=== PATIENT | female | born 1955 | race Caucasian/White ===

== ENCOUNTER 2023-04-20 08:30 | Outpatient (OUT) | payer MEDICARE, OTHER, SELFPAY ==
--- NOTE | 2023-04-20 08:35 | CT_ITS ---
The [address] [address] Patient Name: DHEERAJ VAUGHN MRN: [id number] date: 1955 Sex: F Assigned Patient Location: CT Current Patient Location: CT Accession/Order Number: [id number] Exam Date: 04/20/2023 08:38 Report Date: 04/20/2023 09:04 At the request of: JUAN HAMILTON Procedure: CT chest wo con EXAM: CT chest wo con HISTORY: Abnormal CT Chest R93.89 TECHNIQUE: No IV contrast Dose reduction techniques were achieved by using automated exposure control and/or adjustment of mA and/or kV according to patient size and/or use of iterative reconstruction technique. COMPARISON:CT chest 11/10/2022 FINDINGS: THORACIC INLET: Unremarkable CHEST WALL/AXILLA: No axillary lymphadenopathy HEART: Heart size is normal. Mild calcification of the thoracic aorta. No aneurysm. No pericardial effusion MEDIASTINUM: No significant hilar or mediastinal lymphadenopathy. Incidental calcified mediastinal lymph nodes PLEURAL CAVITY: No pleural effusion or thickening is noted. LUNGS: No lobar consolidation. Mild emphysematous changes noted about the upper lobes. Mild to moderate bronchiolitis involving the right upper lobe, left upper lobe, lingula, right middle lobe and right lower lobe present previously with centrilobular nodular opacities. The findings may be inflammatory, infectious or may relate to hypersensitivity pneumonitis. No significant pulmonary parenchymal nodules noted. VISUALIZED UPPER ABDOMEN: Limited due to lack of intravenous contrast BONES: Degenerative change thoracic spine. CT/CT chest wo con IMPRESSION:No significant change in diffuse bronchiolitis. Mild emphysema. Electronically authenticated by: RADHA KLINE Date: 04/20/2023 09:04
== END 2023-04-20 08:31 | disposition home or self-care (01) ==
LOC: CT 08:30
PROVIDERS: PCP Internal Medicine; Visit Provider Internal Medicine
DX: R93.89 Abnormal findings on diagnostic imaging of other specified body structures (principal); J43.9 Emphysema, unspecified
CPT/HCPCS: 71250

== ENCOUNTER 2023-07-01 08:58 | Outpatient (OUT) | payer MEDICARE, OTHER, SELFPAY ==
--- NOTE | 2023-07-01 09:06 | XR_ITS ---
[address] [address] Patient Name: DHEERAJ VAUGHN MRN: [id number] date: 1955 Sex: F Assigned Patient Location: [facility] Current Patient Location: [facility] Accession/Order Number: [id number] Exam Date: 07/01/2023 09:10 Report Date: 07/01/2023 10:31 At the request of: JUAN HAMILTON Procedure: XR DEXA axial skeleton EXAMINATION: XR DEXA axial skeleton, 07/01/2023 9:10 AM EDT HISTORY: Estrogen Deficiency E28.39 COMPARISON: 2012, 2010. TECHNIQUE: Dual-energy X-ray absorptiometry (DEXA) bone density study performed for the axial skeleton. 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 Endotracheal T score -1.8. WHO classification: Osteopenia Lowest bone mineral density is in the left forearm radius measuring 0.509 g/sq cm. T score -2.9. WHO classification: Osteoporosis XR/XR DEXA axial skeleton IMPRESSION: Osteoporosis. High fracture risk Electronically authenticated by: CHRISTINE HU Date: 07/01/2023 10:31
== END 2023-07-01 08:59 | disposition home or self-care (01) ==
LOC: RAD 08:58
PROVIDERS: PCP Internal Medicine; Visit Provider Internal Medicine
DX: E28.39 Other primary ovarian failure (principal); M81.0 Age-related osteoporosis without current pathological fracture
CPT/HCPCS: 77080

== ENCOUNTER 2024-01-11 07:20 | Outpatient (OUT) | payer MEDICARE, OTHER, SELFPAY ==
--- OUTSIDE RECORDS SUMMARY | 2024-01-11 07:23 | XMS_ITS | CCD ---
Author Organization [facility] Care Team Providers Care Watermelon Inspector Name Role Phone Luis Garcia MD Primary Care Provider [phone] Unavailable Primary Care Provider UnavailLuis Mays II Primary Care Provider [phone] Luis Gacria MD Primary Care Provider [phone] Luis Garcia MD Primary Care Provider Luis Garcia II Primary Care Provider [phone] Luis Garcia II Primary Care Provider [phone] JOSE, DR MARTINEZ Consulting Unavailable JOSE, DR MARTINEZ Primary Care Unavailable JOSE, DR MARTINEZ Admitting Unavailable JOSE, DR MARTINEZ Attending Unavailable HUBERT, DR GIOVANA Mead Consulting Unavailable GARCIA, DR MARTINEZ Consulting Unavailable JOSE, DR MARTINEZ Primary Care Unavailable JOSE, DR MARTINEZ Admitting Unavailable JOSE, DR MARTINEZ Attending Unavailable GARCIA, DR MARTINEZ Consulting Unavailable GARCIA, DR MARTINEZ Primary Care Unavailable GARCIA, DR MARTINEZ Admitting Unavailable JOSE, DR MARTINEZ Attending Unavailable ZIDONALDO, DR GIOVANA Mead Consulting Unavailable SHANT MÉNDEZ Admitting Unavailable SHANT MÉNDEZ Attending Unavailable LUIS GARCIA II Primary Care Unavailable Luis Garcia II Primary Care Provider [phone] Luis Garcia MD Primary Care Provider [phone] LUIS GARCIA Primary Care Unavailable LUIS GARCIA Referring Unavailable LUIS GARCIA Referring Unavailable LUIS GARCIA Primary Care Unavailable Jose MCDANIEL MD, Daniel B Primary Care Provider [phone] SHANT MÉNDEZ Referring Unavailable LUIS GARCIA II Primary Care Unavailable SHANT MÉNDEZ Referring Unavailable LUIS GARCIA II Primary Care Unavailable VEL GALEANA Attending Unavailable LUIS GARCIA II Primary Care Unavailable KOLCZUN, SHANT C Referring Unavailable GARCIA II, LUIS B Primary Care Unavailable SHANT MÉNDEZ Attending Unavailable GARCIA II, LUIS B Primary Care Unavailable SHANT MÉNDEZ Attending Unavailable SELF Referring Unavailable GARCIA II, LUIS B Primary Care Unavailable HONEY, SHANT Torres Referring Unavailable GARCIA II, LUIS B Primary Care Unavailable SCOTCH, VEL Referring Unavailable GARCIA II, LUIS B Primary Care Unavailable SHANT MÉNDEZ Referring Unavailable GARCIA II, LUIS B Primary Care Unavailable SHANT MÉNDEZ Attending Unavailable SHANT MÉNDEZ Referring Unavailable GARCIA II, LUIS B Primary Care Unavailable SCOTCH, VEL Attending Unavailable GARCIA II, LUIS B Primary Care Unavailable SCOTCH, VEL Attending Unavailable GARCIA II, LUIS B Primary Care Unavailable HONEY, SHANT Torres Referring Unavailable GARCIA II, LUIS B Primary Care Unavailable SCOTCH, VEL Referring Unavailable GARCIA II, LUIS B Primary Care Unavailable SHANT MÉNDEZ Attending Unavailable GARCIA II, ULIS B Primary Care Unavailable SHANT MÉNDEZ Referring Unavailable GARCIA II, LUIS B Primary Care Unavailable MARGIE LAL Attending Unavailable MARGIE LAL Referring Unavailable LUIS GARCIA Attending Unavailable MARGIE LAL Attending Unavailable LUIS GARCIA Attending Unavailable LORENA PUENTES Attending Unavailable GARCIA, LUIS B Attending Unavailable Allergies Allergy Classification Reported Allergen(s) Allergy Type Date of Onset Reaction(s) Facility (10 sources) Chlorhexidine; Translations: [CHLORHEXIDINE] Drug Allergy 3 Rash [facility] Work Phone: (10 sources) oxyCODONE; Translations: [OXYCODONE] Drug Allergy 3 GI Upset [facility] Work Phone: (10 sources) Adhesive Tape-Silicones; Translations: [ADHESIVE TAPE-SILICONES] Drug Intolerance 3 Other: See Comments [facility] Work Phone: Medications Current Medications Medication Drug Class(es) Dates Sig (Normalized) Sig (Original) Aspirin-Acetaminophen -Caffeine (EXCEDRIN PO) (6 sources) take 2 tablets by mouth once daily Aspirin-Acetaminoph en-Caffeine (EXCEDRIN PO) Take 2 tablets by mouth daily 0 Active azithromycin 250 mg oral tablet (6 sources) Macrolide Antimicrobial Start: 05-08-2020 azithromycin (ZITHROMAX) 250 MG tablet Indications: Acute maxillary sinusitis, recurrence not specified Take 2 tabs (500 mg) on Day 1, and take 1 tab (250 mg) on days 2 through 5. 1 packet 0 05/08/2020 Active Chondroitin Sulfates / Glucosamine (6 sources) Glucosamine-Alexis yordan itin (GLUCOSAMINE CHONDR COMPLEX PO) Take by mouth 2 times daily 0 Active docosahexaenoic acid 120 mg / eicosapentaenoic acid 180 mg oral capsule (6 sources) take 1 capsule by mouth once daily [place]-3 Fatty Acids (FISH OIL) 1000 MG CAPS Take 1,000 mg by mouth daily 0 Active Multiple Vitamin (MULTI-VITAMIN DAILY PO) (6 sources) Multiple Vitamin (MULTI-VITAMIN DAILY PO) Take by mouth daily 0 Active nitrofurantoin, macrocrystals 25 mg / nitrofurantoin, monohydrate 75 mg oral capsule (1 source) Nitrofuran Antibacterial Start: 11-26-2022 End: 12-01-2022 take 1 capsule by mouth twice daily nitrofurantoin monohydrate and macrocrystal (MACROBID) 100 mg capsule Take 1 capsule by mouth twice daily for 5 days. 10 capsule 0 11/26/2022 12/01/2022 Active Comment on above: Take 1 capsule by [facility] for 5 days. risedronate sodium 35 mg oral tablet (2 sources) Start: 05-08-2020 End: 05-08-2021 risedronate (ACTONEL) 35 MG tablet Indications: Encounter for gynecological examination without abnormal finding , Encounter for preventive health examination , Osteopenia, unspecified location Take 1 tablet by mouth every 7 days 12 tablet 4 05/08/2020 05/08/2021 Active Completed/Discontinued Medications Medication Drug Class(es) Dates Sig (Normalized) Sig (Original) acetaminophen 500 mg oral tablet (19 sources) Start: 11-30-2022 take 2 tablets by mouth every eight hours as needed acetaminophen (TYLENOL EXTRA STRENGTH) 500 mg tablet Take 2 tablets by mouth every 8 hours as needed for pain. 0 11/30/2022 Active Start: 09-25-2021 End: 11-24-2022 take 2 tablets by mouth every eight hours as needed acetaminophen (TYLENOL EXTRA STRENGTH) 500 mg tablet Take 2 tablets by mouth every 8 hours as needed for pain. 0 09/29/2021 11/24/2022 Discontinued (Course of therapy completed) Comment on above: Take 2 tablets by [facility] every 8 hours as needed for pain. alendronic acid 70 mg oral tablet (1 source) Bisphosphonate Start: 0 End: 1 alendronate (FOSAMAX) 70 MG tablet Indications: Osteopenia, unspecified location Take 1 tablet by mouth every 7 days 12 tablet 1 07/30/2020 02/26/2021 Discontinued amoxicillin 500 mg oral tablet (15 sources) Penicillin-class Antibacterial Start: 2 End: 2 Amoxicillin 500 mg tablet Indications: Status post left hip replacement four tabs one hour prior to dental procedure and two tabs six hours after the dental procedure 12 tablet 1 05/27/2022 Active Comment on above: four tabs one hour p rior to dental procedure and two tabs six hours after the dental procedure Ascorbic Acid (20 sources) Vitamin C take 100 mg by mouth once daily Ascorbic Acid (VITAMIN C) 100 MG CHEW Take by mouth daily 0 Active ascorbic acid (V ITAMIN C ORAL) Take by mouth once daily. 0 Active Comment on above: Take by mouth once d aily. aspirin 81 mg delayed release oral tablet (10 sources) Platelet Aggregation Inhibitor, Nonsteroidal Anti-inflammatory Drug Start: 11-30-2022 End: 12-28-2022 take 1 tablet by mouth twice daily aspirin, enteric coated (ECOTRIN LOW STRENGTH) 81 mg EC tablet Indications: blood clot prevention Take 1 tablet by mouth twice daily for 28 days. 56 tablet 0 11/30/2022 Active Start: 09-29-2021 End: 11-24-2022 take 1 tablet by mouth twice daily aspirin, enteric coated (ECOTRIN LOW STRENGTH) 81 mg EC tablet Indications: blood clot prevention Take 1 tablet by mouth twice daily for 28 days. 56 tablet 0 09/29/2021 11/24/2022 Discontinued (Course of therapy completed) Comment on above: Take 1 tablet by [facility] twice daily for 28 days. cetirizine hydrochloride 10 mg oral tablet (20 sources) Histamine-1 Receptor Antagonist take 1 tablet by mouth once daily cetirizine (ZYRTEC) 10 mg tablet Take 10 mg by mouth once daily. 0 Active Comment on above: Take 10 mg by mouth once daily. docusate sodium 100 mg oral capsule (12 sources) Start: 12-01-19 take 1 capsule by mouth twice daily as needed for constipation docusate sodium (COLACE) 100 mg capsule Indications: constipation Take 1 capsule by mouth twice daily as needed for constipation. 60 capsule 0 11/30/2022 Active Start: 09-29-2021 End: 11-24-2022 take 1 capsule by mouth twice daily as needed for constipation docusate sodium (COLACE) 100 mg capsule Indications: constipation Take 1 capsule by mouth twice daily as needed for constipation. 60 capsule 0 09/29/2021 11/24/2022 Discontinued (Course of therapy completed) Comment on above: Take 1 capsule by [facility] twice daily as needed for constipation. Garlic preparation (20 sources) Non-Standardized Food Allergenic Extract garlic (GARLIQUE ORA L) Take by mouth once daily. 0 Active Garlic 10 MG CAP S Take by mouth daily 0 Active Comment on above: Take by mouth once d aily. glucosamine/msm/chondr oitin A (AEQDYLNACKX-RIITIX-FT M ORAL) (7 sources) End: 11-24-2022 glucosamine/msm/chondroiti n A ([id number]-[id number]-UGQ ORAL) Take by mouth once daily. 0 11/24/2022 Discontinued (Course of therapy completed) glucosamine/msm/ chondroitin A (VKSVIGYAVFF-FYAZJT-KHS ORAL) Take by mouth once daily. 0 Active Comment on above: Take by mouth once d aily. 10 ml lidocaine hydrochloride 10 mg/ml injection (1 source) Antiarrhythmic, Amide Local Anesthetic Start: 02-25-2023 End: 02-25-2023 lidocaine (PF) 10 mg/mL (1 %) 8 mL injection (XYLOCAINE) Start: 02-25-2023 End: 02-25-2023 lidocaine (PF) 10 mg/mL (1 % ) 8 mL injection (XYLOCAINE) multivit with calcium,iron,min (WOMEN'S MULTIPLE VITAMINS ORAL) (14 sources) multivit with calcium,iron,min (WOMEN'S MULTIPLE VITAMINS ORAL) Take by mouth once daily. 0 Active Comment on above: Take by mouth once d aily. AEYKM-0-QBB-EPA-DPA-FIS H OIL ORAL (14 sources) GCCRL-7-YMF-EPA- DPA-FI SH OIL ORAL Take by mouth once daily. 0 Active Comment on above: Take by mouth once d aily. oxyCODONE hydrochloride 5 mg oral tablet (7 sources) Opioid Agonist Start: End: take 1 tablet by mouth every four to six hours as needed oxyCODONE IR (ROXICODONE) 5 mg immediate release tablet Indications: S/P hip replacement, left Take 1-2 tablets by mouth every 4-6 hours as needed for pain 50 tablet 0 09/29/2021 11/24/2022 Discontinued (Side Effects) Comment on above: Take 1-2 tablets by mouth every 4-6 hours as needed for pain propranolol hydrochloride 20 mg oral tablet (20 sources) beta-Adrenergic Danielle Start: take 1 tablet by mouth twice daily propranolol (INDERAL) 20 mg tablet Take 20 mg by mouth twice daily. 0 09/04/2021 Active Comment on above: Take 20 mg by mouth twice daily. traMADol hydrochloride 50 mg oral tablet (5 sources) Opioid Agonist Start: take 1 tablet by mouth every four to six hours as needed for pain traMADol (ULTRAM) 50 mg tablet Indications: pain Take 1 tablet by mouth every 4-6 hours as needed for pain 50 tablet 0 11/30/2022 Active Comment on above: Take 1 tablet by [facility] every 4-6 hours as needed for pain 1 ml triamcinolone acetonide 40 mg/ml injection (1 source) Corticosteroid Start: End: triamcinolone acetonide 80 mg injection (KeNALog 40) Start: 02-25-2023 End: 02-25-2023 triamcinolone acetonide 80 m g injection (KeNALog 40) Problems Active Problems Problem Classification Problem Date Documented Date Episodic/Chronic Bacterial infection; unspecified site (1 source) Methicillin resistant Staphylococcus aureus infection; Translations: [Methicillin resistant Staphylococcus aureus infection, unspecified site] Episodic Cardiac dysrhythmias (17 sources) Supraventricular tachycardia; Translations: [Supraventricular tachycardia] Onset: 09-21-2021 09-21-2021 Chronic Chronic obstructive pulmonary disease and bronchiectasis (15 sources) Chronic obstructive lung disease; Translations: [Chronic obstructive pulmonary disease, unspecified] Onset: 09-21-2021 09-21-2021 Chronic Conduction disorders (14 sources) Incomplete right bundle branch block; Translations: [Unspecified right bundle-branch block] Onset: 09-21-2021 09-21-2021 Chronic Diabetes mellitus with complications (5 sources) Type 2 diabetes mellitus with hyperglycemia; Translations: [TYPE 2 DM W/HYPERGLYCEMIA] Onset: 04-28-2022 Chronic Disorders of lipid metabolism (1 source) Hyperchylomicronemia; 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] Onset: 04-29-2022 Chronic Osteoarthritis (20 sources) Osteoarthritis of left hip joint; Translations: [Unilateral primary osteoarthritis, left hip] Onset: 09-21-2021 09-29-2021 Chronic Other aftercare (15 sources) Patient encounter status; Translations: [Aftercare following joint replacement surgery] Onset: 10-23-2021 10-23-2021 Chronic Other aftercare (1 source) Aftercare following joint replacement surgery; Translations: [Aftercare following left hip joint replacement surgery] Onset: 10-23-2021 Chronic Other bone disease and musculoskeletal deformities (1 source) Osteopenia; Translations: [Other specified disorders of bone density and structure, unspecified site] Episodic Other connective tissue disease (20 sources) History of repair of hip joint; Translations: [Presence of left artificial hip joint] Onset: 10-23-2021 Chronic Other connective tissue disease (2 sources) Presence of right artificial hip joint; Translations: [S/P hip replacement, right] Onset: 11-30-2022 Chronic Other connective tissue disease (2 sources) Presence of left artificial hip joint; Translations: [Status post left hip replacement] Onset: 10-23-2021 Chronic Other endocrine disorders (4 sources) Hypoglycemia, unspecified; Translations: [HYPOGLYCEMIA UNSPECIFIED] Onset: 11-10-2022 Chronic Other nervous system disorders (1 source) Other acute postprocedural pain; Translations: [Postoperative pain] Onset: 11-30-2022 Episodic Other screening for suspected conditions (not mental disorders or infectious disease) (1 source) Abnormal findings on diagnostic imaging of other specified body structures; Translations: [ABNORML FIND DX IMG OTH BODY STRUC] Onset: 11-18-2022 Chronic Past or Other Problems Problem Classification Problem Date Documented Date Episodic/Chronic Diabetes mellitus without complication (1 source) Impaired glucose tolerance (oral); Translations: [IMPAIRED GLUCOSE TOLERANCE ORAL] Onset: 04-29-2022 Episodic Genitourinary symptoms and ill-defined conditions (2 sources) Increased frequency of urination; Translations: [Frequency of micturition] Onset: 11-24-2022 Episodic Other screening for suspected conditions (not mental disorders or infectious disease) (9 sources) Radiology result abnormal; Translations: [Abnormal findings on diagnostic imaging of other parts of musculoskeletal system] Onset: 11-24-2022 Episodic Residual codes; unclassified (1 source) Other specified health status; Translations: [OTHER SPECIFIED HEALTH STATUS] Onset: 04-29-2022 Episodic Screening and history of mental health and substance abuse codes (19 sources) Ex-smoker; Translations: [Personal history of nicotine dependence] Onset: 09-21-2021 09-21-2021 Episodic Results Test Name Value Interpretation Reference Range Facility [facility] 10-04-2023 CNOV Office Visit (LOORRM ) MARY VAUGHN ([id number]) 1955 F DEF Date Time Provider Department 10/04/23 10:30 AM VEL GALEANA During your visit today, we recorded the following information about you: Vel Galeana PA-C 10/04/2023 12:45 PM Signed This document has been created with the use of voice recognition technology. It may contain inaccuracies: misspellings, inaccurate syntax or word sense that escaped review. Chief complaint: Recheck of right and left hips Right THR 09/01/2022 (1 year) Left THR 09/17/2020 (3 years) HISTORY: Mary is a 68 year old female. Patient comes in today for follow up of her right and left hips thank you. Patient has a past medical history, medications and allergies were reviewed. She reports that she is doing great.. She states she is back to walking in the [place] with her dog and does not have to worry about whether she can pick her feet up enough to not trip. She is back to doing everything that she wants to and very excited about this. Her knee pain has not recurred since the injection in January. Pain level in all joints is 0. No other musculoskeletal complaints ROS : REVIEW OF SYMPTOMS: Constitutional: patient denies any recent fever or significant change in weight Gastrointestinal: patient denies any current abdominal discomfort Musculoskeletal: as noted in the HPI Neurologic: as noted in the HPI SOCIAL HISTORY: Tobacco Use: 1 packs/day, for 30 years. Quit 08/29/2010. Types: Cigarettes PAST MEDICAL HISTORY Diagnosis Date Deaf Osteoporosis Paroxysmal supraventricular tachycardia (HCC) PAST SURGICAL HISTORY Procedure Laterality Date COLONOSCOPY SCREENING PAST SURGICAL HISTORY OF Trigger finger TONSILLECTOMY HX TOOTH EXTRACTION wisdom teeth TOTAL HIP REPLACEMENT Left 2021 Medications reviewed. ALLERGIES Allergen Reactions Adhesive Tape-Silic* Other: See Comments blisters from Silverlon dressing Chlorhexidine Rash rash and itching from preop wipes Oxycodone GI Upset Social History Tobacco Use Smoking status: Former Packs/day: 1.00 Years: 30.00 Additional pack years: 0.00 Total pack years: 30.00 Types: Cigarettes Quit date: 2010 Years since quittin.1 Smokeless tobacco: Never Substance Use Topics Alcohol use: Not Currently Comment: denies tx for drug/alcohol abuse in the past. Drug use: Never EXAMINATION: GENERAL: Appears healthy, well-nourished, no deformities. ORIENTATION: Alert and oriented to person place and time HABITUS: Normal GAIT: Ambulating with normal gait On physical exam of the hips today, she has excellent hip range of motion bilaterally without irritability. No instability. Negative SLR for radicular symptoms. No significant tenderness. Neurovascular is intact. Rises from chair without difficulty. X-rays of the hips RADIOGRAPHS: Personally reviewed by myself demonstrating right and left THR components in satisfactory position with good interfaces noted. No evidence of wear or loosening. Leg lengths are essentially equal. IMPRESSION: Encounter Diagnosis ICD-10-CM 1. Status post right hip replacement Z96.641 XR PELVIS 1V AP Plan: She is doing great and is very pleased with her progress. Back to doing everything that she wants to. We discussed limitations such as no running or jumping as well as antibiotic prophylaxis. Follow-up in 1 year for annual recheck or sooner for the pain recurs. Vel Galeana PA-C October 04, 2023 10:48 AM Allergies As of Date: 10/04/2023 Noted Allergy Reaction ADHESIVE TAPE-SILICONES 11/24/2022 14 - Other: See Comments Comments: blisters from Silverlon dressing CHLORHEXIDINE 11/24/2022 2 - Rash Comments: rash and itching from preop wipes OXYCODONE 11/24/2022 8 - GI Upset Date Reviewed: 10/04/2023 Reviewed by: Mary Quigley MA - Fully Assessed Reason for Visit: Established Patient [175] Follow Up [171] Hip Replacement [324] Established Patient [175] Follow Up [171] Hip Replacement [324] Primary Visit Diagnosis:Status post right hip replacement [Z96.641] Other Visit Diagnosis:Status post left hip replacement [Z96.642] Order(s):XR PELVIS 1V AP [[id number]] Order #: [id number] FUTURE Prescriptions as of 10/04/2023 - docusate sodium (COLACE) 100 mg capsule Take 1 capsule by mouth twice daily as needed for constipation. - acetaminophen (TYLENOL EXTRA STRENGTH) 500 mg tablet Take 2 tablets by mouth every 8 hours as needed for pain. - traMADol (ULTRAM) 50 mg tablet Take 1 tablet by mouth every 4-6 hours as needed for pain - aspirin, enteric coated (ECOTRIN LOW STRENGTH) 81 mg EC tablet Take 1 tablet by mouth twice daily for 28 days. - Amoxicillin 500 mg tablet four tabs one hour prior to dental procedure and two tabs six hours after the dental procedure - [id number] ANTONIO OIL ORAL Take by mouth once daily. - multivit (more content not included)... [facility] XR PELVIS 1V APon 10-04-2023 XR PELVIS 1V AP * * *Final Report* * * DATE OF EXAM: Oct 04 2023 11:04AM LZX [id number] - XR PELVIS 1V AP / PROCEDURE REASON: Status post right hip replacement * * * * Physician Interpretation * * * * EXAM: XR PELVIS 1V AP HISTORY: Status post right hip replacement . status post bilateral hip replacement TECHNIQUE: XR PELVIS 1V AP Laterality: NOT APPLICABLE Number of different views (projections): 1 COMPARISON: 02/07/2023 RESULT: BONES: Stable bilateral total hip arthroplasties. No perihardware lucency or fracture. No subsidence of the femoral components. JOINT SPACES: Joint spaces are maintained. No dislocation or erosion. SOFT TISSUES: Scattered foci of heterotopic ossification about the right hip. IMPRESSION: Stable bilateral hip arthroplasties. Extension Work Director: EFRAIN Transcribe Date/Time: Oct 04 2023 3:37P Dictated by : JAYE PAYTON MD This examination was interpreted and the report reviewed and electronically signed by: JAYE PAYTON MD on Oct 04 2023 3:39PM EST [id number] Normal [facility] EDITH HERMINIA DIGITAL SCREEN BILA LASHANDAALon 04-18-2023 EDITH HERMINIA DIGITAL SCREEN BILATERAL EXAMINATION: SCREENING DIGITAL BILATERAL MAMMOGRAM WITH TOMOSYNTHESIS, 04/18/2023 TECHNIQUE: Screening mammography was performed with tomosynthesis including MLO and CC views of the bilateral breasts. Computer aided detection was used for the interpretation of this exam. COMPARISON: 2022 and February 26, 2021 HISTORY: Screening. FINDINGS: The breasts are heterogeneously dense which can obscure small masses. There is no dominant mass architectural distortion or concerning grouping of microcalcification in either breast. IMPRESSION: No mammographic evidence of malignancy BIRADS: BIRADS - CATEGORY 1 Negative. Normal interval follow-up is recommended in 12 months. OVERALL ASSESSMENT - NEGATIVE A letter of notification will be sent to the patient regarding the results. [employer] recommends annual mammograms for women 40 years and older. Interpreted by: Timothy Rodriguez DO Signed by: Timothy Rodriguez DO 04/18/23 Final result Normal [facility] No mammographic evidence of malignancy BIRADS: BIRADS - CATEGORY 1 Negative. Normal interval follow-up is recommended in 12 months. OVERALL ASSESSMENT - NEGATIVE A letter of notification will be sent to the patient regarding the results. [employer] recommends annual mammograms for women 40 years and older. [facility] RIS CONSOLIDATED EXAMINATION: SCREENING DIGITAL BILATERAL MAMMOGRAM WITH TOMOSYNTHESIS, 04/18/2023 TECHNIQUE: Screening mammography was performed with tomosynthesis including MLO and CC views of the bilateral breasts. Computer aided detection was used for the interpretation of this exam. COMPARISON: 2022 and February 26, 2021 HISTORY: Screening. FINDINGS: The breasts are heterogeneously dense which can obscure small masses. There is no dominant mass architectural distortion or concerning grouping of microcalcification in either breast. PN RIS CONSOLIDATED Radiology Study observation (narrative) [employer] EDITH HERMINIA DIGITAL SCREEN BILA TERALOrdered By: Timothy Rodriguez on 04-18-2023 [employer] Work Phone: [facility]on 02-25-2023 CNOV Office Visit (LOORRM ) MARY VAUGHN ([id number]) 1955 F DEF Date Time Provider Department 02/25/23 12:00 PM SHANT MÉNDEZ During your visit today, we recorded the following information about you: Shant Méndez II, MD 02/25/2023 3:42 PM Signed Large Joint Arthro/Inj: R knee joint Informed Consent Consent Obtained: Verbal [place] Protocol A moment to CARE was completed. SIGN IN Personnel directly involved with the procedure wore the appropriate PPE. Special Equipment: N/A Patient/Surrogate Stated/Verified: Patient name, Date of , Relevant allergies and Intended procedure TIME OUT Intended patient and procedure match the source document(s). Consent documented and matches the intended procedure. Relevant labs, photos, and/or imaging studies have been reviewed. Correct side/site marked and visible. Medications required for procedure verified. 02/25/2023 3:41 PM The procedure site was prepped in the usual sterile fashion. Site: R knee joint Medications: 80 mg triamcinolone acetonide 40 mg/mL Anesthetics: 8 mL lidocaine (PF) 10 mg/mL (1 %) Outcome: Tolerated well, no immediate complications Post-injection instructions were reviewed with the patient and the patient voiced understanding of these instructions. Third alliance party verified by Mary Quigley MA. Referring Provider: SELF [[id number]] Allergies As of Date: 02/25/2023 Noted Allergy Reaction ADHESIVE TAPE-SILICONES 11/24/2022 14 - Other: See Comments Comments: blisters from Silverlon dressing CHLORHEXIDINE 11/24/2022 2 - Rash Comments: rash and itching from preop wipes OXYCODONE 11/24/2022 8 - GI Upset Date Reviewed: 02/07/2023 Reviewed by: Shant Méndez MD - Fully Assessed Primary Visit Diagnosis:Primary osteoarthritis of right knee [M17.11] Order(s):XR KNEE GENERAL 4V AP BOTH/PA BOTH/LAT/MERC RIGHT [[id number]] Order #: [id number] FUTURE Large Joint Arthro/Inj: R knee joint [YKV558] Order #: [id number] [] lidocaine (PF) 10 mg/mL (1 %) 8 mL injection (XYLOCAINE)Disp: Rfl: [] triamcinolone acetonide 80 mg injection (KeNALog 40)Disp: Rfl: Prescriptions as of 02/25/2023 - docusate sodium (COLACE) 100 mg capsule Take 1 capsule by mouth twice daily as needed for constipation. - acetaminophen (TYLENOL EXTRA STRENGTH) 500 mg tablet Take 2 tablets by mouth every 8 hours as needed for pain. - traMADol (ULTRAM) 50 mg tablet Take 1 tablet by mouth every 4-6 hours as needed for pain - aspirin, enteric coated (ECOTRIN LOW STRENGTH) 81 mg EC tablet Take 1 tablet by mouth twice daily for 28 days. - Amoxicillin 500 mg tablet four tabs one hour prior to dental procedure and two tabs six hours after the dental procedure - MJEGA-4-WSD-EPA-DPA-F ANTONIO OIL ORAL Take by mouth once daily. - multivit with calcium,iron,min (WOMEN'S MULTIPLE VITAMINS ORAL) Take by mouth once daily. - ascorbic acid (VITAMIN C ORAL) Take by mouth once daily. - propranolol (INDERAL) 20 mg tablet Take 20 mg by mouth twice daily. - garlic (GARLIQUE ORAL) Take by mouth once daily. - cetirizine (ZYRTEC) 10 mg tablet Take 10 mg by mouth once daily. Problem List As Of Date 02/25/2023 Noted Resolved Primary osteoarthritis of left hip [M16.12] 09/21/2021 Emphysema of lung (HCC) [J43.9] 09/21/2021 Former smoker [Z87.891] 09/21/2021 SVT (supraventricular tachycardia) ([facility]) [I47.1]09/21/2021 Incomplete RBBB [I45.10] 09/21/2021 Aftercare following left hip joint replacement *10/23/2021 Status post left hip replacement [Z96.642] 10/23/2021 Primary osteoarthritis of right hip [M16.11] 10/23/2021 Status post right hip replacement [Z96.641] 12/22/2022 Prescriptions ordered this encounter Disp Refills Start End LIDOCAINE (PF) 10 MG/ML (1 %) INJECT* 02/25/2023 02/25/2023 Route: Inj-ORTHO TRIAMCINOLONE ACETONIDE 40 MG/ML SUSAN* 02/25/2023 02/25/2023 Route: Inj-ORTHO Encounter Status:Closed by SHANT MÉNDEZ II on 02/25/23 [facility] XR KNEE 4V AP/PA BOTH+LAT/ME R RTon 02-25-2023 XR KNEE 4V AP/PA BOTH+LAT/ARNOLD RT * * *Final Report* * * DATE OF EXAM: Feb 25 2023 1:56PM LZX 5203 - XR KNEE 4V AP/PA BOTH+LAT/ARNOLD RT / PROCEDURE REASON: Primary osteoarthritis of right knee * * * * Physician Interpretation * * * * EXAMINATION: XR KNEE 4V AP/PA BOTH+LAT/ARNOLD RT PATIENT/TECHNOLOGIST PROVIDED HISTORY: pain rt knee CLINICAL INFORMATION ( PROVIDED BY ORDERING CLINICIAN) : Primary osteoarthritis of right knee TECHNIQUE: XR KNEE 4V AP/PA BOTH+LAT/ARNOLD RT Laterality: RIGHT Number of different views (projections): 4 M: XB_1 COMPARISON: 02/07/2023 RESULT: No acute fracture or dislocation. Mild tricompartment joint space narrowing similar to the prior exam. Chondrocalcinosis is again seen. No joint effusion. IMPRESSION: Mild osteoarthritis and chondrocalcinosis of the right knee without interval change. Extension Work Director: PSCB Transcribe Date/Time: Feb 25 2023 2:28P Dictated by : BROOKS SOLO MD This examination was interpreted and the report reviewed and electronically signed by: BROOKS SOLO MD on Feb 25 2023 2:29PM EST [id number] N [facility] XR KNEE GENERAL 4V AP BOTH/P A BOTH/LAT/MERC RIGHTon 02-25-[address] [facility] ic CNOVon 02-07-2023 CNOV Office Visit (LOORRM ) MARY VAUGHN ([id number]) 1955 F DEF Date Time Provider Department 02/07/23 2:00 PM SHANT MÉNDEZ During your visit today, we recorded the following information about you: Shant Méndez II, MD 02/10/2023 2:28 PM Signed [facility] [address] [place] [address] CLINIC NOTE Department of Orthopaedics - Jose Eduardo Méndez II, M.D. NAME: GENE VAUGHNA CLINIC NO.: [id number] DATE OF SERVICE: 02/07/2023 CHIEF COMPLAINT: Recheck of right knee and both hips. Right THR, 11/30/2022 - 2 months. Left THR to 09/17/2021 - 1 year plus new. The patient is having pain in her right knee for the last 2 months. She fell in the grass on 01/12/2023, at home, catching her foot on the sidewalk. She has now been walking on the backyard [place], taking her new [place] the [place]. Has a 1 plus effusion of the right knee. No gross ligamentous instability. Neurovascularly intact. Recommend walk on the driveway and no walking on even ground. No significant problems with her right hip. X-rays shows total hip replacements, bilateral in excellent position. See back in 1 month. Dictated By: Shant Méndez II, M.D. Date Dictated: 02/07/2023 Date Typed: kenneth 02/08/2023 JOB# [id number] Shant Méndez II, MD 02/22/2023 1:48 PM Signed see dictated note Shant Méndez II, MD Spouting Installer: Transcribed Clinic Note (gilberto) ID: [id number] Author: SHANT MÉNDEZ Signed by SHANT MÉNDEZ MD on 02/10/2023 at 2:28 PM Document text: [facility] [address] [place], [place] [address] CLINIC NOTE Department of Orthopaedics - Jose Eduardo Méndez II, M.D. NAME: MARY VAUGHN [facility] NO.: [id number] DATE OF SERVICE: 02/07/2023 CHIEF COMPLAINT: Recheck of right knee and both hips. Right THR, 11/30/2022 - 2 months. Left THR to 09/17/2021 - 1 year plus new. The patient is having pain in her right knee for the last 2 months. She fell in the grass on 01/12/2023, at home, catching her foot on the sidewalk. She has now been walking on the [place], [place]. Has a 1 plus effusion of the right knee. No gross ligamentous instability. Neurovascularly intact. Recommend walk on the driveway and no walking on even ground. No significant problems with her right hip. X-rays shows total hip replacements, bilateral in excellent position. See back in 1 month. Dictated By: Shant Méndez II, M.D. Date Dictated: 02/07/2023 Date Typed: kenneth 02/08/2023 JOB# [id number] ----- Referring Provider: SELF [200] Allergies As of Date: 02/07/2023 Noted Allergy Reaction ADHESIVE TAPE-SILICONES 11/24/2022 14 - Other: See Comments Comments: blisters from Silverlon dressing CHLORHEXIDINE 11/24/2022 2 - Rash Comments: rash and itching from preop wipes OXYCODONE 11/24/2022 8 - GI Upset Date Reviewed: 02/07/2023 Reviewed by: Shant Méndez MD - Fully Assessed Primary Visit Diagnosis:Status post right hip replacement [Z96.641] Other Visit Diagnoses:Status post left hip replacement [Z96.642] Primary osteoarthritis of right knee [M17.11] Order(s):XR KNEE GENERAL 4V AP BOTH/PA BOTH/LAT/MERC RIGHT [[id number]] Order #: [id number] FUTURE XR PELVIS 1V AP [[id number]] Order #: [id number] FUTURE Prescriptions as of 02/22/2023 - docusate sodium (COLACE) 100 mg capsule Take 1 capsule by mouth twice daily as needed for constipation. - acetaminophen (TYLENOL EXTRA STRENGTH) 500 mg tablet Take 2 tablets by mouth every 8 hours as needed for pain. - traMADol (ULTRAM) 50 mg tablet Take 1 tablet by mouth every 4-6 hours as needed for pain - aspirin, enteric coated (ECOTRIN LOW STRENGTH) 81 mg EC tablet Take 1 tablet by mouth twice daily for 28 days. - Amoxicillin 500 mg tablet four tabs one hour prior to dental procedure and two tabs six hours after the dental procedure - YOPHV-6-SWX-EPA-DPA-F ANTONIO OIL ORAL Take by mouth once daily. - multivit with calcium,iron,min (WOMEN'S MULTIPLE VITAMINS ORAL) Take by mouth once daily. - ascorbic acid (VITAMIN C ORAL) Take by mouth once daily. - propranolol (INDERAL) 20 mg tablet Take 20 mg by mouth twice daily. - garlic (GARLIQUE ORAL) Take by mouth once daily. - cetirizine (ZYRTEC) 10 mg tablet Take 10 mg by mouth once daily. Problem List As Of Date 02/07/2023 Noted Resolved Primary osteoarthritis of left hip [M16.12] 09/21/2021 Emphysema of lung (HCC) [J43.9] 09/21/2021 Former smoker [Z87.891] 09/21/2021 SVT (supraventricular tachycardia) ([facility]) [I47.1]09/21/2021 Incomplete RBBB [I45.10] 09/21/2021 Aftercare following left hip joint replacement *10/23/2021 Status post left hip replacement [Z96.642] 10/23/2021 Primary osteoarthritis of ri (more content not included)... [facility] No Panel Informationon 02-07 [facility] XR KNEE 4V AP/PA BOTH+LAT/ME R RTon 02-07-2023 XR KNEE 4V AP/PA BOTH+LAT/ARNOLD RT * * *Final Report* * * DATE OF EXAM: Feb 07 2023 2:15PM LZX 5203 - XR KNEE 4V AP/PA BOTH+LAT/ARNOLD RT / PROCEDURE REASON: Primary osteoarthritis of right knee * * * * Physician Interpretation * * * * HISTORY: Primary osteoarthritis of right knee . Post op hips, pain in right knee TECHNIQUE: XR KNEE 4V AP/PA BOTH+LAT/ARNOLD RT COMPARISON: None RESULT: Mild medial and mild to moderate patellofemoral compartment narrowing bilaterally. Chondrocalcinosis bilaterally. No fractures. No joint effusion. Normal soft tissues. No other significant abnormality. --- IMPRESSION: MILD DEGENERATIVE CHANGES Extension Work Director: EFRAIN Transcribe Date/Time: Feb 07 2023 2:56P Dictated by : LANA CONNOLLY MD This examination was interpreted and the report reviewed and electronically signed by: LANA CONNOLLY MD on Feb 07 2023 2:58PM EST [id number] N [facility] XR PELVIS 1V APon 02-07-2023 XR PELVIS 1V AP * * *Final Report* * * DATE OF EXAM: Feb 07 2023 2:15PM LZX 5239 - XR PELVIS 1V AP / PROCEDURE REASON: multiple diagnoses * * * * Physician Interpretation * * * * HISTORY: Status post right hip replacement Status post left hip replacement . Post op hips, pain in right knee TECHNIQUE: XR PELVIS 1V AP COMPARISON: 12/22/2022 RESULT: No significant interval change. Status post bilateral total hip arthroplasties. Hardware in normal position without evidence of failure or loosening. No evidence of a fracture. The superior pelvis is not visualized. No other significant abnormality. --- IMPRESSION: NORMAL POSTOPERATIVE FINDINGS Extension Work Director: EFRAIN Transcribe Date/Time: Feb 07 2023 2:58P Dictated by : LANA CONNOLLY MD This examination was interpreted and the report reviewed and electronically signed by: LANA CONNOLLY MD on Feb 07 2023 2:59PM EST [id number] N [facility] CNOVon 01-14-2023 CNOV Office Visit (LOORRM ) MARY VAUGHN ([id number]) 1955 F DEF Date Time Provider Department 01/14/23 12:00 PM SHANT MÉNDEZ During your visit today, we recorded the following information about you: Shant Méndez II, MD 01/14/2023 4:03 PM Signed see dictated note Shant Méndez II, MD Referring Provider: SELF [200] Allergies As of Date: 01/14/2023 Noted Allergy Reaction ADHESIVE TAPE-SILICONES 11/24/2022 14 - Other: See Comments Comments: blisters from Silverlon dressing CHLORHEXIDINE 11/24/2022 2 - Rash Comments: rash and itching from preop wipes OXYCODONE 11/24/2022 8 - GI Upset Date Reviewed: 01/14/2023 Reviewed by: Mary Quigley MA - Fully Assessed Reason for Visit: Established Patient [175] Hip Replacement [324] Post Op [174] Primary Visit Diagnosis:Status post right hip replacement [Z96.641] Other Visit Diagnosis:Status post left hip replacement [Z96.642] Prescriptions as of 01/14/2023 - docusate sodium (COLACE) 100 mg capsule Take 1 capsule by mouth twice daily as needed for constipation. - acetaminophen (TYLENOL EXTRA STRENGTH) 500 mg tablet Take 2 tablets by mouth every 8 hours as needed for pain. - traMADol (ULTRAM) 50 mg tablet Take 1 tablet by mouth every 4-6 hours as needed for pain - aspirin, enteric coated (ECOTRIN LOW STRENGTH) 81 mg EC tablet Take 1 tablet by mouth twice daily for 28 days. - Amoxicillin 500 mg tablet four tabs one hour prior to dental procedure and two tabs six hours after the dental procedure - STEPY-4-EIB-EPA-DPA-F ANTONIO OIL ORAL Take by mouth once daily. - multivit with calcium,iron,min (WOMEN'S MULTIPLE VITAMINS ORAL) Take by mouth once daily. - ascorbic acid (VITAMIN C ORAL) Take by mouth once daily. - propranolol (INDERAL) 20 mg tablet Take 20 mg by mouth twice daily. - garlic (GARLIQUE ORAL) Take by mouth once daily. - cetirizine (ZYRTEC) 10 mg tablet Take 10 mg by mouth once daily. Problem List As Of Date 01/14/2023 Noted Resolved Primary osteoarthritis of left hip [M16.12] 09/21/2021 Emphysema of lung (HCC) [J43.9] 09/21/2021 Former smoker [Z87.891] 09/21/2021 SVT (supraventricular tachycardia) ([facility]) [I47.1]09/21/2021 Incomplete RBBB [I45.10] 09/21/2021 Aftercare following left hip joint replacement *10/23/2021 Status post left hip replacement [Z96.642] 10/23/2021 Primary osteoarthritis of right hip [M16.11] 10/23/2021 Status post right hip replacement [Z96.641] 12/22/2022 Encounter Status:Closed by SHANT MÉNDEZ II on 01/14/23 [facility] 12-22-2022 [facility] Office Visit (LOORRM ) MARY VAUGHN ([id number]) 1955 F DEF Date Time Provider Department 12/22/22 10:30 AM VEL GALEANA During your visit today, we recorded the following information about you: Vel Galeana PA-C 12/22/2022 11:35 AM Signed This document has been created with the use of voice recognition technology. It may contain inaccuracies such as misspellings, inaccurate syntax or word sense that escaped review. Chief complaint: Recheck of right hip Right THR 11/30/2022 (3 weeks) Left THR 09/29/2021 (1 year) HISTORY: Mary is a 67 year old female. Patient comes in today for follow up of her right hip postoperatively. She reports that she is doing quite well. She states pain is well controlled with no medication. Did have some GI upset for the first couple of weeks. Making good progress with physical therapy. Pain level 0/10. No other musculoskeletal complaints PAST MEDICAL HISTORY Diagnosis Date Deaf Osteoporosis Paroxysmal supraventricular tachycardia (HCC) PAST SURGICAL HISTORY Procedure Laterality Date COLONOSCOPY SCREENING PAST SURGICAL HISTORY OF Trigger finger TONSILLECTOMY HX TOOTH EXTRACTION wisdom teeth TOTAL HIP REPLACEMENT Left 2021 Medications reviewed. ALLERGIES Allergen Reactions Adhesive Tape-Silic* Other: See Comments blisters from Silverlon dressing Chlorhexidine Rash rash and itching from preop wipes Oxycodone GI Upset Social History Tobacco Use Smoking status: Former Packs/day: 1.00 Years: 30.00 Pack years: 30.00 Types: Cigarettes Quit date: 2010 Years since quittin.3 Smokeless tobacco: Never Substance Use Topics Alcohol use: Not Currently Comment: denies tx for drug/alcohol abuse in the past. Drug use: Never EXAMINATION: GENERAL: Appears healthy, well-nourished, no deformities. ORIENTATION: Alert and oriented to person place and time HABITUS: Normal GAIT: Ambulates with a slight flat-footed short stance gait with her cane but can correct this when she concentrates and ambulates with a perfectly normal gait with and without her cane. On physical exam of the right hip today, Appearance: No warmth or redness, wound is healing satisfactorily with no sign of infection. Calf is soft and nontender. Negative Homans. Tenderness: Moderate tightness and tenderness of the soft tissues of the lateral hip Swelling: Minimal swelling of the lateral hip itself, no swelling distally Range of motion: Tolerates gentle hip motion easily, with just tightness at extremes RADIOGRAPHS: Personally reviewed by myself and with the patient today demonstrating left THR components in satisfactory position with good interfaces noted. No evidence of wear or loosening. Leg lengths are essentially equal. No other osseous abnormalities. IMPRESSION: Encounter Diagnosis ICD-10-CM 1. Aftercare following left hip joint replacement surgery Z47.1 XR PELVIS 1V AP Z96.642 2. Status post right hip replacement Z96.641 She is doing quite well and is pleased with her progress. She may advance her weightbearing as tolerated. We discussed walking for exercise to build her stamina and paying attention to her gait. Discussed tissue massage. Follow-up in 3 weeks for 6-week recheck. Vel Galeana PA-C December 22, 2022 11:02 AM Vel Galeana PA-C 12/22/2022 11:04 AM Signed Continue Physical Therapy Walk twice a day for exercise paying attention to your gait. Heel to toe and longer strides. You may wash the incision and treat like normal skin. Tissue massage to the skin around the incision to loosen it up, 2 minutes multiple times a day. You may use lotion on the incision/glue several times a day to soften the glue. Do not pick at the scabs. Let them fall off on their own. You may use heat on a low setting to relax tissues. Use Ice after activity/exercise. Heat loosen things up, Ice quiets things down. Referring Provider: SELF [200] Allergies As of Date: 12/22/2022 Noted Allergy Reaction ADHESIVE TAPE-SILICONES 11/24/2022 14 - Other: See Comments Comments: blisters from Silverlon dressing CHLORHEXIDINE 11/24/2022 2 - Rash Comments: rash and itching from preop wipes OXYCODONE 11/24/2022 8 - GI Upset Date Reviewed: 12/22/2022 Reviewed by: Vel Galeana PA-C - Fully Assessed Reason for Visit: Established Patient [175] Post Op [174] Primary Visit Diagnosis:Aftercare following left hip joint replacement surgery [Z47.1, Z96.642] Other Visit Diagnosis:Status post right hip replacement [Z96.641] Order(s):XR PELVIS 1V AP [[id number]] Order #: [id number] FUTURE Prescriptions as of 12/22/2022 - docusate sodium (COLACE) 100 mg capsule Take 1 capsule by mouth twice daily as needed for constipation. - acetaminophen (TYLENOL EXTRA STRENGTH) 500 mg tablet Take 2 tablets by mouth every 8 hours as needed for pain. - traMADol (ULT (more content not included)... [facility] XR PELVIS 1V APon 12-22-2022 XR PELVIS 1V AP * * *Final Report* * * DATE OF EXAM: Dec 22 2022 10:39AM LZX 5239 - XR PELVIS 1V AP / PROCEDURE REASON: multiple diagnoses * * * * Physician Interpretation * * * * HISTORY: Aftercare following left hip joint replacement surgery Aftercare following left hip joint replacement surgery . f/u rt hip replacement TECHNIQUE: XR PELVIS 1V AP COMPARISON: 11/30/2022 RESULT: Bilateral total hip arthroplasties, normal in appearance and unchanged. Interval resolution of soft tissue gas around the right hip. Degenerative changes of the pubic symphysis and left sacroiliac joint. No fractures. Superior portion of the pelvis is not visualized on this examination. No other significant abnormality. --- IMPRESSION: NORMAL POSTOPERATIVE FINDINGS Extension Work Director: PSCB Transcribe Date/Time: Dec 22 2022 12:22P Dictated by : LANA CONNOLLY MD This examination was interpreted and the report reviewed and electronically signed by: LANA CONNOLLY MD on Dec 22 2022 12:23PM EST [id number] N [facility] ic ANES POSTPROC EVALon 023 ANES POSTPROC EVAL HNO ID: [id number] Author: Alejandro Sauceda MD Service: Anesthesiology Author Type: Anesthesiologist Type: Anesthesia Postprocedure Evaluation Filed: 11/30/2022 3:48 PM Note Text: POST ANESTHESIA EVALUATION NOTE : 1955 Procedure Summary Date: 11/30/22 Room / Location: AV OR04 / AV OR Anesthesia Start: 1120 Anesthesia Stop: 1410 Procedure: ARTHROPLASTY REPLACE JOINT TOTAL HIP ABA HSD (Right: Hip) Diagnosis: Primary osteoarthritis of right hip (Primary osteoarthritis of right hip [M16.11]) Surgeons: Shant Méndez MD Responsible Provider: Alejandro Sauceda MD Anesthesia Type: MAC ASA Status: 3 Anesthesia Type: MAC Last Vitals Vitals Value Taken Time BP 113/68 11/30/22 1530 Temp 36.3 ?C (97.4 ?F) 11/30/22 1407 Pulse 66 11/30/22 1547 Resp 14 11/30/22 1547 SpO2 95 % 11/30/22 1547 Vitals shown include unvalidated device data. Post Anesthesia Patient Status Patient Evaluation: bedside. Anticipated Disposition: inpatient floor planned admission. Neurological Status: aware and responsive. Pulmonary Status: breathing comfortably on supplemental oxygen Airway Control: returned to baseline unsupported. Cardiovascular Status: stable. Pain Management: clinically adequate Postoperative Hydration: acceptable. Intraoperative Events: no significant anesthesia events Post Operative Nausea/Vomiting Status: no significant post operative nausea or vomiting Recommendation: continue current plan of care. Anesthesia Observations No Documentation SIGNATURE: Alejandro Sauceda MD PATIENT NAME: Mary Vaughn DATE: November 30, 2022 TIME: 3:48 PM CSN: [id number] [facility] ANES PRE-OPon 11-30-2022 ANES PRE-OP HNO ID: [id number] Author: Alejandro Sauceda MD Service: Anesthesiology Author Type: Anesthesiologist Type: Anesthesia Preprocedure Evaluation Filed: 11/30/2022 10:28 AM Note Text: ANESTHESIOLOGY DAY OF SURGERY NOTE : 1955 Procedure Information Date/Time: 11/30/22 1100 Procedure: ARTHROPLASTY REPLACE JOINT TOTAL HIP ABA HSD (Right: Hip) Location: OR04 / OR Surgeons: Shant Méndez MD Estimated body mass index is 25.82 kg/m? as calculated from the following: Height as of 11/24/22: 167.6 cm (5' 6 ). Weight as of 11/24/22: 72.6 kg (160 lb). Most recent hematocrit and potassium results: Hematocrit 46.8 11/24/2022 Potassium 4.8 11/24/2022 Relevant Problems CARDIO (+) Incomplete RBBB (+) SVT (supraventricular tachycardia) (HCC) PULMONARY (+) Emphysema of lung (HCC) I - PHYSICAL EVALUATION AIRWAY Patient intubated: No. Tracheostomy tube not present Mallampati: II. TM distance: >3 FB. Neck ROM: full ROM without neurological symptoms. Mouth opening: adequate. Short neck: no. Thick neck: no DENTAL Dental findings: teeth intact. Additional exam findings: no II - ANESTHESIA PLAN ASA Score: 3 Anesthetic Plan: MAC The patient is not a current smoker. NPO Status: adequate Beta Danielle Monitoring Plan Monitoring plan: standard ASA. Post Procedure Analgesic Plan Postoperative analgesic plan: multimodal analgesia. Patient / Surrogate agrees to blood products: blood products not planned DNR status not reviewed with patient and/or family prior to surgery. Significant changes in the patient condition since the History and Physical, not otherwise documented in primary service progress note: no. Potential Anesthesia issues that may suggest increased risk of complications or contraindication to planned procedure: none. Vitals Value Taken Time BP 119/66 11/30/22927 Pulse Resp 18 11/30/22927 Temp 36.6 ?C (97.8 ?F) 11/30/22927 SpO2 98 % 11/30/22927 Facility-Administered Medications as of 11/30/2022 Medication Dose Route Frequency - [COMPLETED] acetaminophen 1,000 mg tab(s) (TYLENOL) 1,000 mg ORAL Pre-Op Once - [COMPLETED] meloxicam 7.5 mg tab(s) (MOBIC) 7.5 mg ORAL Pre-Op Once - lidocaine (PF) 10 mg/mL (1 %) 1-2 mg injection (XYLOCAINE) 0.1-0.2 mL INTRADERMAL PRN - lactated ringers iv infusion 5-30 mL/hr INTRAVENOUS CONTINUOUS - NaCl 0.9% iv flush bag 20 mL INTRAVENOUS PRN - ceFAZolin iv piggyback 2 g in D5W (iso-osmotic) 100 mL (ANCEF) 2 g INTRAVENOUS Pre-Op Once - tranexamic acid (CYKLOKAPRON) in NaCl 0.7% 1,000 mg 100 mL 1,000 mg INTRAVENOUS Pre-Op Once - tranexamic acid (CYKLOKAPRON) in NaCl 0.7% 1,000 mg 100 mL 1,000 mg INTRAVENOUS ONCE - [COMPLETED] dexAMETHasone sodium phosphate (PF) 8 mg injection (DECADRON) 8 mg INTRAVENOUS Pre-Op Once - [COMPLETED] promethazine 12.5 mg tab(s) (PHENERGAN) 12.5 mg ORAL Pre-Op Once Outpatient Medications as of 11/30/2022 Medication Sig - propranolol (INDERAL) 20 mg tablet Take 20 mg by mouth twice daily. - cetirizine (ZYRTEC) 10 mg tablet Take 10 mg by mouth once daily. - Amoxicillin 500 mg tablet four tabs one hour prior to dental procedure and two tabs six hours after the dental procedure - [id number]-7-TDK-EPA-DPA-F ANTONIO OIL ORAL Take by mouth once daily. - multivit with calcium,iron,min (WOMEN'S MULTIPLE VITAMINS ORAL) Take by mouth once daily. - ascorbic acid (VITAMIN C ORAL) Take by mouth once daily. - garlic (GARLIQUE ORAL) Take by mouth once daily. I have interviewed and examined the patient. I have reviewed the medical record and/or the pre-anesthesia evaluation, pertinent labs, and test results. This contains updated information obtained within 48 hours of Surgery/Procedure. SIGNATURE: Alejandro Sauceda MD PATIENT NAME: Mary Vaughn DATE: November 30, 2022 TIME: 10:27 AM CSN: [id number] [facility] OPERATIVE NOon 11-30-2022 OPERATIVE NO HNO ID: [id number] Author: Shant Méndez MD Service: Orthopaedic Surgery Author Type: Physician Type: Operative Report Filed: 11/30/2022 1:35 PM Note Text: [facility] OPERATIVE REPORT PATIENT NAME: Mary Vaughn AGE: [age] year old LOG ID: [id number] Surgery Date: 11/30/2022 SURGEON: Shant Méndez MD INSTRUMENT MAKER AND REPAIRER: Vel Galeana PA-C, SA, her assistance consisted of assistance with retraction, positioning and closing of the wound No qualified resident physicians were available to participate in the case. PROCEDURE: RIGHT TOTAL HIP REPLACEMENT Procedure(s) (LRB): ARTHROPLASTY REPLACE JOINT TOTAL HIP ABA HSD (Right) Anesthesia: Spinal Preop Diagnosis: Pre-Op Diagnosis Codes: * Primary osteoarthritis of right hip [M16.11] Postop Diagnosis: Same as Pre-Op Diagnosis Codes: * Primary osteoarthritis of right hip [M16.11] BMI: Estimated body mass index is 25.82 kg/m? as calculated from the following: Height as of 11/24/22: 167.6 cm (5' 6 ). Weight as of 11/24/22: 72.6 kg (160 lb). OPERATIVE INDICATIONS: This is a 67 year old year old female with osteoarthritis of the right hip. She was having severe pain in the groin/thigh. Nonoperative management has been exhausted. The decision was made to proceed with a right total hip arthroplasty. Risks, benefits, and alternatives were discussed. She expressed understanding and consented to the procedure as outlined above. The patient was seen by [facility] Medicine for pre-operative optimization. Tawana-operative blood management and the potential for blood transfusion were discussed with risks and options clearly outlined. The patient has consented to the use of banked allogenic blood if medically necessary. IMPLANTS: [employer] Total Hip System SIZE TYPE Acetabulum 54mm Trident 2 Screws 0 Polyethylene 42 mm Dual mobility Femur 7 standard Accolade 2 Femoral Head 28 Metal OPERATIVE FINDINGS: There was complete loss of cartilaginous surface from the femoral head and acetabular surface with lipping osteophytes. OPERATIVE PROCEDURE: The patient was identified and brought into the Operating Room by the anesthesia and nursing team. Anesthesia was successfully performed. The patient was then positioned supine on the operating room table with a bump under the right hip. Intravenous antibiotic prophylaxis dosing was confirmed. The right lower extremity was then prepped and draped in the usual sterile fashion with Chloraprep scrub. Tranexamic acid was given for blood conservation. A surgical time-out was performed immediately preceding the incision with all personnel in the operating room; the patient identity was again confirmed, the surgical site and extremity were identified and confirmed, X-rays were reviewed, and availability of the appropriate surgical equipment was established. The hip was approached through a modified Gillis-Lang approach. Dissection was carried down onto the anterior hip capsule, which was opened in an H fashion and excised. The neck of the femur was identified. Large osteophytes were osteotomized and removed from the anterior portion of the acetabulum. We then osteotomized the neck of the femur at a 45- degree angle of the AP plane approximately half a fingerbreadth above the lesser trochanter. The head was then brought out in pieces. We then did a total capsulectomy along with a release of the short external rotators allowing us to expose the acetabulum in our standard 4 quadrant retraction method. We reamed the acetabulum to a 54 mm size. We got into good cancellous bone with good circumferential cortical bone. We removed osteophytes from the rim of the acetabulum. A 54 mm shell Trident 2 cup was then put into the acetabulum at a 60-degree angle to the AP plane with 15 degrees of anteversion. The hip was then adducted and externally rotated and the proximal femur was brought into the wound and we rasped the stem of the femur to size 7. A 7 Accolade 2 stem was tapped into place with excellent fit. We chose a -4 neck and a 28 mm inner diameter, and a 42 mm outer diameter poly ball. The hip was reduced, we had excellent abductor and iliopsoas tone. Wound was then copiously irrigated. We injected circumferentially about the incisional area with our Exparel pericapsular block. Instrument and sponge count was completed and confirmed correct. The would was then closed in layers and a sterile dressing was applied. The patient was stable to PACU. POSTOPERATIVE MANAGEMENT: Patient is weightbearing as tolerated. They will receive appropriate DVT prophylaxis, appropriate pain medications and 24 hours of appropriate antibiotic for infection prophylaxis. SPECIMENS: The femoral head, neck and synovium. EBL: 50 cc DRAINS: None. COUNTS: Correct. COMPLICATIONS: None. Operative Time: * Missing case tracking time(s) * Incision Start (more content not included)... [facility] THERAPY [facility] 11-30-2022 THERAPY NT HNO ID: [id number] Author: Cami Cook OT/Sammy Service: Occupational Therapy Author Type: Occupational Therapist Type: Therapy (PT/OT/Speech/Resp) Filed: 11/30/2022 4:56 PM Note Text: Occupational Therapy Evaluation SERVICE DATE: 11/30/2022 SERVICE TIME: 1620 to 1645 ROOM: AV Surgery (29) Recommended Discharge Disposition: Home Anticipated Discharge Needs: Physical Assist at Home Physical Assist at Home for: Cleaning, Laundry, Meals, Shopping, Transportation Recommended Discharge Equipment: No equipment needs anticipated OT 6 Clicks Score: 24 Instructed pt to ambulate at home every hour when awake. Pt's present during entire session. Pt and pt's verbalized understanding of all education provided by OT during session. Pt is ok for DC home today from OT standpoint. Precautions/Activity Restrictions: Posterior Hip Precautions, Weight Bearing Restrictions Extremity With Weight Bearing Restricted: Right Lower Extremity Right Lower Extremity Weight Bearing Status: WBAT Current Hospital Course: S/P R FANY with Dr. Méndez (11/30/22) Reason for Hospital Admission: scheduled R FANY Relevant Past Medical History: Emphysema, SVT, S/p L FANY (10/20) Response to Therapy Interventions: Good participation in activities Continue skilled needs due to: (N/A; pt cleared from OT standpoint) Occupational Therapy Problem List: Impaired Self Care, Decreased Activity Tolerance, Functional Mobility Impairment, Balance Impaired Cognition/Communicati on Deficits Responsiveness: Alert, Awake Follows Commands: 3-step Commands Treatment Interventions: Education, Self Care / Home Management, Energy Conservation Training, Joint Mobility, Strengthening, Functional Mobility Training, Balance Training Home Environment Patient Lives With: Spouse Assistance Available: 24-Hour Entry To Home: Stairs, With Rail Number Of Stairs Into Home: 3 Number Of Stairs To Bed/Bath: 0 Tub/Shower Type: walk in shower stall Laundry: 1st floor Equipment Owned: Walker- Wheeled, Cane, Elevated Toilet Seat, ADL Kit, Grab Bars- Toilet (leg protection consultant) Prior Functional Level: Within Functional Limits Prior Functional Level Comments: 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 Ambulatory without AD. + drives. No recent falls. Patient Report: I'm going to [place] after this on the way home. CURRENT FUNCTIONAL STATUS: Most recent performance Current Activities of Daily Living Assist Level Additional Information Feeding Set Up Grooming Set Up Bathing Upper Body Set Up Bathing Lower Body Stand By Assistance Dressing Upper Body Set Up Dressing Lower Body Stand By Assistance Toileting Stand By Assistance Instrumental Activities of Daily Living Assist Level Additional Information Meal/Beverage Prep Cleaning Laundry Medication Management with Strategies Functional Mobility Assist Level Additional Information Rolling Supine to Sit Stand By Assistance Sit to Supine Stand By Assistance Scooting Sit to Stand Stand By Assistance Stand to Sit Stand By Assistance Bed to Chair Toilet/Commode Shower Functional Mobility Stand By Assistance Wheeled Walker Blank mai indicate activity not attempted Learning/Educational Needs: Discharge Plan, Equipment, Family Education/Training, Functional Activities/Mobility, Plan of Care, Rehabilitation Techniques and Procedures, Precautions, Safety, Self Care Goals for Plan of Care: Patient/Caregiver Goals: Reduce ADL/IADL barriers Goals: Patient will demonstrate progress with self-care, cognitive and/or coping needs identified to allow safe discharge to home with available support and/or physical assistance. Rehab Potential: Good Patient will be discontinued from Occupational Therapy when no further skilled needs are identified in this setting. PLAN: OT Frequency: Discontinue therapy services Reasons Therapy Services Discontinued: Goals met Plan of Care developed with: Patient, Family (pt's present) TREATMENT INTERVENTIONS: Therapy Diagnosis: Decreased activities of daily living (ADL), Muscle Weakness (generalized), Reduced mobility-other, General symptoms and signs-other Interventions Provided: Evaluation, Self Alf Management (23779) $ Evaluation-Low (33711) Billed Units: 1 unit Self Alf Management (71384) Treatment Minutes: 10 $ Self Alf Management (15944) Billed Units: 1 unit Training AND education provided in: Adaptive equipment / DME, Assistive device use, Bed mobility, Benefits of in-hospital mobility, Discharge planning, Expected functional level, Functional mobility involving ADLs, Lower extremity dressing, IADLs / Home management, Positioning, Precautions/restricti ons, Role of Occupational Therapy, Standing balance to improve independence with ADLs/self-care, Transfer - Sit to stand, Upper extremity dressing The following therapeutic skills were used: Activity dosing, Cues for sequencing/proper anshul (more content not included)... [facility] THERAPY NT HNO ID: [id number] Author: Brit Sears PT, DPT Service: ? Author Type: Physical Therapist Type: Therapy (PT/OT/Speech/Resp) Filed: 11/30/2022 4:40 PM Note Text: Physical Therapy Evaluation SERVICE DATE: 11/30/2022 SERVICE TIME: 1534 to 1619 ROOM: [facility] () Recommended Discharge Disposition: Outpatient Physical Therapy Recommended Discharge Disposition Comments: Pt reports outpt PT is already set. Pt cleared for DC home, PT will sign off at this time. Anticipated Discharge Needs: Physical Assist at Home Physical Assist at Home for: Cleaning, Laundry, Meals, Shopping, Transportation Recommended Discharge Equipment: No equipment needs anticipated PT 6 Clicks Score: 24 Precautions/Activity Restrictions: Posterior Hip Precautions, Weight Bearing Restrictions Extremity With Weight Bearing Restricted: Right Lower Extremity Right Lower Extremity Weight Bearing Status: WBAT Current Hospital Course: S/P R FANY with Dr. Méndez (11/30/22) Reason for Hospital Admission: scheduled R FANY Relevant Past Medical History: Emphysema, SVT, S/p L FANY (10/20) Response to Therapy Interventions: Good participation in activities, Pain Continue skilled needs due to: (dc) Physical Therapy Problem List: Pain, Decreased Activity Tolerance, Decreased Strength, Functional Mobility Impairment, Balance Impaired Treatment Interventions: Education, Energy Conservation Training, Strengthening, Functional Mobility Training, Balance Training, Neuromuscular Re-education Plan for next visit: (dc) Home Environment Patient Lives With: Spouse Assistance Available: 24-Hour Entry To Home: Stairs, With Rail Number Of Stairs Into Home: 3 Number Of Stairs To Bed/Bath: 0 Tub/Shower Type: walk in shower stall Laundry: 1st floor Equipment Owned: Walker- Wheeled, Cane, Elevated Toilet Seat, ADL Kit, Grab Bars- Toilet (leg protection consultant) Prior Functional Level: Within Functional Limits Prior Functional Level Comments: 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 Ambulatory without AD. + drives. No recent falls. Patient Report: I feel great. CURRENT FUNCTIONAL STATUS: Most recent performance Current Functional Mobility Assist Level Additional Information Rolling Supine to Sit Independent Sit to Supine Independent Scooting Independent Sit to Stand Verbal Cues Only (for hand placement) Stand to Sit Verbal Cues Only (for hand placement) Bed to Chair Toilet/Commode Supervision Gait Stand By Assistance, Contact Guard Assistance (progressed to SBA) Gait Device: Wheeled Walker (gait belt) Gait Distance (feet): 250' Stairs Stand By Assistance Stairs Device: Rail Number of Stairs: 4 Curb Step Car Transfer Blank mai indicate activity not attempted Gait Deviations Right Lower Extremity: Heel strike during initial stance decreased, Step length decreased, Weight bearing decreased General Deviations/Observatio ns: Antalgic gait, Sirena decreased, Step length decreased Shower Transfer: Supervision Balance: Static Sitting, Dynamic Sitting, Static Standing, Dynamic Standing Static Sitting Balance: Good Patient able to maintain balance without handhold support, limited postural sway Dynamic Sitting Balance: Good Patient accepts moderate challenge, able to maintain balance while picking up object off floor Static Standing Balance: Good Patient able to maintain balance without handhold support, limited postural sway Dynamic Standing Balance: Good Patient accepts moderate challenge, able to maintain balance while picking up object off floor -HLM: 8: Walk 250 feet or more Learning/Educational Needs: Discharge Plan Goals for Plan of Care: Patient/Caregiver Goals: Go Home Goals: Patient will demonstrate progress with functional mobility to allow safe discharge to home with available support and/or physical assistance., Patient will demonstrate understanding of importance of mobility during hospital stay and resolve all functional needs identified. Rehab Potential: Good Patient will be discontinued from Physical Therapy when no further skilled needs are identified in this setting. PLAN: PT Frequency: Discontinue therapy services Reasons Therapy Services Discontinued: Goals met Plan of Care developed with: Patient, Family TREATMENT INTERVENTIONS: Therapy Diagnosis: Reduced mobility-other, Difficulty walking-musculoskelet al Interventions Provided: Evaluation, Gait Training (81847), Therapeutic Exercise (27953) $ Evaluation-Low (99598) Billed Units: 1 unit Therapeutic Exercise (02150) Treatment Minutes: 10 $ Therapeutic Exercise (15735) Billed Units: 1 unit Exercise Ankle Pumps (number of reps): 10 Quad Sets (number of reps): 10 Glut Sets (number of reps): 10 Heel Slides (number of reps): 10 LAQ (number of reps): 10 Hip Abduction (number of reps): 10 Gait Training (64546) Treatment Minutes: 20 $ Gait Training (27504) Billed Units: 1 unit Training AND education provided (more content not included)... [facility] XR PELVIS 1V APon 11-30-2022 XR PELVIS 1V AP * * *Final Report* * * DATE OF EXAM: Nov 30 2022 2:43PM VHX 5239 - XR PELVIS 1V AP / PROCEDURE REASON: Post-operative / post-procedure assessment, asymptomatic * * * * Physician Interpretation * * * * XR PELVIS 1V AP PROVIDED HISTORY: Post-operative / post-procedure assessment, asymptomatic COMPARISON: 11/24/2022 TECHNIQUE: AP view of the pelvis RESULT: A right hip prosthesis has been placed in the interval. Left hip prosthesis again seen. Soft tissue changes compatible with recent surgery. No acute fractures visualized. IMPRESSION: Right hip prosthesis appears appropriate in positioning Extension Work Director: PSCMatthew Transcribe Date/Time: Nov 30 2022 3:31P Dictated by : BAILEY WATTS MD This examination was interpreted and the report reviewed and electronically signed by: BAILEY WATTS MD on Nov 30 2022 3:31PM EST [id number] [facility] CNPNon 11-26-2022 CNPN Telephone ([facility]) MARY VAUGHN ([id number]) 1955 F DEF Date Time Provider Department 11/26/22 QUIANA POOLE During your visit today, we recorded the following information about you: Quiana Poole APRN.[employer]INTENANCE SUPERVISOR 11/26/2022 8:43 AM Signed On pre-op urine culture... Culture >=100,000 CFU/ml Mixed microbiota Abnormal Macrobid ordered. Please call patient and advised to start KRISTIAN Thank you Quiana Poole APRN.[facility] Joseline Wei LPN 11/26/2022 9:09 AM Signed Attempted to reach patient via phone call, no answer. Left message to return call to [facility] nurse at [phone]. Joseline Wei LPN November 26, 2022 9:08 AM Cherie Edwards LPN 11/26/2022 11:35 AM Signed Patient returned call and I relayed below message. She verbalized understanding. Cherie Edwards LPN November 26, 2022 11:35 AM Allergies As of Date: 11/26/2022 Noted Allergy Reaction ADHESIVE TAPE-SILICONES 11/24/2022 14 - Other: See Comments Comments: blisters from Silverlon dressing CHLORHEXIDINE 11/24/2022 2 - Rash Comments: rash and itching from preop wipes OXYCODONE 11/24/2022 8 - GI Upset Date Reviewed: 11/24/2022 Reviewed by: Cherie Edwards LPN - Fully Assessed Reason for Visit: PreOp Call [1754] Cmt: UTI Order(s):nitrofuranto in monohydrate and macrocrystal (MACROBID) 100 mg capsuleTake 1 capsule by mouth twice daily for 5 days.Disp: 10 capsuleRfl: 0 Prescriptions as of 11/26/2022 - nitrofurantoin monohydrate and macrocrystal (MACROBID) 100 mg capsule Take 1 capsule by mouth twice daily for 5 days. - Amoxicillin 500 mg tablet four tabs one hour prior to dental procedure and two tabs six hours after the dental procedure - [id number]-F ANTONIO OIL ORAL Take by mouth once daily. - multivit with calcium,iron,min (WOMEN'S MULTIPLE VITAMINS ORAL) Take by mouth once daily. - ascorbic acid (VITAMIN C ORAL) Take by mouth once daily. - propranolol (INDERAL) 20 mg tablet Take 20 mg by mouth twice daily. - garlic (GARLIQUE ORAL) Take by mouth once daily. - cetirizine (ZYRTEC) 10 mg tablet Take 10 mg by mouth once daily. Problem List As Of Date 11/26/2022 Noted Resolved Primary osteoarthritis of left hip [M16.12] 09/21/2021 Emphysema of lung ([facility]) [J43.9] 09/21/2021 Former smoker [Z87.891] 09/21/2021 SVT (supraventricular tachycardia) ([facility]) [I47.1]09/21/2021 Incomplete RBBB [I45.10] 09/21/2021 Aftercare following left hip joint replacement *10/23/2021 Status post left hip replacement [Z96.642] 10/23/2021 Primary osteoarthritis of right hip [M16.11] 10/23/2021 Prescriptions ordered this encounter Disp Refills Start End NITROFURANTOIN MONOHYDRATE AND MACROCR* 10 c* 0 11/26/2022 12/01/2022 Route: ORAL Sig: Take 1 capsule by mouth twice daily for 5 days. Encounter Status:Closed by QUIANA POOLE on 11/26/22 [facility] Bacteria Ur Culton 3 Bacteria identified Cx Nom (U) ORGANISM ID: 1 >=100,000 CFU/ml Mixed microbiota No further workup. Mixed microbiota can be due to???urine???contamin ation with skin bacteria at time of collection or presence of a long-term urinary catheter. If a new culture is needed, please consider re-education of the patient on proper midstream collection technique or straight catheterization for???urine???collect ion. [facility] Comment on above: Performed By: #### 6 30-4 ####[facility] LABCLIA [id number] [place] [address] [place] Basic metabolic 2000 panelon 11-24-2022 Anion gap [Moles/Vol] 9 mmol/L Normal 9-18 [facility] Comment on above: Order Comment: Speci men Type: BLOOD SPECIMENOrdering Facility: [facility] Address: [address] [place], [place] [id number] Performed By: #### 2 4321-2 ####[facility] LABCLIA [id number] [place] [address] [place] Calcium [Mass/Vol] 9.7 mg/dL Normal 8.5-10.2 [facility] Comment on above: Order Comment: Speci men Type: BLOOD SPECIMENOrdering Facility: [facility] Address: [address] [place] [address] Performed By: #### 2 4321-2 ####[facility] LABCLIA [id number] [place] [address] [place] Chloride [Moles/Vol] 102 mmol/L Normal 97-105 [facility] Comment on above: Order Comment: Speci men Type: BLOOD SPECIMENOrdering Facility: [facility] Address: [address] [place], [place] [id number] Performed By: #### 2 4321-2 ####[facility] LABCLIA [id number] [place] [address] [place] CO2 [Moles/Vol] 28 mmol/L Normal 22-30 [facility] Comment on above: Order Comment: Speci men Type: BLOOD SPECIMENOrdering Facility: [facility] Address: [address] [place], [place] [id number] Performed By: #### 2 4321-2 ####[facility] LABCLIA [id number] [place] [address] [place] Creatinine [Mass/Vol] 0.63 mg/dL Normal 0.58-0.96 [facility] Comment on above: Order Comment: [place] Type: BLOOD SPECIMENOrdering Facility: [facility] Address: [address] [id number] Performed By: #### 2 4321-2 ####[facility] LABCLIA [id number] [place] [address] [place] [facility] ESTIMATED GLOMERULAR FILTRATION RATE 97 mL/min/1.73m??? Normal >=60 [facility] Comment on above: Order Comment: Daniel [place] Type: BLOOD SPECIMENOrdering Facility: [facility] Address: [address] [address] Result Comment: Ledy mated Glomerular Filtration Rate (eGFR) is calculated using the 2020 CKD-EPI creatinine equation. This equation utilizes serum creatinine, sex, and age as parameters. The creatinine assay has traceable calibration to isotope dilution-mass spectrometry. Refer to KDIGO guidelines for clinical interpretation. In patients with unstable renal function, e.g. those with acute kidney injury, the eGFR may not accurately reflect actual GFR. Performed By: #### 2 4321-2 ####[facility] LABCLIA [id number] [place] [address] [place] Glucose [Mass/Vol] 87 mg/dL Normal 74-99 [facility] Comment on above: Order Comment: Daniel [place] Type: BLOOD SPECIMENOrdering Facility: [facility] Address: [address] [address] Result Comment: The [place] [employer] (ADA) provides guidance for cutoff values for fasting glucose and random glucose. The ADA defines fasting as no caloric intake for at least 8 hours. Fasting plasma glucose results between 100 to 125 mg/dL indicate increased risk for diabetes (prediabetes). Fasting plasma glucose results greater than or equal to 126 mg/dL meet the criteria for diagnosis of diabetes. In the absence of unequivocal hyperglycemia, results should be confirmed by repeat testing. In a patient with classic symptoms of hyperglycemia or hyperglycemic crisis, random plasma glucose results greater than or equal to 200 mg/dL meet the criteria for diagnosis of diabetes. Reference: Standards of Medical Care in Diabetes 2016, [place] [employer]. Diabetes Care. 2016.39(Suppl 1). Performed By: #### 2 4321-2 ####[facility] LABIA [id number] [place] [address] [place] Potassium [Moles/Vol] 4.8 mmol/L Normal 3.7-5.1 [facility] Comment on above: Order Comment: Speci men Type: BLOOD SPECIMENOrdering Facility: [facility] Address: [address] [address] Performed By: #### 2 4321-2 ####[facility] [id number] [place] [address] [place] Sodium [Moles/Vol] 139 mmol/L Normal 136-144 [facility] Comment on above: Order Comment: Speci men Type: BLOOD SPECIMENOrdering Facility: [facility] Address: [address] [address] Performed By: #### 2 4321-2 ####[facility] [id number] [place] [address] [place] Urea nitrogen [Mass/Vol] 20 mg/dL Normal 7-21 [facility] Comment on above: Order Comment: Speci men Type: BLOOD SPECIMENOrdering Facility: [facility] Address: [address] [address] Performed By: #### 2 4321-2 ####[facility] [id number] [place] [address] [place] CBC W Auto Differential pane l (Bld)on 11-24-2022 Basophils (Bld) [#/Vol] 0.04 10*3/uL Normal <0.11 [facility] Comment on above: Order Comment: Speci men Type: BLOOD SPECIMENOrdering Facility: [facility] Address: [address] [address] Performed By: #### 5 7021-8 ####[facility] LABCLIA [id number] [place] [address] [place] Basophils/100 WBC (Bld) 0.6 % [facility] Comment on above: Order Comment: Speci men Type: BLOOD SPECIMENOrdering Facility: [facility] Address: [address] [place] [address] Performed By: #### 5 7021-8 ####[facility] LABCLIA [id number] [place] [address] [place] Differential cell count method Nom (Bld) Auto Normal [facility] Comment on above: Order Comment: Speci men Type: BLOOD SPECIMENOrdering Facility: [facility] Address: [address] [place] [address] Performed By: #### 5 7021-8 ####[facility] LABCLIA [id number] [place] [address] [place] Eosinophils (Bld) [#/Vol] 0.22 10*3/uL Normal <0.46 [facility] Comment on above: Order Comment: Speci men Type: BLOOD SPECIMENOrdering Facility: [facility] Address: [address] [place] [address] Performed By: #### 5 7021-8 ####[facility] LABCLIA [id number] [address] [place] Eosinophils/100 WBC (Bld) 3.1 % [facility] Comment on above: Order Comment: Speci men Type: BLOOD SPECIMENOrdering Facility: [facility] Address: [address] [place], [place] [address] Performed By: #### 5 7021-8 ####[facility] LABCLIA [id number] [place] [address] [place] Erythrocyte distribution width (RBC) [Ratio] 13.5 % Normal 11.5-15.0 [facility] Comment on above: Order Comment: Speci men Type: BLOOD SPECIMENOrdering Facility: [facility] Address: [address] [address] Performed By: #### 5 7021-8 ####[facility] LABIA [id number] [place] [address] [place] Hematocrit (Bld) [Volume fraction] 46.8 % High 36.0-46.0 [facility] Comment on above: Order Comment: Speci men Type: BLOOD SPECIMENOrdering Facility: [facility] Address: [address] Performed By: #### 5 7021-8 ####[facility] LABIA [id number] [place] [address] [place] Hemoglobin (Bld) [Mass/Vol] 14.5 g/dL Normal 11.5-15.5 [facility] Comment on above: Order Comment: Speci men Type: BLOOD SPECIMENOrdering Facility: [facility] Address: [address] Performed By: #### 5 7021-8 ####[facility] LABIA [id number] [address] [place] Immature granulocytes (Bld) [#/Vol] 10*3/uL Normal <0.10 [facility] Comment on above: Order Comment: Speci men Type: BLOOD SPECIMENOrdering Facility: [facility] Address: [address] Performed By: #### 5 7021-8 ####[facility] LABIA [id number] [address] [place] Immature granulocytes/100 WBC (Bld) 0.3 % Normal [facility] Comment on above: Order Comment: Speci men Type: BLOOD SPECIMENOrdering Facility: [facility] Address: [address] Performed By: #### 5 7021-8 ####[facility] LABCLIA [id number] [place] [address] [place] Lymphocytes (Bld) [#/Vol] 1.83 10*3/uL Normal 1.00-4.00 [facility] Comment on above: Order Comment: Speci men Type: BLOOD SPECIMENOrdering Facility: [facility] Address: [address] [place] [address] Performed By: #### 5 7021-8 ####[facility] LABIA [id number] [address] [place] Lymphocytes/100 WBC (Bld) 25.8 % Normal [facility] Comment on above: Order Comment: Speci men Type: BLOOD SPECIMENOrdering Facility: [facility] Address: [address] [place] [address] Performed By: #### 5 7021-8 ####[facility] LABIA [id number] [address] [place] MCH (RBC) [Entitic mass] 28.7 pg Normal 26.0-34.0 [facility] Comment on above: Order Comment: Speci men Type: BLOOD SPECIMENOrdering Facility: [facility] Address: [address] [place] [address] Performed By: #### 5 7021-8 ####[facility] LABIA [id number] [place] [address] [place] MCHC (RBC) [Mass/Vol] 31.0 g/dL Normal 30.5-36.0 [facility] Comment on above: Order Comment: Speci men Type: BLOOD SPECIMENOrdering Facility: [facility] Address: [address] [place], [place] [address] Performed By: #### 5 7021-8 ####[facility] LABIA [id number] [address] [place] MCV (RBC) [Entitic vol] 92.5 fL Normal 80.0-100.0 [facility] Comment on above: Order Comment: Speci men Type: BLOOD SPECIMENOrdering Facility: [facility] Address: [address] Performed By: #### 5 7021-8 ####[facility] LABCLIA [id number] [place] [address] [place] Monocytes (Bld) [#/Vol] 0.54 10*3/uL Normal <0.87 [facility] Comment on above: Order Comment: Speci men Type: BLOOD SPECIMENOrdering Facility: [facility] Address: [address] [place], [place] [address] Performed By: #### 5 7021-8 ####[facility] LABCLIA [id number] [place] [address] [place] Monocytes/100 WBC (Bld) 7.6 % Normal [facility] Comment on above: Order Comment: Speci men Type: BLOOD SPECIMENOrdering Facility: [facility] Address: [address] [place], [place] [address] Performed By: #### 5 7021-8 ####[facility] LABCLIA [id number] [place] [address] [place] Neutrophils (Bld) [#/Vol] 4.44 10*3/uL Normal 1.45-7.50 [facility] Comment on above: Order Comment: Speci men Type: BLOOD SPECIMENOrdering Facility: [facility] Address: [address] Performed By: #### 5 7021-8 ####[facility] LABCLIA [id number] [place] [address] [place] Neutrophils/100 WBC (Bld) 62.6 % Normal [facility] Comment on above: Order Comment: Speci men Type: BLOOD SPECIMENOrdering Facility: [facility] Address: [address] [place], [place] [address] Performed By: #### 5 7021-8 ####[facility] LABCLIA [id number] [place] [address] [place] Nucleated RBC (Bld) [#/Vol] 10*3/uL Normal <0.01 [facility] Comment on above: Order Comment: Speci men Type: BLOOD SPECIMENOrdering Facility: [facility] Address: [address] [place] [address] Performed By: #### 5 7021-8 ####[facility] LABIA [id number] [place] [address] [place] Nucleated RBC/100 WBC (Bld) [Ratio] 0.0 /100 WBC Normal [facility] Comment on above: Order Comment: Speci men Type: BLOOD SPECIMENOrdering Facility: [facility] Address: [address] [place] [address] Performed By: #### 5 7021-8 ####[facility] LABIA [id number] [place] [address] [place] Platelet mean volume (Bld) [Entitic vol] 10.8 fL Normal 9.0-12.7 [facility] Comment on above: Order Comment: Speci men Type: BLOOD SPECIMENOrdering Facility: [facility] Address: [address] [place] [id number] Performed By: #### 5 7021-8 ####[facility] LABIA [id number] [place] [address] [place] Platelets (Bld) [#/Vol] 243 10*3/uL Normal 150-400 [facility] Comment on above: Order Comment: Speci men Type: BLOOD SPECIMENOrdering Facility: [facility] Address: [address] [place] [address] Performed By: #### 5 7021-8 ####[facility] LABIA [id number] [address] OF [facility] RBC (Bld) [#/Vol] 5.06 10*6/uL Normal 3.90-5.20 [facility] Comment on above: Order Comment: Speci men Type: BLOOD SPECIMENOrdering Facility: [facility] Address: [address] [place] [address] Performed By: #### 5 7021-8 ####[facility] LABCLIA [id number] [address] OF [facility] WBC (Bld) [#/Vol] 7.09 10*3/uL Normal 3.70-11.00 [facility] Comment on above: Order Comment: Speci men Type: BLOOD SPECIMENOrdering Facility: [facility] Address: [address] [place] [address] Performed By: #### 5 7021-8 ####[facility] LABCLIA [id number] [address] OF [facility] CNOVon 11-24-2022 CNOV Office Visit (LOORRM ) VAUGHNMARY ROSE ([id number]) 1955 F DEF Date Time Provider Department 11/24/22 9:30 AM VEL GALEANA During your visit today, we recorded the following information about you: Weight Height 74.4 kg 1.676 m Vel Galeana PA-C 11/24/2022 10:44 AM Signed CONSULT ORTHOPAEDIC: HIP PRIMARY CARE PHYSICIAN: Luis Garcia II, MD REFERRING PROVIDER: SELF ASSESSMENT AND PLAN: Impression: Right Hip Severe Degenerative Osteoarthritis, Primary Mary Vaughn has radiograph and physical exam evidence of degenerative joint disease and wishes to pursue surgery. This patient appears to have sufficient symptoms to warrant surgical intervention and is an appropriate candidate for right Primary Total Hip Arthroplasty as evidenced by six months of unsuccessful non-operative treatment as outlined in the HPI below. We had a lengthy discussion regarding the risk and benefit of surgery, the alternatives, limitations and personnel involved. These included but were not limited to infection, persistent pain, instability, nerve injury, blood clots, and medical complications. We also discussed the pre-operative course, surgery itself and rehabilitation. Tawana-operative blood management and transfusion issues were discussed, and options clearly outlined. The patient has consented to the use of the banked allogenic blood if medically necessary. The patient has elected to schedule surgery at this time or intends to call the office with a surgical date. Shared decision making occurred while obtaining informed consent. The patient will be scheduled for a pre-operative education class at which time they will have their nasal swab completed and will be given CHG cloths along with the verbal and written instructions for their use. Patient has been instructed and has been scheduled or will call to schedule attendence in one of the total joint perioperative classes offered prior to proceeding with FANY.. The patient has been ordered: No orders placed today. CONSULTS: Patient does not require consults for optimization at this time. ACTIVE PROBLEM LIST Primary Osteoarthritis of Left Hip Chronic Obstructive Pulmonary Disease (Hcc) Former Smoker Svt (Supraventricular Tachycardia) (Hcc) Incomplete Rbbb Aftercare Following Left Hip Joint Replacement Surgery Status Post Left Hip Replacement Primary Osteoarthritis of Right Hip SUBJECTIVE CHIEF COMPLAINT: Hip Pain HPI: Mary Vaughn is a 67 year old patient here for evaluation and management of Right hip pain.Mary Vaughn has had progressive problems with the hip(s) multiple times a day over the past 15 year(s) interfering with activities which include walking 2 blocks, gardening, 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 The problem began limiting activities 3+ years ago. Currently the pain in the joint is rated at 5 out of 10 with minimal activity. The pain is constant and is located in the right hip, groin, outer aspect of the hip, and thigh. The pain is described as radiating, sharp, soreness, stiffness, and throbbing. Relieving factors include rest. There is no specific incident that brought about this pain. Mary Vaughn has no additional complaints. FUNCTIONAL STATUS: Walk indoors, such as around the house (1.75 METs) Do light work around the house, such as dusting or washing dishes (2.70 METs) Take care of self, that is eating, dressing, bathing, using the toilet (2.75 METs) Walk a block or two on level ground (2.75 METs) Do moderate work around the house such as vacuuming, sweeping floors, or carrying in groceries (3.50 METs) Do yardwork, such as raking leaves, weeding,or pushing a power mower (4.50 METs) Have sexual relations (5.25 METs) Climb a flight of stairs or walk up a hill (5.50 METs) Participate in moderate recreational activities, such as golf, bowling, dancing, doubles tennis, or throwing a baseball or football (6.00 METs) Participate in strenuous sport, such as swimming, singles tennis, football, basketball, or skiing (7.50 METs) Do heavy work around the house, such as scrubbing floors, lifting or moving heavy furniture (8.00 METs) Run a short distance (8.00 METs) Partially dependent Total Joint Arthroplasty: Risk Calculator Mary Vaughn has a 9.45% chance of NOT returning home at discharge for a Primary total Hip replacement. Mary's estimated Length of Stay is 2 days (Inpatient candidate). Mary's 30 day chance of readmission is 2.91%. Readmission Probability 2.91 % (within 30 days following surgery) Estimated LOS 2 days Discharge Disposition Probability D/C to Home 90.55 % D/C to SNF 9.45 % (more content not included)... [facility] [id number] 11-24-2022 ECG01 Ventricular Rate : 5 7 BPM Atrial Rate : 57 BPM P-R Interval : 156 ms QRS Duration : 96 ms Q-T Interval : 450 ms QTC Calculation(Bazett) : 438 ms Calculated P [place] : 74 degrees Calculated R [place] : 81 degrees Calculated T [place] : 66 degrees SINUS BRADYCARDIA INCOMPLETE RIGHT BUNDLE BRANCH BLOCK BORDERLINE ECG Confirmed by SERA BERNARD M.D. ([id number]) on 11/27/2022 11:24:23 AM NAME : MARY VAUGHN PID : [id number] : 1955 Gender : Female Race : ORD : Procedure Date : Nov 24 2022 10:22:24 Edit Date : Nov 27 2022 11:24:24 Diagnosis: SINUS BRADYCARDIA INCOMPLETE RIGHT BUNDLE BRANCH BLOCK BORDERLINE ECG Confirmed by SERA BERNARD M.D. ([id number]) on 11/27/2022 11:24:23 AM Test Reason : Location : 145 : [facility] Overread By : SERA BERNARD M.D. Edited By : SERA BERNARD M.D. Referred By : SHANT MÉNDEZ Acquired by : am, [facility] ECG01 Ventricular Rate : 5 7 BPM Atrial Rate : 57 BPM P-R Interval : 156 ms QRS Duration : 96 ms Q-T Interval : 450 ms QTC Calculation(Bazett) : 438 ms Calculated P [place] : 74 degrees Calculated R [place] : 81 degrees Calculated T [place] : 66 degrees SINUS BRADYCARDIA INCOMPLETE RIGHT BUNDLE BRANCH BLOCK BORDERLINE ECG Confirmed by SERA BERNARD M.D. ([id number]) on 11/27/2022 11:24:43 AM NAME : MARY VAUGHN PID : [id number] : 1955 Gender : Female Race : ORD : Procedure Date : Nov 24 2022 10:22:24 Edit Date : Nov 27 2022 11:24:44 Diagnosis: SINUS BRADYCARDIA INCOMPLETE RIGHT BUNDLE BRANCH BLOCK BORDERLINE ECG Confirmed by SERA BERNARD M.D. ([id number]) on 11/27/2022 11:24:43 AM Test Reason : Location : 145 : [facility] Overread By : SERA BERNARD M.D. Edited By : SERA BERNARD M.D. Referred By : SHANT MÉNDEZ Acquired by : am, [facility] HISTORY PHYSICALon HISTORY PHYSICAL HNO ID: [id number] Author: Quiana Poole APRN.SHYANNE Service: ? Author Type: Nurse Practitioner Type: HANDP Filed: 11/26/2022 8:45 AM Note Text: HISTORY AND PHYSICAL EXAMINATION SERVICE DATE: 11/24/2022 SERVICE TIME: 11:15 AM PRIMARY CARE PHYSICIAN: Lius Garcia II, MD REASON FOR VISIT: Mary Vaughn is a 67 year old female who is scheduled for Right THR at the request of Dr. Shant Méndez for consultation. My final recommendation will be communicated back to the requesting physician by way of shared medical record or letter. The patient has the following: ACTIVE PROBLEM LIST Primary Osteoarthritis of Left Hip Emphysema of Lung (Hcc) Former Smoker Svt (Supraventricular Tachycardia) (Hcc) Incomplete Rbbb Aftercare Following Left Hip Joint Replacement Surgery Status Post Left Hip Replacement Primary Osteoarthritis of Right Hip Subjective CHIEF COMPLAINT: Right hip pain HPI: 67 year old female who presents to [facility] for upcoming surgery. Complains of right hip pain for many years that has been progressively increasing. Pain worse with prolonged standing and activity. Has attempted medications without relief. Pain today 12/06 PAST MEDICAL HISTORY Diagnosis Date Deaf Osteoporosis Paroxysmal supraventricular tachycardia (HCC) PAST SURGICAL HISTORY Procedure Laterality Date COLONOSCOPY SCREENING PAST SURGICAL HISTORY OF Trigger finger TONSILLECTOMY HX TOOTH EXTRACTION wisdom teeth TOTAL HIP REPLACEMENT Left 2021 FAMILY HISTORY Problem Relation Age of Onset other (other) Mother Stroke Mother Heart disease Father Heart Attack Maternal Grandmother Stroke Maternal Grandmother Heart disease Maternal Grandfather Difficulty with anesthesia No Family History SOCIAL HISTORY: Social History Tobacco Use Smoking status: Former Packs/day: 1.00 Years: 30.00 Pack years: 30.00 Types: Cigarettes Quit date: 2010 Years since quittin.2 Smokeless tobacco: Never Substance Use Topics Alcohol use: Not Currently Comment: denies tx for drug/alcohol abuse in the past. Drug use: Never Prior to Admission medications as of 11/24/22 1114 Medication Sig Last Dose Taking Amoxicillin 500 mg tablet four tabs one hour prior to dental procedure and two tabs six hours after the dental procedure Yes [id number]-F ANTONIO OIL ORAL Take by mouth once daily. Yes multivit with calcium,iron,min (WOMEN'S MULTIPLE VITAMINS ORAL) Take by mouth once daily. Yes ascorbic acid (VITAMIN C ORAL) Take by mouth once daily. Yes propranolol (INDERAL) 20 mg tablet Take 20 mg by mouth twice daily. Yes garlic (GARLIQUE ORAL) Take by mouth once daily. Yes cetirizine (ZYRTEC) 10 mg tablet Take 10 mg by mouth once daily. Yes nitrofurantoin monohydrate and macrocrystal (MACROBID) 100 mg capsule Take 1 capsule by mouth twice daily for 5 days. No medication comments found. ALLERGIES Allergen Reactions Adhesive Tape-Silic* Other: See Comments blisters from Silverlon dressing Chlorhexidine Rash rash and itching from preop wipes Oxycodone GI Upset COVID VACCINATION STATUS: Fully vaccinated REVIEW OF SYSTEMS: PAIN ASSESSMENT: Pain Pain Level: 4 Pain Location: Hip-Right Description: Dull Duration Amount of Time: 15 Duration Units: Years Frequency: Intermittent Intervention/Comfort measure: Medication Comments: Tylenol, Blue Emu General: No weight loss, malaise or fevers. 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 No neurological symptoms or problems. Respiratory: Negative for Current cough, Dyspnea, URI < 2 weeks Former smoker - quit 2010 30 pack year Cardiovascular: Negative for CAD, Chest Pain, DVT/PE Hx of SVT- on Propanolol GI: No history of GI symptoms or problems. No history of esophageal varices, recent ascites, or ETOH greater than 2 drinks per day. 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 : Denies, Patient's last menstrual period was 10/29/2008 (within years). Endocrine: No history of diabetes. Has not taken steroids within the past 30 days. No history of endocrinological symptoms or problems. Hematology: No history of bleeding or clotting disorder. Pt is not taking anti-coagulation or platelet medications. No history of hematological symptoms or problems. Oncology: No history of CA metastasis, chemo within 30 days, or radiotherapy within 90 days. Has not lost 10% of body wt in 6 months. No history of oncological symptoms or problems. Psych: No history of psychiatric symptoms or problems. Musculoskeletal: See HPI Skin: Negative for lesions, rash and itching. Objective PHYSICAL EXAM: VITALS: BP 107/61 Pulse 73 Temp (Src) 97.1 (Temporal Artery) Resp 16 Ht 5' 6 (1.68m) Wt 160 lb (72.6kg) SpO2 100% LMP 10/29 (more content not included)... [facility] HbA1c (Bld)on 11-24-2022 Average glucose Estimated from glycated hemoglobin (Bld) [Mass/Vol] 105 mg/dL Normal [facility] Comment on above: Order Comment: Speci men Type: BLOOD SPECIMENOrdering Facility: [facility] Address: [address] [address] Result Comment: eAG: (Estimated average glucose) is a calculated value from HgbA1c and is solar manufacturer's representative of the average blood glucose level in the last 2-3 month period. Performed By: #### 5 5454-3 ####[facility] LABCLIA [id number] [address] OF [facility] HbA1c (Bld) [Mass fraction] 5.3 % Normal 4.3-5.6 [facility] Comment on above: Order Comment: Speci men Type: BLOOD SPECIMENOrdering Facility: [facility] Address: [address] [place] [address] Result Comment: [place] Diabetes Association guidelines indicate that patients with HgbA1c in the range 5.7-6.4% are at increased risk for development of diabetes, and intervention by lifestyle modification may be beneficial. HgbA1c greater or equal to 6.5% is considered diagnostic of diabetes. Performed By: #### 5 5454-3 ####[facility] LABCLIA [id number] [address] OF [facility] TYPE AND SCREEN,30 DAYon ABO A [facility] Comment on above: Order Comment: Speci men Type: BLOOD SPECIMENOrdering Facility: [facility] Address: [address] [place] [address] Performed By: #### T SCR30 ####[facility] BANKCLIA [id number] [address] HISTORICAL AB SCR STATUS Negative [facility] Comment on above: Order Comment: Speci men Type: BLOOD SPECIMENOrdering Facility: [facility] Address: [address] [place] [address] Performed By: #### T SCR30 ####[facility] BANKIA [id number] [address] TOM Rh Nom (Bld) Positive Normal Portal Cl [facility] Comment on above: Order Comment: Speci men Type: BLOOD SPECIMENOrdering Facility: [facility] Address: [address] [place] [address] Performed By: #### T SCR30 ####CC [facility] BLOOD [facility] [id number] [place] [address] [place] Urinalysis complete panel (U )on 11-24-2022 Bilirubin Ql (U) Negative Normal Negative [facility] Comment on above: Order Comment: Speci men Type: URINE SPECIMENOrdering Facility: [facility] Address: [address] [place] [address] Performed By: #### 2 4356-8 ####[facility] LABCLIA [id number] [place] [address] [place] Clarity (Unsp spec) Clear Normal Clear [facility] Comment on above: Order Comment: Speci men Type: URINE SPECIMENOrdering Facility: [facility] Address: [address] [place] [address] Performed By: #### 2 4356-8 ####[facility] LABIA [id number] [place] [address] [place] Color (U) Light Yellow [facility] above: Order Comment: Speci men Type: URINE SPECIMENOrdering Facility: [facility] Address: [address] [place], [place] [address] Performed By: #### 2 4356-8 ####[facility] LABCLIA [id number] [place] [address] [place] Epithelial cells LM.HPF (Urine sed) [#/Area] Few [facility] Comment on above: Order Comment: Speci men Type: URINE SPECIMENOrdering Facility: [facility] Address: [address] [place] [address] Result Comment: Few Performed By: #### 2 4356-8 ####[facility] LABCLIA [id number] [place] [address] [place] Glucose Test strip (U) [Mass/Vol] Negative Normal Trace, Negative [facility] Comment on above: Order Comment: Speci men Type: URINE SPECIMENOrdering Facility: [facility] Address: [address] [place] [address] Performed By: #### 2 4356-8 ####[facility] LABCLIA [id number] [place] [address] [place] Hemoglobin Ql (U) Negative Normal Negative, Trace [facility] Comment on above: Order Comment: Speci men Type: URINE SPECIMENOrdering Facility: [facility] Address: [address] [place] [address] Performed By: #### 2 4356-8 ####[facility] LABCLIA [id number] [place] [address] [place] Hyaline casts (Urine sed) [#/Area] 1-3 /LPF Abnormal 0 /LPF [facility] Comment on above: Order Comment: Speci men Type: URINE SPECIMENOrdering Facility: [facility] Address: [address] [place] [address] Performed By: #### 2 4356-8 ####[facility] LABCLIA [id number] [place] [address] [place] Ketones Ql (U) Negative Normal Trace, Negative [facility] Comment on above: Order Comment: Speci men Type: URINE SPECIMENOrdering Facility: [facility] Address: [address] [place] [address] Performed By: #### 2 4356-8 ####[facility] LABCLIA [id number] [place] [address] [place] Leukocyte esterase Test strip Ql (U) 25 Chin/uL Normal Negative, 25 Chin/uL [facility] Comment on above: Order Comment: Speci men Type: URINE SPECIMENOrdering Facility: [facility] Address: [address] [place] [address] Performed By: #### 2 4356-8 ####[facility] LABCLIA [id number] [place] [address] [place] Nitrite Ql (U) Negative Normal Negative [facility] Comment on above: Order Comment: Speci men Type: URINE SPECIMENOrdering Facility: [facility] Address: [address] [place] [address] Performed By: #### 2 4356-8 ####[facility] LABIA [id number] [place] [address] [place] pH (U) 6.0 [pH] Normal 5.0-8.0 [facility] Comment on above: Order Comment: Speci men Type: URINE SPECIMENOrdering Facility: [facility] Address: [address] [place] [address] Performed By: #### 2 4356-8 ####[facility] LABIA [id number] [place] [address] [place] Protein (U) [Mass/Vol] Negative Normal Trace, Negative [facility] Comment on above: Order Comment: Speci men Type: URINE SPECIMENOrdering Facility: [facility] Address: [address] [place], [place] [id number] Performed By: #### 2 4356-8 ####[facility] LABCLIA [id number] [place] [address] [place] RBC LM.HPF (Urine sed) [#/Area] 0-3 /HPF Normal 0-3 /HPF [facility] Comment on above: Order Comment: Speci men Type: URINE SPECIMENOrdering Facility: [facility] Address: [address] [place] [address] Performed By: #### 2 4356-8 ####[facility] LABCLIA [id number] [place] [address] [place] Specific gravity (U) [Rel density] 1.016 Normal 1.005-1.030 [facility] Comment on above: Order Comment: Speci men Type: URINE SPECIMENOrdering Facility: [facility] Address: [address] [place] [address] Performed By: #### 2 4356-8 ####[facility] LABCLIA [id number] [address] [place] Urobilinogen Ql (U) Negative Normal Negative [facility] Comment on above: Order Comment: Speci men Type: URINE SPECIMENOrdering Facility: [facility] Address: [address] [place] [address] Performed By: #### 2 4356-8 ####[facility] LABIA [id number] [address] [place] WBC LM.HPF (Urine sed) [#/Area] 0-5 /HPF Normal 0-5 /HPF [facility] Comment on above: Order Comment: Speci men Type: URINE SPECIMENOrdering Facility: [facility] Address: [address] [place] [address] Performed By: #### 2 4356-8 ####[facility] LABIA [id number] [address] [place] XR HIP 3V PELV+ AP/LAT RTon 11-24-2022 XR HIP 3V PELV+ AP/LAT RT * * *Final Report* * * DATE OF EXAM: Nov 24 2022 9:37AM LZX 5352 - XR HIP 3V PELV+ AP/LAT RT / PROCEDURE REASON: Primary osteoarthritis of right hip * * * * Physician Interpretation * * * * EXAMINATION / TECHNIQUE: XR HIP 3V PELV+ AP/LAT RT PATIENT/TECHNOLOGIST PROVIDED HISTORY: Pain in lateral aspect and groin CLINICAL INFORMATION ( PROVIDED BY ORDERING CLINICIAN) : Primary osteoarthritis of right hip COMPARISON: Pelvis radiographs 10/06/2022. RESULT: No acute fracture dislocation. No focal bone lesion. Severe degenerative changes at the RIGHT hip with marked joint space axial narrowing, subchondral changes and marginal osteophytes. Partially visualized LEFT total hip arthroplasty appears intact. Bilateral sacroiliac and pubic symphysis joint spaces are maintained. Partially visualized lower lumbar degenerative changes. Calcific tendinosis at the superior aspect of the right greater trochanter is noted and unchanged from prior exam. IMPRESSION: Severe RIGHT hip osteoarthritis. Extension Work Director: PSCB Transcribe Date/Time: Nov 24 2022 9:40A Dictated by : KAIN ECHAVARRIA MD This examination was interpreted and the report reviewed and electronically signed by: TARA OMALLEY MD on Nov 24 2022 10:59AM EST [id number] Normal [facility] XR HIP GENERAL 3V PELV/AP/LA T RIGHTon 11-24-[address] [facility] ic CT CHEST WO CONon 11-10-2022 CT CHEST WO CON EXAMINATION: CT CHES T WO CON HISTORY: Imaging result abnormal ; follow-up left upper lobe spiculated opacities COMPARISON: CT chest 05/19/2022 TECHNIQUE: Axial, Coronal, and Sagittal images were created without the administration of IV contrast material. Dose reduction techniques were achieved by using automated exposure control and/or adjustment of mA and/or kV according to patient size and/or use of iterative reconstruction technique. FINDINGS: LUNGS: Mild bronchiectasis and scattered areas of mucous plugging, most notable within right middle lobe. Clearing of previously seen spiculated opacities within left upper lobe lateral to the hilum. Mild emphysematous changes. PLEURA: No mass, effusion, or pneumothorax. VASCULATURE: No abnormality. BRI: A few calcified lymph nodes. MEDIASTINUM: A few calcified lymph nodes compatible with chronic granulomatous disease. CARDIAC: No enlargement, pericardial thickening, or significant calcification. AORTA: No aneurysm or dissection. CHEST WALL: No mass or axillary adenopathy BONES: No bone lesion or fracture. LIMITED ABDOMEN: No suspicious findings. Limited images of the upper abdomen. OTHER: Negative. IMPRESSION: 1. Lung-RADS 2- Benign Appearance or Behavior. Nodules with a very low likelihood of becoming a clinically active cancer due to size or lack of growth. Follow-up CT Chest in 1 year. 2. Mild bronchiectasis and scattered mild mucous plugging. 3. Clearing of previously seen spiculated opacities lateral to left hilum; likely resolution of mucous plugging and atelectasis. 4. Mild emphysematous changes. Electronically authenticated by: GIOVANA GASPAR Date: 2022-11-10 13:08 Normal [facility] GLYCOHEMOGLOBIN A1Con 2022 ADA RECOMMENDATION SEE BELOW Normal [facility] Comment on above: Result Comment: ADA RECOMMENDED LIMIT 4.0 - 6.0 ADA THERAPEUTIC TARGET < 7.0 ACTION SUGGESTED > 7.0 Performed By: #### A 1C #### [facility] [address] [address] [address] Yordy Tse Glucose [Mass/Vol] 114 mg/dL Normal [facility] Comment on above: Performed By: #### A 1C #### [facility] [address] [address] [address] Yordy Tse HbA1c (Bld) [Mass fraction] 5.6 % Normal 4.5-6.2 [facility] Comment on above: Performed By: #### A 1C #### [facility] [address] [address] [address] Yordy Tse MICROALB CREAT RATIO RANDOMo n 11-10-2022 mALB <1.3 Normal <=30.0 [facility] Comment on above: Performed By: #### M CRR #### [facility] [address] [address] [address] Yordy Tse MALB CR RATIO 29.6 mg/g Normal 0.0-29.9 [facility] Comment on above: Performed By: #### M CRR #### [facility] [address] [address] [address] Yordy Tse MALB CR RATIO RANGE SEE BELOW Normal [facility] [place] Comment on above: Result Comment: NO M ICROALBUMINURIA 0-29 MG/G CLINICAL MICROALBUMINURIA 30-300 MG/G MACROALBUMINURIA >300 MG/G Performed By: #### M CRR #### [facility] [address] [address] [address] Yordy Tse URINE CREAT 43.94 mg/dL Normal 20.00-300.00 [facility] Comment on above: Performed By: #### M CRR #### [facility] [address] [address] [address] Yordy Willingham 10-06-2022 [facility] Office Visit (LOORRM ) MARY VAUGHN ([id number]) 1955 F DEF Date Time Provider Department 10/06/22 11:00 AM SHANT MÉNDEZ During your visit today, we recorded the following information about you: Shant Méndez II, MD 10/15/2022 3:01 PM Signed [facility] [address] [place], [place] [address] CLINIC NOTE Department of Orthopaedics - Jose Eduardo Méndez II, M.D. NAME: RODERICK [facility] NO.: [id number] DATE OF SERVICE: 10/06/2022 CHIEF COMPLAINT: Recheck of left hip/pain in right hip. Left THR, 09/29/2021. The patient is doing fine and is having no pain in her total hip. Incision continues to have healed very nicely with no evidence of drainage and her gait referable to her left hip is excellent. She is having more pain with ambulation and has limitations now because of increasing pain and instability in her right hip. X-rays today show left total hip replacement in good alignment. Right hip shows severe xedn-ng-nats arthritis throughout the right hip. The patient states her right hip is now interfering with her activities of daily living and has decided that she would like to proceed with hip replacement on the right. We reiterated risks and anticipated results and we will give her an appointment for right THR on 11/30/2022. Risks and anticipated results have been once again explained. Dictated By: Shant Méndez II, M.D. Date Dictated: 10/08/2022 Date Typed: kenneth 10/08/2022 JOB# [id number] Mary Quigley MA 10/18/2022 11:46 AM Signed This note has been dictated. Low Méndez M.D. Spouting Installer: Transcribed Clinic Note (gilberto) ID: [id number] Author: SHANT MÉNDEZ Signed by SHANT MÉNDEZ MD on 10/15/2022 at 3:01 PM Document text: [facility] [address] [place], [place] [address] CLINIC NOTE Department of Orthopaedics - [place] Shant Méndez II, M.D. NAME: MARY VAUGHN [facility] NO.: [id number] DATE OF SERVICE: 10/06/2022 CHIEF COMPLAINT: Recheck of left hip/pain in right hip. Left THR, 09/29/2021. The patient is doing fine and is having no pain in her total hip. Incision continues to have healed very nicely with no evidence of drainage and her gait referable to her left hip is excellent. She is having more pain with ambulation and has limitations now because of increasing pain and instability in her right hip. X-rays today show left total hip replacement in good alignment. Right hip shows severe palm-bg-qlgq arthritis throughout the right hip. The patient states her right hip is now interfering with her activities of daily living and has decided that she would like to proceed with hip replacement on the right. We reiterated risks and anticipated results and we will give her an appointment for right THR on 11/30/2022. Risks and anticipated results have been once again explained. Dictated By: Shant Méndez II, M.D. Date Dictated: 10/08/2022 Date Typed: kenneth 10/08/2022 JOB# [id number] ----- Referring Provider: SHANT MÉNDEZ [[id number]] Allergies As of Date: 10/06/2022 (No Known Allergies) Date Reviewed: 10/06/2022 Reviewed by: Shant Méndez MD - Fully Assessed Reason for Visit: Post Op [174] Hip Replacement [324] Primary Visit Diagnosis:Status post left hip replacement [Z96.642] Other Visit Diagnoses:Primary osteoarthritis of right hip [M16.11] Pre-op testing [Z01.818] MRSA (methicillin resistant Staphylococcus aureus) [A49.02] Frequent urination [R35.0] Abnormal finding of blood chemistry, unspecified [R79.9] Order(s):XR PELVIS 1V AP [3039251] Order #: [id number] FUTURE URINALYSIS, WITH MICROSCOPIC [SQUAWMIC] Order #: [id number] FUTURE CBC + DIFF [SQCBCDIF] Order #: [id number] FUTURE BASIC METABOLIC PNL [SQBMP] Order #: [id number] FUTURE STAPH AUREUS PCR [SQSAPCR] Order #: [id number] FUTURE URINE CULTURE [SQURCUL] Order #: [id number] FUTURE HGB A1C [EMUKJ8S] Order #: [id number] FUTURE TYPE AND SCREEN,30 DAY [RHHISA77] Order #: [id number] FUTURE CONSULT TO(TCI)PRE-OP CLEAR [2508573] Order #: [id number]: 1 CONSULT TO PHYSICAL THERAPY [9092] Order #: [id number]: 1 FUTURE PATIENT PLACED ON TODD FANY CARE PATH [9165356] Order #: [id number]: 1 STAPH AUREUS PCR [SQSAPCR] Order #: [id number]. #:[id number] Prescriptions as of 10/18/2022 - Amoxicillin 500 mg tablet four tabs one hour prior to dental procedure and two tabs six hours after the dental procedure - acetaminophen (TYLENOL EXTRA STRENGTH) 500 mg tablet Take 2 tablets by mouth every 8 hours as needed for pain. - docusate sodium (COLACE) 100 mg capsule Take 1 capsule by mouth twice daily as needed for constipation. - oxyCODONE IR (ROXICODONE) 5 mg immediate release tablet Take 1-2 tablets by mouth every (more content not included)... Normal [facility] - Microbiology an d Antimicrobial susceptibilityon 10-06-2022 S. aureus and MRSA panel LEONA+probe (Nose) Negative Negative [facility] STAPH AUREUS PCRon 3 S. aureus and MRSA panel LEONA+probe (Nose) Normal Negative [facility] Comment on above: Order Comment: Speci men Type: SWAB OF INTERNAL NOSEOrdering Facility: [facility] Address: [address] [place] [address] Result Comment: Nega tive for Staphylococcus aureus by PCR. Negative for MRSA by PCR Performed By: #### S APCR ####[facility] LABCLIA [id number] [facility] [place] [id number] [place] XR PELVIS 1V APon 10-06-2022 XR PELVIS 1V AP * * *Final Report* * * DATE OF EXAM: Oct 06 2022 11:09AM LZX 5239 - XR PELVIS 1V AP / PROCEDURE REASON: Status post left hip replacement * * * * Physician Interpretation * * * * EXAMINATION / TECHNIQUE: XR PELVIS 1V AP HISTORY: STATUS POIST LEFT HIP REPLACEMENT Status post left hip replacement COMPARISON: 10/23/2021. FINDINGS: Status post left total hip arthroplasty with orthopedic hardware in standard position and alignment. There is no periprosthetic lucency or fracture. There is severe right hip osteoarthritis. IMPRESSION: Status post left total hip arthroplasty without evidence of complication. Extension Work Director: PSCMatthew Transcribe Date/Time: Oct 06 2022 11:17A Dictated by : DELANEY LEAVITT MD This examination was interpreted and the report reviewed and electronically signed by: DELANEY LEAVITT MD on Oct 06 2022 11:18AM EST [id number] Normal [facility] ic CT LUNG CANCER SCREENINGon 0 05-19-2022 CT LUNG CANCER SCREENING EXAMINATION: CT LUNG CANCER SCREENING HISTORY: Nicotine dependence COMPARISON: CT chest 05/18/2021 TECHNIQUE: Axial, Coronal, and Sagittal images were created without the administration of IV contrast material. Dose reduction techniques were achieved by using automated exposure control and/or adjustment of mA and/or kV according to patient size and/or use of iterative reconstruction technique. FINDINGS: LUNGS: Mild bronchiectasis and scattered areas of mucous plugging. A few tiny spiculated opacities within lateral left upper lobe near level of hilum. Mild emphysematous changes. A few scattered calcified granulomas. PLEURA: No mass, effusion, or pneumothorax. VASCULATURE: No abnormality. BRI: No mass or pathologic adenopathy. MEDIASTINUM: Calcified lymph nodes compatible with chronic granulomatous disease. CARDIAC: No enlargement, pericardial thickening, or significant calcification. AORTA: No aneurysm or dissection. CHEST WALL: No mass or axillary adenopathy BONES: No bone lesion or fracture. LIMITED ABDOMEN: No suspicious findings. Limited images of the upper abdomen. OTHER: Negative. IMPRESSION: 1. Lung-RADS Category 3- Probably benign. Probably benign finding(s)- short term follow up suggested; includes nodules with a low likelihood of becoming a clinically active cancer. Six month LDCT. 2. Several new tiny spiculated opacities within inferior lateral aspect of left upper lobe likely areas of atelectasis or infiltrate distal to the areas of mucous plugging. Follow-up imaging in 6 months is recommended. Electronically authenticated by: GIOVANA GASPAR Date: 2022-05-19 16:46 Normal [facility] POLIOVIRUS (TYPES 1,3) ABon 05-12-2022 POLIOVIRUS ANTIBODY TYPE 1 1:80 Normal [facility] Comment on above: Performed By: #### P OLIO #### [facility] [address] [address] [address] Yordy Tse POLIOVIRUS ANTIBODY TYPE 3 <1:10 Normal [facility] Comment on above: Result Comment: INTE RPRETIVE INFORMATION: Poliovirus (Types 1, 3) Antibodies Less than 1:10: No detectable poliovirus antibodies. 1:10 or greater: Antibody to poliovirus detected, which may represent prior immunization or current or past infection. The presence of neutralizing antibodies against poliovirus implies immunity. The serum neutralization test is serotype specific. Antibodies against one type does not indicate immunity against the other type. Reference interval applies to Poliovirus Antibodies Types 1 and 3. Performed By: #### P OLIO #### [facility] [address] [address] [address] Yordy Tse CBC AUTO DIFFon 04-28-2022 BASO # 0.0 103/ul Normal 0.0-0.1 [facility] Comment on above: Performed By: #### C BC #### [facility] [address] [address] [address] Yordy Tse Basophils/100 WBC (Bld) 0.5 % Normal 0.2-2.0 [facility] Comment on above: Performed By: #### C BC #### [facility] [address] [place] [address] Dr. Yordy Tse EO # 0.1 103/ul Normal 0.0-0.7 [facility] Comment on above: Performed By: #### C BC #### [facility] [address] [place] [address] Dr. Yordy Tse Eosinophils/100 WBC (Bld) 2.2 % Normal 0.9-7.0 [facility] Comment on above: Performed By: #### C BC #### [facility] [address] [place] [address] Dr. Yordy Tse Erythrocyte distribution width (RBC) [Ratio] 14.0 % Normal 11.0-15.0 [facility] Comment on above: Performed By: #### C BC #### [facility] [address] [place] [address] Dr. Yordy Tse Hematocrit (Bld) [Volume fraction] 45.2 % Normal 36.0-48.0 [facility] Comment on above: Performed By: #### C BC #### [facility] [address] [place] [address] Dr. Yordy Tse Hemoglobin (Bld) [Mass/Vol] 14.5 g/dL Normal 12.0-16.0 [facility] Comment on above: Performed By: #### C BC #### [facility] [address] [place] [address] Dr. Yordy Tse IG # 0.01 10e3/ul Normal 0.00-0.03 [facility] Comment on above: Performed By: #### C BC #### [facility] [address] [place] [address] Dr. Yordy Tse IG % 0.2 % Normal 0.0-0.5 [facility] Comment on above: Performed By: #### C BC #### [facility] [address] [place] [address] Dr. Yordy Tse LYMPH # 1.5 103/ul Normal 1.2-3.8 [facility] Comment on above: Performed By: #### C BC #### [facility] [address] [place] [address] Dr. Yordy Tse Lymphocytes/100 WBC (Bld) 27.8 % Normal 20.5-60.0 [facility] Comment on above: Performed By: #### C BC #### [facility] [address] [place] [address] Dr. Yordy Tse MANUAL DIFF REQ NO Normal [facility] Comment on above: Performed By: #### C BC #### [facility] [address] [place] [address] Dr. Yordy Tse MCH (RBC) [Entitic mass] 28.2 pg Normal 26.7-34.0 [facility] Comment on above: Performed By: #### C BC #### [facility] [address] [place] [address] Dr. Yordy Tse MCHC (RBC) [Mass/Vol] 32.1 g/dL Normal 29.9-35.2 [facility] Comment on above: Performed By: #### C BC #### [facility] [address] [place] [address] Dr. Yordy Tse MCV (RBC) [Entitic vol] 87.9 fL Normal 81.0-99.0 [facility] Comment on above: Performed By: #### C BC #### [facility] [address] [place] [address] Dr. Yordy Tse MONO # 0.4 103/ul Normal 0.3-0.8 [facility] Comment on above: Performed By: #### C BC #### [facility] [address] [place] [address] Dr. Yordy Tse Monocytes/100 WBC (Bld) 7.5 % Normal 1.7-12.0 [facility] Comment on above: Performed By: #### C BC #### [facility] [address] [place] [address] Dr. Yordy Tse NEUT # 3.4 103/ul Normal 1.4-6.5 [facility] Comment on above: Performed By: #### C BC #### [facility] [address] [address] [address] Yordy Tse Neutrophils/100 WBC (Bld) 61.8 % Normal 43.0-75.0 [facility] Comment on above: Performed By: #### C BC #### [facility] [address] [address] [address] Yordy Tse Platelet mean volume (Bld) [Entitic vol] 9.9 fL Normal 9.5-13.5 [facility] Comment on above: Performed By: #### C BC #### [facility] [address] [place] [address] Dr. Yordy Tse PLT 240 103/ul Normal 150-450 [facility] Comment on above: Performed By: #### C BC #### [facility] [address] [place] [address] Dr. Yordy Tse RBC 5.14 106/ul Normal 4.20-5.40 [facility] Comment on above: Performed By: #### C BC #### [facility] [address] [place] [address] Dr. Yordy Tse WBC 5.5 103/ul Normal 4.0-11.0 [facility] Comment on above: Performed By: #### C BC #### [facility] [address] [place] [address] Dr. Yordy Tse GLYCOHEMOGLOBIN A1Con 2021 ADA RECOMMENDATION SEE BELOW Normal [facility] Comment on above: Result Comment: ADA RECOMMENDED LIMIT 4.0 - 6.0 ADA THERAPEUTIC TARGET < 7.0 ACTION SUGGESTED > 7.0 Performed By: #### A 1C #### [facility] [address] [place] [address] Dr. Yordy Tse Glucose [Mass/Vol] 111 mg/dL Normal [facility] Comment on above: Performed By: #### A 1C #### [facility] [address] [place] [address] Dr. Yordy Tse HbA1c (Bld) [Mass fraction] 5.5 % Normal 4.5-6.2 [facility] Comment on above: Performed By: #### A 1C #### [facility] [address] [address] [address] Yordy Tse LIPID PROFILEon 04-28-2022 CHOL-HDL RATIO NORM SEE BELOW Normal [facility] [place] Comment on above: Result Comment: 3.3 - 4.4 LOW RISK 4.4 - 7.1 AVERAGE RISK 7.1 - 11.0 MODERATE RISK >11.0 HIGH RISK Performed By: #### C MP, TSH, LIPID #### [facility] [address] [address] [address] Yordy Tse Cholesterol [Mass/Vol] 186 mg/dL Normal <=200 [facility] Comment on above: Performed By: #### C MP, TSH, LIPID #### [facility] [address] [address] [address] Yordy Tse Cholesterol in HDL [Mass/Vol] 57 mg/dL Normal 40-60 [facility] Comment on above: Performed By: #### C MP, TSH, LIPID #### [facility] [address] [address] [address] Yordy Tse Cholesterol in LDL [Mass/Vol] 116.6 mg/dL Normal [facility] Comment on above: Performed By: #### C MP, TSH, LIPID #### [facility] [facility] [address] [address] [address] Yordy Tse Cholesterol.total/Ch olesterol in HDL [Mass ratio] 3.3 {ratio} Normal [facility] Comment on above: Performed By: #### C MP, TSH, LIPID #### [facility] [address] [address] [address] Yordy Tse HDL NORMAL > or = 60 mg/dl - LO W CARDIOVASCULAR RISK <40 mg/dl - HIGH CARDIOVASCULAR RISK Normal [facility] Comment on above: Performed By: #### C MP, TSH, LIPID #### [facility] [address] [address] [address] Yordy Tse LDL CALC NORMAL SEE BELOW Normal [facility] Comment on above: Result Comment: <100 mg/dl OPTIMAL 100 - 129 mg/dl NEAR OR ABOVE OPTIMAL 130 - 159 mg/dl BORDERLINE HIGH 160 - 189 mg/dl HIGH >190 mg/dl VERY HIGH Performed By: #### C MP, TSH, LIPID #### [facility] [address] [place] [address] Dr. Yordy Tse Triglyceride [Mass/Vol] 62 mg/dL Normal <=150 [facility] Comment on above: Performed By: #### C MP, TSH, LIPID #### [facility] [address] [place] [address] Dr. Yordy Tse VLDL CALC 12.4 mg/dL Normal [facility] Comment on above: Performed By: #### C MP, TSH, LIPID #### [facility] [address] [place] [address] Dr. Yordy Tse PROF 14(COMP METB)on 022 Albumin [Mass/Vol] 3.7 g/dL Normal 3.4-5.0 [facility] Comment on above: Performed By: #### C MP, TSH, LIPID #### [facility] [address] [place] [address] Dr. Yordy Tse Albumin/Globulin [Mass ratio] 0.9 {ratio} Normal [facility] Comment on above: Performed By: #### C MP, TSH, LIPID #### [facility] [address] [place] [address] Dr. Yordy Tse ALP [Catalytic activity/Vol] 88 U/L Normal 46-116 [facility] Comment on above: Performed By: #### C MP, TSH, LIPID #### [facility] [address] [place] [address] Dr. Yordy Tse ALT [Catalytic activity/Vol] 31 U/L Normal 14-59 [facility] Comment on above: Performed By: #### C MP, TSH, LIPID #### [facility] [address] [place] [address] Dr. Yordy Tse Anion gap [Moles/Vol] 11.7 mmol/L Normal [facility] Comment on above: Performed By: #### C MP, TSH, LIPID #### [facility] [address] [address] [address] Yordy Tse AST [Catalytic activity/Vol] 23 U/L Normal 15-37 [facility] Comment on above: Performed By: #### C MP, TSH, LIPID #### [facility] [address] [address] [address] Yordy Tse Bilirubin [Mass/Vol] 0.5 mg/dL Normal 0.2-1.0 [facility] Comment on above: Performed By: #### C MP, TSH, LIPID #### [facility] [address] [address] [address] Yordy Tse Calcium [Mass/Vol] 9.3 mg/dL Normal 8.5-10.1 [facility] Comment on above: Performed By: #### C MP, TSH, LIPID #### [facility] [address] [place] [address] Dr. Yordy Tse Chloride [Moles/Vol] 102 mmol/L Normal 98-107 [facility] Comment on above: Performed By: #### C MP, TSH, LIPID #### [facility] [address] [address] [address] Yordy Tse CO2 [Moles/Vol] 30.3 mmol/L Normal 21.0-32.0 [facility] Comment on above: Performed By: #### C MP, TSH, LIPID #### [facility] [address] [address] [address] Yordy Tse Creatinine [Mass/Vol] 0.73 mg/dL Normal 0.55-1.02 [facility] Comment on above: Performed By: #### C MP, TSH, LIPID #### [facility] [address] [address] [address] Yordy Tse EGFR-AF BELGIAN >60 Normal >=60 [facility] Comment on above: Performed By: #### C MP, TSH, LIPID #### [facility] [address] [address] [address] Yordy Tse EGFR-NON AF BELGIAN >60 Normal >=60 [facility] Comment on above: Performed By: #### C MP, TSH, LIPID #### [facility] [address] [address] [address] Yordy Tse Globulin (S) [Mass/Vol] 4.0 g/dL Normal [facility] Comment on above: Performed By: #### C MP, TSH, LIPID #### [facility] [address] [address] [address] Yordy Tse Glucose [Mass/Vol] 88 mg/dL Normal 74-106 [facility] Comment on above: Performed By: #### C MP, TSH, LIPID #### [facility] [address] [place] [address] Dr. Yordy Tse Potassium [Moles/Vol] 4.0 mmol/L Normal 3.5-5.1 [facility] Comment on above: Performed By: #### C MP, TSH, LIPID #### [facility] [address] [place] [address] Dr. Yordy Tse Protein [Mass/Vol] 7.7 g/dL Normal 6.4-8.2 [facility] Comment on above: Performed By: #### C MP, TSH, LIPID #### [facility] [address] [place] [address] Dr. Yordy Tse Sodium [Moles/Vol] 140 mmol/L Normal 136-145 [facility] Comment on above: Performed By: #### C MP, TSH, LIPID #### [facility] [address] [place] [address] Dr. Yordy Tse Urea nitrogen [Mass/Vol] 15.0 mg/dL Normal 7.0-18.0 [facility] Comment on above: Performed By: #### C MP, TSH, LIPID #### [facility] [address] [place] [address] Dr. Yordy Tse Urea nitrogen/Creatinine [Mass ratio] 20.5 mg/mg Normal [facility] Comment on above: Performed By: #### C MP, TSH, LIPID #### [facility] [address] [place] [address] Dr. Yordy Tse TSHon 04-28-2022 TSH 1.586 uIU/mL Normal 0.358-3.740 [facility] Comment on above: Performed By: #### C MP, TSH, LIPID #### [facility] [address] [address] [address] Yordy Tse [facility] DIGITAL DIAGNOSTIC UNILATERAL RIGHTon 04-05-2022 1. No mammographic evidence of malignancy. Patient can resume annual screening mammography. BIRADS: BIRADS - CATEGORY 2 Benign Findings. Normal interval follow-up is recommended in 12 months. OVERALL ASSESSMENT - BENIGN A letter of notification will be sent to the patient regarding the results. The [employer] recommends annual mammograms for women 40 years and older. [facility] EXAMINATION: DIAGNOSTIC DIGITAL RIGHT BREAST MAMMOGRAM WITH TOMOSYNTHESIS, 04/05/2022 1:58 pm TECHNIQUE: Diagnostic mammography of the right breast was performed with tomosynthesis. 2D standard and 3D tomosynthesis combination imaging performed through the right breast. Computer aided detection was utilized in the interpretation of this exam. Views: Medial to lateral view and focal compression view of the right breast in the CC plane. COMPARISON: Screening mammogram dated 2022 and prior mammogram dated February 26, 2021 and February 06, 2019. HISTORY: ORDERING SYSTEM PROVIDED HISTORY: Abnormal mammogram of right breast Callback from screening for right breast retroareolar asymmetry. FINDINGS: Right breast: The right breast is heterogeneously dense, which may obscure small masses. Questioned retroareolar asymmetry seen on screening mammogram completely dissipates on compression views with tomosynthesis. There is no underlying mass or architectural distortion. [facility] Radiology Study observation (narrative) [employer] Phone: [facility] DIGITAL DIAGNOSTIC UNILATERAL RIGHTOrdered By: Anival Coronado on 04-05-2022 Repligen Phone: [facility] DIGITAL SCREEN SELF REFERRAL W OR WO CAD BILATERALon 2022 Asymmetry posterior aspect of the right breast seen on craniocaudal view with additional mammographic workup advised. Full workup may require ultrasonography. BREAST DENSITY SUMMARY C: The breasts are heterogeneously dense which may obscure small masses. BI-RADS 0 BIRADS: BIRADS - CATEGORY 0 Incomplete: Needs Additional Imaging Evaluation OVERALL ASSESSMENT - INCOMPLETE:NEED ADDITIONAL IMAGING EVALUATION. [facility] EXAMINATION: SCREENING DIGITAL BILATERAL MAMMOGRAM WITH TOMOSYNTHESIS, 2022 TECHNIQUE: Screening mammography of the bilateral breasts was performed with tomosynthesis. 2D standard and 3D tomosynthesis combination imaging performed through both breasts in the MLO and CC projection. Computer aided detection was utilized in the interpretation of this exam. COMPARISON: 26 February 2021; 06 February 2019 HISTORY: Screening. Negative family history of breast cancer. Negative history of hormonal replacement therapy. No prior breast interventions. FINDINGS: The breast parenchyma is heterogeneously dense which can obscure small masses. No skin thickening, nipple contour changes or malignant type microcalcifications are noted. An asymmetry is present in the retroareolar area the right breast posterior depth seen on craniocaudal view only with additional mammographic workup advised. Full workup may require ultrasonography. [facility] Radiology Study observation (narrative) [employer] Phone: [facility] DIGITAL SCREEN SELF REFERRAL W OR WO CAD BILATERALOrdered By: Jacquie Landa on 2022 Re[employer]igen Phone: DEXA Bone Density 2 SitesOrd ered By: Breezy Zaman on 02-26-2021 Osteopenia by WHO criteria. [employer] Phone: EXAMINATION: BONE DENSITOMETRY 02/26/2021 8:57 am TECHNIQUE: A bone density DEXA scan was performed of the lumbar spine and left hip on a Hologic system. 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 This is within the osteopenia range by WHO criteria. Since prior exam, there has been a 0.019g/cm2 increase in bone mineral density, corresponding to a 2% change. LEFT HIP: The bone mineral density in the total hip is measured at 0.837 g/cm2 corresponding to a T-score of -1.4 and a Z-score of -0.3. This is within the osteopenia range by WHO criteria. Since prior exam, there has been a 0.013g/cm2 decline in bone mineral density, corresponding to a 1.5% change. The bone mineral density of the femoral neck is measured at 0.943 g/cm2 corresponding to a T-score of -0.7 and a Z-score of 0.7. This is within the normal range by WHO criteria. 10 year fracture risk is performed using the [employer] FRAX calculator based on patient-reported risk factors. Major osteoporotic fracture: 13% Hip fracture: 2.7% National Osteoporosis Foundation guidelines suggest pharmacologic treatment of patients with major osteoporotic fracture risk of 20% or greater and hip fracture risk of 3% or greater. Other situations known to alter the reliability of the FRAX score should be considered when making treatment decisions, including chronic glucocorticoid use and past treatments. Further guidance on treatment can be found at the National Osteoporosis Foundation's website bonesource.org. [employer] Work Phone: Lele, Misha Incoming Radiant Results From [employer] - 02/26/2021 10:44 AM EDT EXAMINATION: BONE DENSITOMETRY 02/26/2021 8:57 am TECHNIQUE: A bone density DEXA scan was performed of the lumbar spine and left hip on a Hologic system. 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 This is within the osteopenia range by WHO criteria. Since prior exam, there has been a 0.019g/cm2 increase in bone mineral density, corresponding to a 2% change. LEFT HIP: The bone mineral density in the total hip is measured at 0.837 g/cm2 corresponding to a T-score of -1.4 and a Z-score of -0.3. This is within the osteopenia range by WHO criteria. Since prior exam, there has been a 0.013g/cm2 decline in bone mineral density, corresponding to a 1.5% change. The bone mineral density of the femoral neck is measured at 0.943 g/cm2 corresponding to a T-score of -0.7 and a Z-score of 0.7. This is within the normal range by WHO criteria. 10 year fracture risk is performed using the [employer] FRAX calculator based on patient-reported risk factors. Major osteoporotic fracture: 13% Hip fracture: 2.7% National Osteoporosis Foundation guidelines suggest pharmacologic treatment of patients with major osteoporotic fracture risk of 20% or greater and hip fracture risk of 3% or greater. Other situations known to alter the reliability of the FRAX score should be considered when making treatment decisions, including chronic glucocorticoid use and past treatments. Further guidance on treatment can be found at the National Osteoporosis Foundation's website bonesource.org. IMPRESSION: Osteopenia by WHO criteria. [employer] Phone: [employer] Phone: [facility] DIGITAL SCREEN SELF REFERRAL W OR WO CAD BILATERALOrdered By: Breezy Zaman on 02-26-2021 No mammographic evidence of malignancy. BI-RADS 1 BIRADS: BIRADS - CATEGORY 1 Negative, no evidence of malignancy. Normal interval follow-up is recommended in 12 months. OVERALL ASSESSMENT - NEGATIVE A letter of notification will be sent to the patient regarding the results. [employer] recommends annual mammograms for women 40 years and older. [employer] Phone: EXAMINATION: SCREENING DIGITAL BILATERAL MAMMOGRAM WITH TOMOSYNTHESIS, 02/26/2021 TECHNIQUE: Screening mammography of the bilateral breasts was performed with tomosynthesis. 2D standard and 3D tomosynthesis combination imaging performed through both breasts in the MLO and CC projection. Computer aided detection was utilized in the interpretation of this exam. COMPARISON: 02/06/2019, 02/02/2018 HISTORY: Screening. FINDINGS: The breast tissue is heterogeneously dense. There is no suspicious mass, suspicious microcalcification, or area of architectural distortion. [employer] Phone: [employer] Phone: Large Joint Arthro/Inj: R kn ee joint [facility] ic Vital Signs Date Time Vital Sign Value Performing Clinician Jin wolf 11-24-2022 11:12-0400 Body height 167.6 cm Pacc 2 Work Phone: [facility] 11-24-2022 11:12-0400 Body temperature 97.11 [degF] Pacc 2 Work Phone: [facility] 11-24-2022 11:12-0400 Body weight 72.58 kg Pacc 2 Work Phone: [facility] 11-24-2022 11:12-0400 Diastolic blood pressure 61 mm[Hg] Pacc 2 Work Phone: [facility] 11-24-2022 11:12-0400 Heart rate 73 /min Pacc 2 Work Phone: [facility] 11-24-2022 11:12-0400 Respiratory rate 16 /min Pacc 2 Work Phone: [facility] 11-24-2022 11:12-0400 SaO2% (BldA) [Mass fraction] 100 % Pacc 2 Work Phone: [facility] 11-24-2022 11:12-0400 Systolic blood pressure 107 mm[Hg] Pacc 2 Work Phone: [facility] 11-24-2022 09:38-0400 Body height 167.6 cm Vel Galeana PA-C Work Phone: [facility] 11-24-2022 09:38-0400 Body weight 74.39 kg Vel Galeana PA-C Work Phone: [facility] Encounters Encounter Date Encounter Type Care Provider Facility Start: 01-05-2024 End: 01-05-2024 ambulatory LUIS GARCIA Not Available Start: 01-04-2024 End: 01-04-2024 ambulatory LORENA PUETNES Not Available Start: 12-23-2023 End: 12-23-2023 ambulatory LUIS GARCIA Not Available Start: 11-24-2023 End: 11-24-2023 ambulatory MARGIE LAL Not Available Start: 10-04-2023 End: 10-04-2023 ambulatory VEL EMMANUEL Facility:[facility] Start: 10-04-2023 End: 10-04-2023 Patient encounter procedure Vel Manriqueelder SNOWDEN Work Phone: Orthopaedics Comment on above: Status post right hi p replacement (Primary Dx); Status post left hip replacement Start: 09-15-2023 End: 09-15-2023 ambulatory MARGIE LAL Not Available Start: 07-20-2023 End: 07-20-2023 ambulatory LUIS GARCIA Not Available Start: 04-18-2023 End: 04-21-2023 ambulatory LUIS GARCIA [facility] Start: 04-18-2023 End: 04-20-2023 Subsequent hospital visit by physician [facility] Mammography Comment on above: Encounter for screen ing mammogram for malignant neoplasm of breast Start: 03-08-2023 End: 03-09-2023 [facility] Start: 02-25-2023 End: 02-25-2023 ambulatory SHANT MÉNDEZ Facility:[facility] Start: 02-25-2023 End: 02-25-2023 Patient encounter procedure Shant Méndez MD Work Phone: Orthopaedics Comment on above: Primary osteoarthrit is of right knee (Primary Dx) Start: 02-07-2023 End: 02-07-2023 ambulatory SHANT MÉNDEZ Facility:[facility] Start: 02-07-2023 End: 02-07-2023 Patient encounter procedure Shant Méndez MD Work Phone: Orthopaedics Comment on above: Status post right hi p replacement (Primary Dx); Status post left hip replacement; Primary osteoarthritis of right knee Start: 01-14-2023 End: 01-14-2023 ambulatory SHANT MÉNDEZ Facility:[facility] Start: 12-22-2022 End: 12-22-2022 ambulatory Karine Torres RT(R) Radiology Comment on above: Radiology XR Start: 12-22-2022 End: 12-22-2022 Patient encounter procedure Karine Torres RT(R) [facility] Comment on above: Aftercare following left hip joint replacement surgery (Primary Dx); Status post right hip replacement Start: 11-30-2022 End: 11-30-2022 ambulatory SHANT MÉNDEZ Facility:[facility] Start: 11-26-2022 Telephone encounter Quiana feldman APRN.[employer]IRCRAFT MAINTENANCE SUPERVISOR Work Phone: Pre Anesthesia Comment on above: PreOp Call (UTI) Start: 11-24-2022 End: 11-25-2022 ambulatory SHANT MÉNDEZ Facility:[facility] Start: 11-24-2022 Encounter for other preprocedural examination SHANT M[facility]NDE[facility] Start: 11-24-2022 End: 11-24-2022 Admission to establishment [facility] [place] [facility] Work Phone: [facility] Start: 11-24-2022 End: 11-24-2022 Preprocedural examination done Pac [place] [facility] Work Phone: Pre Anesthesia Start: 11-24-2022 End: 11-24-2022 ambulatory Pacc [place] 2 Work Phone: Pre Anesthesia Comment on above: Pre-op evaluation (P rimary Dx); SVT (supraventricular tachycardia) ([facility]); Former smoker Start: 11-24-2022 End: 11-24-2022 Patient encounter procedure Vel Galeana PA-C Work Phone: Orthopaedics Comment on above: Primary osteoarthrit is of right hip (Primary Dx) Start: 11-10-2022 End: 11-11-[address] LUIS GARCIA Facility: Start: 11-08-2022 End: 11-08-2022 ambulatory Karine Le RNcloth inspector Start: 10-22-2022 Orders Only Shant landis MD Work Phone: Orthopaedics Comment on above: Primary osteoarthrit is of right hip (Primary Dx) Start: 10-06-2022 End: 10-06-2022 ambulatory Susana Jesus RT(R) Radiology Comment on above: Radiology XR Start: 10-06-2022 End: 10-06-2022 Patient encounter procedure Susana Jesus RT(R) [facility] Comment on above: Status post left hip replacement (Primary Dx); Primary osteoarthritis of right hip; Pre-op testing; MRSA (methicillin resistant Staphylococcus aureus); Frequent urination; Abnormal finding of blood chemistry, unspecified Start: 10-06-2022 End: 10-06-2022 Patient encounter status Shant Méndez MD Work Phone: Orthopaedics Start: 05-27-2022 Refill Shant landis MD Work Phone: Orthopaedics Start: 05-19-2022 End: 05-20-[address] LUIS GARCIA Facility:[facility] Start: 04-28-2022 End: 04-29-[address] LUIS GARCIA Facility:[facility] Start: 04-05-2022 End: 04-07-2022 Subsequent hospital visit by physician [facility] Ultrasound Comment on above: Abnormal mammogram o f right breast Start: 2022 End: 03-04-2022 Subsequent hospital visit by physician [facility] Mammography Room At [facility] Mammography Comment on above: Screening breast exa mination Start: 12-22-2021 Refill Shant landis MD Work Phone: Orthopaedics Start: 06-26-2021 ambulatory Mirna duncan RT(R) Radiology Comment on above: Radio Gen RMP Start: 06-26-2021 End: 06-26-2021 Patient encounter procedure Mirna Lanza RT(R) [facility] Start: 02-26-2021 End: 02-28-2021 Subsequent hospital visit by physician [facility] Mammography Comment on above: Abnormal findings on diagnostic imaging of other parts of musculoskeletal system ; Osteopenia, unspecified location Breast cancer screen ing by mammogram Procedures Date Procedure Procedure Detail Performing Clinician Start: 04-18-2023 Screening mammograph y bi 2-view breast inc cad Luis Garcia MD Work Phone: Start: 02-25-2023 Arthrocentesis aspir &/inj major jt/bursa w/o us Shant Méndez MD Work Phone: Start: 11-24-2022 Antibody screen SHANT MÉNDEZ Comment on above: Order Comment: Speci men Type: BLOOD SPECIMENOrdering Facility: [facility] [address] [id number] Performed By: #### T [id number] ####CC MAIN BLOOD BANKCLIA [id number] TREY GRIFFITH [id number] [place] [address] [place] Start: 10-06-2022 Iadna s aureus ampli fied probe tq Shant Méndez MD Work Phone: Start: 04-05-2022 Diagnostic mammograp hy computer-aided detcj uni Luis Garcia MD Work Phone: Start: 2022 End: 2022 Screening mammography bi 2-view breast inc cad Luis Garcia MD Work Phone: Start: 02-26-2021 End: 02-26-2021 Screening mammography bi 2-view breast inc cad Breezy Zaman MD Work Phone: Start: 02-26-2021 Dxa bone density jay jay dy 1/> sites axial skel Breezy Zaman MD Work Phone: Start: 05-24-2019 Colonoscopy Mirna arriaga RT(R) Plan of Treatment Date Care Activity Detail Author Start: 05-24-2029 Screening for malign ant neoplasm of colon [facility] Start: 05-31-2026 DTaP/Tdap/Td vaccine (3 - Td or Tdap) DTaP/Tdap/Td vaccine (3 - Td or Tdap) [facility] Work Phone: Start: 05-31-2026 DTaP/Tdap/Td vaccine (4 - Td or Tdap) DTaP/Tdap/Td vaccine (4 - Td or Tdap) [facility] Start: 05-31-2026 Urine microalbumin profile [facility] Start: 04-23-2026 Urine microalbumin profile DTAP,TDAP,TD (2 - Td or Tdap) [facility] Start: 11-24-2025 DIABETES SCREEN DIABETES SCREEN [facility] Start: 11-24-2025 Diabetes Screening Diabetes Screenin g [facility] Start: 04-18-2025 Screening for malign ant neoplasm of breast Breast cancer screen [facility] Start: 09-21-2024 DIABETES SCREEN DIABETES SCREEN [facility] Start: 04-18-2024 Screening for malign ant neoplasm of breast Mammogram Screening [facility] Start: 04-05-2024 Screening for malign ant neoplasm of breast [facility] Start: 2024 Screening for malign ant neoplasm of breast Breast cancer screen [facility] Start: 11-09-2023 Influenza vaccination LUNG CANCER SC REENING [facility] Start: 11-09-2023 Screening for malign ant neoplasm of lung Lung Cancer Screening [facility] Start: 08-29-2023 Advance Directive Discussion Advance Directive Discussion [facility] Start: 08-29-2023 Depression Assessment Depression Ass essment [facility] Start: 04-29-2023 Influenza vaccination INFLUENZ A (Season Ended) [facility] Start: 03-29-2023 Influenza vaccination Flu vaccine (# 1) [facility] Start: 2023 Mammography MAMMOGRAM [facility] Start: 02-26-2023 Screening for malign ant neoplasm of breast Breast cancer screen [facility] Work Phone: Start: 11-03-2022 End: 01-03-2023 Bacteria identified in Urine by Culture URINE CULTURE Microbiology Routine Pre-op testing Frequent urination Expected: 11/03/2022 (Approximate), Expires: 01/03/2023 [facility] Work Phone: Comment on above: Expected: 11/03/2022 (Approximate), Expires: 01/03/2023 Start: 11-03-2022 End: 01-03-2023 TYPE AND SCREEN,30 DAY TYPE AND SCREEN,30 DAY Blood Bank Routine Pre-op testing Expected: 11/03/2022 (Approximate), Expires: 01/03/2023 [facility] Work Phone: Comment on above: Expected: 11/03/2022 (Approximate), Expires: 01/03/2023 Start: 10-06-2022 End: 12-06-2022 Basic metabolic 2000 panel - Serum or Plasma BASIC METABOLIC PNL Lab Routine Pre-op testing Expected: 10/06/2022, Expires: 12/06/2022 [facility] Work Phone: Comment on above: Expected: 10/06/2022 , Expires: 12/06/2022 Start: 10-06-2022 End: 12-06-2022 CBC W Auto Differential panel - Blood CBC + DIFF Lab Routine Pre-op testing Expected: 10/06/2022, Expires: 12/06/2022 [facility] Work Phone: Comment on above: Expected: 10/06/2022 , Expires: 12/06/2022 Start: 10-06-2022 End: 12-06-2022 Hemoglobin A1c in Blood HGB A1C Lab Routine Pre-op testing Abnormal finding of blood chemistry, unspecified Expected: 10/06/2022, Expires: 12/06/2022 [facility] Work Phone: Comment on above: Expected: 10/06/2022 , Expires: 12/06/2022 Start: 10-06-2022 End: 12-06-2022 Urinalysis complete panel - Urine URINALYSIS, WITH MICROSCOPIC Lab Routine Pre-op testing Frequent urination Expected: 10/06/2022, Expires: 12/06/2022 [facility] Work Phone: Comment on above: Expected: 10/06/2022 , Expires: 12/06/2022 Start: 08-29-2022 ADVANCE DIRECTIVE DISCUSSION ADVANCE DIRECTIVE DISCUSSION [facility] Start: 08-29-2022 DEPRESSION ASSESSMENT DEPRESSION ASS ESSMENT [facility] Start: 04-29-2022 Influenza vaccination B ON [facility] Start: 02-26-2022 Mammography MAMMOGRAM [facility] Start: 01-22-2022 COVID-19 VACCINE (5 - Booster for Pfizer series) COVID-19 VACCINE (5 - Booster for Pfizer series) [facility] Start: 08-29-2021 ADVANCE DIRECTIVE DISCUSSION ADVANCE DIRECTIVE DISCUSSION [facility] Start: 08-29-2021 DEPRESSION ASSESSMENT DEPRESSION ASS ESSMENT [facility] Start: 08-03-2021 Pneumococcal 65+ yea rs Vaccine (1 of 1 - PPSV23) Pneumococcal 65+ years Vaccine (1 of 1 - PPSV23) [facility] Start: 06-13-2021 Pneumococcal 65+ yea rs Vaccine (2 - PCV) Pneumococcal 65+ years Vaccine (2 - PCV) [facility] [employer] Start: 06-13-2021 PNEUMOCOCCAL: 65+ (2 - PCV) PNEUMOCOCCAL: 65+ (2 - PCV) [facility] Start: 05-08-2021 Depression Screen Depression Screen [facility] [employer] Start: 04-29-2021 [facility] Start: 05-24-2020 Colonoscopy COLONOSCOPY [facility] Start: 05-24-2020 COLORECTAL CANCER SCREENING COLORECTAL CANCER SCREENING [facility] Start: 05-24-2020 Screening for malign ant neoplasm of colon [facility] Start: 05-08-2020 Annual Wellness Visi t (AWV) Annual Wellness Visit (AWV) [facility] Start: 11-02-2019 Shingles Vaccine (3 of 3) Shingles Vaccine (3 of 3) [facility] Start: 2019 ADVANCE DIRECTIVE DISCUSSION ADVANCE DIRECTIVE DISCUSSION [facility] Start: 2019 BONE DENSITY BONE DENSITY [facility] Start: 2019 PNEUMOVAX AGE 65 AND OVER WITH 5YR LOOKBACK (#1) PNEUMOVAX AGE 65 AND OVER WITH 5YR LOOKBACK (#1) [facility] Start: 06-20-2014 Screening for malign ant neoplasm of colon Colon Cancer Screen FIT/FOBT [facility] [employer] Phone: Start: 2014 RSV Vaccine (1 - 1-d ose 60+ series) RSV Vaccine (1 - 1-dose 60+ series) [facility] Start: 2009 Influenza vaccination LUNG CANCER [facility] Start: 2009 Screening for malign ant neoplasm of lung Low dose CT lung screening [facility] [employer] Phone: Start: 2004 Influenza vaccination LUNG CANCER [facility] Start: 2004 Screening for malign ant neoplasm of lung [facility] Start: 07-05-2004 SHINGRIX VACCINE (1 of 2) SHINGRIX VACCINE (1 of 2) [facility] Start: 1999 COLOGUARD (FIT-DNA) COLOGUARD (FIT-D NA) [facility] Start: [address] COLONOGRAPHY [facility] Start: 1999 DIABETES SCREEN DIABETES SCREEN [facility] Start: 1999 FECAL OCCULT BLOOD FECAL OCCULT BLOO D [facility] Start: 1999 Lipid panel Lipid Screening [facility] Start: 1999 LIPID SCREEN LIPID SCREEN [facility] Start: 1999 Screening for malign ant neoplasm of colon [facility] Start: 1999 SIGMOIDOSCOPY SIGMOIDOSCOPY [facility] Start: 1994 Diabetes screen Diabetes screen [employer] Work Phone: Start: 1994 Lipid panel [facility] [employer] Start: 1994 Mammography MAMMOGRAM [facility] Start: 1984 Zoledronic acid therapy ALPHA- 1 ANTITRYPSIN DEFICIENCY SCREENING [facility] Start: 1973 Urine microalbumin profile DTAP,TDAP,TD (1 - Tdap) [facility] Start: 1972 ANNUAL PCP TEAM RELIGIOUS ACTIVITIES DIRECTOR CHUN DISEASE VISIT ANNUAL PCP TEAM CHRONIC DISEASE VISIT [facility] Start: 1972 HEPATITIS C SCREENING HEPATITIS C [facility] Start: 1972 Hepatitis C screening B ON [facility] [employer] Start: 1972 SPIROMETRY SPIROMETRY [facility] Start: 1966 Adult depression screening assessment DEPRESSION SCREENING [facility] Start: 1966 COVID-19 VACCINE (1) COVID-19 VACCIN E (1) [facility] Start: 1966 Depression Screen Depression Screen [facility] [employer] Start: 1954 Annual Wellness Visi t (AWV) Annual Wellness Visit (AWV) [facility] Start: 1954 Hepatitis C screening Hepatitis C [facility] [employer] Work Phone: End: 11-25-2023 ECG COMPLETE ECG COMPLETE ECG Routine Pre-op evaluation 1 Occurrences starting 11/24/2022 until 11/25/2023 [facility] Work Phone: Comment on above: 1 Occurrences starti ng 11/24/2022 until 11/25/2023 End: 04-05-2022 US BREAST COMPLETE RIGHT US BREAST COMPLETE RIGHT Imaging Routine Abnormal mammogram of right breast 1 Occurrences starting 04/05/2022 until 04/05/2022 [facility] Work Phone: Comment on above: 1 Occurrences starti ng 04/05/2022 until 04/05/2022 [facility] Immunizations Immunization Date Immunization Notes Care Provider Fa tj 06-16-2021 influenza (HD-IIV4) vaccine, age 65+ yr, high dose, quadrivalent, PF (FLUZONE HIGH-DOSE) Vel Scotch PA-C Work Phone: [facility] 06-13-2020 pneumococcal polysaccharide vaccine, 23 valent Shant Méndez MD Work Phone: [facility] Work Phone: 06-12-2020 influenza (aIIV4) vaccine, age 65+ yr, quadrivalent, PF (FLUAD QUAD) Vel Scotch PA-C Work Phone: [facility] 03-29-2020 zoster vaccine recombinant Shant Méndez MD Work Phone: [facility] Work Phone: 09-07-2019 zoster vaccine recombinant Shant Méndez MD Work Phone: [facility] Work Phone: 06-16-2019 influenza, high dose seasonal, preservative-free Vel Scotch PA-C Work Phone: [facility] 05-30-2018 influenza, high dose seasonal, preservative-free Vel Scotch PA-C Work Phone: [facility] 05-21-2018 influenza, injectabl e, quadrivalent, preservative free Vel Scotch PA-C Work Phone: [facility] 05-31-2017 seasonal influenza, intradermal, preservative free Vel Scotch PA-C Work Phone: [facility] 05-25-2017 influenza, injectabl e, quadrivalent, preservative free Vel Scotch PA-C Work Phone: [facility] 08-03-2016 pneumococcal conjuga te vaccine, 13 valent Vel Scotch PA-C Work Phone: [facility] 08-03-2016 pneumococcal polysaccharide vaccine, 23 valent [facility] Work Phone: 05-31-2016 diphtheria, tetanus toxoids and acellular pertussis vaccine [facility] 05-31-2016 Influenza Vaccine, unspecified formulation [facility] Work Phone: 05-31-2016 influenza virus vacc ine, unspecified formulation Vel Scotch PA-C Work Phone: [facility] 05-24-2016 influenza, seasonal, injectable, preservative free Vel Scotch PA-C Work Phone: [facility] 05-24-2016 tetanus toxoid, redu jazz diphtheria toxoid, and acellular pertussis vaccine, adsorbed Vel Scotch PA-C Work Phone: [facility] 04-23-2016 tetanus toxoid, redu jazz diphtheria toxoid, and acellular pertussis vaccine, adsorbed Shant Méndez MD Work Phone: [facility] Work Phone: 04-08-2015 pneumococcal polysaccharide vaccine, 23 valent Vel Scotch PA-C Work Phone: [facility] 06-09-2011 zoster vaccine, live [facility] Work Phone: 06-03-2011 zoster vaccine, live [facility] Work Phone: 03-30-2011 pneumococcal polysaccharide vaccine, 23 valent Vel Scotch PA-C Work Phone: [facility] Payers Date Payer Category Payer Unknown [id number] 2020 Unknown [employer]IC[employer] SUPPLEMENT [id number] 2020-Present [phone] [id number] [place] [address] Indemnity [id number] 2019 Medicare [id number] 2019 Medicare MEDICARE MEDICAR E A AND B [id number] 2019-Present [phone] [address] [address] [place] [address] Medicare [id number] 1959 Medicare [id number] 1959 Unknown [id number] 1959 Unknown [id number] 1954 Unknown [id number] 3 1954 Unknown [id number] 3 1954 Unknown [id number] 3 1954 Unknown [id number] 3 1954 Unknown [id number] 3 1954 Unknown [id number] 59 1954 Unknown [id number] 59 1954 Unknown [id number] 59 1954 Unknown [id number] 59 1954 Unknown [id number] 59 1954 Unknown [id number] 59 Social History Date Type Detail Facility Start: 02-26-2021 End: 11-24-2022 Tobacco smoking status NHIS Former smoker [facility] Work Phone: End: 05-08-2011 History of tobacco use Current smoker [employer] Start: 02-26-2021 End: 01-14-2023 Cigarettes smoked current (pack per day) - Reported [employer] Phone: Start: 02-26-2021 End: 11-24-2022 Tobacco use and exposure Never used [employer] Start: 02-26-2021 End: 04-18-2023 Alcohol intake Current non-drinker of alcohol (finding) [employer] Phone: Start: 1955 Sex Assigned At Not on file [employer] Phone: Start: 03-26-2022 End: 04-05-2022 Exposure to SARS-CoV-2 (event) Not sure [employer] Start: 09-21-2021 End: 11-24-2022 Alcohol intake Ex-drinker (finding) [facility] End: 05-08-2011 History of tobacco use Cigarette Smoker [facility] [employer] Phone: Start: 11-24-2022 Alcohol Comment denies tx for drug/alcohol abuse in the past. [facility] Start: 11-24-2022 End: 01-14-2023 Tobacco use panel [facility] National Score (1-10 0), lower number is lower risk 78 [facility] Medical Equipment Procedure Code Equipment Code Equipment Origin al Text Equipment Identifier Dates Liner Mdm 42mm E Cocr Acetabular 2 Mobility Modular Hip - [id number] Start: 09-29-2021 Head V40 Lfit 28 mm +0mm Cocr Femoral Primary Taper Offset Hip - [id number] Start: 09-29-2021 Insert Adm Mobil e Bearing Hip Faith 48mm 28mm 0d X3 6.9mm Acetabular - [id number] Start: 09-29-2021 Shell Trident Ii 52mm E Tritanium Acetabular 5 Screw Hole Cluster Sterile - [id number] Start: 09-29-2021 Stem Accolade Ii 7 132d Femoral - [id number] Start: 09-29-2021 Mdm Liner X3 Ins ert 48mm X 28mm [id number] Start: 11-30-2022 Head V40 Lfit 28 mm -4mm Offset Taper Cocr Femoral Primary Hip - [id number] Start: 11-30-2022 Liner Mdm 42mm E Cocr Acetabular 2 Mobility Modular Hip - [id number] Start: 11-30-2022 Shell Trident Ii 54mm E Tritanium Acetabular 5 Screw Hole Cluster Sterile - [id number] Start: 11-30-2022 Stem Accolade Ii 7 132d Femoral - [id number] Start: 11-30-2022 Clinical Notes 06-26-2021 to 10-04-2023 Vel Galeana PA-C - 10/04/2023 10:48 AM El Méndez MD - 02/25/2023 3:41 PM Ceferino Méndez MD - 02/07/2023 5:36 PM Ceferino Méndez MD - 02/07/2023 12:00 AM EDT Note Date & Type Note Facility 10-04-2023 Note HNO ID: [id number] Author: TRAVIS, CALVIN, RT(R) Service: ? Author Type: Technologist Type: Progress Notes Filed: 10/04/2023 11:03 Note Text: Radiology Service Progress Note PATIENT NAME: Mary Vaughn DATE OF SERVICE: October 04, 2023 TIME: 11:03 AM PATIENT IDENTITY VERIFICATION COMPLETED USING TWO (2) IDENTIFIERS: Name and Date of confirmed by patient verbally. FALL SCREENING: Has the patient had 2 falls in the last year or 1 fall with injury or currently using an Ambulatory Assistive Device (Walker, Cane, Wheelchair, Crutches, etc.)? No PATIENT GENDER DATA: Female. status: : No status: NO. PATIENT RELEVANT IMPLANT DATA REVIEWED: Not Applicable PATIENT PRESENTS WITH AN IMPLANTABLE OR ATTACHED CLASSICS PROFESSOR: No RADIOLOGY DEPARTMENT: General X-ray: Exam(s) Completed: Pelvis X-Ray: Pelvis General AP PERIPHERAL IV DATA: Not applicable SIGNED BY: RT Kajal(R) October 04, 2023 11:03 AM [facility] 10-04-2023 Note HNO ID: [id number] Author: VEL GALEANA PA-C Service: ? Author Type: Physician Clam Digger Type: Progress Notes Filed: 10/04/2023 12:45 Note Text: This document has been created with the use of voice recognition technology. It may contain inaccuracies: misspellings, inaccurate syntax or word sense that escaped review. Chief complaint: Recheck of right and left hips Right THR 09/01/2022 (1 year) Left THR 09/17/2020 (3 years) HISTORY: Mary is a 68 year old female. Patient comes in today for follow up of her right and left hips thank you. Patient has a past medical history, medications and allergies were reviewed. She reports that she is doing great.. She states she is back to walking in [place] with [place] and does not have to worry about whether she can pick her feet up enough to not trip. She is back to doing everything that she wants to and very excited about this. Her knee pain has not recurred since the injection in January. Pain level in all joints is 0. No other musculoskeletal complaints ROS : REVIEW OF SYMPTOMS: Constitutional: patient denies any recent fever or significant change in weight Gastrointestinal: patient denies any current abdominal discomfort Musculoskeletal: as noted in the HPI Neurologic: as noted in the HPI SOCIAL HISTORY: Tobacco Use: 1 packs/day, for 30 years. Quit 08/29/2010. Types: Cigarettes PAST MEDICAL HISTORY Diagnosis Date Deaf Osteoporosis Paroxysmal supraventricular tachycardia (HCC) PAST SURGICAL HISTORY Procedure Laterality Date COLONOSCOPY SCREENING PAST SURGICAL HISTORY OF Trigger finger TONSILLECTOMY HX TOOTH EXTRACTION wisdom teeth TOTAL HIP REPLACEMENT Left 2021 Medications reviewed. ALLERGIES Allergen Reactions Adhesive Tape-Silic* Other: See Comments blisters from Silverlon dressing Chlorhexidine Rash rash and itching from preop wipes Oxycodone GI Upset Social History Tobacco Use Smoking status: Former Packs/day: 1.00 Years: 30.00 Additional pack years: 0.00 Total pack years: 30.00 Types: Cigarettes Quit date: 2010 Years since quittin.1 Smokeless tobacco: Never Substance Use Topics Alcohol use: Not Currently Comment: denies tx for drug/alcohol abuse in the past. Drug use: Never EXAMINATION: GENERAL: Appears healthy, well-nourished, no deformities. ORIENTATION: Alert and oriented to person place and time HABITUS: Normal GAIT: Ambulating with normal gait On physical exam of the hips today, she has excellent hip range of motion bilaterally without irritability. No instability. Negative SLR for radicular symptoms. No significant tenderness. Neurovascular is intact. Rises from chair without difficulty. X-rays of the hips RADIOGRAPHS: Personally reviewed by myself demonstrating right and left THR components in satisfactory position with good interfaces noted. No evidence of wear or loosening. Leg lengths are essentially equal. IMPRESSION: Encounter Diagnosis ICD-10-CM 1. Status post right hip replacement Z96.641 XR PELVIS 1V AP Plan: She is doing great and is very pleased with her progress. Back to doing everything that she wants to. We discussed limitations such as no running or jumping as well as antibiotic prophylaxis. Follow-up in 1 year for annual recheck or sooner for the pain recurs. Vel Galeana PA-C October 04, 2023 10:48 AM [facility] 10-04-2023 History of Presen t illness Narrative This document has been created with the use of voice recognition technology. It may contain inaccuracies: misspellings, inaccurate syntax or word sense that escaped review. Chief complaint: Recheck of right and left hips Right THR 09/01/2022 (1 year) Left THR 09/17/2020 (3 years) HISTORY: Mary is a 68 year old female. Patient comes in today for follow up of her right and left hips thank you. Patient has a past medical history, medications and allergies were reviewed. She reports that she is doing great.. She states she is back to [place] and does not have to worry about whether she can pick her feet up enough to not trip. She is back to doing everything that she wants to and very excited about this. Her knee pain has not recurred since the injection in January. Pain level in all joints is 0. No other musculoskeletal complaints ROS : REVIEW OF SYMPTOMS: Constitutional: patient denies any recent fever or significant change in weight Gastrointestinal: patient denies any current abdominal discomfort Musculoskeletal: as noted in the HPI Neurologic: as noted in the HPI SOCIAL HISTORY: Tobacco Use: 1 packs/day, for 30 years. Quit 08/29/2010. Types: Cigarettes PAST MEDICAL HISTORY Diagnosis Date Deaf Osteoporosis Paroxysmal supraventricular tachycardia (HCC) PAST SURGICAL HISTORY Procedure Laterality Date COLONOSCOPY SCREENING PAST SURGICAL HISTORY OF Trigger finger TONSILLECTOMY HX TOOTH EXTRACTION wisdom teeth TOTAL HIP REPLACEMENT Left 2021 Medications reviewed. ALLERGIES Allergen Reactions Adhesive Tape-Silic* Other: See Comments blisters from Silverlon dressing Chlorhexidine Rash rash and itching from preop wipes Oxycodone GI Upset Social History Tobacco Use Smoking status: Former Packs/day: 1.00 Years: 30.00 Additional pack years: 0.00 Total pack years: 30.00 Types: Cigarettes Quit date: 2010 Years since quittin.1 Smokeless tobacco: Never Substance Use Topics Alcohol use: Not Currently Comment: denies tx for drug/alcohol abuse in the past. Drug use: Never EXAMINATION: GENERAL: Appears healthy, well-nourished, no deformities. ORIENTATION: Alert and oriented to person place and time HABITUS: Normal GAIT: Ambulating with normal gait On physical exam of the hips today, she has excellent hip range of motion bilaterally without irritability. No instability. Negative SLR for radicular symptoms. No significant tenderness. Neurovascular is intact. Rises from chair without difficulty. X-rays of the hips RADIOGRAPHS: Personally reviewed by myself demonstrating right and left THR components in satisfactory position with good interfaces noted. No evidence of wear or loosening. Leg lengths are essentially equal. IMPRESSION: Encounter Diagnosis ICD-10-CM 1. Status post right hip replacement Z96.641 XR PELVIS 1V AP Plan: She is doing great and is very pleased with her progress. Back to doing everything that she wants to. We discussed limitations such as no running or jumping as well as antibiotic prophylaxis. Follow-up in 1 year for annual recheck or sooner for the pain recurs. Vel Galeana PA-C October 04, 2023 10:48 AM documented in this encounter [facility] 02-25-2023 Note HNO ID: [id number] Author: Shant Méndez MD Service: ? Author Type: Physician Type: Progress Notes Filed: 02/25/2023 3:42 PM Note Text: Large Joint Arthro/Inj: R knee joint Informed Consent Consent Obtained: Verbal [place] Protocol A moment to CARE was completed. SIGN IN Personnel directly involved with the procedure wore the appropriate PPE. Special Equipment: N/A Patient/Surrogate Stated/Verified: Patient name, Date of , Relevant allergies and Intended procedure TIME OUT Intended patient and procedure match the source document(s). Consent documented and matches the intended procedure. Relevant labs, photos, and/or imaging studies have been reviewed. Correct side/site marked and visible. Medications required for procedure verified. 02/25/2023 3:41 PM The procedure site was prepped in the usual sterile fashion. Site: R knee joint Medications: 80 mg triamcinolone acetonide 40 mg/mL Anesthetics: 8 mL lidocaine (PF) 10 mg/mL (1 %) Outcome: Tolerated well, no immediate complications Post-injection instructions were reviewed with the patient and the patient voiced understanding of these instructions. Third alliance party verified by Mary Quigley MA. [facility] 02-25-2023 Note HNO ID: [id number] Author: RT Rosalba(R) Service: ? Author Type: Technologist Type: Progress Notes Filed: 02/25/2023 1:58 PM Note Text: Radiology Service Progress Note PATIENT NAME: Mary Vaughn DATE OF SERVICE: February 25, 2023 TIME: 1:57 PM PATIENT IDENTITY VERIFICATION COMPLETED USING TWO (2) IDENTIFIERS: Name and Date of confirmed by patient verbally. FALL SCREENING: Has the patient had 2 falls in the last year or 1 fall with injury or currently using an Ambulatory Assistive Device (Walker, Cane, Wheelchair, Crutches, etc.)? No PATIENT GENDER DATA: Female. status: : No status: NO. PATIENT RELEVANT IMPLANT DATA REVIEWED: Not Applicable RADIOLOGY DEPARTMENT: General X-ray: Exam(s) Completed: Lower Extremity X-Ray(s): Knee, AP / Lat / Tunne / Merchant Right and Wt. Bearing PERIPHERAL IV DATA: Not applicable SIGNED BY: Karine Torres RT(R) February 25, 2023 1:57 PM [facility] 02-25-2023 History of Presen t illness Narrative Associated Order(s): Large Joint Arthro/Inj: R knee joint Post-Procedure Diagnose(s): Primary osteoarthritis of right knee Large Joint Arthro/Inj: R knee joint Informed Consent Consent Obtained: Verbal [place] Protocol A moment to CARE was completed. SIGN IN Personnel directly involved with the procedure wore the appropriate PPE. Special Equipment: N/A Patient/Surrogate Stated/Verified: Patient name, Date of , Relevant allergies and Intended procedure TIME OUT Intended patient and procedure match the source document(s). Consent documented and matches the intended procedure. Relevant labs, photos, and/or imaging studies have been reviewed. Correct side/site marked and visible. Medications required for procedure verified. 02/25/2023 3:41 PM The procedure site was prepped in the usual sterile fashion. Site: R knee joint Medications: 80 mg triamcinolone acetonide 40 mg/mL Anesthetics: 8 mL lidocaine (PF) 10 mg/mL (1 %) Outcome: Tolerated well, no immediate complications Post-injection instructions were reviewed with the patient and the patient voiced understanding of these instructions. Third alliance party verified by Mary Quigley MA. documented in this encounter [facility] 02-25-2023 Note HNO ID: [id number] Author: Shant Méndez MD Service: Orthopaedic Surgery Author Type: Physician Type: Progress Notes Filed: 03/08/2023 1:53 PM Note Text: [facility] [address] [place] [address] CLINIC NOTE Department of Orthopaedics - JoseE duardo Méndez II, M.D. NAME: MARY [facility]AU[facility]N [facility] NO.: [id number] DATE OF SERVICE: 02/25/2023 CHIEF COMPLAINT: Recheck of right knee and both hips. Right total hip replacement, . Left total hip replacement, 09/17/2021. Having no pain in either hip. Having some pain in her right knee. Right knee x-ray shows narrowing of medial compartment of both knees. IMPRESSION: Degenerative arthritis of the right knee. RECOMMENDATION: We will inject right knee. PROCEDURE: Identity of the patient was verified. Procedure and site verified with the patient. Risks, benefits, alternatives, and personnel were discussed with the patient who consents to proceed. Audible time-out was performed. We injected right knee under sterile conditions with a 10 cc mixture of Xylocaine/cortisone. Injection tolerated well. Dictated By: Shant Méndez II, M.D. Date Dictated: 03/03/2023 Date Typed: [facility] 03/03/2023 JOB# [id number] [facility] 02-07-2023 Note HNO ID: [id number] Author: Shant Méndez MD Service: ? Author Type: Physician Type: Progress Notes Filed: 02/22/2023 1:48 PM Note Text: see dictated note Shant Méndez II, MD [facility] 02-07-2023 History of Presen t illness Narrative see dictated note Shant Méndez II, MD [facility] [address] NOTE Department of Orthopaedics - Jose Eduardo Méndez II, M.D. NAME: MARY VAU[facility]N [facility] NO.: [id number] DATE OF SERVICE: 02/07/2023 CHIEF COMPLAINT: Recheck of right knee and both hips. Right THR, 11/30/2022 - 2 months. Left THR to 09/17/2021 - 1 year plus new. The patient is having pain in her right knee for the last 2 months. She fell in the grass on 01/12/2023, at home, catching her foot on the sidewalk. She has now been walking on the backyard [place] to [place], taking her new [place] into the [place]. Has a 1 plus effusion of the right knee. No gross ligamentous instability. Neurovascularly intact. Recommend walk on the driveway and no walking on even ground. No significant problems with her right hip. X-rays shows total hip replacements, bilateral in excellent position. See back in 1 month. Dictated By: Shant Méndez II, M.D. Date Dictated: 02/07/2023 Date Typed: [facility] 02/08/2023 JOB# [id number] documented in this encounter [facility] 02-07-2023 Note HNO ID: [id number] Author: RT Ray(R) Service: ? Author Type: Technologist Type: Progress Notes Filed: 02/07/2023 2:14 PM Note Text: Radiology Service Progress Note PATIENT NAME: Mary Vaughn DATE OF SERVICE: February 07, 2023 TIME: 2:14 PM PATIENT IDENTITY VERIFICATION COMPLETED USING TWO (2) IDENTIFIERS: Name and Date of confirmed by patient verbally. FALL SCREENING: Has the patient had 2 falls in the last year or 1 fall with injury or currently using an Ambulatory Assistive Device (Walker, Cane, Wheelchair, Crutches, etc.)? No PATIENT GENDER DATA: Female. status: : No status: NO. PATIENT RELEVANT IMPLANT DATA REVIEWED: Not Applicable RADIOLOGY DEPARTMENT: General X-ray: Exam(s) Completed: Pelvis X-Ray: Pelvis General AP Lower Extremity X-Ray(s): Knee, AP / Lat / Tunne / Merchant Right and Wt. Bearing PERIPHERAL IV DATA: Not applicable SIGNED BY: RT Ray(R) February 07, 2023 2:14 PM [facility] 02-07-2023 Note HNO ID: [id number] Author: Shant Méndez MD Service: Orthopaedic Surgery Author Type: Physician Type: Progress Notes Filed: 02/10/2023 2:28 PM Note Text: [facility] [address] NOTE Department of Orthopaedics - Jose Eduardo Méndez II, M.D. NAME: MARY VAU[facility]N [facility] NO.: [id number] DATE OF SERVICE: 02/07/2023 CHIEF COMPLAINT: Recheck of right knee and both hips. Right THR, 11/30/2022 - 2 months. Left THR to 09/17/2021 - 1 year plus new. The patient is having pain in her right knee for the last 2 months. She fell in the grass on 01/12/2023, at home, catching her foot on the sidewalk. She has now been walking on the backyard [place], taking her new [place]. Has a 1 plus effusion of the right knee. No gross ligamentous instability. Neurovascularly intact. Recommend walk on the driveway and no walking on even ground. No significant problems with her right hip. X-rays shows total hip replacements, bilateral in excellent position. See back in 1 month. Dictated By: Shant Méndez II, M.D. Date Dictated: 02/07/2023 Date Typed: [facility] 02/08/2023 JOB# [id number] [facility] 01-14-2023 Note HNO ID: [id number] Author: Shant Méndez MD Service: ? Author Type: Physician Type: Progress Notes Filed: 01/14/2023 4:03 PM Note Text: see dictated note Shant Méndez II, MD [facility] 01-14-2023 Note HNO ID: [id number] Author: Shant Méndez MD Service: Orthopaedic Surgery Author Type: Physician Type: Progress Notes Filed: 01/18/2023 10:45 AM Note Text: [facility] [address] NOTE Jose Manuel of Orthopaedics - Jose Eduardo Méndez II, M.D. NAME: MARY VAU[facility]N [facility] NO.: [id number] DATE OF SERVICE: 01/14/2023 CHIEF COMPLAINT: Recheck of both hips. HISTORY: Right THR 11/30/2022 - 6 weeks. Left THR 09/29/2021 - 1 year plus. PHYSICAL EXAMINATION: The patient is doing well. Incision on the right hip is healing up very nicely. Having no pain referable to her right hip. The patient complains of some bruising about her knee and points to discoloration from the medial to the anterior aspect of the proximal tibia at the knee. There is [id number] effusion of the knee. The patient denies falling. She states that the discoloration was much worse down the inside of the thigh and inside of the leg immediately after surgery. She states that the pain today is much relieved compared to a few weeks ago. PLAN: Recommend to see her back in 6 weeks for a recheck. Dictated By: Shant Méndez II, M.D. Date Dictated: 01/14/2023 Date Typed: [facility] 01/15/2023 JOB# [id number] [facility] 12-22-2022 Note HNO ID: [id number] Author: Vel Galeana PA-C Service: ? Author Type: Physician Clam Digger Type: Progress Notes Filed: 12/22/2022 11:35 AM Note Text: This document has been created with the use of voice recognition technology. It may contain inaccuracies such as misspellings, inaccurate syntax or word sense that escaped review. Chief complaint: Recheck of right hip Right THR 11/30/2022 (3 weeks) Left THR 09/29/2021 (1 year) HISTORY: Mary is a 67 year old female. Patient comes in today for follow up of her right hip postoperatively. She reports that she is doing quite well. She states pain is well controlled with no medication. Did have some GI upset for the first couple of weeks. Making good progress with physical therapy. Pain level 0/10. No other musculoskeletal complaints PAST MEDICAL HISTORY Diagnosis Date Deaf Osteoporosis Paroxysmal supraventricular tachycardia (HCC) PAST SURGICAL HISTORY Procedure Laterality Date COLONOSCOPY SCREENING PAST SURGICAL HISTORY OF Trigger finger TONSILLECTOMY HX TOOTH EXTRACTION wisdom teeth TOTAL HIP REPLACEMENT Left 2021 Medications reviewed. ALLERGIES Allergen Reactions Adhesive Tape-Silic* Other: See Comments blisters from Silverlon dressing Chlorhexidine Rash rash and itching from preop wipes Oxycodone GI Upset Social History Tobacco Use Smoking status: Former Packs/day: 1.00 Years: 30.00 Pack years: 30.00 Types: Cigarettes Quit date: 2010 Years since quittin.3 Smokeless tobacco: Never Substance Use Topics Alcohol use: Not Currently Comment: denies tx for drug/alcohol abuse in the past. Drug use: Never EXAMINATION: GENERAL: Appears healthy, well-nourished, no deformities. ORIENTATION: Alert and oriented to person place and time HABITUS: Normal GAIT: Ambulates with a slight flat-footed short stance gait with her cane but can correct this when she concentrates and ambulates with a perfectly normal gait with and without her cane. On physical exam of the right hip today, Appearance: No warmth or redness, wound is healing satisfactorily with no sign of infection. Calf is soft and nontender. Negative Homans. Tenderness: Moderate tightness and tenderness of the soft tissues of the lateral hip Swelling: Minimal swelling of the lateral hip itself, no swelling distally Range of motion: Tolerates gentle hip motion easily, with just tightness at extremes RADIOGRAPHS: Personally reviewed by myself and with the patient today demonstrating left THR components in satisfactory position with good interfaces noted. No evidence of wear or loosening. Leg lengths are essentially equal. No other osseous abnormalities. IMPRESSION: Encounter Diagnosis ICD-10-CM 1. Aftercare following left hip joint replacement surgery Z47.1 XR PELVIS 1V AP Z96.642 2. Status post right hip replacement Z96.641 She is doing quite well and is pleased with her progress. She may advance her weightbearing as tolerated. We discussed walking for exercise to build her stamina and paying attention to her gait. Discussed tissue massage. Follow-up in 3 weeks for 6-week recheck. Vel Galeana PA-C December 22, 2022 11:02 AM [facility] 12-22-2022 Note HNO ID: [id number] Author: RT Rosalba(R) Service: ? Author Type: Technologist Type: Progress Notes Filed: 12/22/2022 10:41 AM Note Text: Radiology Service Progress Note PATIENT NAME: Mary Vaughn DATE OF SERVICE: December 22, 2022 TIME: 10:40 AM PATIENT IDENTITY VERIFICATION COMPLETED USING TWO (2) IDENTIFIERS: Name and Date of confirmed by patient verbally. FALL SCREENING: Has the patient had 2 falls in the last year or 1 fall with injury or currently using an Ambulatory Assistive Device (Walker, Cane, Wheelchair, Crutches, etc.)? No PATIENT GENDER DATA: Female. status: : No status: NO. PATIENT RELEVANT IMPLANT DATA REVIEWED: Not Applicable RADIOLOGY DEPARTMENT: General X-ray: Exam(s) Completed: Pelvis X-Ray: Pelvis General AP PERIPHERAL IV DATA: Not applicable SIGNED BY: Karine Torres RT(R) December 22, 2022 10:40 AM [facility] 12-22-2022 Instructions Vel Galeana PA-C - 12/22/2022 11:04 AM EDT Continue Physical Therapy Walk twice a day for exercise paying attention to your gait. Heel to toe and longer strides. You may wash the incision and treat like normal skin. Tissue massage to the skin around the incision to loosen it up, 2 minutes multiple times a day. You may use lotion on the incision/glue several times a day to soften the glue. Do not pick at the scabs. Let them fall off on their own. You may use heat on a low setting to relax tissues. Use Ice after activity/exercise. Heat loosen things up, Ice quiets things down. documented in this encounter [facility] 12-22-2022 History of Presen t illness Narrative This document has been created with the use of voice recognition technology. It may contain inaccuracies such as misspellings, inaccurate syntax or word sense that escaped review. Chief complaint: Recheck of right hip Right THR 11/30/2022 (3 weeks) Left THR 09/29/2021 (1 year) HISTORY: Mary is a 67 year old female. Patient comes in today for follow up of her right hip postoperatively. She reports that she is doing quite well. She states pain is well controlled with no medication. Did have some GI upset for the first couple of weeks. Making good progress with physical therapy. Pain level 0/10. No other musculoskeletal complaints PAST MEDICAL HISTORY Diagnosis Date Deaf Osteoporosis Paroxysmal supraventricular tachycardia (HCC) PAST SURGICAL HISTORY Procedure Laterality Date COLONOSCOPY SCREENING PAST SURGICAL HISTORY OF Trigger finger TONSILLECTOMY HX TOOTH EXTRACTION wisdom teeth TOTAL HIP REPLACEMENT Left 2021 Medications reviewed. ALLERGIES Allergen Reactions Adhesive Tape-Silic* Other: See Comments blisters from Silverlon dressing Chlorhexidine Rash rash and itching from preop wipes Oxycodone GI Upset Social History Tobacco Use Smoking status: Former Packs/day: 1.00 Years: 30.00 Pack years: 30.00 Types: Cigarettes Quit date: 2010 Years since quittin.3 Smokeless tobacco: Never Substance Use Topics Alcohol use: Not Currently Comment: denies tx for drug/alcohol abuse in the past. Drug use: Never EXAMINATION: GENERAL: Appears healthy, well-nourished, no deformities. ORIENTATION: Alert and oriented to person place and time HABITUS: Normal GAIT: Ambulates with a slight flat-footed short stance gait with her cane but can correct this when she concentrates and ambulates with a perfectly normal gait with and without her cane. On physical exam of the right hip today, Appearance: No warmth or redness, wound is healing satisfactorily with no sign of infection. Calf is soft and nontender. Negative Homans. Tenderness: Moderate tightness and tenderness of the soft tissues of the lateral hip Swelling: Minimal swelling of the lateral hip itself, no swelling distally Range of motion: Tolerates gentle hip motion easily, with just tightness at extremes RADIOGRAPHS: Personally reviewed by myself and with the patient today demonstrating left THR components in satisfactory position with good interfaces noted. No evidence of wear or loosening. Leg lengths are essentially equal. No other osseous abnormalities. IMPRESSION: Encounter Diagnosis ICD-10-CM 1. Aftercare following left hip joint replacement surgery Z47.1 XR PELVIS 1V AP Z96.642 2. Status post right hip replacement Z96.641 She is doing quite well and is pleased with her progress. She may advance her weightbearing as tolerated. We discussed walking for exercise to build her stamina and paying attention to her gait. Discussed tissue massage. Follow-up in 3 weeks for 6-week recheck. Vel Galeana PA-C December 22, 2022 11:02 AM documented in this encounter [facility] 12-22-2022 History of Presen t illness Narrative Radiology Service Progress Note PATIENT NAME: Mary Vaughn DATE OF SERVICE: December 22, 2022 TIME: 10:40 AM PATIENT IDENTITY VERIFICATION COMPLETED USING TWO (2) IDENTIFIERS: Name and Date of confirmed by patient verbally. FALL SCREENING: Has the patient had 2 falls in the last year or 1 fall with injury or currently using an Ambulatory Assistive Device (Walker, Cane, Wheelchair, Crutches, etc.)? No PATIENT GENDER DATA: Female. status: : No status: NO. PATIENT RELEVANT IMPLANT DATA REVIEWED: Not Applicable RADIOLOGY DEPARTMENT: General X-ray: Exam(s) Completed: Pelvis X-Ray: Pelvis General AP PERIPHERAL IV DATA: Not applicable SIGNED BY: RT Rosalba([place]) December 22, 2022 10:40 AM documented in this encounter [facility] 11-30-2022 Note HNO ID: [id number] Author: TIMOTHY Hudson Service: Anesthesiology Author Type: Straight Line Press Setter Type: Anesthesia Procedure Notes Filed: 11/30/2022 11:40 AM Note Text: ANESTHESIOLOGY PROCEDURE NOTE Spinal Block General Information Procedure Start Time/Medication Administration: 11/30/2022 11:24 AM Patient location during procedure: OR Timeout Performed Pre-procedure: timeout performed Consent Obtained: Yes Patient identity confirmed: arm band and patient Reason for Block: primary surgical anesthetic Staffing DEVELOPING MACHINE OPERATOR: Parisa Watson APRN.DEVELOPING MACHINE OPERATOR Performed by: DEVELOPING MACHINE OPERATOR Preparation Sterility Preparation: hand hygiene performed prior to procedure, surgical cap used, mask used, sterile drape used during line insertion, skin prep agent completely dried prior to procedure Site Prep: Duraprep Procedure Details Patient Position: sitting Monitoring: Pulse Ox and NIBP Approach: Midline Location: L4-5 Injection Technique: single-shot Needle Needle Type: pencil-tip Needle Gauge: 25 G Needle Length: 3.5 in Assessment Events: tolerated well Medications Administered bupivacaine-dextrose 0.75 % (7.5 mg/mL) injection (SENSORCAINE MPF SPINAL) - INTRASPINAL 1.4 mL - 11/30/2022 11:24:00 AM SIGNATURE: TIMOTHY Hudson PATIENT NAME: Mary Vaughn DATE: November 30, 2022 TIME: 11:39 AM CSN: [id number] [facility] 11-26-2022 Miscellaneous Notes Patient returned call and I relayed below message. She verbalized understanding. Cherie Edwards LPN November 26, 2022 11:35 AM Attempted to reach patient via phone call, no answer. Left message to return call to [facility] nurse at [phone]. Joseline Wei LPN November 26, 2022 9:08 AM On pre-op urine culture... Culture >=100,000 CFU/ml Mixed microbiota Abnormal Macrobid ordered. Please call patient and advised to start KRISTIAN Thank you Quiana Poole APRN.AIRCRAFT MAINTENANCE SUPERVISOR [facility] documented in this encounter [facility] 11-24-2022 Note HNO ID: [id number] Author: Irais Nicole, RT(R) Service: ? Author Type: Technologist Type: Progress Notes Filed: 11/24/2022 9:40 AM Note Text: Radiology Service Progress Note PATIENT NAME: Mary Vaughn DATE OF SERVICE: November 24, 2022 TIME: 9:40 AM PATIENT IDENTITY VERIFICATION COMPLETED USING TWO (2) IDENTIFIERS: Name and Date of confirmed by patient verbally. FALL SCREENING: Has the patient had 2 falls in the last year or 1 fall with injury or currently using an Ambulatory Assistive Device (Walker, Cane, Wheelchair, Crutches, etc.)? No PATIENT GENDER DATA: Female. status: : No status: NO. PATIENT RELEVANT IMPLANT DATA REVIEWED: Not Applicable RADIOLOGY DEPARTMENT: General X-ray: Exam(s) Completed: Pelvis X-Ray: Pelvis with Hip Right PERIPHERAL IV DATA: Not applicable SIGNED BY: Irais Nicole, RT(R) November 24, 2022 9:40 AM [facility] 11-24-2022 History and physical note HISTORY AND PHYSICAL EXAMINATION SERVICE DATE: 11/24/2022 SERVICE TIME: 11:15 AM PRIMARY CARE PHYSICIAN: Luis Garcia II, MD REASON FOR VISIT: Mary Vaughn is a 67 year old female who is scheduled for Right THR at the request of Dr. Shant Méndez for consultation. My final recommendation will be communicated back to the requesting physician by way of shared medical record or letter. The patient has the following: ACTIVE PROBLEM LIST Primary Osteoarthritis of Left Hip Emphysema of Lung (Hcc) Former Smoker Svt (Supraventricular Tachycardia) (Hcc) Incomplete Rbbb Aftercare Following Left Hip Joint Replacement Surgery Status Post Left Hip Replacement Primary Osteoarthritis of Right Hip Subjective CHIEF COMPLAINT: Right hip pain HPI: 67 year old female who presents to [facility] for upcoming surgery. Complains of right hip pain for many years that has been progressively increasing. Pain worse with prolonged standing and activity. Has attempted medications without relief. Pain today 12/06 PAST MEDICAL HISTORY Diagnosis Date Deaf Osteoporosis Paroxysmal supraventricular tachycardia (HCC) PAST SURGICAL HISTORY Procedure Laterality Date COLONOSCOPY SCREENING PAST SURGICAL HISTORY OF Trigger finger TONSILLECTOMY HX TOOTH EXTRACTION wisdom teeth TOTAL HIP REPLACEMENT Left 2021 FAMILY HISTORY Problem Relation Age of Onset other (other) Mother Stroke Mother Heart disease Father Heart Attack Maternal Grandmother Stroke Maternal Grandmother Heart disease Maternal Grandfather Difficulty with anesthesia No Family History SOCIAL HISTORY: Social History Tobacco Use Smoking status: Former Packs/day: 1.00 Years: 30.00 Pack years: 30.00 Types: Cigarettes Quit date: 2010 Years since quittin.2 Smokeless tobacco: Never Substance Use Topics Alcohol use: Not Currently Comment: denies tx for drug/alcohol abuse in the past. Drug use: Never Prior to Admission medications as of 11/24/22 1114 Medication Sig Last Dose Taking Amoxicillin 500 mg tablet four tabs one hour prior to dental procedure and two tabs six hours after the dental procedure Yes [id number] OIL ORAL Take by mouth once daily. Yes multivit with calcium,iron,min (WOMEN'S MULTIPLE VITAMINS ORAL) Take by mouth once daily. Yes ascorbic acid (VITAMIN C ORAL) Take by mouth once daily. Yes propranolol (INDERAL) 20 mg tablet Take 20 mg by mouth twice daily. Yes garlic (GARLIQUE ORAL) Take by mouth once daily. Yes cetirizine (ZYRTEC) 10 mg tablet Take 10 mg by mouth once daily. Yes No medication comments found. ALLERGIES Allergen Reactions Adhesive Tape-Silic* Other: See Comments blisters from Silverlon dressing Chlorhexidine Rash rash and itching from preop wipes Oxycodone GI Upset COVID VACCINATION STATUS: Fully vaccinated REVIEW OF SYSTEMS: PAIN ASSESSMENT: Pain Pain Level: 4 Pain Location: Hip-Right Description: Dull Duration Amount of Time: 15 Duration Units: Years Frequency: Intermittent Intervention/Comfort measure: Medication Comments: Tylenol, Blue Emu General: No weight loss, malaise or fevers. 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 No neurological symptoms or problems. Respiratory: Negative for Current cough, Dyspnea, URI < 2 weeks Former smoker - quit 2010 30 pack year Cardiovascular: Negative for CAD, Chest Pain, DVT/PE Hx of SVT- on Propanolol GI: No history of GI symptoms or problems. No history of esophageal varices, recent ascites, or ETOH greater than 2 drinks per day. 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 : Denies, Patient's last menstrual period was 10/29/2008 (within years). Endocrine: No history of diabetes. Has not taken steroids within the past 30 days. No history of endocrinological symptoms or problems. Hematology: No history of bleeding or clotting disorder. Pt is not taking anti-coagulation or platelet medications. No history of hematological symptoms or problems. Oncology: No history of CA metastasis, chemo within 30 days, or radiotherapy within 90 days. Has not lost 10% of body wt in 6 months. No history of oncological symptoms or problems. Psych: No history of psychiatric symptoms or problems. Musculoskeletal: See HPI Skin: Negative for lesions, rash and itching. Objective PHYSICAL EXAM: VITALS: BP 107/61 Pulse 73 Temp (Src) 97.1 (Temporal Artery) Resp 16 Ht 5' 6 (1.68m) Wt 160 lb (72.6kg) SpO2 100% LMP 10/29/2008 BMI 25.84 kg/(m^2). General: Alert and oriented, No acute distress Skin: Normal color, no rash, no lesions. HEENT: EOM, pupils equal, round and reactive., No carotid bruits Cardiovascular: Normal S1 & S2, no rubs, murmurs or gallops. No JVD. Pulse regular. Lungs: Normal breath sounds, no wheezes or crackles. Abdomen: Soft, non-tender, no rigidity. Extremities: No deformity, no edema or tenderness, no joint swelling or clubbing. Neurological: Normal cognition and motor skills. Pulses: Carotid and radial pulses normal +2. Diagnostic tests reviewed for today's visit: Labs pending Nasal swab Staph aureus PCR Negative Negative for Staphylococcus aureus by PCR. MRSA PCR Negative Negative for MRSA by PCR Most recent EK11/24/2022 preliminary sinus bradycardia at 57 beats per minute, right bundle branch block, reviewed by myself. Assessment/Plan SVT (supraventricular tachycardia) (HCC) Assessment: Hx of SVT- controlled on propanolol Denies recent chest pain or palpitations Former smoker Assessment: quit 2010- pack year Emphysema of lung (HCC) Assessment: Mild emphysematous changes on recent chest CT Denies dyspnea, cough, wheezing METS: Climb a flight of stairs or walk up a hill (5.50 METs) Patient denies any chest pain or undue shortness of breath with the above physical activity. ASA Class: 3 ANESTHESIA FINDINGS: Intubation History: No history of difficult intubation Significant Anesthesia Considerations: None Airway Exam: General: Normal appearance Mallampati Score is CLASS II ULBT: Class I - Lower incisors can bite the upper lip above the rosa isela line Neck: Normal appearance and function, Distance from hyoid to mentum during neck extension is at least 3 finger breaths Mouth: Normal tongue size Dentition: Intact Airway History: No abnormal airway history STOP BANG Score: Criteria: Age over 50 (67 year old) Score = 1 PLAN This patient is optimally prepared for surgery pending LABS. CONSULTS: Patient does not require consults for optimization at this time. The Following Tests/Procedures Have Been Initiated: Orders Placed This Encounter ECG COMPLETE Standing Status: Future Standing Expiration Date: 11/25/2023 Planned Anesthetic: Per anesthesia choice Instructions Given to Patient: Instructions located in the after visit summary. Patient given verbal and written preop instructions and voices comprehension and compliance. SIGNATURE: Quiana Poole APRN.CNP PATIENT NAME: Mary Vaughn DATE: November 24, 2022 TIME: documented in this encounter [facility] 11-24-2022 Note HNO ID: [id number] Author: Vel Galeana PA-C Service: ? Author Type: Physician Clam Digger Type: Progress Notes Filed: 11/24/2022 10:44 AM Note Text: CONSULT ORTHOPAEDIC: HIP PRIMARY CARE PHYSICIAN: Luis Garcia II, MD REFERRING PROVIDER: SELF ASSESSMENT AND PLAN: Impression: Right Hip Severe Degenerative Osteoarthritis, Primary Mary Vaughn has radiograph and physical exam evidence of degenerative joint disease and wishes to pursue surgery. This patient appears to have sufficient symptoms to warrant surgical intervention and is an appropriate candidate for right Primary Total Hip Arthroplasty as evidenced by six months of unsuccessful non-operative treatment as outlined in the HPI below. We had a lengthy discussion regarding the risk and benefit of surgery, the alternatives, limitations and personnel involved. These included but were not limited to infection, persistent pain, instability, nerve injury, blood clots, and medical complications. We also discussed the pre-operative course, surgery itself and rehabilitation. Tawana-operative blood management and transfusion issues were discussed, and options clearly outlined. The patient has consented to the use of the banked allogenic blood if medically necessary. The patient has elected to schedule surgery at this time or intends to call the office with a surgical date. Shared decision making occurred while obtaining informed consent. The patient will be scheduled for a pre-operative education class at which time they will have their nasal swab completed and will be given CHG cloths along with the verbal and written instructions for their use. Patient has been instructed and has been scheduled or will call to schedule attendence in one of the total joint perioperative classes offered prior to proceeding with FANY.. The patient has been ordered: No orders placed today. CONSULTS: Patient does not require consults for optimization at this time. ACTIVE PROBLEM LIST Primary Osteoarthritis of Left Hip Chronic Obstructive Pulmonary Disease (Hcc) Former Smoker Svt (Supraventricular Tachycardia) (Hcc) Incomplete Rbbb Aftercare Following Left Hip Joint Replacement Surgery Status Post Left Hip Replacement Primary Osteoarthritis of Right Hip SUBJECTIVE CHIEF COMPLAINT: Hip Pain HPI: Mary Vaughn is a 67 year old patient here for evaluation and management of Right hip pain.Mary Vaughn has had progressive problems with the hip(s) multiple times a day over the past 15 year(s) interfering with activities which include walking 2 blocks, gardening, 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 The problem began limiting activities 3+ years ago. Currently the pain in the joint is rated at 5 out of 10 with minimal activity. The pain is constant and is located in the right hip, groin, outer aspect of the hip, and thigh. The pain is described as radiating, sharp, soreness, stiffness, and throbbing. Relieving factors include rest. There is no specific incident that brought about this pain. Mary Vaughn has no additional complaints. FUNCTIONAL STATUS: Walk indoors, such as around the house (1.75 METs) Do light work around the house, such as dusting or washing dishes (2.70 METs) Take care of self, that is eating, dressing, bathing, using the toilet (2.75 METs) Walk a block or two on level ground (2.75 METs) Do moderate work around the house such as vacuuming, sweeping floors, or carrying in groceries (3.50 METs) Do yardwork, such as raking leaves, weeding,or pushing a power mower (4.50 METs) Have sexual relations (5.25 METs) Climb a flight of stairs or walk up a hill (5.50 METs) Participate in moderate recreational activities, such as golf, bowling, dancing, doubles tennis, or throwing a baseball or football (6.00 METs) Participate in strenuous sport, such as swimming, singles tennis, football, basketball, or skiing (7.50 METs) Do heavy work around the house, such as scrubbing floors, lifting or moving heavy furniture (8.00 METs) Run a short distance (8.00 METs) Partially dependent Total Joint Arthroplasty: Risk Calculator Mary Vaughn has a 9.45% chance of NOT returning home at discharge for a Primary total Hip replacement. Mary's estimated Length of Stay is 2 days (Inpatient candidate). Mary's 30 day chance of readmission is 2.91%. Readmission Probability 2.91 % (within 30 days following surgery) Estimated LOS 2 days Discharge Disposition Probability D/C to Home 90.55 % D/C to SNF 9.45 % These calculations are based on the following factors: - 67 years of age - sex is not male - BMI of 26.47 kg/m2 - NarxCare score of 50 - 0 hospitalizations in the last 12 months - no history (more content not included)... [facility]22 Instructions Quiana Poole APRN.AIRCRAFT MAINTENANCE SUPERVISOR - 11/24/2022 11:19 AM EDT PATIENT PREOPERATIVE INSTRUCTIONS Shant Méndez MD has scheduled you for your procedure at this surgery center: [facility]: [phone] --[address] [place] [address]. Please enter through the entrance closest to [facility]. Arrival Time for Surgery: - The Surgery Center or hospital where you are having surgery will call the afternoon before surgery (or Tuesday for Tuesday surgery) with a scheduled arrival time. - If you have not heard by 3 pm, please contact the surgery center above. Please be aware that emergency situations arise, which may delay or change your surgical time. If this happens, we will notify you as soon as possible and regret any inconvenience. Please read below carefully for your personalized instructions. Dietary Restrictions: - No solid food after midnight. - You may have 12 ounces of clear liquids (water, clear juices such as apple juice or gatorade, carbonated beverages, clear tea, black coffee, jello) until 2 hours before scheduled arrival at facility. No milk/cream Medications: Unless instructed differently below, stay on all of your medications until your surgery. Approved medications to take the morning of surgery with a sip of water: NONE If you start any new medications after today's visit, please contact the surgeon's office. Blood Thinning Medications: - Stop NSAIDS (Ibuprofen, Advil, Aleve, Motrin, Celebrex, Mobic, etc.) 7 days before surgery, as directed by your surgeon. - Stop Aspirin 7 days before surgery, as directed by your surgeon. - Stop Vitamin E, ALL multi-vitamins, herbals and dietary supplements 7 days before surgery. - You may take Tylenol (Acetaminophen) or any of your pain medications that do not contain aspirin or NSAIDS as needed. Important Reminders: - If you use CPAP/BIPAP, bring the machine with you to the surgery center. - If you are prescribed inhalers for breathing, continue using them. - Candy, mints, and tobacco products are NOT permitted the morning of surgery. - Hearing aids, dentures and glasses may be worn the morning of surgery. - NO jewelry, body piercings, makeup, hairpins or contacts are to be worn the day of surgery. If you develop symptoms such as a fever, cold, or flu, or have other changes to your health within TWO DAYS of scheduled surgery or the morning of surgery, please contact the surgery center above. Personal Belongings: -Please have photo ID and insurance cards. -If you do not have a copy of advance directives on file with us, please bring a copy with you on the day of surgery. - Leave ALL valuables and money at home or with family members. For Outpatient Procedures: - YOU MUST HAVE A RESPONSIBLE RECEIVER STOCKER TAKE YOU HOME. A SEWING MACHINE OPERATOR OR HEAD PIECE ASSEMBLER CANNOT BE MADE A RESPONSIBLE RECEIVER STOCKER. - We recommend that a responsible person stays with you overnight to take care of you. - You cannot stay in a hotel alone after outpatient surgery. You will not be permitted to have your surgery, if you do not have someone to take care of you. If you already have an Advance Directive, please fax a copy to [phone] or email to for it to be added to your chart. If you do not have an Advance Directive, you can find the appropriate form and more information at [email or web address]. We recommend that you complete the Advance Directive form found on the website and bring it with you the day of your surgery. It can be witnessed and scanned into your chart that day. documented in this encounter [facility] 11-24-2022 Instructions Vel Galeana PA-C - 11/24/2022 10:39 AM EDT To avoid postop constipation, which is the biggest problem after surgery: Increase the amount of water that you are drinking by 3 to 4 glasses a day beginning 2 to 3 days before surgery. Eat light, avoiding constipating foods for 2 to 3 days before surgery. Avoid cheese which is constipating (pizza, grilled cheese) as well as a heavy protein like steak or hamburger. Eat lots of fruits and vegetables, soup, salads, eggs, yogurt, fish, rice and small amount of chicken. Plan on doing the same thing after surgery until you get your bowels going. Could be 2 or 3 days postop. Eating 2 or 3 prunes with every meal also helps get your bowels for more naturally. This will sometimes avoid having to use medications to blast you out after surgery. Shower the night before and morning of surgery using antibacterial soap. Do Not use chlorhexidine wipes. documented in this encounter [facility] 11-24-2022 History of Presen t illness Narrative CONSULT ORTHOPAEDIC: HIP PRIMARY CARE PHYSICIAN: Luis Garcia II, MD REFERRING PROVIDER: SELF ASSESSMENT & PLAN: Impression: Right Hip Severe Degenerative Osteoarthritis, Primary Mary Vaughn has radiograph and physical exam evidence of degenerative joint disease and wishes to pursue surgery. This patient appears to have sufficient symptoms to warrant surgical intervention and is an appropriate candidate for right Primary Total Hip Arthroplasty as evidenced by six months of unsuccessful non-operative treatment as outlined in the HPI below. We had a lengthy discussion regarding the risk and benefit of surgery, the alternatives, limitations and personnel involved. These included but were not limited to infection, persistent pain, instability, nerve injury, blood clots, and medical complications. We also discussed the pre-operative course, surgery itself and rehabilitation. Tawana-operative blood management and transfusion issues were discussed, and options clearly outlined. The patient has consented to the use of the banked allogenic blood if medically necessary. The patient has elected to schedule surgery at this time or intends to call the office with a surgical date. Shared decision making occurred while obtaining informed consent. The patient will be scheduled for a pre-operative education class at which time they will have their nasal swab completed and will be given CHG cloths along with the verbal and written instructions for their use. Patient has been instructed and has been scheduled or will call to schedule attendence in one of the total joint perioperative classes offered prior to proceeding with FANY.. The patient has been ordered: No orders placed today. CONSULTS: Patient does not require consults for optimization at this time. ACTIVE PROBLEM LIST Primary Osteoarthritis of Left Hip Chronic Obstructive Pulmonary Disease (Hcc) Former Smoker Svt (Supraventricular Tachycardia) (Hcc) Incomplete Rbbb Aftercare Following Left Hip Joint Replacement Surgery Status Post Left Hip Replacement Primary Osteoarthritis of Right Hip SUBJECTIVE CHIEF COMPLAINT: Hip Pain HPI: Mary Vaughn is a 67 year old patient here for evaluation and management of Right hip pain.Mary Vaughn has had progressive problems with the hip(s) multiple times a day over the past 15 year(s) interfering with activities which include walking 2 blocks, gardening, 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 The problem began limiting activities 3+ years ago. Currently the pain in the joint is rated at 5 out of 10 with minimal activity. The pain is constant and is located in the right hip, groin, outer aspect of the hip, and thigh. The pain is described as radiating, sharp, soreness, stiffness, and throbbing. Relieving factors include rest. There is no specific incident that brought about this pain. Mary Vaughn has no additional complaints. FUNCTIONAL STATUS: Walk indoors, such as around the house (1.75 METs) Do light work around the house, such as dusting or washing dishes (2.70 METs) Take care of self, that is eating, dressing, bathing, using the toilet (2.75 METs) Walk a block or two on level ground (2.75 METs) Do moderate work around the house such as vacuuming, sweeping floors, or carrying in groceries (3.50 METs) Do yardwork, such as raking leaves, weeding,or pushing a power mower (4.50 METs) Have sexual relations (5.25 METs) Climb a flight of stairs or walk up a hill (5.50 METs) Participate in moderate recreational activities, such as golf, bowling, dancing, doubles tennis, or throwing a baseball or football (6.00 METs) Participate in strenuous sport, such as swimming, singles tennis, football, basketball, or skiing (7.50 METs) Do heavy work around the house, such as scrubbing floors, lifting or moving heavy furniture (8.00 METs) Run a short distance (8.00 METs) Partially dependent Total Joint Arthroplasty: Risk Calculator Mary Vaughn has a 9.45% chance of NOT returning home at discharge for a Primary total Hip replacement. Mary's estimated Length of Stay is 2 days (Inpatient candidate). Mary's 30 day chance of readmission is 2.91%. Readmission Probability 2.91 % (within 30 days following surgery) Estimated LOS 2 days Discharge Disposition Probability D/C to Home 90.55 % D/C to SNF 9.45 % These calculations are based on the following factors: - 67 years of age - sex is not male - BMI of 26.47 kg/m2 - NarxCare score of 50 - 0 hospitalizations in the last 12 months - no history of heart disease - no history of diabetes - history of COPD - no history of anemia - preoperative ambulation: independent community distances - 3 step(s) to enter home - bed location is on the first floor - bath location is on the first floor - caregiver is consistent - home is not more than 150 miles away - PROMIS-10 Mental Health T score not available - Marital status: PREVIOUS TREATMENTS: Medical: OTC NSAIDS for 3 Months or Greater (excedrin) Physical Therapy: Activities Modified REVIEW OF SYSTEMS: GENERAL: Denies fever, chills malaise and weight loss.. PAIN ASSESSMENT: See HPI. MUSCULOSKELETAL: See HPI. Risk Factors for Total Joint Arthroplasty (TJA) Obesity Unknown Risk High: BMI > 40 Moderate: BMI 30-40 Normal: BMI < 30 Diabetes normal High: A1C > 8 Moderate: A1C 7-8 Normal: A1C < 7 S moking normal High: Current smoker Normal: Non smoker Anemia normal High: Hgb < 11.5 (women) N/A: Hgb >= 11.5 (women) Nutritional Status normal High: Alb<3.4, or prealb<15, or serum transferrin<200, or total lymphocyte count<1500 Normal: normal labs COPD High Risk High: dx of COPD Normal: no dx of COPD MRSA High Risk High: dx of MRSA or positive lab test Normal: no MRSA CKD normal High: eGFR<60 Moderate: eGFR 60-89 Normal: eGFR>90 Hx of DVT / PE normal High: dx of DVT / PE Normal: no dx of DVT / PE Narcotics Use normal High:NarxCare >=300 Moderate: 100-299 Normal: 0-99 ZACHARIAH normal High: dx of ZACHARIAH N/A: no dx of ZACHARIAH Coagulation normal High:PT Sec>13, or PT INR>1.3, or APTT>32.4, or Plt ct<150k Moderate: on anticoag but none of the above Normal: none Obesity: height and/or weight are out of date (There is no height and/or weight reading in the past 365 days, so the below BMI readings may be inaccurate) BMI Readings from Last 3 Encounters: 09/21/21 : 26.29 kg/m COPD MRSA Other Risk Factors None PAST MEDICAL HISTORY Diagnosis Date Deaf Osteoporosis Paroxysmal supraventricular tachycardia (HCC) PAST SURGICAL HISTORY Procedure Laterality Date COLONOSCOPY SCREENING PAST SURGICAL HISTORY OF Trigger finger TONSILLECTOMY HX TOOTH EXTRACTION wisdom teeth FAMILY HISTORY Problem Relation Age of Onset other (other) Mother Stroke Mother Heart disease Father Heart Attack Maternal Grandmother Stroke Maternal Grandmother Heart disease Maternal Grandfather Social History Tobacco Use Smoking status: Former Packs/day: 1.00 Years: 30.00 Pack years: 30.00 Types: Cigarettes Quit date: 2010 Years since quittin.2 Smokeless tobacco: Never Substance Use Topics Alcohol use: Not Currently Drug use: Never ALLERGIES: Patient has no known allergies. MEDICATIONS: Amoxicillin 500 mg tablet four tabs one hour prior to dental procedure and two tabs six hours after the dental procedure acetaminophen (TYLENOL EXTRA STRENGTH) 500 mg tablet Take 2 tablets by mouth every 8 hours as needed for pain. docusate sodium (COLACE) 100 mg capsule Take 1 capsule by mouth twice daily as needed for constipation. oxyCODONE IR (ROXICODONE) 5 mg immediate release tablet Take 1-2 tablets by mouth every 4-6 hours as needed for pain aspirin, enteric coated (ECOTRIN LOW STRENGTH) 81 mg EC tablet Take 1 tablet by mouth twice daily for 28 days. acetaminophen (TYLENOL EXTRA STRENGTH) 500 mg tablet Take 2 tablets by mouth every 8 hours as needed for pain. [id number]-GCVP OIL ORAL Take by mouth once daily. multivit with calcium,iron,min (WOMEN'S MULTIPLE VITAMINS ORAL) Take by mouth once daily. ascorbic acid (VITAMIN C ORAL) Take by mouth once daily. glucosamine/msm/chondroitin A ([id number]-DPCDPP-HUL ORAL) Take by mouth once daily. propranolol (INDERAL) 20 mg tablet Take 20 mg by mouth twice daily. garlic (GARLIQUE ORAL) Take by mouth once daily. cetirizine (ZYRTEC) 10 mg tablet Take 10 mg by mouth once daily. PHYSICAL EXAM There were no vitals taken for this visit. All other systems deferred. GENERAL: Appears healthy, well-nourished, no deformities. HABITUS: Normal GAIT: Antalgic to the right HIP EXAM: Right: ROM: Extension: 5 degree flexion contracture Flexion: 80 degrees Internal Rotation: 0 degrees External Rotation: 20 degrees Abduction: 20 degrees Adduction: 10 degrees Strength: Pain with resisted abduction and Pain with resisted hip flexion Palpation: No tenderness Log roll: painful. Straight leg raise: Negative Neurovascular Status: Sensation Intact, Moves foot and ankle up & down, 2+ posterial tibial , and negative homans sign DATA: Diagnostic tests reviewed for today's visit: Right hip X-Ray: Severe degenerative changes The following conditions were addressed during the office visit today: none SIGNATURE: Vel Galeana PA-C PATIENT NAME: Mary Vaughn DATE: November 24, 2022 TIME: 9:35 AM documented in this encounter [facility] 11-08-2022 Nurse Note ORTHOPAEDIC SURGERY PRE-OP PATIENT Mary Vaughn is a 67 year old female PROCEDURE: right Total Hip PROCEDURE DATE: 11/30/22 CHECKLIST: Informed Consent: Yes- In [employer]: No Pre-op Skin Preparation Cloths & Instructions of Use given to patient: Reviewed with pt during this phone encounter. Nasal Swab completed for patient: neg EDUCATION: READINESS TO LEARN COGNITIVE ABILITY: Alert and oriented MOTIVATION TO LEARN: Interested FAMILY SUPPORT: Unable to assess - Family not present INSTRUCTION PROVIDED TO: Patient FACTORS AFFECTING LEARNING: None PHYSICAL LIMITATIONS AFFECTING LEARNING: Sensory Deficit Hearing: Deaf ISSUES REVIEWED: EDUCATION TOPIC/ TEACHING POINTS: -Day of Surgery (see below) -Hospital Course -Incision Care -Home PT -Home pain Medication: Refill Protocol, Side Effects -Afterhours Number Given- page ortho resident reporting process consultant at [phone] METHOD OF INSTRUCTION: Individual instruction, Written instruction - handouts, and Verbal instruction PRE-OPERATIVE INSTRUCTIONS REVIEWED: -Arrival time/location -NPO after midnight -Advanced Directives -ID + insurance card -Bring to hospital: Bipap, Cpap, Non-skid shoes, hearing aids -Do not bring: Excessive money, valuables, jewelry, medications (unless instructed) -Stop NSAIDS 7 days prior to surgery -Stop Aspirin and herbal supplements 10-14 days prior -Reviewed patient handout instructions for Preop Skin Preparation POST-OPERATIVE INSTRUCTIONS: -Call office if questions/concerns -Afterhour for resident reporting process consultant INFECTION MANAGEMENT: -Signs and symptoms of an infection -Importance of contacting the physician MEDICATION SIDE EFFECTS: -Side effects associated with the medication that warrant a call to the physician WOUND CARE: -Correct procedure to perform wound care DISCHARGE PLAN: -Patient referred to rapid recovery program and [place] of Choice was offered to Patient about Rehab facility/ SNF/ Home care. SUPPLEMENTAL MATERIAL GIVEN: Yes RISK FACTORS: Deaf and PSVT FOLLOW-UP PLAN: Patient instructed to call with any further issues If any questions or concerns arise before the surgery, the patient was instructed to call the office for assistance. If there are no further questions or issues, the patient will be seen the day of the procedure, prior to proceeding with surgery. Karine Le RN Patient in for Right Total Hip Arthroplasty with Dr. Méndez, medical consult per . [facility]. Cardiac clearance needed at this time:No Dental clearance needed at this time?No Patient is identified by name and birthdate: Yes Allergies reviewed: Yes Medication- prescribed and OTC reviewed and updated: Yes Latex allergy: no Does the patient have a metal allergy? No Is the patient having any pain?: Yes: Location of pain is in the right hip and groin Pain Scale: 6 on a scale from 0-10 Pain Character: aching and stabbing Duration: (How long have you had the pain?) several years Frequency: (How often does the pain occur?) occurs daily Pt. instructed to stop meds per [facility] and will take the following meds per anesthesia guidelines per [facility] Anticoagulation therapy consisting of ASA 81 mg twice a day for 6 weeks postop, roberth hose, compression wraps, and exercise discussed with patient. Pt. has prescription drug coverage. Autologous donation discussed with patient, Pt will receive acid.. Patient lives with her and plans to go home with OP[facility] Patient has walker Yes , cane Yes , shower bench Yes elevated toilet seat Yes Patient is 178 lbs 0 oz and is Height (cm or in): 5'9 Guide to recovery, follow your pathway to recovery after joint replacement surgery materials given to patient prior to end of session. Pt. had no other questions or concerns at this time. Karine Le RN documented in this encounter [facility] 10-06-2022 Note HNO ID: [id number] Author: Shant Méndez MD Service: Orthopaedic Surgery Author Type: Physician Type: Progress Notes Filed: 10/15/2022 3:01 PM Note Text: [facility] [address] [place], [place] [address] CLINIC NOTE Department of Orthopaedics - Jose Eduardo Méndez II, M.D. NAME: MARY VAUGHN [facility] NO.: [id number] DATE OF SERVICE: 10/06/2022 CHIEF COMPLAINT: Recheck of left hip/pain in right hip. Left THR, 09/29/2021. The patient is doing fine and is having no pain in her total hip. Incision continues to have healed very nicely with no evidence of drainage and her gait referable to her left hip is excellent. She is having more pain with ambulation and has limitations now because of increasing pain and instability in her right hip. X-rays today show left total hip replacement in good alignment. Right hip shows severe rxpv-ar-balo arthritis throughout the right hip. The patient states her right hip is now interfering with her activities of daily living and has decided that she would like to proceed with hip replacement on the right. We reiterated risks and anticipated results and we will give her an appointment for right THR on 11/30/2022. Risks and anticipated results have been once again explained. Dictated By: Shant Méndez II, M.D. Date Dictated: 10/08/2022 Date Typed: [facility] 10/08/2022 JOB# [id number] [facility] 10-06-2022 Note HNO ID: [id number] Author: RT Saira(R) Service: ? Author Type: Technologist Type: Progress Notes Filed: 10/06/2022 11:06 AM Note Text: Radiology Service Progress Note PATIENT NAME: Mary Vaughn DATE OF SERVICE: October 06, 2022 TIME: 11:05 AM PATIENT IDENTITY VERIFICATION COMPLETED USING TWO (2) IDENTIFIERS: Name and Date of confirmed by patient verbally. FALL SCREENING: Has the patient had 2 falls in the last year or 1 fall with injury or currently using an Ambulatory Assistive Device (Walker, Cane, Wheelchair, Crutches, etc.)? No PATIENT GENDER DATA: Female. status: : No status: NO. PATIENT RELEVANT IMPLANT DATA REVIEWED: Yes RADIOLOGY DEPARTMENT: General X-ray: Exam(s) Completed: Pelvis X-Ray: Pelvis General AP PERIPHERAL IV DATA: Not applicable SIGNED BY: RT Saira(R) October 06, 2022 11:05 AM [facility] 10-06-2022 Note HNO ID: [id number] Author: Mary Quigley MA Service: ? Author Type: Lead Game Designer Type: Progress Notes Filed: 10/18/2022 11:46 AM Note Text: This note has been dictated. Low Méndez M.D. [facility] 10-06-2022 History of Presen t illness Narrative Radiology Service Progress Note PATIENT NAME: Mary Vaughn DATE OF SERVICE: October 06, 2022 TIME: 11:05 AM PATIENT IDENTITY VERIFICATION COMPLETED USING TWO (2) IDENTIFIERS: Name and Date of confirmed by patient verbally. FALL SCREENING: Has the patient had 2 falls in the last year or 1 fall with injury or currently using an Ambulatory Assistive Device (Walker, Cane, Wheelchair, Crutches, etc.)? No PATIENT GENDER DATA: Female. status: : No status: NO. PATIENT RELEVANT IMPLANT DATA REVIEWED: Yes RADIOLOGY DEPARTMENT: General X-ray: Exam(s) Completed: Pelvis X-Ray: Pelvis General AP PERIPHERAL IV DATA: Not applicable SIGNED BY: RT Saira(R) October 06, 2022 11:05 AM documented in this encounter [facility] 10-06-2022 History of Presen t illness Narrative This note has been dictated. Low Méndez M.D. [facility] [address] [facility]. [place] [address] CLINIC NOTE Department of Orthopaedics - Jose Eduardo Méndez II, M.D. NAME: MARY VAUGHN [facility] NO.: [id number] DATE OF SERVICE: 10/06/2022 CHIEF COMPLAINT: Recheck of left hip/pain in right hip. Left THR, 09/29/2021. The patient is doing fine and is having no pain in her total hip. Incision continues to have healed very nicely with no evidence of drainage and her gait referable to her left hip is excellent. She is having more pain with ambulation and has limitations now because of increasing pain and instability in her right hip. X-rays today show left total hip replacement in good alignment. Right hip shows severe jyff-li-ragr arthritis throughout the right hip. The patient states her right hip is now interfering with her activities of daily living and has decided that she would like to proceed with hip replacement on the right. We reiterated risks and anticipated results and we will give her an appointment for right THR on 11/30/2022. Risks and anticipated results have been once again explained. Dictated By: Shant Méndez II, M.D. Date Dictated: 10/08/2022 Date Typed: kenneth 10/08/2022 JOB# [id number] documented in this encounter [facility] 05-27-2022 Miscellaneous Notes rx sent to [facility] notified Shant Méndez II, MD documented in this encounter [facility] 12-22-2021 Miscellaneous Notes rx sent to [facility] patient notified Shant Méndez II, MD documented in this encounter [facility] 06-26-2021 History of Presen t illness Narrative Radiology Service Progress Note PATIENT NAME: Mary Vaughn DATE OF SERVICE: June 26, 2021 TIME: 1:20 PM PATIENT IDENTITY VERIFICATION COMPLETED USING TWO (2) IDENTIFIERS: Name and Date of confirmed by patient verbally. FALL SCREENING: Has the patient had 2 falls in the last year or 1 fall with injury or currently using an Ambulatory Assistive Device (Walker, Cane, Wheelchair, Crutches, etc.)? Yes, Patient High Risk for Falls What interventions were put in place to prevent falls during this visit? Instructed Patient to Remain Seated (Not on Exam Table) Until Exam and Increased Observations by Caregivers PATIENT GENDER DATA: Female. status: : No status: NO. PATIENT RELEVANT IMPLANT DATA REVIEWED: Not Applicable RADIOLOGY DEPARTMENT: General X-ray: Exam(s) Completed: Pelvis X-Ray: Pelvis with Hip Left PERIPHERAL IV DATA: Not applicable SIGNED BY: RT Shelton(R) June 26, 2021 1:20 PM documented in this encounter [facility] Evaluation note Diagnosis Abnormal findings on diagnostic imaging of other parts of musculoskeletal system Osteopenia, unspecified location documented in this encounter [employer] Phone: evaluation note* Diagnosis Breast cancer screening by mammogram documented in this encounter [employer] Phone: evaluation note* Diagnosis Status post left hip replacement- Primary Hip joint replacement by other means [facility] Diagnosis Screening breast examination Other screening breast examination documented in this encounter [facility] [employer] Phone: evaluation note* Diagnosis Abnormal mammogram of right breast documented in this encounter [facility] [employer] Phone: evaluation note* Diagnosis Abnormal mammogram of right breast documented in this encounter [facility] [employer] Phone: evaluation note* Diagnosis Status post left hip replacement Hip joint replacement by other means [facility] Diagnosis Status post left hip replacement- Primary Hip joint replacement by other means Primary osteoarthritis of right hip Primary localized osteoarthrosis, pelvic region and thigh Pre-op testing Preoperative examination, unspecified MRSA (methicillin resistant Staphylococcus aureus) Methicillin resistant Staphylococcus aureus in conditions classified elsewhere and of unspecified site Frequent urination Urinary frequency Abnormal finding of blood chemistry, unspecified [facility] Diagnosis Primary osteoarthritis of right hip- Primary Primary localized osteoarthrosis, pelvic region and thigh Primary osteoarthritis of right hip Primary localized osteoarthrosis, pelvic region and thigh [facility] Diagnosis Primary osteoarthritis of right hip- Primary Primary localized osteoarthrosis, pelvic region and thigh Primary osteoarthritis of right hip Primary localized osteoarthrosis, pelvic region and thigh [facility] Diagnosis Pre-op evaluation- Primary Preoperative examination, unspecified SVT (supraventricular tachycardia) (HCC) Other specified cardiac dysrhythmias Former smoker Personal history of tobacco use, presenting hazards to health Primary osteoarthritis of right hip Primary localized osteoarthrosis, pelvic region and thigh [facility] Diagnosis Aftercare following left hip joint replacement surgery- Primary Status post right hip replacement Hip joint replacement by other means [facility] Diagnosis Status post right hip replacement- Primary Hip joint replacement by other means Status post left hip replacement Hip joint replacement by other means Primary osteoarthritis of right knee Primary localized osteoarthrosis, lower leg [facility] Diagnosis Primary osteoarthritis of right knee- Primary Primary localized osteoarthrosis, lower leg [facility] Diagnosis Encounter for screening mammogram for malignant neoplasm of breast Other screening mammogram documented in this encounter [facility] Diagnosis Status post right hip replacement- Primary Hip joint replacement by other means Status post left hip replacement Hip joint replacement by other means documented in this encounter [facility] for referral (narrative)* - Authorized Specialty Diagnoses / Procedures Referred By Fer t Referred To Contact Physical Therapy Diagnoses Primary osteoarthritis of right hip Pre-op testing Procedures CONSULT TO PHYSICAL THERAPY Shant Méndez MD [address] [place] [address] Referral ID Status Reason Start Date Expiration Date V isits Requested Visits Authorized [id number] Authorized 10/06/2022 01/04/2023 99 99 * Diagnostic Procedure Only (Routine) - Closed Specialty Diagnoses / Procedures Referred By Fer adan Referred To Contact XR IMAGING Diagnoses Status post left hip replacement Procedures XR PELVIS 1V AP RADIOLOGIC EXAMINATION PELVIS 1/2 VIEWS Shant Méndez [place] [address] [place] [address] Xr Imaging Referral ID Status Reason Start Date Expiration Date V isits Requested Visits Authorized [id number] Closed Auto-Generate d Referral 10/05/2022 11/04/2023 1 1 [facility] for referral (narrative)* Diagnostic Procedure Only (Routine) - Closed Specialty Diagnoses / Procedures Referred By Fer adan Referred To Contact XR IMAGING Diagnoses Primary osteoarthritis of right hip Procedures XR HIP GENERAL 3V PELV/AP/LAT RIGHT RADEX HIP UNILATERAL WITH PELVIS 2-3 VIEWS Shant Méndez [place] [address] [place] [address] Xr Imaging Referral ID Status Reason Start Date Expiration Date V isits Requested Visits Authorized [id number] Closed Auto-Generate d Referral 11/22/2022 12/22/2023 1 1 [facility] for referral (narrative)* Outpatient Procedure (Routine) - Pending Review Specialty Diagnoses / Procedures Referred By Contac t Referred To Contact [facility] Diagnoses Pre-op evaluation Procedures ECG COMPLETE ECG ROUTINE ECG W/LEAST 12 LDS W/I&R Quiana Poole APRN.AIRCRAFT MAINTENANCE SUPERVISOR [address] [place] [address] [facility] [address] [place] [address] Referral ID Status Reason Start Date Expiration Date Visits Requested Visits Authorized [id number] Pending Review Auto-Generat ed Referral 11/24/2022 11/24/2023 1 1 [facility] for referral (narrative)* Diagnostic Procedure Only (Routine) - Closed Specialty Diagnoses / Procedures Referred By Contac t Referred To Contact XR IMAGING Diagnoses Aftercare following left hip joint replacement surgery Procedures XR PELVIS 1V AP RADIOLOGIC EXAMINATION PELVIS 1/2 VIEWS Vel Galeana PA-C [address] [place] [address] Xr Imaging Referral ID Status Reason Start Date Expiration Date V isits Requested Visits Authorized [id number] Closed Auto-Generate d Referral 12/20/2022 01/19/2024 1 1 [facility] for referral (narrative)* Diagnostic Procedure Only (Routine) - Closed Specialty Diagnoses / Procedures Referred By Contac t Referred To Contact XR IMAGING Diagnoses Status post right hip replacement Status post left hip replacement Procedures XR PELVIS 1V AP RADIOLOGIC EXAMINATION PELVIS 1/2 VIEWS Shant Méndez MD [address] [place] [address] Xr Imaging Referral ID Status Reason Start Date Expiration Date V isits Requested Visits Authorized [id number] Closed Auto-Generate d Referral 02/04/2023 03/05/2024 1 1 * Diagnostic Procedure Only (Routine) - Closed Specialty Diagnoses / Procedures Referred By Contac t Referred To Contact XR IMAGING Diagnoses Primary osteoarthritis of right knee Procedures XR KNEE GENERAL 4V AP BOTH/PA BOTH/LAT/MERC RIGHT RADIOLOGIC EXAM KNEE COMPLETE 4/MORE VIEWS Shant Méndez MD [address] [place] [address] Xr Imaging Referral ID Status Reason Start Date Expiration Date V isits Requested Visits Authorized [id number] Closed Auto-Generate d Referral 02/04/2023 03/05/2024 1 1 [facility] for referral (narrative)* Diagnostic Procedure Only (Routine) - Closed Specialty Diagnoses / Procedures Referred By Contac t Referred To Contact XR IMAGING Diagnoses Primary osteoarthritis of right knee Procedures XR KNEE GENERAL 4V AP BOTH/PA BOTH/LAT/MERC RIGHT RADIOLOGIC EXAM KNEE COMPLETE 4/MORE VIEWS Shant Méndez MD [address] [place] [address] Xr Imaging Referral ID Status Reason Start Date Expiration Date V isits Requested Visits Authorized [id number] Closed Auto-Generate d Referral 02/25/2023 03/26/2024 1 1 [facility] for referral (narrative)* Diagnostic Procedure Only (Routine) - Closed Specialty Diagnoses / Procedures Referred By Contac t Referred To Contact XR IMAGING Diagnoses Status post right hip replacement Procedures XR PELVIS 1V AP RADIOLOGIC EXAMINATION PELVIS 1/2 VIEWS Vel Galeana PA-C [address] [place] [address] [place] [id number] Referral ID Status Reason Start Date Expiration Date V isits Requested Visits Authorized [id number] Closed Auto-Generate d Referral 09/30/2023 10/29/2024 1 1 [facility] Reason for Referral Status Reason Specialty Diagnoses / Procedures Re ferred By Contact Referred To Contact Open Radiology Diagnoses Abnormal findings on diagnostic imaging of other parts of musculoskeletal system Osteopenia, unspecified location Procedures DEXA Bone Density 2 Sites Breezy Zaman MD [address] [facility] [address] [place] [address] Status Reason Specialty Diagnoses / Procedures Referre d By Contact Referred To Contact Closed Radiology Diagnoses Breast cancer screening by mammogram Procedures EDITH HERMINIA DIGITAL SCREEN SELF REFERRAL W OR WO CAD BILATERAL Breezy Zaman MD [address] [facility] [address] [place] [address] Specialty Diagnoses / Procedures Referred By Contac t Referred To Contact Radiology Diagnoses Screening breast examination Procedures EDITH HERMINIA DIGITAL SCREEN SELF REFERRAL W OR WO CAD BILATERAL Luis Garcia MD [address] [place] [address] Referral ID Status Reason Start Date Expiration Date Visits Re quested Visits Authorized [id number] Closed 2022 2023 1 1 Specialty Diagnoses / Procedures Referred By Contac t Referred To Contact Radiology Diagnoses Abnormal mammogram of right breast Procedures US BREAST COMPLETE RIGHT Luis Garcia MD [address] [facility] [address] [place] [address] Referral ID Status Reason Start Date Expiration Date V isits Requested Visits Authorized [id number] Authorized 03/15/2022 03/15/2023 1 1 Specialty Diagnoses / Procedures Referred By Contac t Referred To Contact Radiology Diagnoses Abnormal mammogram of right breast Procedures EDITH HERMINIA DIGITAL DIAGNOSTIC UNILATERAL RIGHT Luis Garcia MD [address] [facility] [address] [place] [address] Referral ID Status Reason Start Date Expiration Date Visits Re quested Visits Authorized [id number] Closed 03/15/2022 03/15/2023 1 1 Specialty Diagnoses / Procedures Referred By Contac t Referred To Contact Radiology Diagnoses Encounter for screening mammogram for malignant neoplasm of breast Procedures EDITH HERMINIA DIGITAL SCREEN BILATERAL Luis Garcia MD [address] [facility] [address] [place] [address] Referral ID Status Reason Start Date Expiration Date Visits Re quested Visits Authorized [id number] Closed 02/25/2023 02/25/2024 1 1 Advance Directives No Advanced Directives Records FoundDocuments on File Type Date Recorded 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 ACP-Advance Directive 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 Systems 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 Documents on File Type Date Recorded 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 Advance Directive(s) 09/29/2021 6:08 AM Advance Directive(s) 08/31/2021 4:06 PM Summary Purpose Family History No Family History Records FoundNo Family History Records FoundNo Family History Records FoundNo Family History Records FoundNo Family History Records Found Medications Administered Section Inactive Administered Medications - up to 3 most recent administrations Medication Order MAR Action Action Date Dose Rate Site lidocaine (PF) 10 mg/mL (1 %) 8 mL injection (XYLOCAINE) 8 mL, Injection - FOR ORTHO USE ONLY, ONE TIME INJECTION, 1 dose, Starting on Tue02/25/23 at 1541, Until Tue02/25/23 at 1541 Given 02/25/2023 3:41 PM EDT 8 mL Knee, Right triamcinolone acetonide 80 mg injection (KeNALog 40) 80 mg, Injection - FOR ORTHO USE ONLY, ONE TIME INJECTION, 1 dose, Starting on Tue02/25/23 at 1541, Until Tue02/25/23 at 1541 Given 02/25/2023 3:41 PM EDT 80 mg Knee, Right Additional Source Comments Reason for Visit (unrecogniz ed section and content) Status Reason Specialty Diagnoses / Procedures Re ferred By Contact Referred To Contact Open Radiology Diagnoses Abnormal findings on diagnostic imaging of other parts of musculoskeletal system Osteopenia, unspecified location Procedures DEXA Bone Density 2 Sites Breezy Zaman MD [address] [facility] [address] [place] [address] Status Reason Specialty Diagnoses / Procedures Referre d By Contact Referred To Contact Closed Radiology Diagnoses Breast cancer screening by mammogram Procedures EDITH HERMINIA DIGITAL SCREEN SELF REFERRAL W OR WO CAD BILATERAL Breezy Zaman MD [address] [facility] [address] [place] [address] Reason Comments Radio Gen RMP Specialty Diagnoses / Procedures Referred By Contac t Referred To Contact Radiology Diagnoses Screening breast examination Procedures EDITH HERMINIA DIGITAL SCREEN SELF REFERRAL W OR WO CAD BILATERAL Luis Garcia MD [address] [facility] [address] [place] [address] Referral ID Status Reason Start Date Expiration Date Visits Re quested Visits Authorized [id number] Closed 2022 2023 1 1 Specialty Diagnoses / Procedures Referred By Contac t Referred To Contact Radiology Diagnoses Abnormal mammogram of right breast Procedures US BREAST COMPLETE RIGHT Luis Garcia MD [address] [facility] [address] [place] [address] Referral ID Status Reason Start Date Expiration Date V isits Requested Visits Authorized [id number] Authorized 03/15/2022 03/15/2023 1 1 Specialty Diagnoses / Procedures Referred By Contac t Referred To Contact Radiology Diagnoses Abnormal mammogram of right breast Procedures EDITH HERMINIA DIGITAL DIAGNOSTIC UNILATERAL RIGHT Luis Garcia MD [address] [facility] [address] [place] [address] Referral ID Status Reason Start Date Expiration Date Visits Re quested Visits Authorized [id number] Closed 03/15/2022 03/15/2023 1 1 Reason Comments Radiology XR Reason Comments Post Op Hip Replacement Reason Comments Post Op Reason Comments Pre-Op Visit Reason Comments PreOp Call UTI Reason Comments Established Patient Post Op Specialty Diagnoses / Procedures Referred By Contac t Referred To Contact Radiology Diagnoses Encounter for screening mammogram for malignant neoplasm of breast Procedures EDITH HERMINIA DIGITAL SCREEN BILATERAL Luis Garcia MD [address] [facility] [address] [place] [address] Referral ID Status Reason Start Date Expiration Date Visits Re quested Visits Authorized [id number] Closed 02/25/2023 02/25/2024 1 1 Reason Comments Established Patient Follow Up Hip Replacement Source Comments (unrecognize d section and content) In the event this informatio n is protected by the Federal Confidentiality of Alcohol and Drug Abuse Patient Records regulations: The Federal rules restrict any use of the information to criminally investigate or prosecute any alcohol or drug abuse patient.[facility] the event this information is protected by the Federal Confidentiality of Alcohol and Drug Abuse Patient Records regulations: The Federal rules restrict any use of the information to criminally investigate or prosecute any alcohol or drug abuse patient.[facility] the event this information is protected by the Federal Confidentiality of Alcohol and Drug Abuse Patient Records regulations: The Federal rules restrict any use of the information to criminally investigate or prosecute any alcohol or drug abuse patient.[facility] the event this information is protected by the Federal Confidentiality of Alcohol and Drug Abuse Patient Records regulations: The Federal rules restrict any use of the information to criminally investigate or prosecute any alcohol or drug abuse patient.[facility] the event this information is protected by the Federal Confidentiality of Alcohol and Drug Abuse Patient Records regulations: The Federal rules restrict any use of the information to criminally investigate or prosecute any alcohol or drug abuse patient.[facility] the event this information is protected by the Federal Confidentiality of Alcohol and Drug Abuse Patient Records regulations: The Federal rules restrict any use of the information to criminally investigate or prosecute any alcohol or drug abuse patient.[facility] the event this information is protected by the Federal Confidentiality of Alcohol and Drug Abuse Patient Records regulations: The Federal rules restrict any use of the information to criminally investigate or prosecute any alcohol or drug abuse patient.[facility] the event this information is protected by the Federal Confidentiality of Alcohol and Drug Abuse Patient Records regulations: The Federal rules restrict any use of the information to criminally investigate or prosecute any alcohol or drug abuse patient.[facility] the event this information is protected by the Federal Confidentiality of Alcohol and Drug Abuse Patient Records regulations: The Federal rules restrict any use of the information to criminally investigate or prosecute any alcohol or drug abuse patient.[facility] the event this information is protected by the Federal Confidentiality of Alcohol and Drug Abuse Patient Records regulations: The Federal rules restrict any use of the information to criminally investigate or prosecute any alcohol or drug abuse patient.[facility] Hospital[facility] the event this information is protected by the Federal Confidentiality of Alcohol and Drug Abuse Patient Records regulations: The Federal rules restrict any use of the information to criminally investigate or prosecute any alcohol or drug abuse patient.[facility] Hospital[facility] the event this information is protected by the Federal Confidentiality of Alcohol and Drug Abuse Patient Records regulations: The Federal rules restrict any use of the information to criminally investigate or prosecute any alcohol or drug abuse patient.[facility] HospitalIn the event this information is protected by the Federal Confidentiality of Alcohol and Drug Abuse Patient Records regulations: The Federal rules restrict any use of the information to criminally investigate or prosecute any alcohol or drug abuse patient.[facility] HospitalIn the event this information is protected by the [facility] Confidentiality of Alcohol and Drug Abuse Patient Records regulations: The Federal rules restrict any use of the information to criminally investigate or prosecute any alcohol or drug abuse patient.[facility] Hospital[facility] the event this information is protected by the Federal Confidentiality of Alcohol and Drug Abuse Patient Records regulations: The Federal rules restrict any use of the information to criminally investigate or prosecute any alcohol or drug abuse patient.[facility] Care Teams (unrecognized sec tion and content) Watermelon Inspector Relationship Specialty Start Date End Date Luis Garcia II [address] [facility] [address] [place] [address] PCP - General Internal Medicine 08/31/21 Watermelon Inspector Relationship Specialty Start Date End Date Luis Garcia MD [address] [facility] [address] [place] [address] PCP - General 06/07/12 Watermelon Inspector Relationship Specialty Start Date End Date Luis Garcia MD [address] [facility] [address] [place] [address] PCP - General 06/07/12 Watermelon Inspector Relationship Specialty Start Date End Date Luis Garcia MD [address] [address] [place] [address] PCP - General 06/07/12 Watermelon Inspector Relationship Specialty Start Date End Date Luis Garcia II [address] [place] [address] PCP - General Internal Medicine 08/31/21 Watermelon Inspector Relationship Specialty Start Date End Date Luis Garcia II [address] [place] [address] PCP - General Internal Medicine 08/31/21 Watermelon Inspector Relationship Specialty Start Date End Date Luis Garcia II [address] [place] [address] PCP - General Internal Medicine 08/31/21 Watermelon Inspector Relationship Specialty Start Date End Date Luis Garcia II [address] [place] [address] PCP - General Internal Medicine 08/31/21 Watermelon Inspector Relationship Specialty Start Date End Date Luis Garcia II [address] [place] [address] PCP - General Internal Medicine 08/31/21 Watermelon Inspector Relationship Specialty Start Date End Date Luis Garcia II [address] [place] [address] PCP - General Internal Medicine 08/31/21 Watermelon Inspector Relationship Specialty Start Date End Date Luis Garcia II [address] [place] [address] PCP - General Internal Medicine 08/31/21 Watermelon Inspector Relationship Specialty Start Date End Date Luis Garcia II [address] [place] [address] PCP - General Internal Medicine 08/31/21 Watermelon Inspector Relationship Specialty Start Date End Date Luis Garcia JONAS [address] [place] [address] PCP - General Internal Medicine 08/31/21 Watermelon Inspector Relationship Specialty Start Date End Date Jeffery Garciamigdalia Castro JONAS [address] [place] [address] PCP - General Internal Medicine 08/31/21 Watermelon Inspector Relationship Specialty Start Date End Date Jeffery Garciamigdalia Castro II [address] [place] [address] PCP - General Internal Medicine 08/31/21 Watermelon Inspector Relationship Specialty Start Date End Date Luis Garcia Matthew JONAS [address] [place] [address] PCP - General Internal Medicine 08/31/21 Watermelon Inspector Relationship Specialty Start Date End Date Luis Garcia MD [address] [facility] [address] [place] [address] PCP - General 06/07/12 Watermelon Inspector Relationship Specialty Start Date End Date Luis Garcia II, MD [address] [facility] [place] [address] [place] [address] PCP - General Internal Medicine 08/31/21 INFORMATION SOURCE (unrecogn ized section and content) DATE CREATED AUTHOR 11/19/2022 [facility] DATE CREATED AUTHOR AUTHOR'S ORGANIZ ATION 12/02/2022 [facility] DATE CREATED AUTHOR AUTHOR'S ORGANIZ ATION 04/22/2023 [facility] DATE CREATED AUTHOR AUTHOR'S ORGANIZ ATION 10/05/2023 [facility] DATE CREATED AUTHOR AUTHOR'S ORGANIZ ATION 01/06/2024 [facility] EPIC FOR RECORDS PERTAINING TO PATIENTS WHO ARE OR HAVE BEEN ENROLLED IN A CHEMICAL DEPENDENCY/SUBSTANCEABUSE PROGRAM, SOME INFORMATION MAY BE OMITTED. This clinical summary was aggregated from multiple sources. Caution should be exercised in using it in the provision of clinical care. This summary normalizes information from multiple sources, and as a consequence, information in this document may materially change the coding, format and clinical context of patient data. In addition, data may be omitted in some cases. CLINICAL DECISIONS SHOULD BE BASED ON THE PRIMARY CLINICAL RECORDS. [facility]. provides no warranty or guarantee of the accuracy or completeness of information in this document.
== END 2024-01-11 07:21 | disposition home or self-care (01) ==
LOC: PST 07:20
PROVIDERS: PCP Internal Medicine; Visit Provider Surgery
DX: Z01.818 Encounter for other preprocedural examination (principal)

== ENCOUNTER 2024-01-17 07:00 | Day surgery (SDC) | payer MEDICARE, OTHER, SELFPAY ==
--- OUTSIDE RECORDS SUMMARY | 2024-01-17 07:03 | XMS_ITS | CCD ---
Author Organization [facility] Inform ion Partnership [facility] Care Team Providers Care Production Troubleshooter Name Role Phone Luis Garcia MD Primary Care Provider [phone] Unavailable Primary Care Provider UnavailLuis Mays II Primary Care Provider [phone] Luis Garcia MD Primary Care Provider [phone] Luis Garcia MD Primary Care Provider [phone] Luis Garcia II Primary Care Provider [phone] Luis Garcia II Primary Care Provider [phone] LUIS GARCIA Consulting Unavailable JOSE, DR MARTINEZ Primary Care Unavailable JOSE, DR MARTINEZ Admitting Unavailable JOSE, DR MARTINEZ Attending Unavailable ZIEBMASTER, DR GIOVANA Mead Consulting Unavailable JOSE, DR MARTINEZ Consulting Unavailable JOSE, DR MARTINEZ Primary Care Unavailable JOSE, DR MARTINEZ Admitting Unavailable JOSE, DR MARTINEZ Attending Unavailable GARCIA, DR MARTINEZ Consulting Unavailable GARCIA, DR MARTINEZ Primary Care Unavailable GARCIA, DR MARTINEZ Admitting Unavailable JOSE, DR MARTINEZ Attending Unavailable HUBERT, DR GIOVANA Mead Consulting Unavailable SHANT MÉNDEZ Admitting Unavailable SHANT MÉNDEZ Attending Unavailable LUIS GARCIA II Primary Care Unavailable Luis Garcia II Primary Care Provider [phone] Luis Garcia MD Primary Care Provider [phone] LUIS GARCIA Primary Care Unavailable LUIS GARCIA Referring Unavailable LUIS GARCIA Referring Unavailable LUIS GARCIA Primary Care Unavailable Jose MCDANIEL MD, Daniel B Primary Care Provider [phone] SHANT MÉNDEZ Referring Unavailable LUIS GARCIA II [...] GARCIA II, LUIS B Primary Care Unavailable KOLCZUN, SHANT C Referring Unavailable GARCIA II, LUIS B Primary Care Unavailable SCOTCH, VEL Referring Unavailable GARCIA II, LUIS B Primary Care Unavailable HONEY, SHANT C Referring Unavailable GARCIA II, LUIS B Primary Care Unavailable SHANT MÉNDEZ C Attending Unavailable NIKOLASUN, SHANT C Referring Unavailable GARCIA II, LUIS B Primary Care Unavailable SCOTCH, VEL Attending Unavailable GARCIA II, LUIS B Primary Care Unavailable SCOTCH, VEL Attending Unavailable GARCIA II, LUIS B Primary Care Unavailable HONEY, SHANT C Referring Unavailable GARCIA II, LUIS B Primary Care Unavailable SCOTCH, VEL Referring Unavailable GARCIA II, LUIS B Primary Care Unavailable SHANT MÉNDEZ Attending Unavailable GARCIA II, LUIS B Primary Care Unavailable SHANT MÉNDEZ C Referring Unavailable GARCIA II, LUIS B Primary Care Unavailable MARGIE LAL Attending Unavailable MARGIE LAL Referring Unavailable GARCIALUIS Attending Unavailable MARGIE LAL Attending Unavailable LUIS GARCIA Attending Unavailable LORENA PUENTES Attending Unavailable JEFFERY GARCIAEL Matthew Attending Unavailable Allergies Allergy Classification Reported Allergen(s) Allergy Type Date of Onset Reaction(s) Facility (10 sources) Chlorhexidine; Translations: [CHLORHEXIDINE] Drug Allergy 3 Rash [facility] Work Phone: (10 sources) oxyCODONE; Translations: [OXYCODONE] Drug Allergy 3 GI Upset [facility] Work Phone: (10 sources) Adhesive Tape-Silicones; Translations: [ADHESIVE TAPE-SILICONES] Drug Intolerance 3 Other: See Comments [facility] Work Phone: Medications Current Medications Medication [...] take 1 capsule by mouth once daily Dodge-3 Fatty Acids (FISH OIL) 1000 MG CAPS [...] Comment on above: Take 1 capsule by [facility] twice daily for 5 days. risedronate sodium [...] Comment on above: Take 2 tablets by [facility] every 8 hours as needed for pain. [...] Comment on above: Take 1 tablet by [facility] twice daily for 28 days. cetirizine hydrochloride [...] Comment on above: Take 1 capsule by [facility] twice daily as needed for constipation. Garlic preparation (20 sources) Non-Standardized Food Allergenic Extract garlic (GARLIQUE ORA L) Take by mouth once daily. 0 Active Garlic 10 MG CAP S Take by mouth daily 0 Active Comment on above: Take by mouth once d aily. glucosamine/msm/chondr oitin A (EVMYDSTLCFJ-XKRYGD-NS M ORAL) (7 sources) End: 11-24-2022 glucosamine/msm/chondroiti n A (DJBXJQWNPRN-YXKTGI-NJP ORAL) Take by mouth once daily. 0 11/24/2022 Discontinued (Course of therapy completed) glucosamine/msm/ chondroitin A (AVYXWRQLSZL-PADLCO-GRV ORAL) Take by mouth once daily. 0 [...] above: Take by mouth once d aily. ITOPC-6-KXW-EPA-DPA-FIS H OIL ORAL (14 sources) MBHRO-1-JGE-EPA- DPA-FI SH OIL ORAL Take by mouth [...] on above: Take 1 tablet by [facility] every 4-6 hours as needed for pain [...] Test Name Value Interpretation Reference Range Facility [facility] 10-04-2023 CNOV Office Visit (LOORRM ) MARY VAUGHN ([id number]) 1955 F [facility] Date Time Provider Department 10/04/23 10:30 AM [...] hip replacement [Z96.642] Order(s):XR PELVIS 1V AP [[id number]] Order #: [id number] FUTURE Prescriptions as of 10/04/2023 - docusate [...] six hours after the dental procedure - WHHRM-1-HZB-EPA-DPA-F ANTONIO OIL ORAL Take by mouth once daily. - multivit (more content not included)... Normal [facility] XR PELVIS 1V APon 10-04-2023 XR PELVIS [...] right hip. IMPRESSION: Stable bilateral hip arthroplasties. Roller Leveler: EFRAIN Transcribe Date/Time: Oct 04 2023 3:37P Dictated by : JAYE PAYTON MD This examination was interpreted and the report reviewed and electronically signed by: JAYE PAYTON MD on Oct 04 2023 3:39PM EST [id number] Normal [facility] EDITH HERMINIA DIGITAL SCREEN BILA TERALon 04-18-2023 EDITH HERMINIA DIGITAL SCREEN BILATERAL EXAMINATION: [...] to the patient regarding the results. [employer] recommends annual mammograms for women 40 years and older. Interpreted by: Timothy Rodriguez DO Signed by: Timothy Rodriguez DO 04/18/23 Final result Normal [facility] No mammographic evidence of malignancy BIRADS: BIRADS - CATEGORY 1 Negative. Normal interval follow-up is recommended in 12 months. OVERALL ASSESSMENT - NEGATIVE A letter of notification will be sent to the patient regarding the results. [employer] recommends annual mammograms for women 40 years and older. [facility] [place] CONSOLIDATED EXAMINATION: SCREENING DIGITAL BILATERAL MAMMOGRAM [...] concerning grouping of microcalcification in either breast. [facility] CONSOLIDATED Radiology Study observation (narrative) [facility] EDITH HERMINIA DIGITAL SCREEN BILA TERALOrdered By: Timothy Rodriguez on 04-18-2023 [facility] Work Phone: CNOVon 02-25-2023 CNOV Office Visit (LOORRM ) MARY VAUGHN ([id number]) 1955 F [place] Date Time Provider Department 02/25/23 12:00 PM SHANT MÉNDEZ During your visit today, we recorded the following information about you: Shant Méndez II, MD 02/25/2023 3:42 PM Signed Large Joint Arthro/Inj: R knee joint Informed Consent Consent Obtained: Verbal [place] Protocol A moment to CARE was completed. [...] patient voiced understanding of these instructions. Third libertarian verified by Mary Quigley MA. Referring Provider: [...] KNEE GENERAL 4V AP BOTH/PA BOTH/LAT/MERC RIGHT [[id number]] Order #: [id number] FUTURE Large Joint Arthro/Inj: R knee joint [SYF376] Order #: [id number] [] lidocaine (PF) 10 mg/mL (1 %) [...] six hours after the dental procedure - LRYTB-4-FPU-EPA-DPA-F ANTONIO OIL ORAL Take by mouth once [...] Former smoker [Z87.891] 09/21/2021 SVT (supraventricular tachycardia) ([facility]) [I47.1]09/21/2021 Incomplete RBBB [I45.10] 09/21/2021 Aftercare following [...] Status:Closed by SHANT MÉNDEZ II on 02/25/23 [facility] XR KNEE 4V AP/PA BOTH+LAT/ME R [...] of the right knee without interval change. Roller Leveler: PSCB Transcribe Date/Time: Feb 25 2023 2:28P Dictated by : BROOKS SOLO MD This examination was interpreted and the report reviewed and electronically signed by: BROOKS SOLO MD on Feb 25 2023 2:29PM EST [id number] [facility] XR KNEE GENERAL 4V AP BOTH/P A BOTH/LAT/MERC RIGHTon 02-25-2023 [facility] CNOVon 02-07-2023 CNOV Office Visit (LOAMARILISM ) MARY VAUGHN ([id number]) 1955 F [place] Date Time Provider Department 02/07/23 2:00 PM SHANT MÉNDEZ During your visit today, we recorded the following information about you: Shant Méndez II, MD 02/10/2023 2:28 PM Signed [facility] [address] [place], [place] [address] CLINIC NOTE Department of Orthopaedics - Jose Eduardo Méndez II, M.D. NAME: MARY VAUGHN CLINIC NO.: [id number] DATE OF SERVICE: 02/07/2023 CHIEF COMPLAINT: Recheck [...] walking on the backyard [place] to [place], taking her new [place]. Has a 1 plus effusion of the right knee. No gross ligamentous instability. Neurovascularly intact. Recommend walk on the driveway and no walking on even ground. No significant problems with her right hip. X-rays shows total hip replacements, bilateral in excellent position. See back in 1 month. Dictated By: Shant Méndez II, M.D. Date Dictated: 02/07/2023 Date Typed: [facility] 02/08/2023 JOB# [id number] Shant Méndez II, MD 02/22/2023 1:48 PM Signed see dictated note Shant Méndez II, MD Ship Fitter: Transcribed Clinic Note (gilberto) ID: [id number] Author: SHANT MÉNDEZ Signed by SHANT MÉNDEZ MD on 02/10/2023 at 2:28 PM Document text: [facility] [address] [place], [place] [address] CLINIC NOTE Department of Orthopaedics - Jose Eduardo Méndez II, M.D. NAME: MARY VAUGHN CLINIC NO.: [id number] DATE OF SERVICE: 02/07/2023 CHIEF COMPLAINT: Recheck [...] walking on the [place], taking her new [place]. Has a 1 plus effusion of the right knee. No gross ligamentous instability. Neurovascularly intact. Recommend walk on the driveway and no walking on even ground. No significant problems with her right hip. X-rays shows total hip replacements, bilateral in excellent position. See back in 1 month. Dictated By: Shant Méndez II, M.D. Date Dictated: 02/07/2023 Date Typed: kenneth 02/08/2023 JOB# [id number] ----- Referring Provider: SELF [200] Allergies As [...] KNEE GENERAL 4V AP BOTH/PA BOTH/LAT/MERC RIGHT [[id number]] Order #: [id number] FUTURE XR PELVIS 1V AP [[id number]] Order #: [id number] FUTURE Prescriptions as of 02/22/2023 - docusate [...] six hours after the dental procedure - LRYYY-8-XDF-EPA-DPA-F ANTONIO OIL ORAL Take by mouth once [...] Former smoker [Z87.891] 09/21/2021 SVT (supraventricular tachycardia) ([facility]) [I47.1]09/21/2021 Incomplete RBBB [I45.10] 09/21/2021 Aftercare following left hip joint replacement *10/23/2021 Status post left hip replacement [Z96.642] 10/23/2021 Primary osteoarthritis of ri (more content not included)... Normal [facility] No Panel Informationon 02-07 [facility] ic XR KNEE 4V AP/PA BOTH+LAT/ME R [...] significant abnormality. --- IMPRESSION: MILD DEGENERATIVE CHANGES Roller Leveler: EFRAIN Transcribe Date/Time: Feb 07 2023 2:56P Dictated by : LANA CONNOLLY MD This examination was interpreted and the report reviewed and electronically signed by: LANA CONNOLLY MD on Feb 07 2023 2:58PM EST [id number] Normal [facility] XR PELVIS 1V APon 02-07-2023 XR PELVIS [...] significant abnormality. --- IMPRESSION: NORMAL POSTOPERATIVE FINDINGS Roller Leveler: EFRAIN Transcribe Date/Time: Feb 07 2023 2:58P Dictated by : LANA CNONOLLY MD This examination was interpreted and the report reviewed and electronically signed by: LANA CONNOLLY MD on Feb 07 2023 2:59PM EST [id number] Normal [facility] CNOVon 01-14-2023 CNOV Office Visit (LOORRM ) MARY VAUGHN ([id number]) 1955 F DEF Date Time Provider Department [...] six hours after the dental procedure - PYSKI-6-XNW-EPA-DPA-F ANTONIO OIL ORAL Take by mouth once [...] Former smoker [Z87.891] 09/21/2021 SVT (supraventricular tachycardia) ([facility]) [I47.1]09/21/2021 Incomplete RBBB [I45.10] 09/21/2021 Aftercare following left hip joint replacement *10/23/2021 Status post left hip replacement [Z96.642] 10/23/2021 Primary osteoarthritis of right hip [M16.11] 10/23/2021 Status post right hip replacement [Z96.641] 12/22/2022 Encounter Status:Closed by SHANT MÉNDEZ II on 01/14/23 [facility] Tarsha 12-22-2022 CNOV Office Visit (LOORRM ) MARY VAUGHN ([id number]) 1955 F DEF Date Time Provider Department 12/22/22 10:30 AM VEL GALEANA During your visit today, we recorded the following information about you: Vel ISI Galeana 12/22/2022 11:35 AM Signed This document has [...] hip replacement [Z96.641] Order(s):XR PELVIS 1V AP [[id number]] Order #: [id number] FUTURE Prescriptions as of 12/22/2022 - docusate sodium (COLACE) 100 mg capsule Take 1 capsule by mouth twice daily as needed for constipation. - acetaminophen (TYLENOL EXTRA STRENGTH) 500 mg tablet Take 2 tablets by mouth every 8 hours as needed for pain. - traMADol (ULT (more content not included)... Normal [facility] XR PELVIS 1V APon 12-22-2022 XR PELVIS [...] significant abnormality. --- IMPRESSION: NORMAL POSTOPERATIVE FINDINGS Roller Leveler: EFRAIN Transcribe Date/Time: Dec 22 2022 12:22P Dictated by : LANA CONNOLLY MD This examination was interpreted and the report reviewed and electronically signed by: LANA CONNOLLY MD on Dec 22 2022 12:23PM EST [id number] Normal [facility] ic ANES POSTPROC EVALon 023 ANES POSTPROC EVAL HNO ID: [id number] Author: Alejandro Sauceda MD Service: Anesthesiology Author [...] November 30, 2022 TIME: 3:48 PM CSN: [id number] [facility] ANES PRE-OPon 11-30-2022 ANES PRE-OP HNO ID: [id number] Author: Alejandro Sauceda MD Service: Anesthesiology Author [...] six hours after the dental procedure - BURTP-2-LHO-EPA-DPA-F ANTONIO OIL ORAL Take by mouth once [...] November 30, 2022 TIME: 10:27 AM CSN: [id number] [facility] OPERATIVE NOon 11-30-2022 OPERATIVE NO HNO ID: [id number] Author: Shant Méndez MD Service: Orthopaedic Surgery Author Type: Physician Type: Operative Report Filed: 11/30/2022 1:35 PM Note Text: [facility] OPERATIVE REPORT PATIENT NAME: Mary Vaughn AGE: [age] year old LOG ID: [id number] Surgery Date: 11/30/2022 SURGEON: Shant Méndez MD AMBULANCE DISPATCHER: Vel Galeana PA-C, SA, her assistance consisted [...] banked allogenic blood if medically necessary. IMPLANTS: Appointedd Total Hip System SIZE TYPE Acetabulum 54mm [...] Incision Start (more content not included)... 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 Ambulatory without AD. + drives. No recent falls. Patient Report: I'm going to [employer] after this on the way home. CURRENT [...] symptoms and signs-other Interventions Provided: Evaluation, Self Jail Management (12530) $ Evaluation-Low (43326) Billed Units: 1 unit Self Jail Management (88311) Treatment Minutes: 10 $ Self Jail Management (17052) Billed Units: 1 unit Training AND education [...] sequencing/proper anshul (more content not included)... Normal [facility] THERAPY NT HNO ID: [id number] Author: Brit Sears PT, DPT Service: ? 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 Ambulatory without AD. + drives. No recent [...] balance while picking up object off floor -M: 8: Walk 250 feet or more Learning/Educational [...] walking-musculoskelet al Interventions Provided: Evaluation, Gait Training (95434), Therapeutic Exercise (80049) $ Evaluation-Low (80344) Billed Units: 1 unit Therapeutic Exercise (03776) Treatment Minutes: 10 $ Therapeutic Exercise (84428) Billed Units: 1 unit Exercise Ankle Pumps (number of reps): 10 Quad Sets (number of reps): 10 Glut Sets (number of reps): 10 Heel Slides (number of reps): 10 LAQ (number of reps): 10 Hip Abduction (number of reps): 10 Gait Training (58987) Treatment Minutes: 20 $ Gait Training (89763) Billed Units: 1 unit Training AND education provided (more content not included)... [facility] XR PELVIS 1V APon 11-30-2022 XR PELVIS [...] Right hip prosthesis appears appropriate in positioning Roller Leveler: EFRAIN Transcribe Date/Time: Nov 30 2022 3:31P Dictated by : BAILEY WATTS MD This examination was interpreted and the report reviewed and electronically signed by: BAILEY WATTS MD on Nov 30 2022 3:31PM EST [id number] [facility] CNPNon 11-26-2022 EDMUNDO Telephone (COREY) VAUGHNMARY ROSE ([id number]) 1955 F DEF Date Time Provider Department 11/26/22 QUIANA POOLE During your visit today, we recorded the following information about you: Quiana Poole APRN.AIRFREIGHT LOADING SUPERVISOR 11/26/2022 8:43 AM Signed On pre-op urine culture... Culture >=100,000 CFU/ml Mixed microbiota Abnormal Macrobid ordered. Please call patient and advised to start KRISTIAN Thank you Quiana Poole APRN.[facility] Joseline Wei LPN 11/26/2022 9:09 AM Signed Attempted to reach patient via phone call, no answer. Left message to return call to [facility] nurse at [phone]. Joseline Wei LPN November 26, 2022 9:08 [...] Fully Assessed Reason for Visit: PreOp Call [7314] Cmt: UTI Order(s):nitrofuranto in monohydrate and macrocrystal [...] six hours after the dental procedure - QOLIE-4-EMX-EPA-DPA-F ANTONIO OIL ORAL Take by mouth once [...] Former smoker [Z87.891] 09/21/2021 SVT (supraventricular tachycardia) ([facility]) [I47.1]09/21/2021 Incomplete RBBB [I45.10] 09/21/2021 Aftercare following [...] Status:Closed by QUIANA POOLE on 11/26/22 Normal [facility] Bacteria Ur Culton 3 Bacteria identified Cx Nom (U) ORGANISM ID: 1 >=100,000 CFU/ml Mixed microbiota No further workup. Mixed microbiota can be due to???urine???contamin ation with skin bacteria at time of collection or presence of a long-term urinary catheter. If a new culture is needed, please consider re-education of the patient on proper midstream collection technique or straight catheterization for???urine???collect ion. Normal [facility] Comment on above: Performed By: #### 6 30-4 ####[facility] LABCLIA [id number] [place] [address] [place] Basic metabolic 2000 panelon 11-24-2022 Anion gap [Moles/Vol] 9 mmol/L Normal 9-18 [facility] Comment on above: Order Comment: Speci men Type: BLOOD SPECIMENOrdering Facility: [facility] Address: [address] Performed By: #### 2 4321-2 ####[facility] LABCLIA [id number] [place] [address] [place] Calcium [Mass/Vol] 9.7 mg/dL Normal 8.5-10.2 [facility] Comment on above: Order Comment: Speci men Type: BLOOD SPECIMENOrdering Facility: [facility] Address: [address] [place], [place] [address] Performed By: #### 2 4321-2 ####[facility] LABCLIA [id number] [place] [address] [place] Chloride [Moles/Vol] 102 mmol/L Normal 97-105 [facility] Comment on above: Order Comment: Speci men Type: BLOOD SPECIMENOrdering Facility: [facility] Address: [address] [place], [place] [address] Performed By: #### 2 4321-2 ####[facility] LABCLIA [id number] [place] [address] [place] CO2 [Moles/Vol] 28 mmol/L Normal 22-30 [facility] Comment on above: Order Comment: Speci men Type: BLOOD SPECIMENOrdering Facility: [facility] Address: [address] [place], [place] [address] Performed By: #### 2 4321-2 ####[facility] LABCLIA [id number] [place] [address] [place] Creatinine [Mass/Vol] 0.63 mg/dL Normal 0.58-0.96 [facility] Comment on above: Order Comment: Daniel land Type: BLOOD SPECIMENOrdering Facility: [facility] Address: [address] [id number] Performed By: #### 2 4321-2 ####[facility] LABIA [id number] [place] [address] [place] [facility] [place] ESTIMATED GLOMERULAR FILTRATION RATE 97 mL/min/1.73m??? Normal >=60 [facility] Comment on above: Order Comment: Daniel land Type: BLOOD SPECIMENOrdering Facility: [facility] Address: [address] [address] Result Comment: Ledy mated Glomerular Filtration Rate [...] actual GFR. Performed By: #### 2 4321-2 ####[facility] LABCLIA [id number] [place] [address] [place] Glucose [Mass/Vol] 87 mg/dL Normal 74-99 [facility] Comment on above: Order Comment: Daniel land Type: BLOOD SPECIMENOrdering Facility: [facility] Address: [address] [place] [address] Result Comment: The [employer] Diabetes Association (ADA) provides guidance for cutoff [...] Standards of Medical Care in Diabetes 2016, [employer] Diabetes Association. Diabetes Care. 2016.39(Suppl 1). Performed By: #### 2 4321-2 ####[facility] LABIA [id number] [place] [address] [place] Potassium [Moles/Vol] 4.8 mmol/L Normal 3.7-5.1 [facility] Comment on above: Order Comment: Speci men Type: BLOOD SPECIMENOrdering Facility: [facility] Address: [address] [address] Performed By: #### 2 4321-2 ####[facility] [id number] [place] [address] [place] Sodium [Moles/Vol] 139 mmol/L Normal 136-144 [facility] Comment on above: Order Comment: Speci men Type: BLOOD SPECIMENOrdering Facility: [facility] Address: [address] [address] Performed By: #### 2 4321-2 ####[facility] LABIA [id number] [place] [address] [place] Urea nitrogen [Mass/Vol] 20 mg/dL Normal 7-21 [facility] Comment on above: Order Comment: Speci men Type: BLOOD SPECIMENOrdering Facility: [facility] Address: [address] [address] Performed By: #### 2 4321-2 ####[facility] [id number] [place] [address] [place] CBC W Auto Differential pane l (Bld)on 11-24-2022 Basophils (Bld) [#/Vol] 0.04 10*3/uL Normal <0.11 [facility] Comment on above: Order Comment: Speci men Type: BLOOD SPECIMENOrdering Facility: [facility] Address: [address] [address] Performed By: #### 5 7021-8 ####[facility] LABCLIA [id number] [place] [address] [place] Basophils/100 WBC (Bld) 0.6 % Normal [facility] Comment on above: Order Comment: Speci men Type: BLOOD SPECIMENOrdering Facility: [facility] Address: [address] [place] [address] Performed By: #### 5 7021-8 ####[facility] LABCLIA [id number] [place] [address] [place] Differential cell count method Nom (Bld) Auto Normal [facility] [facility] Comment on above: Order Comment: Speci men Type: BLOOD SPECIMENOrdering Facility: [facility] Address: [address] [place] [address] Performed By: #### 5 7021-8 ####[facility] LABCLIA [id number] [place] [address] [place] Eosinophils (Bld) [#/Vol] 0.22 10*3/uL Normal <0.46 [facility] Comment on above: Order Comment: Speci men Type: BLOOD SPECIMENOrdering Facility: [facility] Address: [address] [place], [place] [address] Performed By: #### 5 7021-8 ####[facility] LABCLIA [id number] [address] [place] Eosinophils/100 WBC (Bld) 3.1 % Normal [facility] Comment on above: Order Comment: Speci men Type: BLOOD SPECIMENOrdering Facility: [facility] Address: [address] [place], [place] [address] Performed By: #### 5 7021-8 ####[facility] LABCLIA [id number] [place] [address] [place] Erythrocyte distribution width (RBC) [Ratio] 13.5 % Normal 11.5-15.0 [facility] Comment on above: Order Comment: Speci men Type: BLOOD SPECIMENOrdering Facility: [facility] Address: [address] Performed By: #### 5 7021-8 ####[facility] LABIA [id number] [place] [address] [place] Hematocrit (Bld) [Volume fraction] 46.8 % High 36.0-46.0 [facility] Comment on above: Order Comment: Speci men Type: BLOOD SPECIMENOrdering Facility: [facility] Address: [address] Performed By: #### 5 7021-8 ####[facility] LABIA [id number] [place] [address] [place] Hemoglobin (Bld) [Mass/Vol] 14.5 g/dL Normal 11.5-15.5 [facility] Comment on above: Order Comment: Speci men Type: BLOOD SPECIMENOrdering Facility: [facility] Address: [address] Performed By: #### 5 7021-8 ####[facility] LABIA [id number] [place] [address] [place] Immature granulocytes (Bld) [#/Vol] 10*3/uL Normal <0.10 [facility] Comment on above: Order Comment: Speci men Type: BLOOD SPECIMENOrdering Facility: [facility] Address: [address] Performed By: #### 5 7021-8 ####[facility] LABIA [id number] [address] [place] Immature granulocytes/100 WBC (Bld) 0.3 % Normal [facility] Comment on above: Order Comment: Speci men Type: BLOOD SPECIMENOrdering Facility: [facility] Address: [address] Performed By: #### 5 7021-8 ####[facility] LABCLIA [id number] [place] [address] [place] Lymphocytes (Bld) [#/Vol] 1.83 10*3/uL Normal 1.00-4.00 [facility] Comment on above: Order Comment: Speci men Type: BLOOD SPECIMENOrdering Facility: [facility] Address: [address] [place] [address] Performed By: #### 5 7021-8 ####[facility] LABIA [id number] [place] [address] [place] Lymphocytes/100 WBC (Bld) 25.8 % Normal [facility] Comment on above: Order Comment: Speci men Type: BLOOD SPECIMENOrdering Facility: [facility] Address: [address] [place] [address] Performed By: #### 5 7021-8 ####[facility] LABIA [id number] [address] [place] MCH (RBC) [Entitic mass] 28.7 pg Normal 26.0-34.0 [facility] Comment on above: Order Comment: Speci men Type: BLOOD SPECIMENOrdering Facility: [facility] Address: [address] [place] [address] Performed By: #### 5 7021-8 ####[facility] LABIA [id number] [place] [address] [place] MCHC (RBC) [Mass/Vol] 31.0 g/dL Normal 30.5-36.0 [facility] Comment on above: Order Comment: Speci men Type: BLOOD SPECIMENOrdering Facility: [facility] Address: [address] [place] [address] Performed By: #### 5 7021-8 ####[facility] LABIA [id number] [address] [place] MCV (RBC) [Entitic vol] 92.5 fL Normal 80.0-100.0 [facility] Comment on above: Order Comment: Speci men Type: BLOOD SPECIMENOrdering Facility: [facility] Address: [address] [place], [place] [address] Performed By: #### 5 7021-8 ####[facility] LABCLIA [id number] [place] [address] [place] Monocytes (Bld) [#/Vol] 0.54 10*3/uL Normal <0.87 [facility] Comment on above: Order Comment: Speci men Type: BLOOD SPECIMENOrdering Facility: [facility] Address: [address] [place], [place] [address] Performed By: #### 5 7021-8 ####[facility] LABCLIA [id number] [place] [address] [place] Monocytes/100 WBC (Bld) 7.6 % Normal [facility] Comment on above: Order Comment: Speci men Type: BLOOD SPECIMENOrdering Facility: [facility] Address: [address] [place], [place] [address] Performed By: #### 5 7021-8 ####[facility] LABCLIA [id number] [place] [address] [place] Neutrophils (Bld) [#/Vol] 4.44 10*3/uL Normal 1.45-7.50 [facility] Comment on above: Order Comment: Speci men Type: BLOOD SPECIMENOrdering Facility: [facility] Address: [address] [place], [place] [address] Performed By: #### 5 7021-8 ####[facility] LABCLIA [id number] [place] [address] [place] Neutrophils/100 WBC (Bld) 62.6 % Normal [facility] Comment on above: Order Comment: Speci men Type: BLOOD SPECIMENOrdering Facility: [facility] Address: [address] [place], [place] [address] Performed By: #### 5 7021-8 ####[facility] LABCLIA [id number] [place] [address] [place] Nucleated RBC (Bld) [#/Vol] 10*3/uL Normal <0.01 [facility] Comment on above: Order Comment: Speci men Type: BLOOD SPECIMENOrdering Facility: [facility] Address: [address] [place] [address] Performed By: #### 5 7021-8 ####[facility] LABCLIA [id number] [place] [address] [place] Nucleated RBC/100 WBC (Bld) [Ratio] 0.0 /100 WBC Normal [facility] Comment on above: Order Comment: Speci men Type: BLOOD SPECIMENOrdering Facility: [facility] Address: [address] [place] [address] Performed By: #### 5 7021-8 ####[facility] LABIA [id number] [place] [address] [place] Platelet mean volume (Bld) [Entitic vol] 10.8 fL Normal 9.0-12.7 [facility] Comment on above: Order Comment: Speci men Type: BLOOD SPECIMENOrdering Facility: [facility] Address: [address] [place] [address] Performed By: #### 5 7021-8 ####[facility] LABCLIA [id number] [place] [address] [place] Platelets (Bld) [#/Vol] 243 10*3/uL Normal 150-400 [facility] Comment on above: Order Comment: Speci men Type: BLOOD SPECIMENOrdering Facility: [facility] Address: [address] [place] [address] Performed By: #### 5 7021-8 ####[facility] LABCLIA [id number] [place] [address] [place] RBC (Bld) [#/Vol] 5.06 10*6/uL Normal 3.90-5.20 [facility] Comment on above: Order Comment: Speci men Type: BLOOD SPECIMENOrdering Facility: [facility] Address: [address] [place] [address] Performed By: #### 5 7021-8 ####[facility] LABCLIA [id number] [address] [place] WBC (Bld) [#/Vol] 7.09 10*3/uL Normal 3.70-11.00 [facility] Comment on above: Order Comment: Speci men Type: BLOOD SPECIMENOrdering Facility: [facility] Address: [address] [place] [address] Performed By: #### 5 7021-8 ####[facility] LABCLIA [id number] [address] [place] CNOVon 11-24-2022 CNOV Office Visit (LOORRM ) MARY VAUGHN ([id number]) 1955 F DEF Date Time Provider Department [...] Disease (Hcc) Former Smoker Svt (Supraventricular Tachycardia) ([facility]) Incomplete Rbbb Aftercare Following Left Hip Joint [...] which include walking 2 blocks, gardening, 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 Normal [facility] [id number] 11-24-2022 ECG01 Ventricular Rate : 5 7 BPM Atrial Rate : 57 BPM P-R Interval : 156 ms QRS Duration : 96 ms Q-T Interval : 450 ms QTC Calculation(Bazett) : 438 ms Calculated P Vera : 74 degrees Calculated R Vera : 81 degrees Calculated T Vera : 66 degrees SINUS BRADYCARDIA INCOMPLETE RIGHT BUNDLE BRANCH BLOCK BORDERLINE ECG Confirmed by SERA BERNARD M.D. ([id number]) on 11/27/2022 11:24:23 AM NAME : MARY VAUGHN PID : [id number] : 1955 Gender : Female Race : [...] SHANT MÉNDEZ Acquired by : am, Normal [facility] ECG01 Ventricular Rate : 5 7 BPM Atrial Rate : 57 BPM P-R Interval : 156 ms QRS Duration : 96 ms Q-T Interval : 450 ms QTC Calculation(Bazett) : 438 ms Calculated P Vera : 74 degrees Calculated R Vera : 81 degrees Calculated T Vera : 66 degrees SINUS BRADYCARDIA INCOMPLETE RIGHT BUNDLE BRANCH BLOCK BORDERLINE ECG Confirmed by SERA BERNARD M.D. ([id number]) on 11/27/2022 11:24:43 AM NAME : MARY VAUGHN PID : [id number] : 1955 Gender : Female Race : [...] SHANT MÉNDEZ Acquired by : am, Normal [facility] HISTORY PHYSICALon HISTORY PHYSICAL HNO ID: [id number] Author: Quiana Poole APRN.AIRFREIGHT LOADING SUPERVISOR Service: ? Author Type: Nurse Practitioner Type: [...] six hours after the dental procedure Yes [id number]-2-[id number]-EPA-DPA-F ANTONIO OIL ORAL Take by mouth once [...] fevers. 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 Normal [facility] HbA1c (Bld)on 11-24-2022 Average glucose Estimated from glycated hemoglobin (Bld) [Mass/Vol] 105 mg/dL Normal [facility] Comment on above: Order Comment: Speci men Type: BLOOD SPECIMENOrdering Facility: [facility] Address: [address] [place] [address] Result Comment: eAG: (Estimated average glucose) is a calculated value from HgbA1c and is underwriting sales representative of the average blood glucose level in the last 2-3 month period. Performed By: #### 5 5454-3 ####[facility] LABCLIA [id number] [address] HbA1c (Bld) [Mass fraction] 5.3 % Normal 4.3-5.6 [facility] Comment on above: Order Comment: Speci men Type: BLOOD SPECIMENOrdering Facility: [facility] Address: [address] [place] [address] Result Comment: Amer [place] Diabetes Association guidelines indicate that patients with HgbA1c in the range 5.7-6.4% are at increased risk for development of diabetes, and intervention by lifestyle modification may be beneficial. HgbA1c greater or equal to 6.5% is considered diagnostic of diabetes. Performed By: #### 5 5454-3 ####[facility] LABCLIA [id number] [address] OF [facility] TYPE AND SCREEN,30 DAYon ABO A Normal [facility] Comment on above: Order Comment: Speci men Type: BLOOD SPECIMENOrdering Facility: [facility] Address: [address] [place], [place] [address] Performed By: #### T SCR30 ####[facility] BANKCLIA [id number] [address] [place] HISTORICAL AB SCR STATUS Negative Normal [facility] Comment on above: Order Comment: Speci men Type: BLOOD SPECIMENOrdering Facility: [facility] Address: [address] [address] Performed By: #### T SCR30 ####[facility] BLO[facility] BANKIA [id number] [address] [place] Rh Nom (Bld) Positive Normal [place] [facility] Comment on above: Order Comment: Speci men Type: BLOOD SPECIMENOrdering Facility: [facility] Address: [address] [place] [address] Performed By: #### T SCR30 ####[facility] BLOOD [facility] [id number] [place] [address] [place] Urinalysis complete panel (U )on 11-24-2022 Bilirubin Ql (U) Negative Normal Negative [facility] Comment on above: Order Comment: Speci men Type: URINE SPECIMENOrdering Facility: [facility] Address: [address] [place] [address] Performed By: #### 2 4356-8 ####[facility] LABCLIA [id number] [place] [address] [place] Clarity (Unsp spec) Clear Normal Clear [facility] Comment on above: Order Comment: Speci men Type: URINE SPECIMENOrdering Facility: [facility] Address: [address] [place] [address] Performed By: #### 2 4356-8 ####[facility] LABIA [id number] [place] [address] [place] Color (U) Light Yellow Normal Yellow [place] [facility] Comment on above: Order Comment: Speci men Type: URINE SPECIMENOrdering Facility: [facility] Address: [address] [place], [place] [address] Performed By: #### 2 4356-8 ####[facility] LABIA [id number] [place] [address] [place] Epithelial cells LM.HPF (Urine sed) [#/Area] Few Normal [facility] Comment on above: Order Comment: Speci men Type: URINE SPECIMENOrdering Facility: [facility] Address: [address] [place], [place] [address] Result Comment: Few Performed By: #### 2 4356-8 ####[facility] LABCLIA [id number] [place] [address] [place] Glucose Test strip (U) [Mass/Vol] Negative Normal Trace, Negative [facility] Comment on above: Order Comment: Speci men Type: URINE SPECIMENOrdering Facility: [facility] Address: [address] [place] [address] Performed By: #### 2 4356-8 ####[facility] LABCLIA [id number] [place] [address] [place] Hemoglobin Ql (U) Negative Normal Negative, Trace [facility] Comment on above: Order Comment: Speci men Type: URINE SPECIMENOrdering Facility: [facility] Address: [address] [place] [address] Performed By: #### 2 4356-8 ####[facility] LABCLIA [id number] [place] [address] [place] Hyaline casts (Urine sed) [#/Area] 1-3 /LPF Abnormal 0 /LPF [facility] Comment on above: Order Comment: Speci men Type: URINE SPECIMENOrdering Facility: [facility] Address: [address] [place] [address] Performed By: #### 2 4356-8 ####[facility] LABCLIA [id number] [place] [address] [place] Ketones Ql (U) Negative Normal Trace, Negative [facility] Comment on above: Order Comment: Speci men Type: URINE SPECIMENOrdering Facility: [facility] Address: [address] [place] [address] Performed By: #### 2 4356-8 ####[facility] LABCLIA [id number] [place] [address] [place] Leukocyte esterase Test strip Ql (U) 25 Chin/uL Normal Negative, 25 Chin/uL [facility] Comment on above: Order Comment: Speci men Type: URINE SPECIMENOrdering Facility: [facility] Address: [address] [address] Performed By: #### 2 4356-8 ####[facility] LABCLIA [id number] [place] [address] [place] Nitrite Ql (U) Negative Normal Negative [facility] Comment on above: Order Comment: Speci men Type: URINE SPECIMENOrdering Facility: [facility] Address: [address] [place] [address] Performed By: #### 2 4356-8 ####[facility] LABIA [id number] [place] [address] [place] pH (U) 6.0 [pH] Normal 5.0-8.0 [facility] Comment on above: Order Comment: Speci men Type: URINE SPECIMENOrdering Facility: [facility] Address: [address] [place] [address] Performed By: #### 2 4356-8 ####[facility] LABIA [id number] [place] [address] [place] Protein (U) [Mass/Vol] Negative Normal Trace, Negative [facility] Comment on above: Order Comment: Speci men Type: URINE SPECIMENOrdering Facility: [facility] Address: [address] [place], [place] [address] Performed By: #### 2 4356-8 ####[facility] LABCLIA [id number] [place] [address] [place] RBC LM.HPF (Urine sed) [#/Area] 0-3 /HPF Normal 0-3 /HPF [facility] Comment on above: Order Comment: Speci men Type: URINE SPECIMENOrdering Facility: [facility] Address: [address] [place], [place] [address] Performed By: #### 2 4356-8 ####[facility] LABCLIA [id number] [place] [address] [place] Specific gravity (U) [Rel density] 1.016 Normal 1.005-1.030 [facility] Comment on above: Order Comment: Speci men Type: URINE SPECIMENOrdering Facility: [facility] Address: [address] [place] [address] Performed By: #### 2 4356-8 ####[facility] LABIA [id number] [place] [address] [place] Urobilinogen Ql (U) Negative Normal Negative [facility] Comment on above: Order Comment: Speci men Type: URINE SPECIMENOrdering Facility: [facility] Address: [address] [place] [address] Performed By: #### 2 4356-8 ####[facility] [id number] [place] [address] [place] WBC LM.HPF (Urine sed) [#/Area] 0-5 /HPF Normal 0-5 /HPF [facility] Comment on above: Order Comment: Speci men Type: URINE SPECIMENOrdering Facility: [facility] Address: [address] [place] [address] Performed By: #### 2 4356-8 ####[facility] [id number] [address] [place] XR HIP 3V PELV+ AP/LAT [...] prior exam. IMPRESSION: Severe RIGHT hip osteoarthritis. Roller Leveler: PSCB Transcribe Date/Time: Nov 24 2022 9:40A Dictated by : KAIN ECHAVARRIA MD This examination was interpreted and the report reviewed and electronically signed by: TARA OMALLEY MD on Nov 24 2022 10:59AM EST [id number] Normal [facility] XR HIP GENERAL 3V PELV/AP/LA T RIGHTon 11-24-2022 [facility] ic CT CHEST WO CONon 11-10-2022 [...] by: GIOVANA GASPAR Date: 2022-11-10 13:08 Normal [facility] GLYCOHEMOGLOBIN A1Con 2022 ADA RECOMMENDATION SEE BELOW Normal [facility] Comment on above: Result Comment: ADA RECOMMENDED LIMIT 4.0 - 6.0 ADA THERAPEUTIC TARGET < 7.0 ACTION SUGGESTED > 7.0 Performed By: #### A 1C #### [facility] [address] [address] [address] Yordy Tse Glucose [Mass/Vol] 114 mg/dL Normal [facility] Comment on above: Performed By: #### A 1C #### [facility] [address] [address] [address] Yordy Tse HbA1c (Bld) [Mass fraction] 5.6 % Normal 4.5-6.2 [facility] Comment on above: Performed By: #### A 1C #### [facility] [address] [address] [address] Yordy Tse MICROALB CREAT RATIO RANDOMo n 11-10-2022 mALB <1.3 Normal <=30.0 [facility] Comment on above: Performed By: #### M CRR #### [facility] [address] [address] [address] Yordy Tse MALB CR RATIO 29.6 mg/g Normal 0.0-29.9 [facility] Comment on above: Performed By: #### M CRR #### [facility] [address] [address] [address] Yordy Tse MALB CR RATIO RANGE SEE BELOW Normal [facility] Comment on above: Result Comment: NO M ICROALBUMINURIA 0-29 MG/G CLINICAL MICROALBUMINURIA 30-300 MG/G MACROALBUMINURIA >300 MG/G Performed By: #### M CRR #### [facility] [address] [address] [address] Yordy Tse URINE CREAT 43.94 mg/dL Normal 20.00-300.00 [facility] Comment on above: Performed By: #### M CRR #### [facility] [id number] Yordy Willingham 10-06-2022 CNOV Office Visit (LOORRM ) VAUGHNMARY ROSE ([id number]) 1955 F DEF Date Time Provider Department 10/06/22 11:00 AM SHANT MÉNDEZ During your visit today, we recorded the following information about you: Shant Méndez II, MD 10/15/2022 3:01 PM Signed [facility] [address] [place], [place] [address] CLINIC NOTE Department of Orthopaedics - Jose Eduardo Méndez II, M.D. NAME: MARY VAUGHN CLINIC NO.: [id number] DATE OF SERVICE: 10/06/2022 CHIEF COMPLAINT: Recheck [...] in good alignment. Right hip shows severe anlr-mu-lgoo arthritis throughout the right hip. The patient [...] II, M.D. Date Dictated: 10/08/2022 Date Typed: monicau 10/08/2022 JOB# [id number] Mary Quigley SONYA 10/18/2022 11:46 AM Signed This note has been dictated. Low Méndez M.D. Ship Fitter: Transcribed Clinic Note (giblerto) ID: [id number] Author: SHANT MÉNDEZ Signed by SHANT MÉNDEZ MD on 10/15/2022 at 3:01 PM Document text: [facility] [address] [place], [place] [address] CLINIC NOTE Department of Orthopaedics - Jose Eduardo Méndez II, M.D. NAME: MARY VAUGHN CLINIC NO.: [id number] DATE OF SERVICE: 10/06/2022 CHIEF COMPLAINT: Recheck [...] in good alignment. Right hip shows severe qkqo-hc-lycc arthritis throughout the right hip. The patient [...] II, M.D. Date Dictated: 10/08/2022 Date Typed: acu 10/08/2022 JOB# [id number] ----- Referring Provider: SHANT MÉNDEZ [[id number]] Allergies [...] chemistry, unspecified [R79.9] Order(s):XR PELVIS 1V AP [[id number]] Order #: [id number] FUTURE URINALYSIS, WITH MICROSCOPIC [SQUAWMIC] Order #: [id number] FUTURE CBC + DIFF [SQCBCDIF] Order #: [id number] FUTURE BASIC METABOLIC PNL [SQBMP] Order #: [id number] FUTURE STAPH AUREUS PCR [SQSAPCR] Order #: [id number] FUTURE URINE CULTURE [SQURCUL] Order #: [id number] FUTURE HGB A1C [URWJA5O] Order #: [id number] FUTURE TYPE AND SCREEN,30 DAY [OEMYZZ01] Order #: [id number] FUTURE CONSULT TO(TCI)PRE-OP CLEAR [[id number]] Order #: [id number]: 1 CONSULT TO PHYSICAL THERAPY [9062] Order #: [id number]: 1 FUTURE PATIENT PLACED ON TODD FANY CARE PATH [1786187] Order #: [id number]: 1 STAPH AUREUS PCR [SQSAPCR] Order #: [id number]. #:[id number] Prescriptions as of 10/18/2022 - Amoxicillin 500 [...] mouth every (more content not included)... Normal [facility] - Microbiology an d Antimicrobial susceptibilityon 10-06-2022 S. aureus and MRSA panel LEONA+probe (Nose) Negative Negative [facility] STAPH AUREUS PCRon S. aureus and MRSA panel LEONA+probe (Nose) Normal Negative [facility] Comment on above: Order Comment: Speci men Type: SWAB OF INTERNAL NOSEOrdering Facility: [facility] Address: [address] [place] [address] Result Comment: Nega tive for Staphylococcus aureus by PCR. Negative for MRSA by PCR Performed By: #### S APCR ####[facility] LABCLIA [id number] [facility] [facility] [id number] [id number] [place] XR PELVIS 1V APon [...] total hip arthroplasty without evidence of complication. Roller Leveler: EFRAIN Transcribe Date/Time: Oct 06 2022 11:17A Dictated by : DELANEY LEAVITT MD This examination was interpreted and the report reviewed and electronically signed by: DELANEY LEAVITT MD on Oct 06 2022 11:18AM EST [id number] N Normal [facility] ic CT LUNG CANCER SCREENINGon 0 05-19-2022 [...] GIOVANA GASPAR Date: 2022-05-19 16:46 Normal [facility] POLIOVIRUS (TYPES 1,3) ABon 05-12-2022 POLIOVIRUS ANTIBODY TYPE 1 1:80 Normal [facility] Comment on above: Performed By: #### P OLIO #### [facility] [address] [address] [address] Yordy Tse POLIOVIRUS ANTIBODY TYPE 3 <1:10 Normal [facility] Comment on above: Result Comment: INTE RPRETIVE [...] 3. Performed By: #### P OLIO #### [facility] [address] [address] [address] Yordy Tse CBC AUTO DIFFon 04-28-2022 BASO # 0.0 103/ul Normal 0.0-0.1 [facility] Comment on above: Performed By: #### C BC #### [facility] [address] [place] [address] Dr. Yordy Tse Basophils/100 WBC (Bld) 0.5 % Normal 0.2-2.0 [facility] Comment on above: Performed By: #### C BC #### [facility] [address] [place] [address] Dr. Yordy Tse EO # 0.1 103/ul Normal 0.0-0.7 [facility] Comment on above: Performed By: #### C BC #### [facility] [address] [place] [address] Dr. Yordy Tse Eosinophils/100 WBC (Bld) 2.2 % Normal 0.9-7.0 [facility] Comment on above: Performed By: #### C BC #### [facility] [address] [place] [address] Dr. Yordy Tse Erythrocyte distribution width (RBC) [Ratio] 14.0 % Normal 11.0-15.0 [facility] Comment on above: Performed By: #### C BC #### [facility] [address] [place] [address] Dr. Yordy Tse Hematocrit (Bld) [Volume fraction] 45.2 % Normal 36.0-48.0 [facility] Comment on above: Performed By: #### C BC #### [facility] [address] [place] [address] Dr. Yordy Tse Hemoglobin (Bld) [Mass/Vol] 14.5 g/dL Normal 12.0-16.0 [facility] Comment on above: Performed By: #### C BC #### [facility] [address] [place] [address] Dr. Yordy Tse IG # 0.01 10e3/ul Normal 0.00-0.03 [facility] Comment on above: Performed By: #### C BC #### [facility] [address] [place] [address] Dr. Yordy Tse IG % 0.2 % Normal 0.0-0.5 [facility] Comment on above: Performed By: #### C BC #### [facility] [address] [place] [address] Dr. Yordy Tse LYMPH # 1.5 103/ul Normal 1.2-3.8 [facility] Comment on above: Performed By: #### C BC #### [facility] [address] [place] [address] Dr. Yordy Tse Lymphocytes/100 WBC (Bld) 27.8 % Normal 20.5-60.0 [facility] Comment on above: Performed By: #### C BC #### [facility] [address] [place] [address] Dr. Yordy Tse MANUAL DIFF REQ NO Normal [facility] Comment on above: Performed By: #### C BC #### [facility] [address] [place] [address] Dr. Yordy Tse MCH (RBC) [Entitic mass] 28.2 pg Normal 26.7-34.0 [facility] Comment on above: Performed By: #### C BC #### [facility] [address] [place] [address] Dr. Yordy Tse MCHC (RBC) [Mass/Vol] 32.1 g/dL Normal 29.9-35.2 [facility] Comment on above: Performed By: #### C BC #### [facility] [address] [place] [address] Dr. Yordy Tse MCV (RBC) [Entitic vol] 87.9 fL Normal 81.0-99.0 [facility] Comment on above: Performed By: #### C BC #### [facility] [address] [place] [address] Dr. Yordy Tse MONO # 0.4 103/ul Normal 0.3-0.8 [facility] Comment on above: Performed By: #### C BC #### [facility] [address] [place] [address] Dr. Yordy Tse Monocytes/100 WBC (Bld) 7.5 % Normal 1.7-12.0 [facility] Comment on above: Performed By: #### C BC #### [facility] [address] [place] [address] Dr. Yordy Tse NEUT # 3.4 103/ul Normal 1.4-6.5 [facility] Comment on above: Performed By: #### C BC #### [facility] [address] [place] [address] Dr. Yordy Tse Neutrophils/100 WBC (Bld) 61.8 % Normal 43.0-75.0 [facility] Comment on above: Performed By: #### C BC #### [facility] [address] [place] [address] Dr. Yordy Tse Platelet mean volume (Bld) [Entitic vol] 9.9 fL Normal 9.5-13.5 [facility] Comment on above: Performed By: #### C BC #### [facility] [address] [place] [address] Dr. Yordy Tse PLT 240 103/ul Normal 150-450 [facility] Comment on above: Performed By: #### C BC #### [facility] [address] [place] [address] Dr. Yordy Tse RBC 5.14 106/ul Normal 4.20-5.40 [facility] Comment on above: Performed By: #### C BC #### [facility] [address] [place] [address] Dr. Yordy Tse WBC 5.5 103/ul Normal 4.0-11.0 [facility] Comment on above: Performed By: #### C BC #### [facility] [address] [place] [address] Dr. Yordy Tse GLYCOHEMOGLOBIN A1Con 2021 ADA RECOMMENDATION SEE BELOW Normal [facility] Comment on above: Result Comment: ADA RECOMMENDED LIMIT 4.0 - 6.0 ADA THERAPEUTIC TARGET < 7.0 ACTION SUGGESTED > 7.0 Performed By: #### A 1C #### [facility] [address] [place] [address] Dr. Yordy Tse Glucose [Mass/Vol] 111 mg/dL Normal [facility] Comment on above: Performed By: #### A 1C #### [facility] [address] [place] [address] Dr. Yordy Tse HbA1c (Bld) [Mass fraction] 5.5 % Normal 4.5-6.2 [facility] Comment on above: Performed By: #### A 1C #### [facility] [address] [address] [address] Yordy Tse LIPID PROFILEon 04-28-2022 CHOL-HDL RATIO NORM SEE BELOW Normal [facility] Comment on above: Result Comment: 3.3 - 4.4 LOW RISK 4.4 - 7.1 AVERAGE RISK 7.1 - 11.0 MODERATE RISK >11.0 HIGH RISK Performed By: #### C MP, TSH, LIPID #### [facility] [address] [address] [address] Yordy Tse Cholesterol [Mass/Vol] 186 mg/dL Normal <=200 [facility] Comment on above: Performed By: #### C MP, TSH, LIPID #### [facility] [address] [address] [address] Yordy Tse Cholesterol in HDL [Mass/Vol] 57 mg/dL Normal 40-60 [facility] Comment on above: Performed By: #### C MP, TSH, LIPID #### [facility] [address] [address] [address] Yordy Tse Cholesterol in LDL [Mass/Vol] 116.6 mg/dL Normal [facility] Comment on above: Performed By: #### C MP, TSH, LIPID #### [facility] [address] [address] [address] Yordy Tse Cholesterol.total/Ch olesterol in HDL [Mass ratio] 3.3 {ratio} Normal [facility] Comment on above: Performed By: #### C MP, TSH, LIPID #### [facility] [address] [address] [address] Yordy Tse HDL NORMAL > or = 60 mg/dl - LO W CARDIOVASCULAR RISK <40 mg/dl - HIGH CARDIOVASCULAR RISK Normal [facility] Comment on above: Performed By: #### C MP, TSH, LIPID #### [facility] [address] [address] [address] Yordy Tes LDL CALC NORMAL SEE BELOW Normal [facility] Comment on above: Result Comment: <100 mg/dl OPTIMAL 100 - 129 mg/dl NEAR OR ABOVE OPTIMAL 130 - 159 mg/dl BORDERLINE HIGH 160 - 189 mg/dl HIGH >190 mg/dl VERY HIGH Performed By: #### C MP, TSH, LIPID #### [facility] [address] [address] [address] Yordy Tse Triglyceride [Mass/Vol] 62 mg/dL Normal <=150 [facility] Comment on above: Performed By: #### C MP, TSH, LIPID #### [facility] [address] [address] [address] Yordy Tse VLDL CALC 12.4 mg/dL Normal [facility] Comment on above: Performed By: #### C MP, TSH, LIPID #### [facility] [address] [place] [address] Dr. Yordy Tse PROF 14(COMP METB)on 022 Albumin [Mass/Vol] 3.7 g/dL Normal 3.4-5.0 [facility] Comment on above: Performed By: #### C MP, TSH, LIPID #### [facility] [address] [place] [address] Dr. Yordy Tse Albumin/Globulin [Mass ratio] 0.9 {ratio} Normal [facility] Comment on above: Performed By: #### C MP, TSH, LIPID #### [facility] [address] [place] [address] Dr. Yordy Tse ALP [Catalytic activity/Vol] 88 U/L Normal 46-116 [facility] Comment on above: Performed By: #### C MP, TSH, LIPID #### [facility] [address] [address] [address] Yordy Tse ALT [Catalytic activity/Vol] 31 U/L Normal 14-59 [facility] Comment on above: Performed By: #### C MP, TSH, LIPID #### [facility] [address] [address] [address] Yordy Tse Anion gap [Moles/Vol] 11.7 mmol/L Normal [facility] Comment on above: Performed By: #### C MP, TSH, LIPID #### [facility] [address] [address] [address] Yordy Tse AST [Catalytic activity/Vol] 23 U/L Normal 15-37 [facility] Comment on above: Performed By: #### C MP, TSH, LIPID #### [facility] [address] [address] [address] Yordy Tse Bilirubin [Mass/Vol] 0.5 mg/dL Normal 0.2-1.0 [facility] Comment on above: Performed By: #### C MP, TSH, LIPID #### [facility] [address] [address] [address] Yordy Tse Calcium [Mass/Vol] 9.3 mg/dL Normal 8.5-10.1 [facility] Comment on above: Performed By: #### C MP, TSH, LIPID #### [facility] [address] [place] [address] Dr. Yordy Tse Chloride [Moles/Vol] 102 mmol/L Normal 98-107 [facility] Comment on above: Performed By: #### C MP, TSH, LIPID #### [facility] [address] [address] [address] Yordy Tse CO2 [Moles/Vol] 30.3 mmol/L Normal 21.0-32.0 [facility] Comment on above: Performed By: #### C MP, TSH, LIPID #### [facility] [address] [address] [address] Yordy Tse Creatinine [Mass/Vol] 0.73 mg/dL Normal 0.55-1.02 [facility] Comment on above: Performed By: #### C MP, TSH, LIPID #### [facility] [address] [address] [address] Yordy Tse EGFR-AF BULGARIAN >60 Normal >=60 [facility] Comment on above: Performed By: #### C MP, TSH, LIPID #### [facility] [address] [place] [address] Dr. Yordy Tse EGFR-NON AF BULGARIAN >60 Normal >=60 [facility] Comment on above: Performed By: #### C MP, TSH, LIPID #### [facility] [address] [place] [address] Dr. Yordy Tse Globulin (S) [Mass/Vol] 4.0 g/dL Normal [facility] Comment on above: Performed By: #### C MP, TSH, LIPID #### [facility] [address] [place] [address] Dr. Yordy Tse Glucose [Mass/Vol] 88 mg/dL Normal 74-106 [facility] Comment on above: Performed By: #### C MP, TSH, LIPID #### [facility] [address] [place] [address] Dr. Yordy Tse Potassium [Moles/Vol] 4.0 mmol/L Normal 3.5-5.1 [facility] Comment on above: Performed By: #### C MP, TSH, LIPID #### [facility] [address] [place] [address] Dr. Yordy Tse Protein [Mass/Vol] 7.7 g/dL Normal 6.4-8.2 [facility] Comment on above: Performed By: #### C MP, TSH, LIPID #### [facility] [address] [place] [address] Dr. Yordy Tse Sodium [Moles/Vol] 140 mmol/L Normal 136-145 [facility] Comment on above: Performed By: #### C MP, TSH, LIPID #### [facility] [address] [place] [address] Dr. Yordy Tse Urea nitrogen [Mass/Vol] 15.0 mg/dL Normal 7.0-18.0 [facility] Comment on above: Performed By: #### C MP, TSH, LIPID #### [facility] [address] [place] [address] Dr. Yordy Tse Urea nitrogen/Creatinine [Mass ratio] 20.5 mg/mg Normal [facility] Comment on above: Performed By: #### C MP, TSH, LIPID #### [facility] [address] [place] [address] Dr. Yordy Tse TSHon 04-28-2022 TSH 1.586 uIU/mL Normal 0.358-3.740 [facility] Comment on above: Performed By: #### C MP, TSH, LIPID #### [facility] [address] [address] [address] Yordy Tse [facility] [place] DIGITAL DIAGNOSTIC UNILATERAL RIGHTon 04-05-2022 1. No mammographic evidence of malignancy. Patient can resume annual screening mammography. BIRADS: BIRADS - CATEGORY 2 Benign Findings. Normal interval follow-up is recommended in 12 months. OVERALL ASSESSMENT - BENIGN A letter of notification will be sent to the patient regarding the results. [employer] recommends annual mammograms for women 40 years and older. [facility] EXAMINATION: DIAGNOSTIC DIGITAL RIGHT BREAST MAMMOGRAM [...] is no underlying mass or architectural distortion. [facility] Radiology Study observation (narrative) [employer] Phone: [facility] [place] DIGITAL DIAGNOSTIC UNILATERAL RIGHTOrdered By: Anival Coronado on 04-05-2022 [employer] Phone: [facility] [place] DIGITAL SCREEN SELF REFERRAL W [...] OVERALL ASSESSMENT - INCOMPLETE:NEED ADDITIONAL IMAGING EVALUATION. [facility] EXAMINATION: SCREENING DIGITAL BILATERAL MAMMOGRAM WITH [...] workup advised. Full workup may require ultrasonography. [facility] Radiology Study observation (narrative) [employer] Phone: [facility] [place] DIGITAL SCREEN SELF REFERRAL W OR WO CAD BILATERALOrdered By: Jacquie Landa on 2022 [employer] Phone: DEXA Bone Density 2 SitesOrd ered By: Breezy Zaman on 02-26-2021 Osteopenia by WHO criteria. [employer] Phone: EXAMINATION: BONE DENSITOMETRY 02/26/2021 8:57 am TECHNIQUE: A bone density DEXA scan was performed of the lumbar spine and left hip on a Hologic system. 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 [...] at the National Osteoporosis Foundation's website bonesource.org. [employer] Work Phone: [place], pn Incoming Radiant Results From [employer] - 02/26/2021 10:44 AM EDT EXAMINATION: BONE DENSITOMETRY 02/26/2021 8:57 am TECHNIQUE: A bone density DEXA scan was performed of the lumbar spine and left hip on a Hologic system. 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 [...] website bonesource.org. IMPRESSION: Osteopenia by WHO criteria. [employer] Phone: [employer] Phone: [facility] spigit DIGITAL SCREEN SELF REFERRAL W OR WO CAD BILATERALOrdered By: Breezy Zaman on 02-26-2021 No mammographic evidence of malignancy. BI-RADS 1 BIRADS: BIRADS - CATEGORY 1 Negative, no evidence of malignancy. Normal interval follow-up is recommended in 12 months. OVERALL ASSESSMENT - NEGATIVE A letter of notification will be sent to the patient regarding the results. [employer] recommends annual mammograms for women 40 years and older. [employer] Phone: EXAMINATION: SCREENING DIGITAL BILATERAL MAMMOGRAM WITH [...] suspicious microcalcification, or area of architectural distortion. [employer] Phone: [employer] Phone: Large Joint Arthro/Inj: R kn ee joint [facility] Vital Signs Date Time Vital Sign Value Performing Clinician Jin wolf 11-24-2022 11:12-0400 Body height 167.6 cm Pacc 2 Work Phone: [facility] 11-24-2022 11:12-0400 Body temperature 97.11 [degF] Pacc 2 Work Phone: [facility] 11-24-2022 11:12-0400 Body weight 72.58 kg Pacc 2 Work Phone: [facility] 11-24-2022 11:12-0400 Diastolic blood pressure 61 mm[Hg] Pacc 2 Work Phone: [facility] 11-24-2022 11:12-0400 Heart rate 73 /min Pacc 2 Work Phone: [facility] 11-24-2022 11:12-0400 Respiratory rate 16 /min Pacc 2 Work Phone: [facility] 11-24-2022 11:12-0400 SaO2% (BldA) [Mass fraction] 100 % Pacc 2 Work Phone: [facility] 11-24-2022 11:12-0400 Systolic blood pressure 107 mm[Hg] Pacc 2 Work Phone: [facility] 11-24-2022 09:38-0400 Body height 167.6 cm Vel ESPOSITO-C Work Phone: [facility] 11-24-2022 09:38-0400 Body weight 74.39 kg Vel Scotch PA-C Work Phone: [facility] Encounters Encounter Date Encounter Type Care Provider Facility Start: 01-05-2024 End: 01-05-2024 ambulatory LUIS GARCIA Not Available Start: 01-04-2024 End: 01-04-2024 ambulatory LORENA PUENTES Not Available Start: 12-23-2023 End: 12-23-2023 ambulatory LUIS GARCIA Not Available Start: 11-24-2023 End: 11-24-2023 ambulatory MARGIE LAL Not Available Start: 10-04-2023 End: 10-04-2023 ambulatory VEL LISSETT Facility:[facility] Start: 10-04-2023 End: 10-04-2023 Patient encounter procedure Vel Lissett SNOWDEN Work Phone: Orthopaedics Comment on above: Status post right hi p replacement (Primary Dx); Status post left hip replacement Start: 09-15-2023 End: 09-15-2023 ambulatory MARGIE LAL Not Available Start: 07-20-2023 End: 07-20-2023 ambulatory LUIS GARCIA Not Available Start: 04-18-2023 End: 04-21-2023 [facility] Start: 04-18-2023 End: 04-20-2023 Subsequent hospital visit by physician [facility] Mammography Room [facility] Mammography Comment on above: Encounter for screen ing mammogram for malignant neoplasm of breast Start: 03-08-2023 End: 03-09-2023 [facility]ulatory [facility] Start: 02-25-2023 End: 02-25-2023 ambulatory SHANT MÉNDEZ Facility:[facility] Start: 02-25-2023 End: 02-25-2023 Patient encounter procedure Shant Méndez MD Work Phone: Orthopaedics Comment on above: Primary osteoarthrit is of right knee (Primary Dx) Start: 02-07-2023 End: 02-07-2023 ambulatory SHANT MÉNDEZ Facility:[facility] Start: 02-07-2023 End: 02-07-2023 Patient encounter procedure Shant Méndez MD Work Phone: Orthopaedics Comment on above: Status post right hi p replacement (Primary Dx); Status post left hip replacement; Primary osteoarthritis of right knee Start: 01-14-2023 End: 01-14-2023 ambulatory SHANT MÉNDEZ Facility:[facility] Start: 12-22-2022 End: 12-22-2022 ambulatory Karine Torres RT(R) Radiology Comment on above: Radiology XR Start: 12-22-2022 End: 12-22-2022 Patient encounter procedure Karine Torres RT(R) [facility] Comment on above: Aftercare following left hip joint replacement surgery (Primary Dx); Status post right hip replacement Start: 11-30-2022 End: 11-30-2022 ambulatory SHANT MÉNDEZ Facility:[facility] Start: 11-26-2022 Telephone encounter Quiana feldman APRN.[employer]PER[employer]OR Work Phone: Pre Anesthesia Comment on above: PreOp Call (UTI) Start: 11-24-2022 End: 11-25-2022 ambulatory SHANT MÉNDEZ Facility:[facility] Start: 11-24-2022 Encounter for other preprocedural examination SHANT MÉNDEZ [facility] Start: 11-24-2022 End: 11-24-2022 Admission to establishment [facility]acc [place] [facility] Work Phone: [facility] Start: 11-24-2022 End: 11-24-2022 Preprocedural examination done [facility] [place] [facility] Work Phone: Pre Anesthesia Start: 11-24-2022 End: 11-24-2022 ambulatory [facility] [place] [facility] Work Phone: Pre Anesthesia Comment on above: Pre-op evaluation (P rimary Dx); SVT (supraventricular tachycardia) (HCC); Former smoker Start: 11-24-2022 End: 11-24-2022 Patient encounter procedure Vel Galeana PA-C Work Phone: Orthopaedics Comment on above: Primary osteoarthrit is of right hip (Primary Dx) Start: 11-10-2022 End: 11-11-[address] LUIS GARCIA Facility: Start: 11-08-2022 End: 11-08-2022 ambulatory Karine Le RNfirst aid director Start: 10-22-2022 Orders Only Shant landis MD Work Phone: Orthopaedics Comment on above: Primary osteoarthrit is of right hip (Primary Dx) Start: 10-06-2022 End: 10-06-2022 ambulatory Susana Jesus RT(R) Radiology Comment on above: Radiology XR Start: 10-06-2022 End: 10-06-2022 Patient encounter procedure Susana Jesus RT(R) [facility] [place] Comment on above: Status post left hip [...] End: 04-07-2022 Subsequent hospital visit by physician [facility] Ultrasound Comment on above: Abnormal mammogram o f right breast Start: 2022 End: 03-04-2022 Subsequent hospital visit by physician [facility] Mammography Room At [facility] Mammography Comment on above: Screening breast exa mination Start: 12-22-2021 Refill Shant landis MD Work Phone: Orthopaedics Start: 06-26-2021 ambulatory Mirna Avalos ocjuliana RT(R) Radiology Comment on above: Radio Gen RMP Start: 06-26-2021 End: 06-26-2021 Patient encounter procedure Mirna Lanza RT(R) [facility] Start: 02-26-2021 End: 02-28-2021 Subsequent hospital visit by physician [facility] Hanna [facility] Mammography Comment on above: Abnormal findings [...] Comment: Speci men Type: BLOOD SPECIMENOrdering Facility: [facility] Address: [address] [place], [place] [address] [place] [address] Performed By: #### T [id number] ####CC MAIN BLOOD BANKCLIA [id number] TREY GRIFFITH [address] [place] Start: 10-06-2022 Iadna s [...] Screening for malign ant neoplasm of colon [facility] Start: 05-31-2026 DTaP/Tdap/Td vaccine (3 - Td or Tdap) DTaP/Tdap/Td vaccine (3 - Td or Tdap) [facility] Work Phone: Start: 05-31-2026 DTaP/Tdap/Td vaccine (4 - Td or Tdap) DTaP/Tdap/Td vaccine (4 - Td or Tdap) [facility] Start: 05-31-2026 Urine microalbumin profile [facility] Start: 04-23-2026 Urine microalbumin profile DTAP,TDAP,TD (2 - Td or Tdap) [facility] Start: 11-24-2025 DIABETES SCREEN DIABETES SCREEN [facility] Start: 11-24-2025 Diabetes Screening Diabetes Screenin g [facility] Start: 04-18-2025 Screening for malign ant neoplasm of breast Breast cancer screen [facility] Start: 09-21-2024 DIABETES SCREEN DIABETES SCREEN [facility] Start: 04-18-2024 Screening for malign ant neoplasm of breast Mammogram Screening [facility] Start: 04-05-2024 Screening for malign ant neoplasm of breast Breast cancer screen [facility] Start: 2024 Screening for malign ant neoplasm of breast Breast cancer screen [facility] Start: 11-09-2023 Influenza vaccination LUNG CANCER SC REENING [facility] Start: 11-09-2023 Screening for malign ant neoplasm of lung Lung Cancer Screening [facility] Start: 08-29-2023 Advance Directive Discussion Advance Directive Discussion [facility] Start: 08-29-2023 Depression Assessment Depression Ass essment [facility] Start: 04-29-2023 Influenza vaccination INFLUENZ A (Season Ended) [facility] Start: 03-29-2023 Influenza vaccination Flu vaccine (# 1) [facility] Start: 2023 Mammography MAMMOGRAM [facility] Start: 02-26-2023 Screening for malign ant neoplasm of breast Breast cancer screen [facility] Work Phone: Start: 11-03-2022 End: 01-03-2023 Bacteria identified in Urine by Culture URINE CULTURE Microbiology Routine Pre-op testing Frequent urination Expected: 11/03/2022 (Approximate), Expires: 01/03/2023 [facility] Work Phone: Comment on above: Expected: 11/03/2022 (Approximate), Expires: 01/03/2023 Start: 11-03-2022 End: 01-03-2023 TYPE AND SCREEN,30 DAY TYPE AND SCREEN,30 DAY Blood Bank Routine Pre-op testing Expected: 11/03/2022 (Approximate), Expires: 01/03/2023 [facility] Work Phone: Comment on above: Expected: 11/03/2022 (Approximate), Expires: 01/03/2023 Start: 10-06-2022 End: 12-06-2022 Basic metabolic 2000 panel - Serum or Plasma BASIC METABOLIC PNL Lab Routine Pre-op testing Expected: 10/06/2022, Expires: 12/06/2022 [facility] Work Phone: Comment on above: Expected: 10/06/2022 , Expires: 12/06/2022 Start: 10-06-2022 End: 12-06-2022 CBC W Auto Differential panel - Blood CBC + DIFF Lab Routine Pre-op testing Expected: 10/06/2022, Expires: 12/06/2022 [facility] Work Phone: Comment on above: Expected: 10/06/2022 , Expires: 12/06/2022 Start: 10-06-2022 End: 12-06-2022 Hemoglobin A1c in Blood HGB A1C Lab Routine Pre-op testing Abnormal finding of blood chemistry, unspecified Expected: 10/06/2022, Expires: 12/06/2022 [facility] Work Phone: Comment on above: Expected: 10/06/2022 , Expires: 12/06/2022 Start: 10-06-2022 End: 12-06-2022 Urinalysis complete panel - Urine URINALYSIS, WITH MICROSCOPIC Lab Routine Pre-op testing Frequent urination Expected: 10/06/2022, Expires: 12/06/2022 [facility] Work Phone: Comment on above: Expected: 10/06/2022 , Expires: 12/06/2022 Start: 08-29-2022 ADVANCE DIRECTIVE DISCUSSION ADVANCE DIRECTIVE DISCUSSION [facility] Start: 08-29-2022 [facility] Start: 04-29-2022 Influenza vaccination B ON [facility] Start: 02-26-2022 Mammography MAMMOGRAM [facility] Start: 01-22-2022 COVID-19 VACCINE (5 - Booster for Pfizer series) COVID-19 VACCINE (5 - Booster for Pfizer series) [facility] Start: 08-29-2021 ADVANCE DIRECTIVE DISCUSSION ADVANCE DIRECTIVE DISCUSSION [facility] Start: 08-29-2021 DEPRESSION ASSESSMENT [facility] Start: 08-03-2021 Pneumococcal 65+ yea rs Vaccine (1 of 1 - PPSV23) Pneumococcal 65+ years Vaccine (1 of 1 - PPSV23) [employer] Phone: Start: 06-13-2021 Pneumococcal 65+ yea rs Vaccine (2 - PCV) Pneumococcal 65+ years Vaccine (2 - PCV) [facility] [employer] Start: 06-13-2021 PNEUMOCOCCAL: 65+ (2 - PCV) PNEUMOCOCCAL: 65+ (2 - PCV) [facility] Start: 05-08-2021 Depression Screen [facility] Screen [facility] Start: 04-29-2021 [facility] Start: 05-24-2020 Colonoscopy COLONOSCOPY [facility] Start: 05-24-2020 COLORECTAL CANCER SCREENING COLORECTAL CANCER SCREENING [facility] Start: 05-24-2020 Screening for malign ant neoplasm of colon [facility] Start: 05-08-2020 Annual Wellness Visi t (AWV) Annual Wellness Visit (AWV) [facility] [employer] Start: 11-02-2019 Shingles Vaccine (3 of 3) Shingles Vaccine (3 of 3) [employer] Phone: Start: 2019 ADVANCE DIRECTIVE DISCUSSION ADVANCE DIRECTIVE DISCUSSION [facility] Start: 2019 BONE DENSITY BONE DENSITY [facility] Start: 2019 PNEUMOVAX AGE 65 AND OVER WITH 5YR LOOKBACK (#1) PNEUMOVAX AGE 65 AND OVER WITH 5YR LOOKBACK (#1) [facility] Start: 06-20-2014 Screening for malign ant neoplasm of colon Colon Cancer Screen FIT/FOBT [facility] [employer] Phone: Start: 2014 RSV Vaccine (1 - 1-d ose 60+ series) RSV Vaccine (1 - 1-dose 60+ series) [facility] Start: 2009 Influenza vaccination LUNG CANCER [facility] Start: 2009 Screening for malign ant neoplasm of lung Low dose CT lung screening [facility] [employer] Phone: Start: 2004 Influenza vaccination LUNG CANCER [facility] Start: 2004 Screening for malign ant neoplasm of lung [facility] Start: 2004 SHINGRIX VACCINE (1 of 2) SHINGRIX VACCINE (1 of 2) [facility] Start: 1999 COLOGUARD (FIT-DNA) COLOGUARD (FIT-D NA) [facility] Start: [address] COLONOGRAPHY [facility] Start: 1999 DIABETES SCREEN DIABETES SCREEN [facility] Start: 1999 FECAL OCCULT BLOOD FECAL OCCULT BLOO D [facility] Start: 1999 Lipid panel Lipid Screening [facility] Start: 1999 LIPID SCREEN LIPID SCREEN [facility] Start: 1999 Screening for malign ant neoplasm of colon [facility] Start: 1999 SIGMOIDOSCOPY SIGMOIDOSCOPY [facility] Start: 1994 Diabetes screen Diabetes screen [employer] Phone: Start: 1994 Lipid panel [facility] Start: 1994 Mammography MAMMOGRAM [facility] Start: 1984 Zoledronic acid therapy ALPHA- 1 ANTITRYPSIN DEFICIENCY SCREENING [facility] Start: 1973 Urine microalbumin profile DTAP,TDAP,TD (1 - Tdap) [facility] Start: 1972 ANNUAL PCP TEAM OUTPATIENT FACILITY PHYSICAL THERAPIST CHUN DISEASE VISIT ANNUAL PCP TEAM CHRONIC DISEASE VISIT [facility] Start: 1972 HEPATITIS C SCREENING HEPATITIS C [facility] Start: 1972 Hepatitis C screening B ON [facility] [employer] Start: 1972 SPIROMETRY SPIROMETRY [facility] Start: 1966 Adult depression screening assessment DEPRESSION SCREENING [facility] Start: 1966 COVID-19 VACCINE (1) COVID-19 VACCIN E (1) [facility] Start: 1966 Depression Screen Depression Screen [facility] [employer] Start: 1954 Annual Wellness Visi t (AWV) Annual Wellness Visit (AWV) [facility] [place] Start: 1954 Hepatitis C screening Hepatitis C id [employer] Phone: End: 11-25-2023 ECG COMPLETE ECG COMPLETE ECG Routine Pre-op evaluation 1 Occurrences starting 11/24/2022 until 11/25/2023 [facility] Work Phone: Comment on above: 1 Occurrences starti ng 11/24/2022 until 11/25/2023 End: 04-05-2022 US BREAST COMPLETE RIGHT US BREAST COMPLETE RIGHT Imaging Routine Abnormal mammogram of right breast 1 Occurrences starting 04/05/2022 until 04/05/2022 [facility] Work Phone: Comment on above: 1 Occurrences starti ng 04/05/2022 until 04/05/2022 [facility] Immunizations Immunization Date Immunization Notes Care Provider Shirley herrera 06-16-2021 influenza (HD-IIV4) vaccine, age 65+ yr, high dose, quadrivalent, PF (FLUZONE HIGH-DOSE) Vel Scotch PA-C Work Phone: [facility] 06-13-2020 pneumococcal polysaccharide vaccine, 23 valent Shant Méndez MD Work Phone: [facility] Work Phone: 06-12-2020 influenza (aIIV4) vaccine, age 65+ yr, quadrivalent, PF (FLUAD QUAD) Vel Scotch PA-C Work Phone: [facility] 03-29-2020 zoster vaccine recombinant Shant Méndez MD Work Phone: [facility] Work Phone: 09-07-2019 zoster vaccine recombinant Shant Méndez MD Work Phone: [facility] Work Phone: 06-16-2019 influenza, high dose seasonal, preservative-free Vel Scotch PA-C Work Phone: [facility] 05-30-2018 influenza, high dose seasonal, preservative-free Vel Scotch PA-C Work Phone: [facility] 05-21-2018 influenza, injectabl e, quadrivalent, preservative free Vel Scotch PA-C Work Phone: [facility] 05-31-2017 seasonal influenza, intradermal, preservative free Vel Scotch PA-C Work Phone: [facility] 05-25-2017 influenza, injectabl e, quadrivalent, preservative free Vel Scotch PA-C Work Phone: [facility] 08-03-2016 pneumococcal conjuga te vaccine, 13 valent Vel Scotch PA-C Work Phone: [facility] 08-03-2016 pneumococcal polysaccharide vaccine, 23 valent [facility] Work Phone: 05-31-2016 diphtheria, tetanus toxoids and acellular pertussis vaccine [facility] 05-31-2016 Influenza Vaccine, unspecified formulation [facility] Work Phone: 05-31-2016 influenza virus vacc ine, unspecified formulation Vel Scotch PA-C Work Phone: [facility] 05-24-2016 influenza, seasonal, injectable, preservative free Vel Scotch PA-C Work Phone: [facility] 05-24-2016 tetanus toxoid, redu jazz diphtheria toxoid, and acellular pertussis vaccine, adsorbed Vel Scotch PA-C Work Phone: [facility] 04-23-2016 tetanus toxoid, redu jazz diphtheria toxoid, and acellular pertussis vaccine, adsorbed Shant Méndez MD Work Phone: [facility] Work Phone: 04-08-2015 pneumococcal polysaccharide vaccine, 23 valent Vel Scotch PA-C Work Phone: [facility] 06-09-2011 zoster vaccine, live [facility] Work Phone: 06-03-2011 zoster vaccine, live [facility] Work Phone: 03-30-2011 pneumococcal polysaccharide vaccine, 23 valent Vel Scotch PA-C Work Phone: [facility] Payers Date Payer Category Payer Unknown [id number] 2020 Unknown [employer] MED[employer]ARE SUPPLEMENT [id number] 2020-Present [phone] [id number] [employer] [place] [address] Indemnity [id number] 2019 Medicare [id number] 2019 Medicare MEDICARE MEDICAR E A AND B [id number] 2019-Present [phone] [address] [address] [place] [address] Medicare [id number] 1959 Medicare [id number] 1959 Unknown [id number] 1959 Unknown [id number] 1954 Unknown [id number] 3 1954 Unknown [id number] 3 1954 Unknown [id number] 3 1954 Unknown [id number] 3 1954 Unknown [id number] 3 1954 Unknown [id number] 59 1954 Unknown [id number] 59 1954 Unknown [id number] 59 1954 Unknown [id number] 59 1954 Unknown [id number] 59 1954 Unknown [id number] 59 Social History Date Type Detail Facility Start: 02-26-2021 End: 11-24-2022 Tobacco smoking status NHIS Former smoker [facility] Work Phone: End: 05-08-2011 History of tobacco use Current smoker [facility] Start: 02-26-2021 End: 01-14-2023 Cigarettes smoked current (pack per day) - Reported [employer] Phone: Start: 02-26-2021 End: 11-24-2022 Tobacco use and exposure Never used [facility] Start: 02-26-2021 End: 04-18-2023 Alcohol intake Current non-drinker of alcohol (finding) [employer] Phone: Start: 1955 [facility] Assigned At [facility] Start: 03-26-2022 End: 04-05-2022 Exposure to SARS-CoV-2 (event) Not sure [facility] Start: 09-21-2021 End: 11-24-2022 Alcohol intake Ex-drinker (finding) [facility] End: 05-08-2011 History of tobacco use Cigarette Smoker [facility] Phone: Start: 11-24-2022 Alcohol Comment denies tx for drug/alcohol abuse in the past. [facility] Start: 11-24-2022 End: 01-14-2023 Tobacco use panel [facility] National Score (1-10 0), lower number is lower risk 78 [facility] Medical Equipment Procedure Code Equipment Code Equipment Origin al Text Equipment Identifier Dates Liner Mdm 42mm E Cocr Acetabular 2 Mobility Modular Hip - [id number] Start: 09-29-2021 Head V40 Lfit 28 mm +0mm Cocr Femoral Primary Taper Offset Hip - [id number] Start: 09-29-2021 Insert Adm Mobil e Bearing Hip Yarsanism 48mm 28mm 0d X3 6.9mm Acetabular - [id number] Start: 09-29-2021 Shell Trident Ii 52mm E Tritanium Acetabular 5 Screw Hole Cluster Sterile - [id number] Start: 09-29-2021 Stem Accolade Ii 7 132d Femoral - [id number] Start: 09-29-2021 Mdm Liner X3 Ins ert 48mm X 28mm [id number] Start: 11-30-2022 Head V40 Lfit 28 mm -4mm Offset Taper Cocr Femoral Primary Hip - [id number] Start: 11-30-2022 Liner Mdm 42mm E Cocr Acetabular 2 Mobility Modular Hip - [id number] Start: 11-30-2022 Shell Trident Ii 54mm E Tritanium Acetabular 5 Screw Hole Cluster Sterile - [id number] Start: 11-30-2022 Stem Accolade Ii 7 132d Femoral - [id number] Start: 11-30-2022 Clinical Notes 06-26-2021 to 10-04-2023 Vel Galeana PA-C - 10/04/2023 10:48 AM El Méndez MD - 02/25/2023 3:41 PM Ceferino Méndez MD - 02/07/2023 5:36 PM Ceferino Méndez MD - 02/07/2023 12:00 AM EDT Note Date & Type Note Facility 10-04-2023 Note HNO ID: [id number] Author: CALVIN ROBLES RT([place]) Service: ? Author Type: Technologist Type: Progress [...] PATIENT PRESENTS WITH AN IMPLANTABLE OR ATTACHED PRECISION ASSEMBLER: No RADIOLOGY DEPARTMENT: General X-ray: Exam(s) Completed: Pelvis X-Ray: Pelvis General AP PERIPHERAL IV DATA: Not applicable SIGNED BY: RT Kajal([place]) October 04, 2023 11:03 AM [facility] 10-04-2023 Note HNO ID: [id number] Author: VEL GALEANA PA-C Service: ? Author Type: Physician Consumer Insights Specialist Type: Progress Notes Filed: 10/04/2023 12:45 Note [...] Galeana PA-C October 04, 2023 10:48 AM [facility] 10-04-2023 History of Presen t illness Narrative [...] 2023 10:48 AM documented in this encounter [facility] 02-25-2023 Note HNO ID: [id number] Author: Shant Méndez MD Service: ? Author Type: Physician Type: Progress Notes Filed: 02/25/2023 3:42 PM Note Text: Large Joint Arthro/Inj: R knee joint Informed Consent Consent Obtained: Verbal [place] Protocol A moment to CARE was completed. [...] patient voiced understanding of these instructions. Third libertarian verified by Mary Quigley MA. [facility] 02-25-2023 Note HNO ID: [id number] Author: RT Rosalba(R) Service: ? Author Type: [...] Torres RT(R) February 25, 2023 1:57 PM [facility] 02-25-2023 History of Presen t illness Narrative Associated Order(s): Large Joint Arthro/Inj: R knee joint Post-Procedure Diagnose(s): Primary osteoarthritis of right knee Large Joint Arthro/Inj: R knee joint Informed Consent Consent Obtained: Verbal [place] Protocol A moment to CARE was completed. [...] patient voiced understanding of these instructions. Third libertarian verified by Mary Quigley MA. documented in this encounter [facility] 02-25-2023 Note HNO ID: [id number] Author: Shant Méndez MD Service: Orthopaedic Surgery Author Type: Physician Type: Progress Notes Filed: 03/08/2023 1:53 PM Note Text: [facility] [address] [place] [address] CLINIC NOTE Department of Orthopaedics - Jose Eduardo Méndez II, M.D. NAME: [facility] NO.: [id number] DATE OF SERVICE: 02/25/2023 CHIEF COMPLAINT: Recheck [...] II, M.D. Date Dictated: 03/03/2023 Date Typed: [facility] 03/03/2023 JOB# [id number] [facility] 02-07-2023 Note HNO ID: [id number] Author: Shant Méndez MD Service: ? Author Type: Physician Type: Progress Notes Filed: 02/22/2023 1:48 PM Note Text: see dictated note Shant Méndez II, MD [facility] 02-07-2023 History of Presen t illness Narrative see dictated note Shant Méndez II, MD [facility] [address] [place] [address] CLINIC NOTE Department of Orthopaedics - Jose Eduardo Méndez II, M.D. NAME: [facility] NO.: [id number] DATE OF SERVICE: 02/07/2023 CHIEF COMPLAINT: Recheck [...] walking on the backyard [place], taking her new [place]. Has a 1 plus effusion of the right knee. No gross ligamentous instability. Neurovascularly intact. Recommend walk on the driveway and no walking on even ground. No significant problems with her right hip. X-rays shows total hip replacements, bilateral in excellent position. See back in 1 month. Dictated By: Shant Méndez II, M.D. Date Dictated: 02/07/2023 Date Typed: [facility] 02/08/2023 JOB# [id number] documented in this encounter [facility] 02-07-2023 Note HNO ID: [id number] Author: RT Ray(R) Service: ? Author Type: [...] RT Ray(R) February 07, 2023 2:14 PM [facility] 02-07-2023 Note HNO ID: [id number] Author: Shant Méndez MD Service: Orthopaedic Surgery Author Type: Physician Type: Progress Notes Filed: 02/10/2023 2:28 PM Note Text: [facility] [address] NOTE Department of Orthopaedics - Jose Eduardo Méndez II, M.D. NAME: [facility] NO.: [id number] DATE OF SERVICE: 02/07/2023 CHIEF COMPLAINT: Recheck [...] walking on the [place], taking her new [place]. Has a 1 plus effusion of the right knee. No gross ligamentous instability. Neurovascularly intact. Recommend walk on the driveway and no walking on even ground. No significant problems with her right hip. X-rays shows total hip replacements, bilateral in excellent position. See back in 1 month. Dictated By: Shant Méndez II, M.D. Date Dictated: 02/07/2023 Date Typed: [facility] 02/08/2023 JOB# [id number] [facility] 01-14-2023 Note HNO ID: [id number] Author: Shant Méndez MD Service: ? Author Type: Physician Type: Progress Notes Filed: 01/14/2023 4:03 PM Note Text: see dictated note Shant Méndez II, MD [facility] 01-14-2023 Note HNO ID: [id number] Author: Shant Méndez MD Service: Orthopaedic Surgery Author Type: Physician Type: Progress Notes Filed: 01/18/2023 10:45 AM Note Text: [facility] [address] [place] [address] CLINIC NOTE Department of Orthopaedics - Jose Eduardo Méndez II, M.D. NAME: [facility] NO.: [id number] DATE OF SERVICE: 01/14/2023 CHIEF COMPLAINT: Recheck [...] proximal tibia at the knee. There is [id number] effusion of the knee. The patient denies [...] II, M.D. Date Dictated: 01/14/2023 Date Typed: [facility] 01/15/2023 JOB# [id number] [facility] 12-22-2022 Note HNO ID: [id number] Author: Vel Galeana PA-C Service: ? Author Type: Physician Consumer Insights Specialist Type: Progress Notes Filed: 12/22/2022 11:35 AM [...] Galeana PA-C December 22, 2022 11:02 AM [facility] 12-22-2022 Note HNO ID: [id number] Author: RT Rosalba(R) Service: ? Author Type: [...] IV DATA: Not applicable SIGNED BY: RT Rosalba(R) December 22, 2022 10:40 AM [facility] 12-22-2022 Instructions Vel Galeana PA-C - 12/22/2022 [...] quiets things down. documented in this encounter [facility] 12-22-2022 History of Presen t illness [...] 2022 11:02 AM documented in this encounter [facility] 12-22-2022 History of Presen t illness [...] IV DATA: Not applicable SIGNED BY: RT Rosalba(R) December 22, 2022 10:40 AM documented in this encounter [facility] 11-30-2022 Note HNO ID: [id number] Author: TIMOTHY Hudson Service: Anesthesiology Author Type: Seconds Grader Type: Anesthesia Procedure Notes Filed: 11/30/2022 11:40 AM Note Text: ANESTHESIOLOGY PROCEDURE NOTE Spinal Block General Information Procedure Start Time/Medication Administration: 11/30/2022 11:24 AM Patient location during procedure: OR Timeout Performed Pre-procedure: timeout performed Consent Obtained: Yes Patient identity confirmed: arm band and patient Reason for Block: primary surgical anesthetic Staffing DANDY OPERATOR: Parisa Watson APRN.DANDY OPERATOR Performed by: LORRI Preparation Sterility Preparation: hand hygiene performed prior [...] November 30, 2022 TIME: 11:39 AM CSN: [id number] [facility] 11-26-2022 Miscellaneous Notes Patient returned call and I relayed below message. She verbalized understanding. Cherie Edwards LPN November 26, 2022 11:35 AM Attempted to reach patient via phone call, no answer. Left message to return call to [facility] nurse at [phone]. Joseline Wei LPN November 26, 2022 9:08 AM On pre-op urine culture... Culture >=100,000 CFU/ml Mixed microbiota Abnormal Macrobid ordered. Please call patient and advised to start KRISTIAN Thank you Quiana Poole APRN.SHYANNE [facility] documented in this encounter [facility] 11-24-2022 Note HNO ID: [id number] Author: Irais Nicole RT(R) Service: ? Author Type: Technologist Type: [...] Nicole, RT(R) November 24, 2022 9:40 AM [facility] 11-24-2022 History and physical note HISTORY AND [...] six hours after the dental procedure Yes [id number] OIL ORAL Take by mouth once daily. [...] fevers. Neuro: No history of TIA's, stroke, PLANTING MACHINE OPERATOR tumor, impaired sensorium, hemiplegia, paraplegia [...] or incontinence,, stones or chronic kidney disease POLICY AND PLANNING MANAGER: Negative for abnormal vaginal bleeding, abnormal [...] reviewed by myself. Assessment/Plan SVT (supraventricular tachycardia) ([facility]) Assessment: Hx of SVT- controlled on propanolol [...] 24, 2022 TIME: documented in this encounter [facility] 11-24-2022 Note HNO ID: [id number] Author: Vel Galeana PA-C Service: ? 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 [facility] 11-24-2022 Instructions Quiana Poole APRN.[facility] - 11/24/2022 11:19 AM EDT PATIENT PREOPERATIVE INSTRUCTIONS Shant Méndze MD has scheduled you for your procedure at this surgery center: [facility]: [phone] --[address] [place] [address]. Please enter through the entrance closest to [...] Procedures: - YOU MUST HAVE A RESPONSIBLE GOLF SALES MANAGER TAKE YOU HOME. A HALL WORKER OR INFORMATION TECHNOLOGY ASSOCIATE CANNOT BE MADE A RESPONSIBLE GOLF SALES MANAGER. - We recommend that a responsible person stays with you overnight to take care of you. - You cannot stay in a hotel alone after outpatient surgery. You will not be permitted to have your surgery, if you do not have someone to take care of you. If you already have an Advance Directive, please fax a copy to [phone] or email to for it to be [...] chart that day. documented in this encounter [facility] 11-24-2022 Instructions Vel Galeana PA-C - [...] use chlorhexidine wipes. 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 FATPH-7-[id number]-BKF-TMT-[id number] OIL ORAL Take by mouth once daily. multivit with calcium,iron,min (WOMEN'S MULTIPLE VITAMINS ORAL) Take by mouth once daily. ascorbic acid (VITAMIN C ORAL) Take by mouth once daily. glucosamine/msm/chondroitin A (YUNCVMNTNRS-MCWYUT-QUZ ORAL) Take by mouth once daily. propranolol [...] TIME: 9:35 AM documented in this encounter [facility] 11-08-2022 Nurse Note ORTHOPAEDIC SURGERY PRE-OP PATIENT Mary Vaughn is a 67 year old female PROCEDURE: right Total Hip PROCEDURE DATE: 11/30/22 CHECKLIST: Informed Consent: Yes- In FMP Products [facility]: No Pre-op Skin Preparation Cloths & [...] Effects -Afterhours Number Given- page ortho resident continuous improvement engineer at [phone] METHOD OF INSTRUCTION: Individual instruction, Written instruction [...] -Call office if questions/concerns -Afterhour for resident continuous improvement engineer INFECTION MANAGEMENT: -Signs and symptoms of an infection -Importance of contacting the physician MEDICATION SIDE EFFECTS: -Side effects associated with the medication that warrant a call to the physician WOUND CARE: -Correct procedure to perform wound care DISCHARGE PLAN: -Patient referred to rapid recovery program and [facility] was offered to Patient about [...] plans to go home with OP-PT at [facility] Patient has walker Yes , cane [...] Karine Le RN documented in this encounter [facility] 10-06-2022 Note HNO ID: [id number] Author: Shant Méndez MD Service: Orthopaedic Surgery Author Type: Physician Type: Progress Notes Filed: 10/15/2022 3:01 PM Note Text: [facility] [address] [place], [place] [address] CLINIC NOTE Department of Orthopaedics - Jose Eduardo Méndez II, M.D. NAME: [facility] NO.: [id number] DATE OF SERVICE: 10/06/2022 CHIEF COMPLAINT: Recheck [...] in good alignment. Right hip shows severe tltf-bk-[id number] arthritis throughout the right hip. The patient [...] II, M.D. Date Dictated: 10/08/2022 Date Typed: [facility] 10/08/2022 JOB# [id number] [facility] 10-06-2022 Note HNO ID: [id number] Author: RT Saira(R) Service: ? Author Type: [...] RT Saira(R) October 06, 2022 11:05 AM [facility] 10-06-2022 Note HNO ID: [id number] Author: Mary Quigley MA Service: ? Author Type: Elementary School Band Director Type: Progress Notes Filed: 10/18/2022 11:46 AM Note Text: This note has been dictated. Low Méndez M.D. [facility] 10-06-2022 History of Presen t illness Narrative [...] 2022 11:05 AM documented in this encounter [facility] 10-06-2022 History of Presen t illness Narrative This note has been dictated. Low Méndez M.D. [facility] [address] [place] [id number] CLINIC NOTE Department of Orthopaedics - Jose Eduardo Méndez II, M.D. NAME: [facility] NO.: [id number] DATE OF SERVICE: 10/06/2022 CHIEF COMPLAINT: Recheck [...] in good alignment. Right hip shows severe npsn-xh-[id number] arthritis throughout the right hip. The patient [...] Dictated: 10/08/2022 Date Typed: kenneth 10/08/2022 JOB# [id number] documented in this encounter [facility] 05-27-2022 Miscellaneous Notes rx sent to [facility] notified Shant Méndez II, MD documented in this encounter [facility] 12-22-2021 Miscellaneous Notes rx sent to [facility] patient notified Shant Méndez II, MD documented in this encounter [facility] 06-26-2021 History of Presen t illness [...] 2021 1:20 PM documented in this encounter [facility] Evaluation note Diagnosis Abnormal findings on diagnostic imaging of other parts of musculoskeletal system Osteopenia, unspecified location documented in this encounter [employer] Phone: evaluation note* Diagnosis Breast cancer screening by mammogram documented in this encounter [employer] Phone: evaluation note* Diagnosis Status post left hip replacement- Primary Hip joint replacement by other means [facility] Diagnosis Screening breast examination Other screening breast examination documented in this encounter [facility] Phone: evaluation note* Diagnosis Abnormal mammogram of right breast documented in this encounter [facility] Phone: evaluation note* Diagnosis Abnormal mammogram of right breast documented in this encounter [facility] [employer] Phone: evaluation note* Diagnosis Status post left hip replacement Hip joint replacement by other means [facility] Diagnosis Status post left hip replacement- Primary Hip joint replacement by other means Primary osteoarthritis of right hip Primary localized osteoarthrosis, pelvic region and thigh Pre-op testing Preoperative examination, unspecified MRSA (methicillin resistant Staphylococcus aureus) Methicillin resistant Staphylococcus aureus in conditions classified elsewhere and of unspecified site Frequent urination Urinary frequency Abnormal finding of blood chemistry, unspecified [facility] Diagnosis Primary osteoarthritis of right hip- Primary Primary localized osteoarthrosis, pelvic region and thigh Primary osteoarthritis of right hip Primary localized osteoarthrosis, pelvic region and thigh [facility] Primary osteoarthritis of right hip- Primary Primary localized osteoarthrosis, pelvic region and thigh Primary osteoarthritis of right hip Primary localized osteoarthrosis, pelvic region and thigh [facility] Diagnosis Pre-op evaluation- Primary Preoperative examination, unspecified SVT (supraventricular tachycardia) (HCC) Other specified cardiac dysrhythmias Former smoker Personal history of tobacco use, presenting hazards to health Primary osteoarthritis of right hip Primary localized osteoarthrosis, pelvic region and thigh [facility] Diagnosis Aftercare following left hip joint replacement surgery- Primary Status post right hip replacement Hip joint replacement by other means [facility] Diagnosis Status post right hip replacement- Primary Hip joint replacement by other means Status post left hip replacement Hip joint replacement by other means Primary osteoarthritis of right knee Primary localized osteoarthrosis, lower leg [facility] Diagnosis Primary osteoarthritis of right knee- Primary Primary localized osteoarthrosis, lower leg [facility] Diagnosis Encounter for screening mammogram for malignant neoplasm of breast Other screening mammogram documented in this encounter [facility] note* Diagnosis Status post right hip replacement- Primary Hip joint replacement by other means Status post left hip replacement Hip joint replacement by other means documented in this encounter [facility] for referral (narrative)* - Authorized Specialty Diagnoses / Procedures Referred By Fer adan Referred To Contact Physical Therapy Diagnoses Primary osteoarthritis of right hip Pre-op testing Procedures CONSULT TO PHYSICAL THERAPY Shant Méndez [place] [address] [place] [address] Referral ID Status Reason Start Date Expiration Date V isits Requested Visits Authorized [id number] Authorized 10/06/2022 01/04/2023 99 99 * Diagnostic Procedure Only (Routine) - Closed Specialty Diagnoses / Procedures Referred By Fer adan Referred To Contact XR IMAGING Diagnoses Status post left hip replacement Procedures XR PELVIS 1V AP RADIOLOGIC EXAMINATION PELVIS 1/2 VIEWS Shant Méndez [place] [address] [place] [address] Xr Imaging Referral ID Status Reason Start Date Expiration Date V isits Requested Visits Authorized [id number] Closed Auto-Generate d Referral 10/05/2022 11/04/2023 1 1 [facility] for referral (narrative)* Diagnostic Procedure Only (Routine) - Closed Specialty Diagnoses / Procedures Referred By Fer adan Referred To Contact XR IMAGING Diagnoses Primary osteoarthritis of right hip Procedures XR HIP GENERAL 3V PELV/AP/LAT RIGHT RADEX HIP UNILATERAL WITH PELVIS 2-3 VIEWS Shant Méndez [place] [address] [place] [address] Xr Imaging Referral ID Status Reason Start Date Expiration Date V isits Requested Visits Authorized [id number] Closed Auto-Generate d Referral 11/22/2022 12/22/2023 1 1 [facility] for referral (narrative)* Outpatient Procedure (Routine) - Pending Review Specialty Diagnoses / Procedures Referred By Contac t Referred To Contact [facility] Diagnoses Pre-op evaluation Procedures ECG COMPLETE ECG ROUTINE ECG W/LEAST 12 LDS W/I&R Quiana Poole APRN.AIRFREIGHT LOADING SUPERVISOR [address] [place] [address] [facility] [address] [place] [address] Referral ID Status Reason Start Date Expiration Date Visits Requested Visits Authorized [id number] Pending Review Auto-Generat ed Referral 11/24/2022 11/24/2023 1 1 [facility] for referral (narrative)* Diagnostic Procedure Only (Routine) - Closed Specialty Diagnoses / Procedures Referred By Contac t Referred To Contact XR IMAGING Diagnoses Aftercare following left hip joint replacement surgery Procedures XR PELVIS 1V AP RADIOLOGIC EXAMINATION PELVIS 1/2 VIEWS Vel Galeana PA-C [address] [place] [address] Xr Imaging Referral ID Status Reason Start Date Expiration Date V isits Requested Visits Authorized [id number] Closed Auto-Generate d Referral 12/20/2022 01/19/2024 1 1 [facility] for referral (narrative)* Diagnostic Procedure Only (Routine) - Closed Specialty Diagnoses / Procedures Referred By Contac t Referred To Contact XR IMAGING Diagnoses Status post right hip replacement Status post left hip replacement Procedures XR PELVIS 1V AP RADIOLOGIC EXAMINATION PELVIS 1/2 VIEWS Shant Méndez MD [address] [place] [address] Xr Imaging Referral ID Status Reason Start Date Expiration Date V isits Requested Visits Authorized [id number] Closed Auto-Generate d Referral 02/04/2023 03/05/2024 1 1 * Diagnostic Procedure Only (Routine) - Closed Specialty Diagnoses / Procedures Referred By Contac t Referred To Contact XR IMAGING Diagnoses Primary osteoarthritis of right knee Procedures XR KNEE GENERAL 4V AP BOTH/PA BOTH/LAT/MERC RIGHT RADIOLOGIC EXAM KNEE COMPLETE 4/MORE VIEWS Shant Méndez MD [address] [place] [address] Xr Imaging Referral ID Status Reason Start Date Expiration Date V isits Requested Visits Authorized [id number] Closed Auto-Generate d Referral 02/04/2023 03/05/2024 1 1 [facility] for referral (narrative)* Diagnostic Procedure Only (Routine) - Closed Specialty Diagnoses / Procedures Referred By Contac t Referred To Contact XR IMAGING Diagnoses Primary osteoarthritis of right knee Procedures XR KNEE GENERAL 4V AP BOTH/PA BOTH/LAT/MERC RIGHT RADIOLOGIC EXAM KNEE COMPLETE 4/MORE VIEWS Shant Méndez MD [address] [place] [address] Xr Imaging Referral ID Status Reason Start Date Expiration Date V isits Requested Visits Authorized [id number] Closed Auto-Generate d Referral 02/25/2023 03/26/2024 1 1 [facility] for referral (narrative)* Diagnostic Procedure Only (Routine) - Closed Specialty Diagnoses / Procedures Referred By Contac t Referred To Contact XR IMAGING Diagnoses Status post right hip replacement Procedures XR PELVIS 1V AP RADIOLOGIC EXAMINATION PELVIS 1/2 VIEWS Vel Galeana PA-C [address] [place] [address] [place] [address] Referral ID Status Reason Start Date Expiration Date V isits Requested Visits Authorized [id number] Closed Auto-Generate d Referral 09/30/2023 10/29/2024 1 1 [facility] Reason for Referral Status Reason Specialty Diagnoses / Procedures Re ferred By Contact Referred To Contact Open Radiology Diagnoses Abnormal findings on diagnostic imaging of other parts of musculoskeletal system Osteopenia, unspecified location Procedures DEXA Bone Density 2 Sites Breezy Zaman MD [address] [address] Status Reason Specialty Diagnoses / Procedures Referre d By Contact Referred To Contact Closed Radiology Diagnoses Breast cancer screening by mammogram Procedures EDITH HERMINIA DIGITAL SCREEN SELF REFERRAL W OR WO CAD BILATERAL Breezy Zaman MD [address] [facility] [address] [place] [address] Specialty Diagnoses / Procedures Referred By Contac t Referred To Contact Radiology Diagnoses Screening breast examination Procedures EDITH HERMINIA DIGITAL SCREEN SELF REFERRAL W OR WO CAD BILATERAL Luis Garcia MD [address] [place] [address] Referral ID Status Reason Start Date Expiration Date Visits Re quested Visits Authorized [id number] Closed 2022 2023 1 1 Specialty Diagnoses / Procedures Referred By Contac t Referred To Contact Radiology Diagnoses Abnormal mammogram of right breast Procedures US BREAST COMPLETE RIGHT Luis Garcia MD [address] [place] [address] Referral ID Status Reason Start Date Expiration Date V isits Requested Visits Authorized [id number] Authorized 03/15/2022 03/15/2023 1 1 Specialty Diagnoses / Procedures Referred By Contac t Referred To Contact Radiology Diagnoses Abnormal mammogram of right breast Procedures EDITH HERMINIA DIGITAL DIAGNOSTIC UNILATERAL RIGHT Luis Garcia MD [address] [place] [address] Referral ID Status Reason Start Date Expiration Date Visits Re quested Visits Authorized [id number] Closed 03/15/2022 03/15/2023 1 1 Specialty Diagnoses / Procedures Referred By Contac t Referred To Contact Radiology Diagnoses Encounter for screening mammogram for malignant neoplasm of breast Procedures EDITH HERMINIA DIGITAL SCREEN BILATERAL Luis Garcia MD [address] [place] [address] Referral ID Status Reason Start Date Expiration Date Visits Re quested Visits Authorized [id number] Closed 02/25/2023 02/25/2024 1 1 Advance Directives No Advanced Directives Records FoundDocuments on File Type Date Recorded Patient Emergency Physician Expl anation ACP-Advance Directive 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 Manager Unit Documents on File Type Date Recorded Patient Emergency Physician Expl anation Advance Directive(s) 09/29/2021 6:08 AM [...] Density 2 Sites Breezy Zaman MD [address] [facility] [address] [place] [address] Status Reason Specialty Diagnoses / Procedures Referre d By Contact Referred To Contact Closed Radiology Diagnoses Breast cancer screening by mammogram Procedures EDITH HERMINIA DIGITAL SCREEN SELF REFERRAL W OR WO CAD BILATERAL Breezy Zaman MD [address] [facility] [address] [place] [address] Reason Comments Radio Gen RMP Specialty Diagnoses / Procedures Referred By Contac t Referred To Contact Radiology Diagnoses Screening breast examination Procedures EDITH HERMINIA DIGITAL SCREEN SELF REFERRAL W OR WO CAD BILATERAL Luis Garcia MD [address] [facility] [address] [place] [address] Referral ID Status Reason Start Date Expiration Date Visits Re quested Visits Authorized [id number] Closed 2022 2023 1 1 Specialty Diagnoses / Procedures Referred By Contac t Referred To Contact Radiology Diagnoses Abnormal mammogram of right breast Procedures US BREAST COMPLETE RIGHT Luis Garcia MD [address] [facility] [address] [place] [address] Referral ID Status Reason Start Date Expiration Date V isits Requested Visits Authorized [id number] Authorized 03/15/2022 03/15/2023 1 1 Specialty Diagnoses / Procedures Referred By Contac t Referred To Contact Radiology Diagnoses Abnormal mammogram of right breast Procedures EDITH HERMINIA DIGITAL DIAGNOSTIC UNILATERAL RIGHT Luis Garcia MD [address] [facility] [address] [place] [address] Referral ID Status Reason Start Date Expiration Date Visits Re quested Visits Authorized [id number] Closed 03/15/2022 03/15/2023 1 1 Reason Comments [...] DIGITAL SCREEN BILATERAL Luis Garcia MD [address] [facility] [address] [place] [address] Referral ID Status Reason Start Date Expiration Date Visits Re quested Visits Authorized [id number] Closed 02/25/2023 02/25/2024 1 1 Reason Comments Established Patient Follow Up Hip Replacement Source Comments (unrecognize d section and content) In the event this informatio n is protected by the Federal Confidentiality of Alcohol and Drug Abuse Patient Records regulations: The Federal rules restrict any use of the information to criminally investigate or prosecute any alcohol or drug abuse patient.[facility] the event this information is protected by the Federal Confidentiality of Alcohol and Drug Abuse Patient Records regulations: The Federal rules restrict any use of the information to criminally investigate or prosecute any alcohol or drug abuse patient.[facility] the event this information is protected by the Federal Confidentiality of Alcohol and Drug Abuse Patient Records regulations: The Federal rules restrict any use of the information to criminally investigate or prosecute any alcohol or drug abuse patient.[facility] the event this information is protected by the Federal Confidentiality of Alcohol and Drug Abuse Patient Records regulations: The Federal rules restrict any use of the information to criminally investigate or prosecute any alcohol or drug abuse patient.[facility] the event this information is protected by the Federal Confidentiality of Alcohol and Drug Abuse Patient Records regulations: The Federal rules restrict any use of the information to criminally investigate or prosecute any alcohol or drug abuse patient.[facility] the event this information is protected by the Federal Confidentiality of Alcohol and Drug Abuse Patient Records regulations: The Federal rules restrict any use of the information to criminally investigate or prosecute any alcohol or drug abuse patient.[facility] the event this information is protected by the Federal Confidentiality of Alcohol and Drug Abuse Patient Records regulations: The Federal rules restrict any use of the information to criminally investigate or prosecute any alcohol or drug abuse patient.[facility] the event this information is protected by the Federal Confidentiality of Alcohol and Drug Abuse Patient Records regulations: The Federal rules restrict any use of the information to criminally investigate or prosecute any alcohol or drug abuse patient.[facility] the event this information is protected by the Federal Confidentiality of Alcohol and Drug Abuse Patient Records regulations: The Federal rules restrict any use of the information to criminally investigate or prosecute any alcohol or drug abuse patient.[facility] the event this information is protected by the Federal Confidentiality of Alcohol and Drug Abuse Patient Records regulations: The Federal rules restrict any use of the information to criminally investigate or prosecute any alcohol or drug abuse patient.[facility] the event this information is protected by the Federal Confidentiality of Alcohol and Drug Abuse Patient Records regulations: The Federal rules restrict any use of the information to criminally investigate or prosecute any alcohol or drug abuse patient.[facility] the event this information is protected by the Federal Confidentiality of Alcohol and Drug Abuse Patient Records regulations: The Federal rules restrict any use of the information to criminally investigate or prosecute any alcohol or drug abuse patient.[facility] the event this information is protected by the Federal Confidentiality of Alcohol and Drug Abuse Patient Records regulations: The Federal rules restrict any use of the information to criminally investigate or prosecute any alcohol or drug abuse patient.[facility] the event this information is protected by the [facility] Confidentiality of Alcohol and Drug Abuse Patient Records regulations: The Federal rules restrict any use of the information to criminally investigate or prosecute any alcohol or drug abuse patient.[facility] the event this information is protected by the Federal Confidentiality of Alcohol and Drug Abuse Patient Records regulations: The Federal rules restrict any use of the information to criminally investigate or prosecute any alcohol or drug abuse patient.[facility] Care Teams (unrecognized sec tion and content) Production Troubleshooter Relationship Specialty Start Date End Date Luis Garcia II [address] [facility] [address] [place] [address] PCP - General Internal Medicine 08/31/21 Production Troubleshooter Relationship Specialty Start Date End Date Luis Garcia MD [address] [facility] [address] [place] [address] PCP - General 06/07/12 Production Troubleshooter Relationship Specialty Start Date End Date Luis Garcia MD [address] [facility] [address] [place] [address] PCP - General 06/07/12 Production Troubleshooter Relationship Specialty Start Date End Date Luis Garcia MD [address] [place] [address] PCP - General 06/07/12 Production Troubleshooter Relationship Specialty Start Date End Date Luis Garcia II [address] [place] [address] PCP - General Internal Medicine 08/31/21 Production Troubleshooter Relationship Specialty Start Date End Date Luis Garcia II [address] [place] [address] PCP - General Internal Medicine 08/31/21 Production Troubleshooter Relationship Specialty Start Date End Date Luis Garcia II [address] [place] [address] PCP - General Internal Medicine 08/31/21 Production Troubleshooter Relationship Specialty Start Date End Date Luis Garcia II [address] [place] [address] PCP - General Internal Medicine 08/31/21 Production Troubleshooter Relationship Specialty Start Date End Date Luis Garcia II [address] [place] [address] PCP - General Internal Medicine 08/31/21 Production Troubleshooter Relationship Specialty Start Date End Date Luis Garcia II [address] [place] [address] PCP - General Internal Medicine 08/31/21 Production Troubleshooter Relationship Specialty Start Date End Date Luis Garcia II [address] [place] [address] PCP - General Internal Medicine 08/31/21 Production Troubleshooter Relationship Specialty Start Date End Date Luis Garica II [address] [place] [address] PCP - General Internal Medicine 08/31/21 Production Troubleshooter Relationship Specialty Start Date End Date Luis Garcia Matthew JONAS [address] [place] [address] PCP - General Internal Medicine 08/31/21 Production Troubleshooter Relationship Specialty Start Date End Date Luis Garcia Matthew JONAS [address] [place] [address] PCP - General Internal Medicine 08/31/21 Production Troubleshooter Relationship Specialty Start Date End Date Jeffery Garciamigdalia Castro II [address] [place] [address] PCP - General Internal Medicine 08/31/21 Production Troubleshooter Relationship Specialty Start Date End Date Garcia Luis Matthew MCDANIEL [address] [place] [address] PCP - General Internal Medicine 08/31/21 Production Troubleshooter Relationship Specialty Start Date End Date Luis Garcia MD [address] [place] [address] PCP - General 06/07/12 [employer] Relationship Specialty Start Date End Date Luis Garcia II, MD [address] [place] [address] PCP - General Internal Medicine 08/31/21 INFORMATION SOURCE (unrecogn ized section and content) DATE CREATED AUTHOR 11/19/2022 [facility] DATE CREATED AUTHOR AUTHOR'S ORGANIZ ATION 12/02/2022 [facility] DATE CREATED AUTHOR AUTHOR'S ORGANIZ ATION 04/22/2023 [facility] DATE CREATED AUTHOR AUTHOR'S ORGANIZ ATION 10/05/2023 [facility] DATE CREATED AUTHOR AUTHOR'S ORGANIZ ATION 01/06/2024 [facility] EPIC FOR RECORDS PERTAINING TO PATIENTS [...] BE BASED ON THE PRIMARY CLINICAL RECORDS. [facility]. provides no warranty or guarantee of the accuracy or completeness of information in this document.
[2024-01-17 07:17] VITALS: BMI 22.7
[2024-01-17 07:25] VITALS: BP 144/74; PULSE 69; TEMP 36.4; O2SAT 97
[2024-01-17] MEDS: LACTATED RINGER'S SOLUTION 1,000 ML 75 ML IV (07:27)
--- NOTE | 2024-01-17 07:34 | W.PM.PROCNOT ---
Date of procedure: 01/17/24 Pre-op diagnosis: screening colonoscopy Post-op diagnosis: same as pre-op Procedure: Previous colonoscopy: 2019 procedure: screening colonoscopy The patient was given IV conscious sedation.? The patient's SPO2 remained above 90% throughout the procedure. The colonoscope was inserted per rectum and advanced under direct vision to the cecum without difficulty.? The prep was good.? Findings: Terminal ileum os: normal Cecum/Ascending colon: normal Transverse colon: normal Descending/Sigmoid colon: normal Rectum/Anus: examined in normal and retroflexed positions and was normal Withdrawal Time was (minutes): 8 The colon was decompressed and the scope was removed.? The patient tolerated the procedure well. Recommendations/Plan: 1.? Lifestyle and dietary modifications as discussed 2.? F/U in 10 years for repeat 4.? Discussed with the family Anesthesia: MAC Surgeon: Lg Mcleod Estimated blood loss (mL): 0 Pathology: none sent Condition: stable Disposition: PACU
[2024-01-17 08:02] VITALS: BP 129/47; PULSE 63; TEMP 36.3; O2SAT 100
[2024-01-17 08:32] VITALS: BP 118/51; PULSE 57; O2SAT 96
== END 2024-01-17 08:32 | disposition home or self-care (01) ==
PROVIDERS: PCP Internal Medicine; Visit Provider Surgery
PROC: (CPT G0121; principal; 2024-01-17 07:30)
DX: Z12.11 Encounter for screening for malignant neoplasm of colon (principal); Z86.16 Personal history of COVID-19; Z96.649 Presence of unspecified artificial hip joint; Z87.891 Personal history of nicotine dependence
CPT/HCPCS: G0121; J2704

== ENCOUNTER 2024-04-23 08:28 | Outpatient (OUT) | payer MEDICARE, OTHER, SELFPAY ==
--- OUTSIDE RECORDS SUMMARY | 2024-04-23 08:48 | XMS_ITS | CCD ---
Author Organization [facility] Inform ion Partnership [facility] Care Team Providers Care Eap Counselor Name Role Phone Luis Garcia MD Primary [...] Attending Unavailable GARCIA, DR MARTINEZ Consulting Unavailable GRACIA, DR MARTINEZ Primary Care Unavailable GARCIA, DR [...] MD, Daniel B Primary Care Provider [phone] SHANT MÉNDEZ Referring Unavailable LUIS GARCIA II Primary Care Unavailable SHANT MÉNDEZ Referring Unavailable LUIS GARCIA II Primary Care Unavailable VEL GALEANA Attending Unavailable LUIS GARCIA II Primary Care Unavailable SHANT MÉNDEZ Referring Unavailable GARCIA II, LUIS B Primary Care Unavailable SHANT MÉNDEZ Attending Unavailable GARCIA II, LUIS B Primary Care Unavailable SHANT MÉNDEZ C Attending Unavailable SELF Referring Unavailable GARCIA II, [...] GARCIA II, LUIS B Primary Care Unavailable KOLJESUSUN, SHANT C Referring Unavailable GARCIA II, LUIS B Primary Care Unavailable SCOTCH, VEL Referring Unavailable GARCIA II, LUIS B Primary Care Unavailable SHANT MÉNDEZ Attending Unavailable GARCIA II, LUIS B Primary Care Unavailable MYLESYESSICA, SHANT C Referring Unavailable GARCIA II, LUIS B Primary Care Unavailable MARGIE LAL Attending Unavailable MARGIE LAL Referring Unavailable LUIS GARCIA Attending Unavailable MARGIE LAL Attending Unavailable LUIS GARCIA Attending Unavailable LORENA PUENTES Attending Unavailable LUIS GARCIA Attending Unavailable MARGIE LAL Attending Unavailable MARGIE LAL Attending Unavailable Allergies Allergy Classification Reported Allergen(s) Allergy Type Date of Onset Reaction(s) Facility (10 sources) Chlorhexidine; Translations: [CHLORHEXIDINE] Drug Allergy 3 Rash [facility] Work Phone: (10 sources) oxyCODONE; Translations: [OXYCODONE] Drug Allergy 3 GI Upset [facility] Work Phone: (10 sources) Adhesive Tape-Silicones; Translations: [ADHESIVE TAPE-SILICONES] Drug Intolerance 3 Other: See Comments [facility] Work Phone: Medications Current Medications Medication [...] take 1 capsule by mouth once daily [place]-3 Fatty Acids (FISH OIL) 1000 MG CAPS [...] Comment on above: Take 1 capsule by [facility] twice daily for 5 days. risedronate [...] Comment on above: Take 2 tablets by [facility] every 8 hours as needed for [...] Comment on above: Take 1 tablet by [facility] twice daily for 28 days. cetirizine hydrochloride [...] Comment on above: Take 1 capsule by [facility] twice daily as needed for constipation. Garlic preparation (20 sources) Non-Standardized Food Allergenic Extract garlic (GARLIQUE ORA L) Take by mouth once daily. 0 Active Garlic 10 MG CAP S Take by mouth daily 0 Active Comment on above: Take by mouth once d aily. glucosamine/msm/chondr oitin A (NQYUWBDVWUO-VVUJAY-UW M ORAL) (7 sources) End: 11-24-2022 glucosamine/msm/chondroiti n A (NHXDVXBENRC-UQZLHE-KAB ORAL) Take by mouth once daily. 0 11/24/2022 Discontinued (Course of therapy completed) glucosamine/msm/ chondroitin A (VCXKKGKMTWG-GFQMPB-VAM ORAL) Take by mouth once daily. 0 [...] above: Take by mouth once d aily. RYLDY-7-JVR-EPA-DPA-FIS H OIL ORAL (14 sources) SQNCU-1-VFX-EPA- DPA-FI SH OIL ORAL Take by mouth [...] Test Name Value Interpretation Reference Range Facility [facility] 10-04-2023 CNOV Office Visit (LOORRM ) MARY VAUGHN ([id number]) 1955 F DEF Date Time Provider Department [...] recheck or sooner for the pain recurs. Velshanna Manriquech, PA-C October 04, 2023 10:48 AM Allergies [...] hip replacement [Z96.642] Order(s):XR PELVIS 1V AP [[id number]] Order #: [id number] FUTURE Prescriptions as of 10/04/2023 - docusate [...] six hours after the dental procedure - AXGDJ-7-MTB-EPA-DPA-F ANTONIO OIL ORAL Take by mouth once daily. - multivit (more content not included)... Normal [facility] XR PELVIS 1V APon 10-04-2023 XR PELVIS 1V AP * * *Final Report* * * DATE OF EXAM: Oct 04 2023 11:04AM BLANCAX 5239 - XR PELVIS 1V AP / [...] right hip. IMPRESSION: Stable bilateral hip arthroplasties. Laboratory Secretary: EFRAIN Transcribe Date/Time: Oct 04 2023 3:37P Dictated by : JAYE PAYTON MD This examination was interpreted and the report reviewed and electronically signed by: JAYE PAYTON MD on Oct 04 2023 3:39PM EST [id number] Normal [facility] EDITH HERMINIA DIGITAL SCREEN BILA TERALon [...] to the patient regarding the results. [employer] [place] [employer] recommends annual mammograms for women 40 years and older. Interpreted by: Timothy Rodriguez DO Signed by: Timothy Rodriguez DO 04/18/23 Final result Normal [facility] No mammographic evidence of malignancy BIRADS: BIRADS - CATEGORY 1 Negative. Normal interval follow-up is recommended in 12 months. OVERALL ASSESSMENT - NEGATIVE A letter of notification will be sent to the patient regarding the results. [employer] [place] [employer] recommends annual mammograms for women 40 years and older[address] [facility] EXAMINATION: SCREENING DIGITAL BILATERAL MAMMOGRAM WITH [...] concerning grouping of microcalcification in either breast. [facility] Radiology Study observation (narrative) [facility] [employer] EDITH HERMINIA DIGITAL SCREEN BILA TERALOrdered By: Timothy Rodriguez on 04-18-2023 [employer] Work Phone: CNOVon 02-25-2023 CNOV Office Visit (LOORRM ) MARY VAUGHN ([id number]) 1955 F DEF Date Time Provider Department 02/25/23 12:00 PM SHANT MÉNDEZ During your visit today, we recorded the following information about you: Shant Méndez II, MD 02/25/2023 3:42 PM Signed Large Joint Arthro/Inj: R knee joint Informed Consent Consent Obtained: Verbal [place] Protocol A moment to CARE was completed. 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 Laboratory Secretary: EFRAIN Transcribe Date/Time: Feb 25 2023 2:28P Dictated by : BROOKS SOLO MD This examination was interpreted and the report reviewed and electronically signed by: BROOKS SOLO MD on Feb 25 2023 2:29PM EST [id number] Normal [facility] XR KNEE GENERAL 4V AP BOTH/P A BOTH/LAT/MERC RIGHTon 02-25-2023 [facility] ic CNOVon 02-07-2023 CNOV Office Visit (LOORRM ) MARY VAUGHN ([id number]) 1955 F DEF Date Time Provider Department 02/07/23 2:00 PM SHANT MÉNDEZ During your visit today, we recorded the following information about you: Shant Méndez II, MD 02/10/2023 2:28 PM Signed [facility] [address] [place] [address] CLINIC NOTE Department of Orthopaedics - Jerome Méndez II, M.D. NAME: MARY VAUGHN CLINIC NO.: [id number] DATE OF SERVICE: 02/07/2023 CHIEF COMPLAINT: Recheck [...] walking on the [place]. Has a 1 plus effusion of the right knee. No gross ligamentous instability. Neurovascularly intact. Recommend walk on the driveway and no walking on even ground. No significant problems with her right hip. X-rays shows total hip replacements, bilateral in excellent position. See back in 1 month. Dictated By: Shant Méndez II, M.D. Date Dictated: 02/07/2023 Date Typed: [facility] 02/08/2023 JOB# [id number] Shant Méndez II, MD 02/22/2023 1:48 PM Signed see dictated note Shatn Méndez II, MD Molding Machine Operator Helper: Transcribed Clinic Note (gilberto) ID: [id number] Author: SHANT MÉNDEZ Signed by SHANT MÉNDEZ MD on 02/10/2023 at 2:28 PM Document text: [facility] [address] [place] [id number] CLINIC NOTE Department of Orthopaedics - Jerome Méndez II, M.D. NAME: MARY VAUGHN CLINIC NO.: [id number] DATE OF SERVICE: 02/07/2023 CHIEF COMPLAINT: Recheck [...] walking on the [place], [place]. Has a 1 plus effusion of the right knee. No gross ligamentous instability. Neurovascularly intact. Recommend walk on the driveway and no walking on even ground. No significant problems with her right hip. X-rays shows total hip replacements, bilateral in excellent position. See back in 1 month. Dictated By: Shant Méndez II, M.D. Date Dictated: 02/07/2023 Date Typed: kenneth 02/08/2023 JOB# [id number] ----- Referring Provider: SELF [200] Allergies As [...] KNEE GENERAL 4V AP BOTH/PA BOTH/LAT/MERC RIGHT [[id number]] Order #: [id number] FUTURE XR PELVIS 1V AP [[id number]] Order #: [id number] FUTURE Prescriptions as of 02/22/2023 - docusate [...] six hours after the dental procedure - SWTPO-7-PEI-EPA-DPA-F ANTONIO OIL ORAL Take by mouth once [...] Former smoker [Z87.891] 09/21/2021 SVT (supraventricular tachycardia) (HCC) [I47.1]09/21/2021 Incomplete RBBB [I45.10] 09/21/2021 Aftercare following left hip joint replacement *10/23/2021 Status post left hip replacement [Z96.642] 10/23/2021 Primary osteoarthritis of ri (more content not included)... Normal [facility] No Panel Informationon 02-07 [facility] ic XR KNEE 4V AP/PA BOTH+LAT/ME R [...] significant abnormality. --- IMPRESSION: MILD DEGENERATIVE CHANGES Laboratory Secretary: EFRAIN Transcribe Date/Time: Feb 07 2023 2:56P Dictated by : LANA CONNOLLY MD This examination was interpreted and the report reviewed and electronically signed by: LANA CONNOLLY MD on Feb 07 2023 2:58PM EST [id number] Normal [facility] XR PELVIS 1V APon 02-07-2023 XR [...] significant abnormality. --- IMPRESSION: NORMAL POSTOPERATIVE FINDINGS Laboratory Secretary: EFRAIN Transcribe Date/Time: Feb 07 2023 2:58P Dictated by : LANA CONNOLLY MD This examination was interpreted and the report reviewed and electronically signed by: LANA CONNOLLY MD on Feb 07 2023 2:59PM EST [id number] Normal [facility] CNOVon 01-14-2023 CNOV Office Visit (LOORRM ) MARY VAUGHN ([id number]) 1955 F DEF Date Time Provider Department [...] six hours after the dental procedure - BAEJP-1-AJI-EPA-DPA-F ANTONIO OIL ORAL Take by mouth once [...] left hip [M16.12] 09/21/2021 Emphysema of lung ([facility]) [J43.9] 09/21/2021 Former smoker [Z87.891] 09/21/2021 SVT (supraventricular tachycardia) ([facility]) [I47.1]09/21/2021 Incomplete RBBB [I45.10] 09/21/2021 Aftercare following left hip joint replacement *10/23/2021 Status post left hip replacement [Z96.642] 10/23/2021 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 - acetaminophen (TYLENOL EXTRA STRENGTH) 500 mg tablet Take 2 tablets by mouth every 8 hours as needed for pain. - traMADol (ULT (more content not included)... Normal [facility] XR PELVIS 1V APon 12-22-2022 XR [...] significant abnormality. --- IMPRESSION: NORMAL POSTOPERATIVE FINDINGS Laboratory Secretary: EFRAIN Transcribe Date/Time: Dec 22 2022 12:22P Dictated by : LANA CONNOLLY MD This examination was interpreted and the report reviewed and electronically signed by: LANA CONNOLLY MD on Dec 22 2022 12:23PM EST [id number] Normal [facility] ic ANES POSTPROC EVALon 023 ANES POSTPROC EVAL HNO ID: [id number] Author: Alejandro Sauceda MD Service: Anesthesiology Author [...] November 30, 2022 TIME: 3:48 PM CSN: [id number] [facility] ANES PRE-OPon 11-30-2022 ANES PRE-OP HNO ID: [id number] Author: Alejandro Sauceda MD Service: Anesthesiology Author Type: Anesthesiologist Type: Anesthesia Preprocedure Evaluation Filed: 11/30/2022 10:28 AM Note Text: ANESTHESIOLOGY DAY OF SURGERY NOTE : 1955 Procedure Information Date/Time: 11/30/22 1100 Procedure: ARTHROPLASTY REPLACE JOINT TOTAL HIP ABA HSD (Right: Hip) Location: OR / OR Surgeons: Shant Méndez MD Estimated [...] six hours after the dental procedure - KPRME-9-WSO-EPA-DPA-F ANTONIO OIL ORAL Take by mouth once [...] November 30, 2022 TIME: 10:27 AM CSN: [id number] [facility] OPERATIVE NOon 11-30-2022 OPERATIVE NO HNO ID: [id number] Author: Shant Méndez MD Service: Orthopaedic Surgery Author Type: Physician Type: Operative Report Filed: 11/30/2022 1:35 PM Note Text: [facility] OPERATIVE REPORT PATIENT NAME: Mary Vaughn AGE: [age] year old LOG ID: [id number] Surgery Date: 11/30/2022 SURGEON: Shant Méndez MD FIRER GLOST KILN: Vel Galeana PA-C, SA, her assistance consisted [...] banked allogenic blood if medically necessary. IMPLANTS: [employer] Total Hip System SIZE TYPE Acetabulum [...] Incision Start (more content not included)... 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 Ambulatory without AD. + drives. No recent falls. Patient Report: I'm going to [place] after this on the way home. CURRENT [...] signs-other Interventions Provided: Evaluation, Self Alf Management (57128) $ Evaluation-Low (73702) Billed Units: 1 unit Self Alf Management (51189) Treatment Minutes: 10 $ Self Alf Management (22696) Billed Units: 1 unit Training AND education [...] sequencing/proper anshul (more content not included)... Normal [facility] THERAPY NT HNO ID: [id number] Author: Brit Sears PT, DPT Service: ? 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 Ambulatory without AD. + drives. No recent [...] walking-musculoskelet al Interventions Provided: Evaluation, Gait Training (34125), Therapeutic Exercise (44681) $ Evaluation-Low (42186) Billed Units: 1 unit Therapeutic Exercise (73519) Treatment Minutes: 10 $ Therapeutic Exercise (94978) Billed Units: 1 unit Exercise Ankle Pumps (number of reps): 10 Quad Sets (number of reps): 10 Glut Sets (number of reps): 10 Heel Slides (number of reps): 10 LAQ (number of reps): 10 Hip Abduction (number of reps): 10 Gait Training (40846) Treatment Minutes: 20 $ Gait Training (24453) Billed Units: 1 unit Training AND education provided (more content not included)... [facility] XR PELVIS 1V APon 11-30-2022 XR PELVIS [...] Right hip prosthesis appears appropriate in positioning Laboratory Secretary: EFRAIN Transcribe Date/Time: Nov 30 2022 3:31P Dictated by : BAILEY WATTS MD This examination was interpreted and the report reviewed and electronically signed by: BAILEY WATTS MD on Nov 30 2022 3:31PM EST [id number] [facility] Deovn 11-26-2022 SHYANNEN Telephone (AIDAN) MARY VAUGHN ([id number]) 1955 F DEF Date Time Provider Department 11/26/22 QUIANA POOLE During your visit today, we recorded the following information about you: Quiana Poole APRN.[facility] 11/26/2022 8:43 AM Signed On pre-op urine culture... Culture >=100,000 CFU/ml Mixed microbiota Abnormal Macrobid ordered. Please call patient and advised to start KRISTIAN Thank you Quiana Poole APRN.[facility] Joseline Wei LPN 11/26/2022 9:09 AM Signed Attempted to reach patient via phone call, no answer. Left message to return call to [facility] nurse at [phone]. Joseline Wei LPN November 26, 2022 9:08 [...] six hours after the dental procedure - QPUHI-7-ABO-EPA-DPA-F ANTONIO OIL ORAL Take by mouth once [...] left hip [M16.12] 09/21/2021 Emphysema of lung ([facility]) [J43.9] 09/21/2021 Former smoker [Z87.891] 09/21/2021 SVT (supraventricular tachycardia) ([facility]) [I47.1]09/21/2021 Incomplete RBBB [I45.10] 09/21/2021 Aftercare following [...] Status:Closed by QUIANA POOLE on 11/26/22 Normal [facility] Bacteria Ur Culton 3 Bacteria identified [...] technique or straight catheterization for???urine???collect ion. Normal [facility] Comment on above: Performed By: #### 6 30-4 ####[facility] LABCLIA [id number] [place] [address] [place] Basic metabolic 2000 panelon 11-24-2022 Anion gap [Moles/Vol] 9 mmol/L Normal 9-18 [facility] Comment on above: Order Comment: Speci men Type: BLOOD SPECIMENOrdering Facility: [facility] Address: [address] Performed By: #### 2 4321-2 ####[facility]CLIA [id number] [place] [address] [place] Calcium [Mass/Vol] 9.7 mg/dL Normal 8.5-10.2 [facility] Comment on above: Order Comment: Speci men Type: BLOOD SPECIMENOrdering Facility: [facility] Address: [address] Performed By: #### 2 4321-2 ####[facility] LABCLIA [id number] [place] [address] [place] Chloride [Moles/Vol] 102 mmol/L Normal 97-105 [facility] Comment on above: Order Comment: Speci men Type: BLOOD SPECIMENOrdering Facility: [facility] Address: [address] [place] [address] Performed By: #### 2 4321-2 ####[facility]CLIA [id number] [place] [address] [place] CO2 [Moles/Vol] 28 mmol/L Normal 22-30 [facility] Comment on above: Order Comment: Speci men Type: BLOOD SPECIMENOrdering Facility: [facility] Address: [address] [place] [address] Performed By: #### 2 4321-2 ####[facility] LABCLIA [id number] [address] STATES OF [facility] Creatinine [Mass/Vol] 0.63 mg/dL Normal 0.58-0.96 [facility] Comment on above: Order Comment: Daniel land Type: BLOOD SPECIMENOrdering Facility: [facility] Address: [address] [place] [address] Performed By: #### 2 4321-2 ####[facility] LABIA [id number] [address] ESTIMATED GLOMERULAR FILTRATION RATE 97 mL/min/1.73m??? Normal >=60 [facility] Comment on above: Order Comment: Daniel land Type: BLOOD SPECIMENOrdering Facility: [facility] Address: [address] [place] [address] Result Comment: Ledy mated Glomerular Filtration Rate [...] actual GFR. Performed By: #### 2 4321-2 ####[facility]CLIA [id number] [address] [place] Glucose [Mass/Vol] 87 mg/dL Normal 74-99 [facility] Comment on above: Order Comment: Daniel land Type: BLOOD SPECIMENOrdering Facility: [facility] Address: [address] [place] [address] Result Comment: The [place] [employer] (ADA) provides guidance for cutoff [...] Standards of Medical Care in Diabetes 2016, [place] [employer]. Diabetes Care. 2016.39(Suppl 1). Performed By: #### 2 4321-2 ####[facility] LABCLIA [id number] [place] [address] [place] Potassium [Moles/Vol] 4.8 mmol/L Normal 3.7-5.1 [facility] Comment on above: Order Comment: Speci men Type: BLOOD SPECIMENOrdering Facility: [facility] Address: [address] [place] [address] Performed By: #### 2 4321-2 ####[facility] LABIA [id number] [address] [place] Sodium [Moles/Vol] 139 mmol/L Normal 136-144 [facility] Comment on above: Order Comment: Speci men Type: BLOOD SPECIMENOrdering Facility: [facility] Address: [address] [place] [address] Performed By: #### 2 4321-2 ####[facility] LABIA [id number] [place] [address] [place] Urea nitrogen [Mass/Vol] 20 mg/dL Normal 7-21 [facility] Comment on above: Order Comment: Speci men Type: BLOOD SPECIMENOrdering Facility: [facility] Address: [address] [place] [address] Performed By: #### 2 4321-2 ####[facility] LABIA [id number] [place] [address] [place] CBC W Auto Differential pane l (Bld)on 11-24-2022 Basophils (Bld) [#/Vol] 0.04 10*3/uL Normal <0.11 [facility] Comment on above: Order Comment: Speci men Type: BLOOD SPECIMENOrdering Facility: [facility] Address: [address] [place] [id number] Performed By: #### 5 7021-8 ####[facility] LABCLIA [id number] [address] [place] Basophils/100 WBC (Bld) 0.6 % Normal [facility] Comment on above: Order Comment: Speci men Type: BLOOD SPECIMENOrdering Facility: [facility] Address: [address] [place], [place] [address] Performed By: #### 5 7021-8 ####[facility] LABCLIA [id number] [place] [address] [place] Differential cell count method Nom (Bld) Auto Normal [facility] Comment on above: Order Comment: Speci men Type: BLOOD SPECIMENOrdering Facility: [facility] Address: [address] [place], [place] [address] Performed By: #### 5 7021-8 ####[facility] LABCLIA [id number] [place] [address] [place] Eosinophils (Bld) [#/Vol] 0.22 10*3/uL Normal <0.46 [facility] Comment on above: Order Comment: Speci men Type: BLOOD SPECIMENOrdering Facility: [facility] Address: [address] [place], [place] [address] Performed By: #### 5 7021-8 ####[facility] LABCLIA [id number] [address] [place] Eosinophils/100 WBC (Bld) 3.1 % Normal [facility] Comment on above: Order Comment: Speci men Type: BLOOD SPECIMENOrdering Facility: [facility] Address: [address] [place] [address] Performed By: #### 5 7021-8 ####[facility] LABCLIA [id number] [address] [place] Erythrocyte distribution width (RBC) [Ratio] 13.5 % Normal 11.5-15.0 [facility] Comment on above: Order Comment: Speci men Type: BLOOD SPECIMENOrdering Facility: [facility] Address: [address] Performed By: #### 5 7021-8 ####[facility] LABCLIA [id number] [place] [address] [place] Hematocrit (Bld) [Volume fraction] 46.8 % High 36.0-46.0 [facility] Comment on above: Order Comment: Speci men Type: BLOOD SPECIMENOrdering Facility: [facility] Address: [address] Performed By: #### 5 7021-8 ####[facility] LABIA [id number] [place] [address] [place] Hemoglobin (Bld) [Mass/Vol] 14.5 g/dL Normal 11.5-15.5 [facility] Comment on above: Order Comment: Speci men Type: BLOOD SPECIMENOrdering Facility: [facility] Address: [address] [place], [place] [address] Performed By: #### 5 7021-8 ####[facility] LABIA [id number] [place] [address] [place] Immature granulocytes (Bld) [#/Vol] 10*3/uL Normal <0.10 [facility] Comment on above: Order Comment: Speci men Type: BLOOD SPECIMENOrdering Facility: [facility] Address: [address] Performed By: #### 5 7021-8 ####[facility] LABIA [id number] [place] [address] [place] Immature granulocytes/100 WBC (Bld) 0.3 % Normal [facility] Comment on above: Order Comment: Speci men Type: BLOOD SPECIMENOrdering Facility: [facility] Address: [address] [place] [address] Performed By: #### 5 7021-8 ####[facility] LABCLIA [id number] [place] [address] [place] Lymphocytes (Bld) [#/Vol] 1.83 10*3/uL Normal 1.00-4.00 [facility] Comment on above: Order Comment: Speci men Type: BLOOD SPECIMENOrdering Facility: [facility] Address: [address] Performed By: #### 5 7021-8 ####[facility] LABIA [id number] [address] [place] Lymphocytes/100 WBC (Bld) 25.8 % Normal [facility] Comment on above: Order Comment: Speci men Type: BLOOD SPECIMENOrdering Facility: [facility] Address: [address] [place], [place] [address] Performed By: #### 5 7021-8 ####[facility] LABIA [id number] [place] [address] [place] MCH (RBC) [Entitic mass] 28.7 pg Normal 26.0-34.0 [facility] Comment on above: Order Comment: Speci men Type: BLOOD SPECIMENOrdering Facility: [facility] Address: [address] [place] [address] Performed By: #### 5 7021-8 ####[facility] LABCLIA [id number] [place] [address] [place] MCHC (RBC) [Mass/Vol] 31.0 g/dL Normal 30.5-36.0 [facility] Comment on above: Order Comment: Speci men Type: BLOOD SPECIMENOrdering Facility: [facility] Address: [address] Performed By: #### 5 7021-8 ####[facility] LABCLIA [id number] [place] [address] [place] MCV (RBC) [Entitic vol] 92.5 fL Normal 80.0-100.0 [facility] Comment on above: Order Comment: Speci men Type: BLOOD SPECIMENOrdering Facility: [facility] Address: [address] [place] [address] Performed By: #### 5 7021-8 ####[facility] LABCLIA [id number] [place] [address] [place] Monocytes (Bld) [#/Vol] 0.54 10*3/uL Normal <0.87 [facility] Comment on above: Order Comment: Speci men Type: BLOOD SPECIMENOrdering Facility: [facility] Address: [address] [place] [address] Performed By: #### 5 7021-8 ####[facility] LABCLIA [id number] [place] [address] [place] Monocytes/100 WBC (Bld) 7.6 % Normal [facility] Comment on above: Order Comment: Speci men Type: BLOOD SPECIMENOrdering Facility: [facility] Address: [address] [place] [address] [place], [place] [address] Performed By: #### 5 7021-8 ####[facility] LABCLIA [id number] [place] [address] [place] Neutrophils (Bld) [#/Vol] 4.44 10*3/uL Normal 1.45-7.50 [facility] Comment on above: Order Comment: Speci men Type: BLOOD SPECIMENOrdering Facility: [facility] Address: [address] [place], [place] [address] Performed By: #### 5 7021-8 ####[facility] LABCLIA [id number] [place] [address] [place] Neutrophils/100 WBC (Bld) 62.6 % Normal [facility] Comment on above: Order Comment: Speci men Type: BLOOD SPECIMENOrdering Facility: [facility] Address: [address] [place] [address] Performed By: #### 5 7021-8 ####[facility] LABCLIA [id number] [place] [address] [place] Nucleated RBC (Bld) [#/Vol] 10*3/uL Normal <0.01 [facility] Comment on above: Order Comment: Speci men Type: BLOOD SPECIMENOrdering Facility: [facility] Address: [address] Performed By: #### 5 7021-8 ####[facility] LABCLIA [id number] [place] [address] [place] Nucleated RBC/100 WBC (Bld) [Ratio] 0.0 /100 WBC Normal [facility] Comment on above: Order Comment: Speci men Type: BLOOD SPECIMENOrdering Facility: [facility] Address: [address] [place] [address] Performed By: #### 5 7021-8 ####[facility] LABIA [id number] [place] [address] [place] Platelet mean volume (Bld) [Entitic vol] 10.8 fL Normal 9.0-12.7 [facility] Comment on above: Order Comment: Speci men Type: BLOOD SPECIMENOrdering Facility: [facility] Address: [address] [place] [address] Performed By: #### 5 7021-8 ####[facility] LABIA [id number] [place] [address] [place] Platelets (Bld) [#/Vol] 243 10*3/uL Normal 150-400 [facility] Comment on above: Order Comment: Speci men Type: BLOOD SPECIMENOrdering Facility: [facility] Address: [address] [place] [address] Performed By: #### 5 7021-8 ####[facility] LABIA [id number] [place] [address] [place] RBC (Bld) [#/Vol] 5.06 10*6/uL Normal 3.90-5.20 [facility] Comment on above: Order Comment: Speci men Type: BLOOD SPECIMENOrdering Facility: [facility] Address: [address] [place] [address] Performed By: #### 5 7021-8 ####[facility] LABIA [id number] [place] [address] [place] WBC (Bld) [#/Vol] 7.09 10*3/uL Normal 3.70-11.00 [facility] Comment on above: Order Comment: Speci men Type: BLOOD SPECIMENOrdering Facility: [facility] Address: [address] [place] [address] Performed By: #### 5 7021-8 ####[facility] LABIA [id number] [address] OF [facility] CNOVon 11-24-2022 CNOV Office Visit (LOORRM ) MARY VAUGHN ([id number]) 1955 F DEF Date Time Provider Department 11/24/22 9:30 AM VEL GALEANA During your visit today, we recorded the following information about you: Weight Height 74.4 kg 1.676 m Vel Galeana PA-C 11/24/2022 10:44 AM Signed CONSULT ORTHOPAEDIC: HIP PRIMARY CARE PHYSICIAN: Luis Garcia II, MD REFERRING PROVIDER: SELF ASSESSMENT AND PLAN: Impression: Right Hip Severe Degenerative Osteoarthritis, Primary Mary Roderick has radiograph and physical exam evidence of [...] Disease (Hcc) Former Smoker Svt (Supraventricular Tachycardia) ([facility]) Incomplete Rbbb Aftercare Following Left Hip Joint [...] which include walking 2 blocks, gardening, doing bobbin 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 Normal [facility] [id number] 11-24-2022 ECG01 Ventricular Rate : 5 7 BPM Atrial Rate : 57 BPM P-R Interval : 156 ms QRS Duration : 96 ms Q-T Interval : 450 ms QTC Calculation(Bazett) : 438 ms Calculated P [place] : 74 degrees Calculated R [place] : 81 degrees Calculated T [place] : 66 degrees SINUS BRADYCARDIA INCOMPLETE RIGHT BUNDLE BRANCH BLOCK BORDERLINE ECG Confirmed by SERA BERNARD M.D. ([id number]) on 11/27/2022 11:24:23 AM NAME : MARY VAUGHN PID : [id number] : 1955 Gender : Female Race : ORD : Procedure Date : Nov 24 2022 10:22:24 Edit Date : Nov 27 2022 11:24:24 Diagnosis: SINUS BRADYCARDIA INCOMPLETE RIGHT BUNDLE BRANCH BLOCK BORDERLINE ECG Confirmed by SERA BERNARD M.D. ([id number]) on 11/27/2022 11:24:23 AM Test Reason : Location : 145 : LOCARD Overread By : SERA BERNARD M.D. Edited By : JOANA Saucedo,SERA Referred By : SHANT MÉNDEZ Acquired by : Ashley finch [facility] ECG01 Ventricular Rate : 5 7 BPM Atrial Rate : 57 BPM P-R Interval : 156 ms QRS Duration : 96 ms Q-T Interval : 450 ms QTC Calculation(Bazett) : 438 ms Calculated P [place] : 74 degrees Calculated R [place] : 81 degrees Calculated T [place] : 66 degrees SINUS BRADYCARDIA INCOMPLETE RIGHT BUNDLE BRANCH BLOCK BORDERLINE ECG Confirmed by SERA BERNARD M.D. ([id number]) on 11/27/2022 11:24:43 AM NAME : MARY VAUGHN PID : [id number] : 1955 Gender : Female Race : [...] By : SHANT MÉNDEZ Acquired by : Ashley finch [facility] HISTORY PHYSICALon HISTORY PHYSICAL HNO ID: [id number] Author: Quiana Poole APRN.CNP Service: ? Author Type: Nurse Practitioner Type: [...] six hours after the dental procedure Yes [id number] ANTONIO OIL ORAL Take by mouth once [...] fevers. Neuro: No history of TIA's, stroke, SCHOOL OFFICE ASSISTANT tumor, impaired sensorium, hemiplegia, paraplegia or quadraplegia. [...] or incontinence,, stones or chronic kidney disease APRN: Negative for abnormal vaginal bleeding, abnormal vaginal [...] LMP 10/29 (more content not included)... Normal [facility] HbA1c (Bld)on 11-24-2022 Average glucose Estimated from glycated hemoglobin (Bld) [Mass/Vol] 105 mg/dL Normal [facility] Comment on above: Order Comment: Speci men Type: BLOOD SPECIMENOrdering Facility: [facility] Address: [address] [place] [address] Result Comment: eAG: (Estimated average glucose) is a calculated value from HgbA1c and is signs and displays sales representative of the average blood glucose level in the last 2-3 month period. Performed By: #### 5 5454-3 ####[facility] LABCLIA [id number] [address] HbA1c (Bld) [Mass fraction] 5.3 % Normal 4.3-5.6 [facility] Comment on above: Order Comment: Daniel land Type: BLOOD SPECIMENOrdering Facility: [facility] Address: [address] [place] [address] Result Comment: Amer [place] Diabetes Association guidelines indicate that patients with HgbA1c in the range 5.7-6.4% are at increased risk for development of diabetes, and intervention by lifestyle modification may be beneficial. HgbA1c greater or equal to 6.5% is considered diagnostic of diabetes. Performed By: #### 5 5454-3 ####[facility] LABCLIA [id number] [address] OF [place] TYPE AND SCREEN,30 DAYon ABO A Normal [facility] Comment on above: Order Comment: Daniel men Type: BLOOD SPECIMENOrdering Facility: [facility] Address: [address] [place] [address] Performed By: #### T SCR30 ####[facility] BLOOD BANKCLIA [id number] [address] OF [place] HISTORICAL AB SCR STATUS Negative Normal [facility] Comment on above: Order Comment: Daniel emery Type: BLOOD SPECIMENOrdering Facility: [facility] Address: [address] [place] [address] Performed By: #### T SCR30 ####[facility] BLOOD BANKCLIA [id number] [place] [address] [place] Rh Nom (Bld) Positive Normal [place] [facility] Comment on above: Order Comment: Speci men Type: BLOOD SPECIMENOrdering Facility: [facility] Address: [address] [place] [address] Performed By: #### T SCR30 ####[facility] BLOOD BANKIA [id number] [place] [address] [place] Urinalysis complete panel (U )on 11-24-2022 Bilirubin Ql (U) Negative Normal Negative [facility] Comment on above: Order Comment: Speci men Type: URINE SPECIMENOrdering Facility: [facility] Address: [address] [place] [address] Performed By: #### 2 4356-8 ####[facility] LABCLIA [id number] [place] [address] [place] Clarity (Unsp spec) Clear Normal Clear [facility] Comment on above: Order Comment: Speci men Type: URINE SPECIMENOrdering Facility: [facility] Address: [address] [place] [address] Performed By: #### 2 4356-8 ####[facility] LABCLIA [id number] [place] [address] [place] Color (U) Light Yellow Normal Yellow [place] [facility] Comment on above: Order Comment: Speci men Type: URINE SPECIMENOrdering Facility: [facility] Address: [address] [place] [address] [place], [place] [address] Performed By: #### 2 4356-8 ####[facility] LABCLIA [id number] [place] [address] [place] Epithelial cells LM.HPF (Urine sed) [#/Area] Few Normal [facility] Comment on above: Order Comment: Speci men Type: URINE SPECIMENOrdering Facility: [facility] Address: [address] [place], [place] [address] Result Comment: Few Performed By: #### 2 4356-8 ####[facility] LABCLIA [id number] [place] [address] [place] Glucose Test strip (U) [Mass/Vol] Negative Normal Trace, Negative [facility] Comment on above: Order Comment: Speci men Type: URINE SPECIMENOrdering Facility: [facility] Address: [address] [place] [address] Performed By: #### 2 4356-8 ####[facility] LABCLIA [id number] [address] STATES OF [facility] Hemoglobin Ql (U) Negative Normal Negative, Trace [facility] Comment on above: Order Comment: Speci men Type: URINE SPECIMENOrdering Facility: [facility] Address: [address] [place] [address] Performed By: #### 2 4356-8 ####[facility] LABCLIA [id number] [place] [address] [place] Hyaline casts (Urine sed) [#/Area] 1-3 /LPF Abnormal 0 /LPF [facility] Comment on above: Order Comment: Speci men Type: URINE SPECIMENOrdering Facility: [facility] Address: [address] [place] [address] Performed By: #### 2 4356-8 ####[facility] LABCLIA [id number] [place] [address] [place] Ketones Ql (U) Negative Normal Trace, Negative [facility] Comment on above: Order Comment: Speci men Type: URINE SPECIMENOrdering Facility: [facility] Address: [address] [place] [address] Performed By: #### 2 4356-8 ####[facility] LABCLIA [id number] [place] [address] [place] Leukocyte esterase Test strip Ql (U) 25 Chin/uL Normal Negative, 25 Chin/uL [facility] Comment on above: Order Comment: Speci men Type: URINE SPECIMENOrdering Facility: [facility] Address: [address] [place] [address] [place], [place] [address] Performed By: #### 2 4356-8 ####[facility] LABCLIA [id number] [place] [address] [place] Nitrite Ql (U) Negative Normal Negative [facility] Comment on above: Order Comment: Speci men Type: URINE SPECIMENOrdering Facility: [facility] Address: [address] [place] [address] Performed By: #### 2 4356-8 ####[facility] LABIA [id number] [place] [address] [place] pH (U) 6.0 [pH] Normal 5.0-8.0 [facility] Comment on above: Order Comment: Speci men Type: URINE SPECIMENOrdering Facility: [facility] Address: [address] [place], [place] [address] Performed By: #### 2 4356-8 ####[facility] LABIA [id number] [place] [address] [place] Protein (U) [Mass/Vol] Negative Normal Trace, Negative [facility] Comment on above: Order Comment: Speci men Type: URINE SPECIMENOrdering Facility: [facility] Address: [address] [place] [address] [place], [place] [address] Performed By: #### 2 4356-8 ####[facility] LABIA [id number] [place] [address] [place] RBC LM.HPF (Urine sed) [#/Area] 0-3 /HPF Normal 0-3 /HPF [facility] Comment on above: Order Comment: Speci men Type: URINE SPECIMENOrdering Facility: [facility] Address: [address] [place] [address] [place], [place] [address] Performed By: #### 2 4356-8 ####[facility] LABIA [id number] [place] [address] [place] Specific gravity (U) [Rel density] 1.016 Normal 1.005-1.030 [facility] Comment on above: Order Comment: Speci men Type: URINE SPECIMENOrdering Facility: [facility] Address: [address] [place] [address] Performed By: #### 2 4356-8 ####[facility] LABIA [id number] [place] [address] [place] Urobilinogen Ql (U) Negative Normal Negative [facility] Comment on above: Order Comment: Speci men Type: URINE SPECIMENOrdering Facility: [facility] Address: [address] [place] [address] Performed By: #### 2 4356-8 ####[facility] LABIA [id number] [place] [address] [place] WBC LM.HPF (Urine sed) [#/Area] 0-5 /HPF Normal 0-5 /HPF [facility] Comment on above: Order Comment: Speci men Type: URINE SPECIMENOrdering Facility: [facility] Address: [address] [place] [address] Performed By: #### 2 4356-8 ####[facility] [id number] [address] STATES OF [place] XR HIP 3V [...] prior exam. IMPRESSION: Severe RIGHT hip osteoarthritis. Laboratory Secretary: PSCB Transcribe Date/Time: Nov 24 2022 9:40A Dictated by : KAIN ECHAVARRIA MD This examination was interpreted and the report reviewed and electronically signed by: TARA OMALLEY MD on Nov 24 2022 10:59AM EST [id number] Normal [facility] XR HIP GENERAL 3V PELV/AP/LA T RIGHTon 11-24-2022 [facility] ic CT CHEST WO CONon 11-10-2022 CT [...] GIOVANA GASPAR Date: 2022-11-10 13:08 Normal [facility] GLYCOHEMOGLOBIN A1Con 2022 ADA RECOMMENDATION SEE BELOW Normal [facility] Comment on above: Result Comment: ADA RECOMMENDED LIMIT 4.0 - 6.0 ADA THERAPEUTIC TARGET < 7.0 ACTION SUGGESTED > 7.0 Performed By: #### A 1C #### [facility] [address] [address] [address] Yordy Tse Glucose [Mass/Vol] 114 mg/dL Normal [facility] Comment on above: Performed By: #### A 1C #### [facility] [address] [place] [address] Dr. Yordy Tse HbA1c (Bld) [Mass fraction] 5.6 % Normal 4.5-6.2 [facility] Comment on above: Performed By: #### A 1C #### [facility] [address] [address] [address] Yordy Tse MICROALB CREAT RATIO RANDOMo n 11-10-2022 mALB <1.3 Normal <=30.0 [facility] Comment on above: Performed By: #### M CRR #### [facility] [address] [address] [address] Yordy Tse MALB CR RATIO 29.6 mg/g Normal 0.0-29.9 [facility] Comment on above: Performed By: #### M CRR #### [facility] [address] [place] [address] Dr. Yordy Tse MALB CR RATIO RANGE SEE BELOW Normal [facility] Comment on above: Result Comment: NO M ICROALBUMINURIA 0-29 MG/G CLINICAL MICROALBUMINURIA 30-300 MG/G MACROALBUMINURIA >300 MG/G Performed By: #### M CRR #### [facility] [address] [address] [address] Yordy Tse URINE CREAT 43.94 mg/dL Normal 20.00-300.00 [facility] Comment on above: Performed By: #### M CRR #### [facility] [id number] Yordy DEL CASTILLOOVon 10-06-2022 CNOV Office Visit (LOORRM ) MARY VAUGHN ([id number]) 1955 F DEF Date Time Provider Department 10/06/22 11:00 AM SHANT MÉNDEZ During your visit today, we recorded the following information about you: Shant Méndez II, MD 10/15/2022 3:01 PM Signed [facility] [address] [place], [place] [address] CLINIC NOTE Department of Orthopaedics - Jerome Méndez II, M.D. NAME: RODERICK [facility] NO.: [id number] DATE OF SERVICE: 10/06/2022 CHIEF COMPLAINT: Recheck [...] in good alignment. Right hip shows severe bnuf-vv-wnfa arthritis throughout the right hip. The patient [...] II, M.D. Date Dictated: 10/08/2022 Date Typed: [facility] 10/08/2022 JOB# [id number] Mary AtifkirtSONYA 10/18/2022 11:46 AM Signed This note has been dictated. Low Méndez M.D. Molding Machine Operator Helper: Transcribed Clinic Note (gilberto) ID: [id number] Author: SHANT MÉNDEZ Signed by SHANT MÉNDEZ MD on 10/15/2022 at 3:01 PM Document text: [facility] [address] [place], [place] [address] CLINIC NOTE Department of Orthopaedics - Jerome Méndez II, M.D. NAME: MARY VAUGHN [facility] NO.: [id number] DATE OF SERVICE: 10/06/2022 CHIEF COMPLAINT: Recheck [...] in good alignment. Right hip shows severe qnnx-rt-smxy arthritis throughout the right hip. The patient [...] II, M.D. Date Dictated: 10/08/2022 Date Typed: essence 10/08/2022 JOB# [id number] ----- Referring Provider: SHANT MÉNDEZ [[id number]] Allergies [...] chemistry, unspecified [R79.9] Order(s):XR PELVIS 1V AP [[id number]] Order #: [id number] FUTURE URINALYSIS, WITH MICROSCOPIC [SQUAWMIC] Order #: [id number] FUTURE CBC + DIFF [SQCBCDIF] Order #: [id number] FUTURE BASIC METABOLIC PNL [SQBMP] Order #: [id number] FUTURE STAPH AUREUS PCR [SQSAPCR] Order #: [id number] FUTURE URINE CULTURE [SQURCUL] Order #: [id number] FUTURE HGB A1C [FMJTV2C] Order #: [id number] FUTURE TYPE AND SCREEN,30 DAY [HTGAHN38] Order #: [id number] FUTURE CONSULT TO(TCI)PRE-OP CLEAR [4067212] Order #: [id number]: 1 CONSULT TO PHYSICAL THERAPY [9032] Order #: [id number]: 1 FUTURE PATIENT PLACED ON TODD FANY CARE PATH [2469904] Order #: [id number]: 1 STAPH AUREUS PCR [SQSAPCR] Order #: [id number]. #:[id number] Prescriptions as of 10/18/2022 - Amoxicillin 500 [...] mouth every (more content not included)... Normal [facility] - Microbiology an d Antimicrobial susceptibilityon 10-06-2022 S. aureus and MRSA panel LEONA+probe (Nose) Negative Negative [facility] STAPH AUREUS PCRon S. aureus and MRSA panel LEONA+probe (Nose) Normal Negative [facility] Comment on above: Order Comment: Speci men Type: SWAB OF INTERNAL NOSEOrdering Facility: [facility] Address: [address] [place] [address] Result Comment: Nega tive for Staphylococcus aureus by PCR. Negative for MRSA by PCR Performed By: #### S APCR ####[facility] LABCLIA [id number] [place] [address] [place] XR PELVIS 1V APon 10-06-2022 XR PELVIS [...] total hip arthroplasty without evidence of complication. Laboratory Secretary: EFRAIN Transcribe Date/Time: Oct 06 2022 11:17A Dictated by : DELANEY LEAVITT MD This examination was interpreted and the report reviewed and electronically signed by: DELANEY LEAVITT MD on Oct 06 2022 11:18AM EST [id number] Normal [facility] ic CT LUNG CANCER SCREENINGon 0 [...] GIOVANA GASPAR Date: 2022-05-19 16:46 Normal [facility] POLIOVIRUS (TYPES 1,3) ABon 05-12-2022 POLIOVIRUS ANTIBODY TYPE 1 1:80 Normal [facility] Comment on above: Performed By: #### P OLIO #### [facility] [address] [address] [address] Yordy Tse POLIOVIRUS ANTIBODY TYPE 3 <1:10 Normal [facility] Comment on above: Result Comment: INTE [...] 3. Performed By: #### P OLIO #### [facility] [address] [place] [address] Dr. Yordy Tse CBC AUTO DIFFon 04-28-2022 BASO # 0.0 103/ul Normal 0.0-0.1 [facility] Comment on above: Performed By: #### C BC #### [facility] [address] [place] [address] Dr. Yordy Tse Basophils/100 WBC (Bld) 0.5 % Normal 0.2-2.0 [facility] Comment on above: Performed By: #### C BC #### [facility] [address] [place] [address] Dr. Yordy Tse EO # 0.1 103/ul Normal 0.0-0.7 [facility] Comment on above: Performed By: #### C BC #### [facility] [address] [place] [address] Dr. Yordy Tse Eosinophils/100 WBC (Bld) 2.2 % Normal 0.9-7.0 [facility] Comment on above: Performed By: #### C BC #### [facility] [address] [place] [address] Dr. Yordy Tse Erythrocyte distribution width (RBC) [Ratio] 14.0 % Normal 11.0-15.0 [facility] Comment on above: Performed By: #### C BC #### [facility] [address] [place] [address] Dr. Yordy Tse Hematocrit (Bld) [Volume fraction] 45.2 % Normal 36.0-48.0 [facility] Comment on above: Performed By: #### C BC #### [facility] [address] [place] [address] Dr. Yordy Tse Hemoglobin (Bld) [Mass/Vol] 14.5 g/dL Normal 12.0-16.0 [facility] Comment on above: Performed By: #### C BC #### [facility] [address] [place] [address] Dr. Yordy Tse IG # 0.01 10e3/ul Normal 0.00-0.03 [facility] Comment on above: Performed By: #### C BC #### [facility] [address] [place] [address] Dr. Yordy Tse IG % 0.2 % Normal 0.0-0.5 [facility] Comment on above: Performed By: #### C BC #### [facility] [address] [place] [address] Dr. Yordy Tse LYMPH # 1.5 103/ul Normal 1.2-3.8 [facility] Comment on above: Performed By: #### C BC #### [facility] [address] [place] [address] Dr. Yordy Tse Lymphocytes/100 WBC (Bld) 27.8 % Normal 20.5-60.0 [facility] Comment on above: Performed By: #### C BC #### [facility] [address] [place] [address] Dr. Yordy Tse MANUAL DIFF REQ NO Normal [facility] Comment on above: Performed By: #### C BC #### [facility] [address] [place] [address] Dr. Yordy Tse MCH (RBC) [Entitic mass] 28.2 pg Normal 26.7-34.0 [facility] Comment on above: Performed By: #### C BC #### [facility] [address] [place] [address] Dr. Yrody Tse MCHC (RBC) [Mass/Vol] 32.1 g/dL Normal 29.9-35.2 [facility] Comment on above: Performed By: #### C BC #### [facility] [address] [place] [address] Dr. Yordy Tse MCV (RBC) [Entitic vol] 87.9 fL Normal 81.0-99.0 [facility] Comment on above: Performed By: #### C BC #### [facility] [address] [place] [address] Dr. Yordy Tse MONO # 0.4 103/ul Normal 0.3-0.8 [facility] Comment on above: Performed By: #### C BC #### [facility] [address] [place] [address] Dr. Yordy Tse Monocytes/100 WBC (Bld) 7.5 % Normal 1.7-12.0 [facility] Comment on above: Performed By: #### C BC #### [facility] [address] [address] [address] Yordy Tse NEUT # 3.4 103/ul Normal 1.4-6.5 [facility] Comment on above: Performed By: #### C BC #### [facility] [address] [place] [address] Dr. Yordy Tse Neutrophils/100 WBC (Bld) 61.8 % Normal 43.0-75.0 [facility] Comment on above: Performed By: #### C BC #### [facility] [address] [place] [address] Dr. Yordy Tse Platelet mean volume (Bld) [Entitic vol] 9.9 fL Normal 9.5-13.5 [facility] Comment on above: Performed By: #### C BC #### [facility] [address] [place] [address] Dr. Yordy Tse PLT 240 103/ul Normal 150-450 [facility] Comment on above: Performed By: #### C BC #### [facility] [address] [place] [address] Dr. Yordy Tse RBC 5.14 106/ul Normal 4.20-5.40 [facility] Comment on above: Performed By: #### C BC #### [facility] [address] [place] [address] Dr. Yordy Tse WBC 5.5 103/ul Normal 4.0-11.0 [facility] Comment on above: Performed By: #### C BC #### [facility] [address] [place] [address] Dr. Yordy Tse GLYCOHEMOGLOBIN A1Con 2021 ADA RECOMMENDATION SEE BELOW Normal [facility] Comment on above: Result Comment: ADA RECOMMENDED LIMIT 4.0 - 6.0 ADA THERAPEUTIC TARGET < 7.0 ACTION SUGGESTED > 7.0 Performed By: #### A 1C #### [facility] [address] [place] [address] Dr. Yordy Tse Glucose [Mass/Vol] 111 mg/dL Normal [facility] Comment on above: Performed By: #### A 1C #### [facility] [address] [address] [address] Yordy Tse HbA1c (Bld) [Mass fraction] 5.5 % Normal 4.5-6.2 [facility] Comment on above: Performed By: #### A 1C #### [facility] [address] [place] [address] Dr. Yordy Tse LIPID PROFILEon 04-28-2022 CHOL-HDL RATIO NORM SEE BELOW Normal [facility] Comment on above: Result Comment: 3.3 - 4.4 LOW RISK 4.4 - 7.1 AVERAGE RISK 7.1 - 11.0 MODERATE RISK >11.0 HIGH RISK Performed By: #### C MP, TSH, LIPID #### [facility] [address] [place] [address] Dr. Yordy Tse Cholesterol [Mass/Vol] 186 mg/dL Normal <=200 [facility] Comment on above: Performed By: #### C MP, TSH, LIPID #### [facility] [address] [place] [address] Dr. Yordy Tse Cholesterol in HDL [Mass/Vol] 57 mg/dL Normal 40-60 [facility] Comment on above: Performed By: #### C MP, TSH, LIPID #### [facility] [address] [place] [address] Dr. Yordy Tse Cholesterol in LDL [Mass/Vol] 116.6 mg/dL Normal [facility] Comment on above: Performed By: #### C MP, TSH, LIPID #### [facility] [address] [place] [address] Dr. Yordy Tse Cholesterol.total/Ch olesterol in HDL [Mass ratio] 3.3 {ratio} Normal [facility] Comment on above: Performed By: #### C MP, TSH, LIPID #### [facility] [address] [place] [address] Dr. Yordy Tse HDL NORMAL > or = 60 mg/dl - LO W CARDIOVASCULAR RISK <40 mg/dl - HIGH CARDIOVASCULAR RISK Normal [facility] Comment on above: Performed By: #### C MP, TSH, LIPID #### [facility] [address] [place] [address] Dr. Yordy Tse LDL CALC NORMAL SEE BELOW Normal [facility] Comment on above: Result Comment: <100 mg/dl OPTIMAL 100 - 129 mg/dl NEAR OR ABOVE OPTIMAL 130 - 159 mg/dl BORDERLINE HIGH 160 - 189 mg/dl HIGH >190 mg/dl VERY HIGH Performed By: #### C MP, TSH, LIPID #### [facility] [address] [address] [address] Yordy Tse Triglyceride [Mass/Vol] 62 mg/dL Normal <=150 [facility] Comment on above: Performed By: #### C MP, TSH, LIPID #### [facility] [address] [address] [address] Yordy Tse VLDL CALC 12.4 mg/dL Normal [facility] Comment on above: Performed By: #### C MP, TSH, LIPID #### [facility] [address] [place] [address] Dr. Yordy Tse PROF 14(COMP METB)on 022 Albumin [Mass/Vol] 3.7 g/dL Normal 3.4-5.0 [facility] Comment on above: Performed By: #### C MP, TSH, LIPID #### [facility] [address] [address] [address] Yordy Tse Albumin/Globulin [Mass ratio] 0.9 {ratio} Normal [facility] Comment on above: Performed By: #### C MP, TSH, LIPID #### [facility] [address] [address] [address] Yordy Tse ALP [Catalytic activity/Vol] 88 U/L Normal 46-116 [facility] Comment on above: Performed By: #### C MP, TSH, LIPID #### [facility] [address] [address] [address] Yordy Tse ALT [Catalytic activity/Vol] 31 U/L Normal 14-59 [facility] Comment on above: Performed By: #### C MP, TSH, LIPID #### [facility] [address] [address] [address] Yordy Tse Anion gap [Moles/Vol] 11.7 mmol/L Normal [facility] Comment on above: Performed By: #### C MP, TSH, LIPID #### [facility] [address] [address] [address] Yordy Tse AST [Catalytic activity/Vol] 23 U/L Normal 15-37 [facility] Comment on above: Performed By: #### C MP, TSH, LIPID #### [facility] [address] [address] [address] Yordy Tse Bilirubin [Mass/Vol] 0.5 mg/dL Normal 0.2-1.0 [facility] Comment on above: Performed By: #### C MP, TSH, LIPID #### [facility] [address] [place] [address] Dr. Yordy Tse Calcium [Mass/Vol] 9.3 mg/dL Normal 8.5-10.1 [facility] Comment on above: Performed By: #### C MP, TSH, LIPID #### [facility] [address] [place] [address] Dr. Yordy Tse Chloride [Moles/Vol] 102 mmol/L Normal 98-107 [facility] Comment on above: Performed By: #### C MP, TSH, LIPID #### [facility] [address] [place] [address] Dr. Yordy Tse CO2 [Moles/Vol] 30.3 mmol/L Normal 21.0-32.0 [facility] Comment on above: Performed By: #### C MP, TSH, LIPID #### [facility] [address] [place] [address] Dr. Yordy Tse Creatinine [Mass/Vol] 0.73 mg/dL Normal 0.55-1.02 [facility] Comment on above: Performed By: #### C MP, TSH, LIPID #### [facility] [address] [place] [address] Dr. Yordy Tse EGFR-AF [place] >60 Normal >=60 [facility] Comment on above: Performed By: #### C MP, TSH, LIPID #### [facility] [address] [place] [address] Dr. Yordy Tse EGFR-NON AF [place] >60 Normal >=60 [facility] Comment on above: Performed By: #### C MP, TSH, LIPID #### [facility] [address] [place] [address] Dr. Yordy Tse Globulin (S) [Mass/Vol] 4.0 g/dL Normal [facility] Comment on above: Performed By: #### C MP, TSH, LIPID #### [facility] [address] [place] [address] Dr. Yordy Tse Glucose [Mass/Vol] 88 mg/dL Normal 74-106 [facility] Comment on above: Performed By: #### C MP, TSH, LIPID #### [facility] [address] [place] [address] Dr. Yordy Tse Potassium [Moles/Vol] 4.0 mmol/L Normal 3.5-5.1 [facility] Comment on above: Performed By: #### C MP, TSH, LIPID #### [facility] [address] [place] [address] Dr. Yordy Tse Protein [Mass/Vol] 7.7 g/dL Normal 6.4-8.2 [facility] Comment on above: Performed By: #### C MP, TSH, LIPID #### [facility] [address] [place] [address] Dr. Yordy Tse Sodium [Moles/Vol] 140 mmol/L Normal 136-145 [facility] Comment on above: Performed By: #### C MP, TSH, LIPID #### [facility] [address] [place] [address] Dr. Yordy Tse Urea nitrogen [Mass/Vol] 15.0 mg/dL Normal 7.0-18.0 [facility] Comment on above: Performed By: #### C MP, TSH, LIPID #### [facility] [address] [place] [address] Dr. Yordy Tse Urea nitrogen/Creatinine [Mass ratio] 20.5 mg/mg Normal [facility] Comment on above: Performed By: #### C MP, TSH, LIPID #### [facility] [address] [place] [address] Dr. Yordy Tse TSHon 04-28-2022 TSH 1.586 uIU/mL Normal 0.358-3.740 [facility] Comment on above: Performed By: #### C MP, TSH, LIPID #### [facility] [address] [place], [place] [address] Dr. Yordy Tse [facility] DIGITAL DIAGNOSTIC UNILATERAL RIGHTon 04-05-2022 1. No mammographic evidence of malignancy. Patient can resume annual screening mammography. BIRADS: BIRADS - CATEGORY 2 Benign Findings. Normal interval follow-up is recommended in 12 months. OVERALL ASSESSMENT - BENIGN A letter of notification will be sent to the patient regarding the results. [employer] [employer] recommends annual mammograms for women 40 years and older[address] [facility] EXAMINATION: DIAGNOSTIC DIGITAL RIGHT BREAST MAMMOGRAM [...] is no underlying mass or architectural distortion. [facility] Radiology Study observation (narrative) [employer] Phone: [facility] DIGITAL DIAGNOSTIC UNILATERAL RIGHTOrdered By: Anival Coronado on 04-05-2022 [employer] Phone: [facility] DIGITAL SCREEN SELF REFERRAL W [...] OVERALL ASSESSMENT - INCOMPLETE:NEED ADDITIONAL IMAGING EVALUATION. [facility] EXAMINATION: SCREENING DIGITAL BILATERAL MAMMOGRAM WITH [...] workup advised. Full workup may require ultrasonography. [facility] Radiology Study observation (narrative) [employer] Phone: [facility] DIGITAL SCREEN SELF REFERRAL W OR WO CAD BILATERALOrdered By: Jacquie Landa on 2022 [employer] Phone: DEXA Bone Density 2 SitesOrd ered By: Breezy Zaman on 02-26-2021 Osteopenia by WHO criteria. [employer] Phone: EXAMINATION: BONE DENSITOMETRY 02/26/2021 8:57 am TECHNIQUE: A bone density DEXA scan was performed of the lumbar spine and left hip on a [employer] system. 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 [employer] Work Phone: [employer], pn Incoming Radiant Results From [employer] - 02/26/2021 10:44 AM EDT EXAMINATION: BONE DENSITOMETRY 02/26/2021 8:57 am TECHNIQUE: A bone density DEXA scan was performed of the lumbar spine and left hip on a Hologic system. 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 IMPRESSION: Osteopenia by WHO criteria. [employer] Phone: [employer] Phone: [facility] DIGITAL SCREEN SELF REFERRAL W OR WO CAD BILATERALOrdered By: Breezy Zaman on 02-26-2021 No mammographic evidence of malignancy. BI-RADS 1 BIRADS: BIRADS - CATEGORY 1 Negative, no evidence of malignancy. Normal interval follow-up is recommended in 12 months. OVERALL ASSESSMENT - NEGATIVE A letter of notification will be sent to the patient regarding the results. [employer] [employer] recommends annual mammograms for women 40 years and older. [employer] Phone: EXAMINATION: SCREENING DIGITAL BILATERAL MAMMOGRAM WITH [...] suspicious microcalcification, or area of architectural distortion. [employer] Phone: [facility] Work Phone: Large Joint Arthro/Inj: R kn ee joint [facility] Vital Signs Date Time Vital Sign Value Performing Clinician Jin wolf 11-24-2022 11:12-0400 Body height 167.6 cm Pacc 2 Work Phone: [facility] 11-24-2022 11:12-0400 Body temperature 97.11 [degF] Pacc 2 Work Phone: [facility] 11-24-2022 11:12-0400 Body weight 72.58 kg Pacc 2 Work Phone: [facility] 11-24-2022 11:12-0400 Diastolic blood pressure 61 mm[Hg] Pacc 2 Work Phone: [facility] 11-24-2022 11:12-0400 Heart rate 73 /min Pacc 2 Work Phone: [facility] 11-24-2022 11:12-0400 Respiratory rate 16 /min Pacc 2 Work Phone: [facility] 11-24-2022 11:12-0400 SaO2% (BldA) [Mass fraction] 100 % Pacc 2 Work Phone: [facility] 11-24-2022 11:12-0400 Systolic blood pressure 107 mm[Hg] Pacc 2 Work Phone: [facility] 11-24-2022 09:38-0400 Body height 167.6 cm Vel Manriquech PA-C Work Phone: [facility] 11-24-2022 09:38-0400 Body weight 74.39 kg Vel Scotch PA-C Work Phone: [facility] Encounters Encounter Date Encounter Type Care Provider Facility Start: 04-12-2024 End: 04-12-2024 ambulatory MARGIE LAL Not Available Start: 02-02-2024 End: 02-02-2024 ambulatory MARGIE LAL Not Available Start: 01-05-2024 End: 01-05-2024 ambulatory LUIS GARCIA Not Available Start: 01-04-2024 End: 01-04-2024 ambulatory LORENA PUENTES Not Available Start: 12-23-2023 End: 12-23-2023 ambulatory LUIS GARCIA Not Available Start: 11-24-2023 End: 11-24-2023 ambulatory MARGIE LAL Not Available Start: 10-04-2023 End: 10-04-2023 ambulatory VEL EMMANUEL Facility:[facility] Start: 10-04-2023 End: 10-04-2023 Patient encounter procedure Vel Galeana PA-C Work Phone: Orthopaedics Comment on above: Status post right hi p replacement (Primary Dx); Status post left hip replacement Start: 09-15-2023 End: 09-15-2023 ambulatory MARGIE LAL Not Available Start: 07-20-2023 End: 07-20-2023 ambulatory LUIS GARCIA Not Available Start: 04-18-2023 End: 04-21-2023 [facility] Start: 04-18-2023 End: 04-20-2023 Subsequent hospital visit by physician [facility]amm[facility] [place] [facility] Mammography Comment on above: Encounter for screen ing mammogram for malignant neoplasm of breast Start: 03-08-2023 End: 03-09-2023 ambulatory [facility] Start: 02-25-2023 End: 02-25-2023 ambulatory SHANT MÉNDEZ Facility:[facility] Start: 02-25-2023 End: 02-25-2023 Patient encounter procedure Shant Méndez MD Work Phone: Orthopaedics Comment on above: Primary osteoarthrit is of right knee (Primary Dx) Start: 02-07-2023 End: 02-07-2023 ambulatory SHANT MÉNDEZ Facility:[facility] Start: 02-07-2023 End: 02-07-2023 Patient encounter procedure Shant Méndez MD Work Phone: Orthopaedics Comment on above: Status post right hi p replacement (Primary Dx); Status post left hip replacement; Primary osteoarthritis of right knee Start: 01-14-2023 End: 01-14-2023 ambulatory SHANT MÉNDEZ Facility:[facility] Start: 12-22-2022 End: 12-22-2022 ambulatory Karine Torres RT(R) Radiology Comment on above: Radiology XR Start: 12-22-2022 End: 12-22-2022 Patient encounter procedure Karine Becky Torres RT(R) [facility] Comment on above: Aftercare following left hip joint replacement surgery (Primary Dx); Status post right hip replacement Start: 11-30-2022 End: 11-30-2022 ambulatory SHANT MÉNDEZ Facility:[facility] Start: 11-26-2022 Telephone encounter Quiana Reagan francia [employer] Work Phone: Pre Anesthesia Comment on above: PreOp Call (UTI) Start: 11-24-2022 End: 11-25-2022 ambulatory SHANT MÉNDEZ Facility:[facility] Start: 11-24-2022 Encounter for other preprocedural examination SHANT MÉNDEZ [facility] Start: 11-24-2022 End: 11-24-2022 Admission to establishment [facility] 2 Work Phone: [facility] Start: 11-24-2022 End: 11-24-2022 Preprocedural examination done [facility] Work Phone: Pre Anesthesia Start: 11-24-2022 End: 11-24-2022 ambulatory Pac [facility] 2 Work Phone: Pre Anesthesia Comment on above: Pre-op evaluation (P rimary Dx); SVT (supraventricular tachycardia) ([facility]); Former smoker Start: 11-24-2022 End: 11-24-2022 Patient encounter procedure Vel Galeana PA-C Work Phone: Orthopaedics Comment on above: Primary osteoarthrit is of right hip (Primary Dx) Start: 11-10-2022 End: 11-11-[address] LUIS GARCIA Facility: Start: 11-08-2022 End: 11-08-2022 ambulatory 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 Start: 10-22-2022 Orders Only Shant landis MD Work Phone: Orthopaedics Comment on above: Primary osteoarthrit is of right hip (Primary Dx) Start: 10-06-2022 End: 10-06-2022 ambulatory Susana Mayorgal RT(R) Radiology Comment on above: Radiology XR Start: 10-06-2022 End: 10-06-2022 Patient encounter procedure Susana Mayorgal RT(R) [facility] [place] Comment on above: Status [...] End: 04-07-2022 Subsequent hospital visit by physician Niles Israel Radiologist [facility] Ultrasound Comment on above: Abnormal mammogram o f right breast Start: 2022 End: 03-04-2022 Subsequent hospital visit by physician [facility] Mammography [facility] At [facility] [place] [facility] Mammography Comment on above: Screening breast exa mination Start: 12-22-2021 Refill Shant landis MD Work Phone: Orthopaedics Start: 06-26-2021 ambulatory Mirna Avalos ocjuliana RT(R) Radiology Comment on above: Radio Gen RMP Start: 06-26-2021 End: 06-26-2021 Patient encounter procedure Mirna Lanza RT(R) [facility] [place] Start: 02-26-2021 End: 02-28-2021 Subsequent hospital visit by physician Niles Ferreira [facility] Mammography Comment on above: Abnormal findings [...] Comment: Speci men Type: BLOOD SPECIMENOrdering Facility: [facility] Address: [address] [place] [address] Performed By: #### T [id number] ####CC MAIN BLOOD BANKCLIA [id number] [address] Start: 10-06-2022 Iadna s aureus ampli fied [...] Screening for malign ant neoplasm of colon [facility] [employer] Start: 05-31-2026 DTaP/Tdap/Td vaccine (3 - Td or Tdap) DTaP/Tdap/Td vaccine (3 - Td or Tdap) [employer] Work Phone: Start: 05-31-2026 DTaP/Tdap/Td vaccine (4 - Td or Tdap) DTaP/Tdap/Td vaccine (4 - Td or Tdap) [facility] Start: 05-31-2026 Urine microalbumin profile [facility] Start: 04-23-2026 Urine microalbumin profile DTAP,TDAP,TD (2 - Td or Tdap) [facility] Start: 11-24-2025 DIABETES SCREEN DIABETES SCREEN [facility] Start: 11-24-2025 Diabetes Screening Diabetes Screenin g [facility] Start: 04-18-2025 Screening for malign ant neoplasm of breast Breast cancer screen [facility] Start: 09-21-2024 DIABETES SCREEN DIABETES SCREEN [facility] Start: 04-18-2024 Screening for malign ant neoplasm of breast Mammogram Screening [facility] Start: 04-05-2024 Screening for malign ant neoplasm of breast Breast cancer screen [facility] Start: 2024 Screening for malign ant neoplasm of breast Breast cancer screen [facility] Start: 11-09-2023 Influenza vaccination LUNG CANCER SC REENING [facility] Start: 11-09-2023 Screening for malign ant neoplasm of lung Lung Cancer Screening [facility] Start: 08-29-2023 Advance Directive Discussion Advance Directive Discussion [facility] Start: 08-29-2023 Depression Assessment Depression Ass essment [facility] Start: 04-29-2023 Influenza vaccination INFLUENZ A (Season Ended) [facility] Start: 03-29-2023 Influenza vaccination Flu vaccine (# 1) [facility] Start: 2023 Mammography MAMMOGRAM [facility] Start: 02-26-2023 Screening for malign ant neoplasm of breast Breast cancer screen [facility] Work Phone: Start: 11-03-2022 End: 01-03-2023 Bacteria identified in Urine by Culture URINE CULTURE Microbiology Routine Pre-op testing Frequent urination Expected: 11/03/2022 (Approximate), Expires: 01/03/2023 [facility] Work Phone: Comment on above: Expected: 11/03/2022 (Approximate), Expires: 01/03/2023 Start: 11-03-2022 End: 01-03-2023 TYPE AND SCREEN,30 DAY TYPE AND SCREEN,30 DAY Blood Bank Routine Pre-op testing Expected: 11/03/2022 (Approximate), Expires: 01/03/2023 [facility] Work Phone: Comment on above: Expected: 11/03/2022 (Approximate), Expires: 01/03/2023 Start: 10-06-2022 End: 12-06-2022 Basic metabolic 2000 panel - Serum or Plasma BASIC METABOLIC PNL Lab Routine Pre-op testing Expected: 10/06/2022, Expires: 12/06/2022 [facility] Work Phone: Comment on above: Expected: 10/06/2022 , Expires: 12/06/2022 Start: 10-06-2022 End: 12-06-2022 CBC W Auto Differential panel - Blood CBC + DIFF Lab Routine Pre-op testing Expected: 10/06/2022, Expires: 12/06/2022 [facility] Work Phone: Comment on above: Expected: 10/06/2022 , Expires: 12/06/2022 Start: 10-06-2022 End: 12-06-2022 Hemoglobin A1c in Blood HGB A1C Lab Routine Pre-op testing Abnormal finding of blood chemistry, unspecified Expected: 10/06/2022, Expires: 12/06/2022 [facility] Work Phone: Comment on above: Expected: 10/06/2022 , Expires: 12/06/2022 Start: 10-06-2022 End: 12-06-2022 Urinalysis complete panel - Urine URINALYSIS, WITH MICROSCOPIC Lab Routine Pre-op testing Frequent urination Expected: 10/06/2022, Expires: 12/06/2022 [facility] Work Phone: Comment on above: Expected: 10/06/2022 , Expires: 12/06/2022 Start: 08-29-2022 ADVANCE DIRECTIVE DISCUSSION ADVANCE DIRECTIVE DISCUSSION [facility] Start: 08-29-2022 DEPRESSION ASSESSMENT DEPRESSION ASS ESSMENT [facility] Start: 04-29-2022 Influenza vaccination [facility] Start: 02-26-2022 Mammography MAMMOGRAM [facility] Start: 01-22-2022 COVID-19 VACCINE (5 - Booster for Pfizer series) COVID-19 VACCINE (5 - Booster for Pfizer series) [facility] Start: 08-29-2021 ADVANCE DIRECTIVE DISCUSSION ADVANCE DIRECTIVE DISCUSSION [facility] Start: 08-29-2021 DEPRESSION ASSESSMENT DEPRESSION ASS ESSMENT [facility] Start: 08-03-2021 Pneumococcal 65+ yea rs Vaccine (1 of 1 - PPSV23) Pneumococcal 65+ years Vaccine (1 of 1 - PPSV23) [employer] Phone: Start: 06-13-2021 Pneumococcal 65+ yea rs Vaccine (2 - PCV) Pneumococcal 65+ years Vaccine (2 - PCV) [facility] Start: 06-13-2021 PNEUMOCOCCAL: 65+ (2 - PCV) PNEUMOCOCCAL: 65+ (2 - PCV) [facility] Start: 05-08-2021 Depression Screen Depression Screen [facility] Start: 04-29-2021 Influenza vaccination [employer] Phone: Start: 05-24-2020 Colonoscopy COLONOSCOPY [facility] Start: 05-24-2020 COLORECTAL CANCER SCREENING COLORECTAL CANCER SCREENING [facility] Start: 05-24-2020 Screening for malign ant neoplasm of colon [facility] Start: 05-08-2020 Annual Wellness Visi t (AWV) Annual Wellness Visit (AWV) [facility] Start: 11-02-2019 Shingles Vaccine (3 of 3) Shingles Vaccine (3 of 3) [employer] Phone: Start: 2019 ADVANCE DIRECTIVE DISCUSSION ADVANCE DIRECTIVE DISCUSSION [facility] Start: 2019 BONE DENSITY BONE DENSITY [facility] Start: 2019 PNEUMOVAX AGE 65 AND OVER WITH 5YR LOOKBACK (#1) PNEUMOVAX AGE 65 AND OVER WITH 5YR LOOKBACK (#1) [facility] Start: 06-20-2014 Screening for malign ant neoplasm of colon Colon Cancer Screen FIT/FOBT [employer] Phone: Start: 2014 RSV Vaccine (1 - 1-d ose 60+ series) RSV Vaccine (1 - 1-dose 60+ series) [facility] Start: 2009 Influenza vaccination LUNG CANCER SC REENING [facility] Start: 2009 Screening for malign ant neoplasm of lung Low dose CT lung screening [employer] Phone: Start: 2004 Influenza vaccination LUNG CANCER [facility] Start: 2004 Screening for malign ant neoplasm of lung [facility] [employer] Start: 2004 SHINGRIX VACCINE (1 of 2) SHINGRIX VACCINE (1 of 2) [facility] Start: 1999 COLOGUARD (FIT-DNA) COLOGUARD (FIT-D NA) [facility] Start: [address] COLONOGRAPHY [facility] Start: 1999 DIABETES SCREEN DIABETES SCREEN [facility] Start: 1999 FECAL OCCULT BLOOD FECAL OCCULT BLOO D [facility] Start: 1999 Lipid panel Lipid Screening [facility] Start: 1999 LIPID SCREEN LIPID SCREEN [facility] Start: 1999 Screening for malign ant neoplasm of colon [facility] Start: 1999 SIGMOIDOSCOPY SIGMOIDOSCOPY [facility] Start: 1994 Diabetes screen Diabetes screen [employer] Phone: Start: 1994 Lipid panel [facility] [employer] Start: 1994 Mammography MAMMOGRAM [facility] Start: 1984 Zoledronic acid therapy ALPHA- 1 ANTITRYPSIN DEFICIENCY SCREENING [facility] Start: 1973 Urine microalbumin profile DTAP,TDAP,TD (1 - Tdap) [facility] Start: 1972 ANNUAL PCP TEAM GAME WARDEN CHUN DISEASE VISIT ANNUAL PCP TEAM CHRONIC DISEASE VISIT [facility] Start: 1972 HEPATITIS C SCREENING HEPATITIS C [facility] Start: 1972 Hepatitis C screening [facility] Start: 1972 SPIROMETRY SPIROMETRY [facility] Start: 1966 Adult depression screening assessment DEPRESSION SCREENING [facility] Start: 1966 COVID-19 VACCINE (1) COVID-19 VACCIN E (1) [facility] Start: 1966 Depression Screen Depression Screen [facility] Start: 1954 Annual Wellness Visi t (AWV) Annual Wellness Visit (AWV) [facility] Start: 1954 Hepatitis C screening Hepatitis C sc [facility] Work Phone: End: 11-25-2023 ECG COMPLETE ECG COMPLETE ECG Routine Pre-op evaluation 1 Occurrences starting 11/24/2022 until 11/25/2023 [facility] Work Phone: Comment on above: 1 Occurrences starti ng 11/24/2022 until 11/25/2023 End: 04-05-2022 US BREAST COMPLETE RIGHT US BREAST COMPLETE RIGHT Imaging Routine Abnormal mammogram of right breast 1 Occurrences starting 04/05/2022 until 04/05/2022 [facility] Work Phone: Comment on above: 1 Occurrences starti ng 04/05/2022 until 04/05/2022 [place] [facility] Immunizations Immunization Date Immunization Notes Care Provider [facility] 06-16-2021 influenza (HD-IIV4) vaccine, age 65+ yr, high dose, quadrivalent, PF (FLUZONE HIGH-DOSE) Vel Galeana PA-C Work Phone: [facility] 06-13-2020 pneumococcal polysaccharide vaccine, 23 valent Shant Méndez MD Work Phone: [facility] Work Phone: 06-12-2020 influenza (aIIV4) vaccine, age 65+ yr, quadrivalent, PF (FLUAD QUAD) Vel Galeana PA-C Work Phone: [facility] 03-29-2020 zoster vaccine recombinant Shant Méndez MD Work Phone: [facility] Work Phone: 09-07-2019 zoster vaccine recombinant Shant Méndez MD Work Phone: [facility] Work Phone: 06-16-2019 influenza, high dose seasonal, preservative-free Vel Galeana PA-C Work Phone: [facility] 05-30-2018 influenza, high dose seasonal, preservative-free Vel Scotch PA-C Work Phone: [facility] 05-21-2018 influenza, injectabl e, quadrivalent, preservative free Vel Scotch PA-C Work Phone: [facility] 05-31-2017 seasonal influenza, intradermal, preservative free Vel Scotch PA-C Work Phone: [facility] 05-25-2017 influenza, injectabl e, quadrivalent, preservative free Vel Scotch PA-C Work Phone: [facility] 08-03-2016 pneumococcal conjuga te vaccine, 13 valent Vel Scotch PA-C Work Phone: [facility] 08-03-2016 pneumococcal polysaccharide vaccine, 23 valent [facility] Work Phone: 05-31-2016 diphtheria, tetanus toxoids and acellular pertussis vaccine [facility] 05-31-2016 Influenza Vaccine, unspecified formulation [facility] Work Phone: 05-31-2016 influenza virus vacc ine, unspecified formulation Vel Scotch PA-C Work Phone: [facility] 05-24-2016 influenza, seasonal, injectable, preservative free Vel Scotch PA-C Work Phone: [facility] 05-24-2016 tetanus toxoid, redu jazz diphtheria toxoid, and acellular pertussis vaccine, adsorbed Vel Scotch PA-C Work Phone: [facility] 04-23-2016 tetanus toxoid, redu jazz diphtheria toxoid, and acellular pertussis vaccine, adsorbed Shant Méndez MD Work Phone: [facility] Work Phone: 04-08-2015 pneumococcal polysaccharide vaccine, 23 valent Vel Scotch PA-C Work Phone: [facility] 06-09-2011 zoster vaccine, live [facility] Work Phone: 06-03-2011 zoster vaccine, live [facility] Work Phone: 03-30-2011 pneumococcal polysaccharide vaccine, 23 valent Vel Galeana PA-C Work Phone: [facility] Payers Date Payer Category Payer Unknown [id number] 2020 Unknown [employer]IC[employer] SUPPLEMENT [id number] 2020-Present [phone] [id number] [employer] [place] [address] Indemnity [id number] 2019 Medicare [id number] 2019 Medicare MEDICARE MEDICAR E A AND B [id number] 2019-Present [phone] [address] [address] [place] [address] Medicare [id number] 1959 Medicare [id number] 1959 Unknown [id number] 1959 Unknown [id number] 1954 Unknown [id number] 3 1954 Unknown [id number] 3 1954 Unknown [id number] 3 1954 Unknown [id number] 3 1954 Unknown [id number] 3 1954 Unknown [id number] 59 1954 Unknown [id number] 59 1954 Unknown [id number] 59 1954 Unknown [id number] 59 1954 Unknown [id number] 59 1954 Unknown [id number] 59 1954 Unknown [id number] 59 1954 Unknown [id number] 59 Social History Date Type Detail Facility Start: 02-26-2021 End: 11-24-2022 Tobacco smoking status [facility] Former smoker [facility] Work Phone: End: 05-08-2011 History of tobacco use Current smoker [employer] Start: 02-26-2021 End: 01-14-2023 Cigarettes smoked current (pack per day) - Reported [employer] Phone: Start: 02-26-2021 End: 11-24-2022 Tobacco use and exposure Never used [employer] Start: 02-26-2021 End: 04-18-2023 Alcohol intake Current non-drinker of alcohol (finding) [employer] Phone: Start: 1955 Sex Assigned At Not on file [employer] Work Phone: Start: 03-26-2022 End: 04-05-2022 Exposure to SARS-CoV-2 (event) Not sure [employer] Start: 09-21-2021 End: 11-24-2022 Alcohol intake Ex-drinker (finding) [facility] End: 05-08-2011 History of tobacco use Cigarette Smoker [facility] Phone: Start: 11-24-2022 Alcohol Comment denies tx for drug/alcohol abuse in the past. [facility] Start: 11-24-2022 End: 01-14-2023 Tobacco use panel [facility] National Score (1-10 0), lower number is lower risk 78 [facility] Medical Equipment Procedure Code Equipment Code Equipment Origin al Text Equipment Identifier Dates Liner Mdm 42mm E Cocr Acetabular 2 Mobility Modular Hip - [id number] Start: 09-29-2021 Head V40 Lfit 28 mm +0mm Cocr Femoral Primary Taper Offset Hip - [id number] Start: 09-29-2021 Insert Adm Mobil e Bearing Hip Yazidism 48mm 28mm 0d X3 6.9mm Acetabular - [id number] Start: 09-29-2021 Shell Trident Ii 52mm E Tritanium Acetabular 5 Screw Hole Cluster Sterile - [id number] Start: 09-29-2021 Stem Accolade Ii 7 132d Femoral - [id number] Start: 09-29-2021 Mdm Liner X3 Ins ert 48mm X 28mm [id number] Start: 11-30-2022 Head V40 Lfit 28 mm -4mm Offset Taper Cocr Femoral Primary Hip - [id number] Start: 11-30-2022 Liner Mdm 42mm E Cocr Acetabular 2 Mobility Modular Hip - [id number] Start: 11-30-2022 Shell Trident Ii 54mm E Tritanium Acetabular 5 Screw Hole Cluster Sterile - [id number] Start: 11-30-2022 Stem Accolade Ii 7 132d Femoral - [id number] Start: 11-30-2022 Clinical Notes 06-26-2021 to 10-04-2023 Vel Galeana PA-C - 10/04/2023 10:48 AM El Méndez MD - 02/25/2023 3:41 PM Ceferino Méndez MD - 02/07/2023 5:36 PM Ceferino Méndez MD - 02/07/2023 12:00 AM EDT Note Date & Type Note Facility 10-04-2023 Note HNO ID: [id number] Author: CALVIN ROBLES RT(R) Service: ? Author Type: Technologist Type: [...] PATIENT PRESENTS WITH AN IMPLANTABLE OR ATTACHED NURSE CLINICAL: No RADIOLOGY DEPARTMENT: General X-ray: Exam(s) Completed: Pelvis X-Ray: Pelvis General AP PERIPHERAL IV DATA: Not applicable SIGNED BY: RT Kajal(R) October 04, 2023 11:03 AM [facility] 10-04-2023 Note HNO ID: [id number] Author: VEL GALEANA PA-C Service: ? Author Type: Physician Lead Ingot Molder Type: Progress Notes Filed: 10/04/2023 12:45 Note [...] Galeana PA-C October 04, 2023 10:48 AM [facility] 10-04-2023 History of Presen t illness [...] 2023 10:48 AM documented in this encounter [facility] 02-25-2023 Note HNO ID: [id number] Author: Shant Méndez MD Service: ? Author Type: Physician Type: Progress Notes Filed: 02/25/2023 3:42 PM Note Text: Large Joint Arthro/Inj: R knee joint Informed Consent Consent Obtained: Verbal [place] Protocol A moment to CARE was completed. [...] Third libertarian verified by Mary Quigley MA. [facility] 02-25-2023 Note HNO ID: [id number] Author: RT Rosalba(R) Service: ? Author Type: [...] DATA: Not applicable SIGNED BY: RT Rosalba(R) February 25, 2023 1:57 PM [facility] 02-25-2023 History of Presen t illness Narrative Associated Order(s): Large Joint Arthro/Inj: R knee joint Post-Procedure Diagnose(s): Primary osteoarthritis of right knee Large Joint Arthro/Inj: R knee joint Informed Consent Consent Obtained: Verbal [place] Protocol A moment to CARE was completed. [...] Mary Quigley MA. documented in this encounter [facility] 02-25-2023 Note HNO ID: [id number] Author: Shant Méndez MD Service: Orthopaedic Surgery Author Type: Physician Type: Progress Notes Filed: 03/08/2023 1:53 PM Note Text: [facility] [address] [place], [place] [address] CLINIC NOTE Department of Orthopaedics - Jerome Méndez II, M.D. NAME: MARY VAUGHN [facility] NO.: [id number] DATE OF SERVICE: 02/25/2023 CHIEF COMPLAINT: Recheck [...] II, M.D. Date Dictated: 03/03/2023 Date Typed: [facility] 03/03/2023 JOB# [id number] [facility] 02-07-2023 Note HNO ID: [id number] Author: Shant Méndez MD Service: ? Author Type: Physician Type: Progress Notes Filed: 02/22/2023 1:48 PM Note Text: see dictated note Shant Méndez II, MD [facility] 02-07-2023 History of Presen t illness Narrative see dictated note Shant Méndez II, MD [facility] [address] [place], [place] [address] CLINIC NOTE Department of Orthopaedics - Jerome Méndez II, M.D. NAME: MARY VAUGHN [facility] NO.: [id number] DATE OF SERVICE: 02/07/2023 CHIEF COMPLAINT: Recheck [...] walking [place]. Has a 1 plus effusion of the right knee. No gross ligamentous instability. Neurovascularly intact. Recommend walk on the driveway and no walking on even ground. No significant problems with her right hip. X-rays shows total hip replacements, bilateral in excellent position. See back in 1 month. Dictated By: Shant Méndez II, M.D. Date Dictated: 02/07/2023 Date Typed: [facility] 02/08/2023 JOB# [id number] documented in this encounter [facility] 02-07-2023 Note HNO ID: [id number] Author: Irais Nicole, RT(R) Service: ? Author [...] Not applicable SIGNED BY: Irais Nicole, RT(R) February 07, 2023 2:14 PM [facility] 02-07-2023 Note HNO ID: [id number] Author: Shant Méndez MD Service: Orthopaedic Surgery Author Type: Physician Type: Progress Notes Filed: 02/10/2023 2:28 PM Note Text: [facility] [address] [place], [place] [address] CLINIC NOTE Department of Orthopaedics - Jerome Méndez II, M.D. NAME: MARY VAUGHN [facility] NO.: [id number] DATE OF SERVICE: 02/07/2023 CHIEF COMPLAINT: Recheck [...] walking on the backyard [place], [place]. Has a 1 plus effusion of the right knee. No gross ligamentous instability. Neurovascularly intact. Recommend walk on the driveway and no walking on even ground. No significant problems with her right hip. X-rays shows total hip replacements, bilateral in excellent position. See back in 1 month. Dictated By: Shant Méndez II, M.D. Date Dictated: 02/07/2023 Date Typed: [employer] 02/08/2023 JOB# [id number] [facility] 01-14-2023 Note HNO ID: [id number] Author: Shant Méndez MD Service: ? Author Type: Physician Type: Progress Notes Filed: 01/14/2023 4:03 PM Note Text: see dictated note Shant Méndez II, MD [facility] 01-14-2023 Note HNO ID: [id number] Author: Shant Méndez MD Service: Orthopaedic Surgery Author Type: Physician Type: Progress Notes Filed: 01/18/2023 10:45 AM Note Text: [facility] [address] [place], [place] [address] CLINIC NOTE Department of Orthopaedics - Eminenceyosvany Méndez II, M.D. NAME: MARY VAUGHN [facility] NO.: [id number] DATE OF SERVICE: 01/14/2023 CHIEF COMPLAINT: Recheck [...] proximal tibia at the knee. There is mqsygyw-ke-tm effusion of the knee. The patient denies [...] II, M.D. Date Dictated: 01/14/2023 Date Typed: [facility] 01/15/2023 JOB# [id number] [facility] 12-22-2022 Note HNO ID: [id number] Author: Vel Galeana PA-C Service: ? Author Type: Physician Lead Ingot Molder Type: Progress Notes Filed: 12/22/2022 11:35 AM [...] Types: Cigarettes Quit date: 2010 Years since quittin. Smokeless tobacco: Never Substance Use Topics Alcohol [...] Galeana PA-C December 22, 2022 11:02 AM [facility] 12-22-2022 Note HNO ID: [id number] Author: RT Rosalba(R) Service: ? Author Type: [...] RT Rosalba(R) December 22, 2022 10:40 AM [facility] 12-22-2022 Instructions Vel Galeana PA-C - [...] quiets things down. documented in this encounter [facility] 12-22-2022 History of Presen t illness [...] 2022 11:02 AM documented in this encounter [facility] 12-22-2022 History of Presen t illness [...] 2022 10:40 AM documented in this encounter [facility] 11-30-2022 Note HNO ID: [id number] Author: TIMOTHY Hudson Service: Anesthesiology Author Type: Cloth Bleaching Range Tender Type: Anesthesia Procedure Notes Filed: 11/30/2022 11:40 AM Note Text: ANESTHESIOLOGY PROCEDURE NOTE Spinal Block General Information Procedure Start Time/Medication Administration: 11/30/2022 11:24 AM Patient location during procedure: OR Timeout Performed Pre-procedure: timeout performed Consent Obtained: Yes Patient identity confirmed: arm band and patient Reason for Block: primary surgical anesthetic Staffing RETIREMENT SPECIALIST: Parisa Watson APRN.RETIREMENT SPECIALIST Performed by: RETIREMENT SPECIALIST Preparation Sterility Preparation: hand hygiene performed prior [...] November 30, 2022 TIME: 11:39 AM CSN: [id number] [facility] 11-26-2022 Miscellaneous Notes Patient returned call and I relayed below message. She verbalized understanding. Cherie Edwards LPN November 26, 2022 11:35 AM Attempted to reach patient via phone call, no answer. Left message to return call to [facility] nurse at [phone]. Joseline Wei LPN November 26, 2022 9:08 AM On pre-op urine culture... Culture >=100,000 CFU/ml Mixed microbiota Abnormal Macrobid ordered. Please call patient and advised to start KRISTIAN Thank you Quiana Poole APRN.CNP [facility] documented in this encounter [facility] 11-24-2022 Note HNO ID: [id number] Author: Irais Nicole RT(R) Service: ? Author Type: Technologist Type: Progress Notes Filed: 11/24/2022 9:40 AM Note Text: Radiology Service Progress Note PATIENT NAME: aMry Vaughn DATE OF SERVICE: November 24, 2022 [...] IV DATA: Not applicable SIGNED BY: Irais Nicole RT(R) November 24, 2022 9:40 AM [facility] 11-24-2022 History and physical note HISTORY [...] Has attempted medications without relief. Pain today 4/10 PAST MEDICAL HISTORY Diagnosis Date Deaf Osteoporosis [...] six hours after the dental procedure Yes [id number] OIL ORAL Take by mouth once daily. [...] fevers. Neuro: No history of TIA's, stroke, SCHOOL OFFICE ASSISTANT tumor, impaired sensorium, hemiplegia, paraplegia or quadraplegia. [...] or incontinence,, stones or chronic kidney disease APRN: Negative for abnormal vaginal bleeding, abnormal vaginal [...] reviewed by myself. Assessment/Plan SVT (supraventricular tachycardia) ([facility]) Assessment: Hx of SVT- controlled on propanolol [...] 24, 2022 TIME: documented in this encounter [facility] 11-24-2022 Note HNO ID: [id number] Author: Vel Galeana PA-C Service: ? Author Type: Physician Lead Ingot Molder Type: Progress Notes Filed: 11/24/2022 10:44 AM [...] which include walking 2 blocks, gardening, doing bobbin loose end finder, participating in family activities, enjoying hobbies, exercise, [...] - no history (more content not included)... [facility] 11-24-2022 Instructions Quiana Poole APRN.[facility] - 11/24/2022 11:19 AM EDT PATIENT PREOPERATIVE INSTRUCTIONS Shant Méndez MD has scheduled you for your procedure at this surgery center: [facility]: [phone] --[id number] [place] [address]. Please enter through the entrance closest to [...] Procedures: - YOU MUST HAVE A RESPONSIBLE EQUIPMENT ASSOCIATE TAKE YOU HOME. A DESILVERIZER OR FISH FILLETER CANNOT BE MADE A RESPONSIBLE EQUIPMENT ASSOCIATE. - We recommend that a responsible person stays with you overnight to take care of you. - You cannot stay in a hotel alone after outpatient surgery. You will not be permitted to have your surgery, if you do not have someone to take care of you. If you already have an Advance Directive, please fax a copy to [phone] or email to for it to be [...] chart that day. documented in this encounter [facility] 11-24-2022 Instructions Vel Galeana PA-C - [...] use chlorhexidine wipes. documented in this encounter [facility] 11-24-2022 History of Presen t illness [...] Disease (Hcc) Former Smoker Svt (Supraventricular Tachycardia) ([facility]) Incomplete Rbbb Aftercare Following Left Hip Joint [...] which include walking 2 blocks, gardening, doing bobbin loose end finder, participating in family activities, enjoying hobbies, exercise, [...] specific incident that brought about this pain. Mayr Vaughn has no additional complaints. FUNCTIONAL STATUS: [...] every 8 hours as needed for pain. [id number] OIL ORAL Take by mouth once daily. multivit with calcium,iron,min (WOMEN'S MULTIPLE VITAMINS ORAL) Take by mouth once daily. ascorbic acid (VITAMIN C ORAL) Take by mouth once daily. glucosamine/msm/chondroitin A (HMKMDYQAROM-FOCESV-CQX ORAL) Take by mouth once daily. propranolol [...] TIME: 9:35 AM documented in this encounter [facility] 11-08-2022 Nurse Note ORTHOPAEDIC SURGERY PRE-OP PATIENT Mary Vaughn is a 67 year old female PROCEDURE: right Total Hip PROCEDURE DATE: 11/30/22 CHECKLIST: Informed Consent: Yes- In [email or web address] [facility]: No Pre-op Skin Preparation Cloths & [...] Effects -Afterhours Number Given- page ortho resident back tender insulation board at [phone] METHOD OF INSTRUCTION: Individual instruction, Written instruction [...] -Call office if questions/concerns -Afterhour for resident back tender insulation board INFECTION MANAGEMENT: -Signs and symptoms of an infection -Importance of contacting the physician MEDICATION SIDE EFFECTS: -Side effects associated with the medication that warrant a call to the physician WOUND CARE: -Correct procedure to perform wound care DISCHARGE PLAN: -Patient referred to rapid recovery program and [facility] was offered to Patient about [...] for Right Total Hip Arthroplasty with Dr. Kolczun, medical consult per . PACC. Cardiac clearance [...] plans to go home with OP[facility]PT at [facility] Patient has walker Yes , cane [...] Karine Le RN documented in this encounter [facility] 10-06-2022 Note HNO ID: [id number] Author: Shant Méndez MD Service: Orthopaedic Surgery Author Type: Physician Type: Progress Notes Filed: 10/15/2022 3:01 PM Note Text: [facility] [address] [place], [place] [address] CLINIC NOTE Department of Orthopaedics - Jerome Méndez II, M.D. NAME: MARY VAUGHN [facility] NO.: [id number] DATE OF SERVICE: 10/06/2022 CHIEF COMPLAINT: Recheck [...] in good alignment. Right hip shows severe fgrx-kd-dypw arthritis throughout the right hip. The patient [...] II, M.D. Date Dictated: 10/08/2022 Date Typed: [employer] 10/08/2022 JOB# [id number] [facility] 10-06-2022 Note HNO ID: [id number] Author: RT Saira(R) Service: ? Author Type: [...] RT Saira(R) October 06, 2022 11:05 AM [facility] 10-06-2022 Note HNO ID: [id number] Author: Mary Quigley MA Service: ? Author Type: Certified Respiratory Therapist Type: Progress Notes Filed: 10/18/2022 11:46 AM Note Text: This note has been dictated. Low Méndez M.D. [facility] 10-06-2022 History of Presen t illness [...] IV DATA: Not applicable SIGNED BY: RT Saira([place]) October 06, 2022 11:05 AM documented in this encounter [facility] 10-06-2022 History of Presen t illness Narrative This note has been dictated. Low Méndez M.D. [facility] [address] [facility]. [place] [address] CLINIC NOTE Department of Orthopaedics - Jerome Méndez II, M.D. NAME: MARY VAUGHN [facility] NO.: [id number] DATE OF SERVICE: 10/06/2022 CHIEF COMPLAINT: Recheck [...] in good alignment. Right hip shows severe eiuf-yh-hwif arthritis throughout the right hip. The patient [...] II, M.D. Date Dictated: 10/08/2022 Date Typed: [facility] 10/08/2022 JOB# [id number] documented in this encounter [facility] 05-27-2022 Miscellaneous Notes rx sent to [facility] notified Shant Méndez II, MD documented in this encounter [facility] 12-22-2021 Miscellaneous Notes rx sent to [facility] patient notified Shant Méndez II, MD documented in this encounter [facility] 06-26-2021 History of Presen t illness [...] 2021 1:20 PM documented in this encounter [facility] Evaluation note Diagnosis Abnormal findings on diagnostic imaging of other parts of musculoskeletal system Osteopenia, unspecified location documented in this encounter [employer] Phone: evaluation note* Diagnosis Breast cancer screening by mammogram documented in this encounter [employer] Phone: evaluation note* Diagnosis Status post left hip replacement- Primary Hip joint replacement by other means [facility] Diagnosis Screening breast examination Other screening breast examination documented in this encounter [employer] Phone: evaloaeebs note* Diagnosis Abnormal mammogram of right breast documented in this encounter [employer] Phone: evaluation note* Diagnosis Abnormal mammogram of right breast documented in this encounter [employer] Phone: evaluation note* Diagnosis Status post left hip replacement Hip joint replacement by other means [facility] Diagnosis Status post left hip replacement- Primary Hip joint replacement by other means Primary osteoarthritis of right hip Primary localized osteoarthrosis, pelvic region and thigh Pre-op testing Preoperative examination, unspecified MRSA (methicillin resistant Staphylococcus aureus) Methicillin resistant Staphylococcus aureus in conditions classified elsewhere and of unspecified site Frequent urination Urinary frequency Abnormal finding of blood chemistry, unspecified [facility] Diagnosis Primary osteoarthritis of right hip- Primary Primary localized osteoarthrosis, pelvic region and thigh Primary osteoarthritis of right hip Primary localized osteoarthrosis, pelvic region and thigh [facility] Diagnosis Primary osteoarthritis of right hip- Primary Primary localized osteoarthrosis, pelvic region and thigh Primary osteoarthritis of right hip Primary localized osteoarthrosis, pelvic region and thigh [facility]* Diagnosis Pre-op evaluation- Primary Preoperative examination, unspecified SVT (supraventricular tachycardia) (HCC) Other specified cardiac dysrhythmias Former smoker Personal history of tobacco use, presenting hazards to health Primary osteoarthritis of right hip Primary localized osteoarthrosis, pelvic region and thigh [facility] Diagnosis Aftercare following left hip joint replacement surgery- Primary Status post right hip replacement Hip joint replacement by other means documented in this encounter [facility] note* Diagnosis Status post right hip replacement- Primary Hip joint replacement by other means Status post left hip replacement Hip joint replacement by other means Primary osteoarthritis of right knee Primary localized osteoarthrosis, lower leg documented in this encounter [facility] note* Diagnosis Primary osteoarthritis of right knee- Primary Primary localized osteoarthrosis, lower leg documented in this encounter [facility] note* Diagnosis Encounter for screening mammogram for malignant neoplasm of breast Other screening mammogram documented in this encounter [facility] note* Diagnosis Status post right hip replacement- Primary Hip joint replacement by other means Status post left hip replacement Hip joint replacement by other means documented in this encounter [facility] for referral (narrative)* - Authorized Specialty Diagnoses / Procedures Referred By Contac t Referred To Contact Physical Therapy Diagnoses Primary osteoarthritis of right hip Pre-op testing Procedures CONSULT TO PHYSICAL THERAPY Shant Méndez MD [address] [place] [address] Referral ID Status Reason Start Date Expiration Date V isits Requested Visits Authorized [id number] Authorized 10/06/2022 01/04/2023 99 99 * Diagnostic Procedure Only (Routine) - Closed Specialty Diagnoses / Procedures Referred By Contac t Referred To Contact XR IMAGING Diagnoses Status post left hip replacement Procedures XR PELVIS 1V AP RADIOLOGIC EXAMINATION PELVIS 1/2 VIEWS Shnat Méndez MD [address] [place] [address] Xr Imaging Referral ID Status Reason Start Date Expiration Date V isits Requested Visits Authorized [id number] Closed Auto-Generate d Referral 10/05/2022 11/04/2023 1 1 [facility] for referral (narrative)* Diagnostic Procedure Only (Routine) - Closed Specialty Diagnoses / Procedures Referred By Contac t Referred To Contact XR IMAGING Diagnoses Primary osteoarthritis of right hip Procedures XR HIP GENERAL 3V PELV/AP/LAT RIGHT RADEX HIP UNILATERAL WITH PELVIS 2-3 VIEWS Shant Méndez MD [address] [place] [address] Xr Imaging Referral ID Status Reason Start Date Expiration Date V isits Requested Visits Authorized [id number] Closed Auto-Generate d Referral 11/22/2022 12/22/2023 1 1 [facility] for referral (narrative)* Outpatient Procedure (Routine) - Pending Review Specialty Diagnoses / Procedures Referred By Contac t Referred To Contact [facility] [place] Diagnoses Pre-op evaluation Procedures ECG COMPLETE ECG ROUTINE ECG W/LEAST 12 LDS W/I&R Quiana Poole APRN.[employer] [address] [place] [address] [facility] [place] [address] [place] [address] Referral ID Status Reason Start Date Expiration Date Visits Requested Visits Authorized [id number] Pending Review Auto-Generat ed Referral 11/24/2022 11/24/2023 1 1 [facility] for referral (narrative)* Diagnostic Procedure Only (Routine) - Closed Specialty Diagnoses / Procedures Referred By Contac t Referred To Contact XR IMAGING Diagnoses Aftercare following left hip joint replacement surgery Procedures XR PELVIS 1V AP RADIOLOGIC EXAMINATION PELVIS 1/2 VIEWS Vel Galeana PA-C [address] [place] [address] Xr Imaging Referral ID Status Reason Start Date Expiration Date V isits Requested Visits Authorized [id number] Closed Auto-Generate d Referral 12/20/2022 01/19/2024 1 1 [facility] for referral (narrative)* Diagnostic Procedure Only (Routine) - Closed Specialty Diagnoses / Procedures Referred By Contac t Referred To Contact XR IMAGING Diagnoses Status post right hip replacement Status post left hip replacement Procedures XR PELVIS 1V AP RADIOLOGIC EXAMINATION PELVIS 1/2 VIEWS Shant Méndez MD [address] [place] [address] Xr Imaging Referral ID Status Reason Start Date Expiration Date V isits Requested Visits Authorized [id number] Closed Auto-Generate d Referral 02/04/2023 03/05/2024 1 1 * Diagnostic Procedure Only (Routine) - Closed Specialty Diagnoses / Procedures Referred By Contac t Referred To Contact XR IMAGING Diagnoses Primary osteoarthritis of right knee Procedures XR KNEE GENERAL 4V AP BOTH/PA BOTH/LAT/MERC RIGHT RADIOLOGIC EXAM KNEE COMPLETE 4/MORE VIEWS Shant Méndez MD [address] [place] [address] Xr Imaging Referral ID Status Reason Start Date Expiration Date V isits Requested Visits Authorized [id number] Closed Auto-Generate d Referral 02/04/2023 03/05/2024 1 1 [facility] for referral (narrative)* Diagnostic Procedure Only (Routine) - Closed Specialty Diagnoses / Procedures Referred By Contac t Referred To Contact XR IMAGING Diagnoses Primary osteoarthritis of right knee Procedures XR KNEE GENERAL 4V AP BOTH/PA BOTH/LAT/MERC RIGHT RADIOLOGIC EXAM KNEE COMPLETE 4/MORE VIEWS Shant Méndez MD [address] [place] [address] Xr Imaging Referral ID Status Reason Start Date Expiration Date V isits Requested Visits Authorized [id number] Closed Auto-Generate d Referral 02/25/2023 03/26/2024 1 1 [facility] for referral (narrative)* Diagnostic Procedure Only (Routine) - Closed Specialty Diagnoses / Procedures Referred By Contac t Referred To Contact XR IMAGING Diagnoses Status post right hip replacement Procedures XR PELVIS 1V AP RADIOLOGIC EXAMINATION PELVIS 1/2 VIEWS Vel Galeana PA-C [address] [place] [address] [place] [address] Referral ID Status Reason Start Date Expiration Date V isits Requested Visits Authorized [id number] Closed Auto-Generate d Referral 09/30/2023 10/29/2024 1 1 [facility] Reason for Referral Status Reason Specialty Diagnoses / Procedures Re ferred By Contact Referred To Contact Open Radiology Diagnoses Abnormal findings on diagnostic imaging of other parts of musculoskeletal system Osteopenia, unspecified location Procedures DEXA Bone Density 2 Sites Breezy Zaman MD [address] [facility] [address] [place] [id number] Status Reason Specialty Diagnoses / Procedures Referre d By Contact Referred To Contact Closed Radiology Diagnoses Breast cancer screening by mammogram Procedures EDITH HERMINIA DIGITAL SCREEN SELF REFERRAL W OR WO CAD BILATERAL Breezy Zaman MD [address] [address] Specialty Diagnoses / Procedures Referred By Contac t Referred To Contact Radiology Diagnoses Screening breast examination Procedures EDITH HERMINIA DIGITAL SCREEN SELF REFERRAL W OR WO CAD BILATERAL Luis Garcia MD [address] [place] [address] Referral ID Status Reason Start Date Expiration Date Visits Re quested Visits Authorized [id number] Closed 2022 2023 1 1 Specialty Diagnoses / Procedures Referred By Contac t Referred To Contact Radiology Diagnoses Abnormal mammogram of right breast Procedures US BREAST COMPLETE RIGHT Luis Garcia MD [address] [place] [address] Referral ID Status Reason Start Date Expiration Date V isits Requested Visits Authorized [id number] Authorized 03/15/2022 03/15/2023 1 1 Specialty Diagnoses / Procedures Referred By Contac t Referred To Contact Radiology Diagnoses Abnormal mammogram of right breast Procedures EDITH HERMINIA DIGITAL DIAGNOSTIC UNILATERAL RIGHT Luis Garcia MD [address] [place] [address] Referral ID Status Reason Start Date Expiration Date Visits Re quested Visits Authorized [id number] Closed 03/15/2022 03/15/2023 1 1 Specialty Diagnoses / Procedures Referred By Contac t Referred To Contact Radiology Diagnoses Encounter for screening mammogram for malignant neoplasm of breast Procedures EDITH HERMINIA DIGITAL SCREEN BILATERAL Luis Garcia MD [address] 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 Molder Fiberglass Expl anation ACP-Advance Directive 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 Park Maintenance Technician Documents on File Type Date Recorded Patient Tube Molder Fiberglass Expl anation Advance Directive(s) 09/29/2021 6:08 AM [...] dose, Starting on Tue02/25/23 at 1541, Until 02/25/23 at 1541 Given 02/25/2023 3:41 PM EDT 80 mg Knee, Right Additional Source Comments Reason for Visit (unrecogniz ed section and content) Status Reason Specialty Diagnoses / Procedures Re ferred By Contact Referred To Contact Open Radiology Diagnoses Abnormal findings on diagnostic imaging of other parts of musculoskeletal system Osteopenia, unspecified location Procedures DEXA Bone Density 2 Sites Breezy Zaman MD [address] [place] [address] Status Reason Specialty Diagnoses / Procedures Referre d By Contact Referred To Contact Closed Radiology Diagnoses Breast cancer screening by mammogram Procedures EDITH HERMINIA DIGITAL SCREEN SELF REFERRAL W OR WO CAD BILATERAL Breezy Zaman MD [address] [facility] [address] [place] [address] Reason Comments Radio Gen RMP Specialty Diagnoses / Procedures Referred By Contac t Referred To Contact Radiology Diagnoses Screening breast examination Procedures EDITH HERMINIA DIGITAL SCREEN SELF REFERRAL W OR WO CAD BILATERAL Luis Garcia MD [address] [facility] [address] [place] [address] Referral ID Status Reason Start Date Expiration Date Visits Re quested Visits Authorized [id number] Closed 2022 2023 1 1 Specialty Diagnoses / Procedures Referred By Contac t Referred To Contact Radiology Diagnoses Abnormal mammogram of right breast Procedures US BREAST COMPLETE RIGHT Luis Garcia MD [address] [facility] [address] [place] [address] Referral ID Status Reason Start Date Expiration Date V isits Requested Visits Authorized [id number] Authorized 03/15/2022 03/15/2023 1 1 Specialty Diagnoses / Procedures Referred By Contac t Referred To Contact Radiology Diagnoses Abnormal mammogram of right breast Procedures EDITH HERMINIA DIGITAL DIAGNOSTIC UNILATERAL RIGHT Luis Garcia MD [address] [facility] [address] [place] [address] Referral ID Status Reason Start Date Expiration Date Visits Re quested Visits Authorized [id number] Closed 03/15/2022 03/15/2023 1 1 Reason Comments [...] DIGITAL SCREEN BILATERAL Luis Garcia MD [address] [facility] [address] [place] [address] Referral ID Status Reason Start Date Expiration Date Visits Re quested Visits Authorized [id number] Closed 02/25/2023 02/25/2024 1 1 Reason Comments Established Patient Follow Up Hip Replacement Source Comments (unrecognize d section and content) In the event this informatio n is protected by the Federal Confidentiality of Alcohol and Drug Abuse Patient Records regulations: The Federal rules restrict any use of the information to criminally investigate or prosecute any alcohol or drug abuse patient.[facility] the event this information is protected by the Federal Confidentiality of Alcohol and Drug Abuse Patient Records regulations: The Federal rules restrict any use of the information to criminally investigate or prosecute any alcohol or drug abuse patient.[facility] the event this information is protected by the Federal Confidentiality of Alcohol and Drug Abuse Patient Records regulations: The Federal rules restrict any use of the information to criminally investigate or prosecute any alcohol or drug abuse patient.[facility] the event this information is protected by the Federal Confidentiality of Alcohol and Drug Abuse Patient Records regulations: The Federal rules restrict any use of the information to criminally investigate or prosecute any alcohol or drug abuse patient.[facility] the event this information is protected by the Federal Confidentiality of Alcohol and Drug Abuse Patient Records regulations: The Federal rules restrict any use of the information to criminally investigate or prosecute any alcohol or drug abuse patient.[facility] the event this information is protected by the Federal Confidentiality of Alcohol and Drug Abuse Patient Records regulations: The Federal rules restrict any use of the information to criminally investigate or prosecute any alcohol or drug abuse patient.[facility] the event this information is protected by the Federal Confidentiality of Alcohol and Drug Abuse Patient Records regulations: The Federal rules restrict any use of the information to criminally investigate or prosecute any alcohol or drug abuse patient.[facility] the event this information is protected by the Federal Confidentiality of Alcohol and Drug Abuse Patient Records regulations: The Federal rules restrict any use of the information to criminally investigate or prosecute any alcohol or drug abuse patient.[facility] the event this information is protected by the Federal Confidentiality of Alcohol and Drug Abuse Patient Records regulations: The Federal rules restrict any use of the information to criminally investigate or prosecute any alcohol or drug abuse patient.[facility] the event this information is protected by the Federal Confidentiality of Alcohol and Drug Abuse Patient Records regulations: The Federal rules restrict any use of the information to criminally investigate or prosecute any alcohol or drug abuse patient.[facility] the event this information is protected by the Federal Confidentiality of Alcohol and Drug Abuse Patient Records regulations: The Federal rules restrict any use of the information to criminally investigate or prosecute any alcohol or drug abuse patient.[facility] the event this information is protected by the Federal Confidentiality of Alcohol and Drug Abuse Patient Records regulations: The Federal rules restrict any use of the information to criminally investigate or prosecute any alcohol or drug abuse patient.[facility] the event this information is protected by the Federal Confidentiality of Alcohol and Drug Abuse Patient Records regulations: The Federal rules restrict any use of the information to criminally investigate or prosecute any alcohol or drug abuse patient.[facility] the event this information is protected by the Federal Confidentiality of Alcohol and Drug Abuse Patient Records regulations: The Federal rules restrict any use of the information to criminally investigate or prosecute any alcohol or drug abuse patient.[facility] the event this information is protected by the Federal Confidentiality of Alcohol and Drug Abuse Patient Records regulations: The Federal rules restrict any use of the information to criminally investigate or prosecute any alcohol or drug abuse patient.[facility] Care Teams (unrecognized sec tion and content) Eap Counselor Relationship Specialty Start Date End Date Luis Garcia II [address] [facility] [address] [place] [address] PCP - General Internal Medicine 08/31/21 Eap Counselor Relationship Specialty Start Date End Date Luis Garcia MD [address] [place] [address] PCP - General 06/07/12 Eap Counselor Relationship Specialty Start Date End Date Luis Garcia MD [address] [place] [address] PCP - General 06/07/12 Eap Counselor Relationship Specialty Start Date End Date Luis Garcia MD [address] [place] [address] PCP - General 06/07/12 Eap Counselor Relationship Specialty Start Date End Date Luis Garcia II [address] [place] [address] PCP - General Internal Medicine 08/31/21 Eap Counselor Relationship Specialty Start Date End Date Luis Garcia II [address] [place] [address] PCP - General Internal Medicine 08/31/21 Eap Counselor Relationship Specialty Start Date End Date Luis Garcia II [address] [place] [address] PCP - General Internal Medicine 08/31/21 Eap Counselor Relationship Specialty Start Date End Date Luis Garcia II [address] [place] [address] PCP - General Internal Medicine 08/31/21 Eap Counselor Relationship Specialty Start Date End Date Luis Garcia II [address] [place] [address] PCP - General Internal Medicine 08/31/21 Eap Counselor Relationship Specialty Start Date End Date Luis Garcia II [address] [place] [address] PCP - General Internal Medicine 08/31/21 Eap Counselor Relationship Specialty Start Date End Date Luis Garcia Matthew MCDANIEL [address] [place] [address] PCP - General Internal Medicine 08/31/21 Eap Counselor Relationship Specialty Start Date End Date Luis Garcia Matthew MCDANIEL [address] [place] [address] PCP - General Internal Medicine 08/31/21 Eap Counselor Relationship Specialty Start Date End Date Luis Garcia Matthew MCDANIEL [address] [place] [address] PCP - General Internal Medicine 08/31/21 Eap Counselor Relationship Specialty Start Date End Date Jose Luismigdalia Castro II [address] [place] [address] PCP - General Internal Medicine 08/31/21 Eap Counselor Relationship Specialty Start Date End Date Jose Luismigdalia Castro II [address] [place] [address] PCP - General Internal Medicine 08/31/21 Eap Counselor Relationship Specialty Start Date End Date Garcia Luismigdalia Castro II [address] [place] [address] PCP - General Internal Medicine 08/31/21 Eap Counselor Relationship Specialty Start Date End Date Luis Garcia MD [address] [place] [address] PCP - General 06/07/12 Eap Counselor Relationship Specialty Start Date End Date Luis Garcia II, MD [address] [place] [address] PCP - General Internal Medicine 08/31/21 INFORMATION SOURCE (unrecogn ized section and content) DATE CREATED AUTHOR 11/19/2022 [facility] DATE CREATED AUTHOR AUTHOR'S ORGANIZ ATION 12/02/2022 [facility] DATE CREATED AUTHOR AUTHOR'S ORGANIZ ATION 04/22/2023 Rachelle Biggs [facility] DATE CREATED AUTHOR AUTHOR'S ORGANIZ ATION 10/05/2023 [facility] DATE CREATED AUTHOR AUTHOR'S ORGANIZ ATION 04/13/2024 [facility] dical Specialists [facility] FOR RECORDS PERTAINING TO PATIENTS WHO ARE [...] BE BASED ON THE PRIMARY CLINICAL RECORDS. [employer] provides no warranty or guarantee of the accuracy or completeness of information in this document.
--- NOTE | 2024-04-23 08:49 | CT_ITS ---
[address] [address] Patient Name: DHEERAJ VAUGHN MRN: [id number] date: 1955 Sex: F Assigned Patient Location: CT Current Patient Location: Accession/Order Number: [id number] Exam Date: 04/23/2024 08:40 Report Date: 04/24/2024 05:46 At the request of: JUAN HAMILTON Procedure: CT lung screening low-dose EXAMINATION: CT lung screening low-dose HISTORY: History Of Tobacco Dependence COMPARISON: CT chest 04/20/2023 TECHNIQUE: Axial, Coronal, and Sagittal images were created without the administration of IV contrast material. Dose reduction techniques were achieved by using automated exposure control and/or adjustment of mA and/or kV according to patient size and/or use of iterative reconstruction technique. FINDINGS: LUNGS: Mild bronchiectasis bilaterally with scattered areas of mucous plugging within right lower lobe and right middle lobe. Calcified granuloma within right middle lobe. Mild emphysematous changes. PLEURA: No mass, effusion, or pneumothorax. VASCULATURE: No abnormality. BRI: A few calcified lymph nodes compatible with chronic granulomatous disease. MEDIASTINUM: A few calcified lymph nodes. CARDIAC: No enlargement, pericardial thickening, or pericardial effusion. Coronary Artery calcifications: AORTA: No aneurysm or dissection. CHEST WALL: No mass or axillary adenopathy BONES: No bone lesion or fracture. LIMITED ABDOMEN: No suspicious findings. Limited images of the upper abdomen. OTHER: Negative. CT/CT lung screening low-dose IMPRESSION: 1. Lung-RADS Category 1 Negative. No nodules and definitely benign nodules. Continue annual screening with LDCT in 12 months. 2. Mild emphysematous changes. 3. Bronchiectasis and scattered areas of mucous plugging of the bronchi. No peripheral infiltrates or atelectasis. Electronically authenticated by: GIOVANA GASPAR Date: 04/24/2024 05:46
== END 2024-04-23 08:29 | disposition home or self-care (01) ==
LOC: CT 08:28
PROVIDERS: PCP Internal Medicine; Visit Provider Internal Medicine
DX: Z12.31 Encounter for screening mammogram for malignant neoplasm of breast (principal); Z87.891 Personal history of nicotine dependence
CPT/HCPCS: 71271; 77063; 77067

== ENCOUNTER 2024-10-10 10:10 | Outpatient (OUT) | payer MEDICARE, OTHER, SELFPAY ==
--- NOTE | 2024-10-10 10:18 | XR_ITS ---
[address] [address] Patient Name: DHEERAJ VAUGHN MRN: [id number] date: 1955 Sex: F Assigned Patient Location: [facility] Current Patient Location: Accession/Order Number: [id number] Exam Date: 10/10/2024 10:23 Report Date: 10/11/2024 09:35 At the request of: BRENNON DUARTE Procedure: XR chest 2V EXAMINATION: XR chest 2V HISTORY: Rib Pain, Fall ; acute left upper anterior rib pain since falling 5 days ago COMPARISON: No relevant comparison available. FINDINGS: LUNGS: No significant pulmonary parenchymal abnormalities. VASCULATURE: No increased pulmonary vasculature. PLEURA: No pneumothorax, effusion, or pleural thickening. CARDIAC: No cardiomegaly or cardiac silhouette abnormality. MEDIASTINUM: No visible mass or adenopathy. BONES: No fracture or visible bone lesion. OTHER: Negative. XR/XR chest 2V IMPRESSION: 1. No acute cardiopulmonary process. 2. No appreciable rib fracture. Electronically authenticated by: GIOVANA GASPAR Date: 10/11/2024 09:35
== END 2024-10-10 10:11 | disposition home or self-care (01) ==
LOC: RAD 10:11
PROVIDERS: PCP Internal Medicine; Visit Provider Nurse Practitioner Family
DX: R07.81 Pleurodynia (principal); W19.XXXA Unspecified fall, initial encounter
CPT/HCPCS: 71046

== ENCOUNTER 2025-04-24 09:48 | Outpatient (OUT) | payer MEDICARE, OTHER, SELFPAY ==
--- OUTSIDE RECORDS SUMMARY | 2025-04-24 09:52 | XMS_ITS | Encounter Summary ---
Author Organization [facility] Address [address] [place] [address] Care Team Providers Care Lgsw Name Role Phone Luis Garcia MD Primary Care Provider [phone] Luis Garcia MD Unavailable [phone] Encounter Details Date Type Department Care Team (Late Contact Info) Description 04/20/2023 Orders Only [facility] [place] [facility] [address] [place] [address] A, Unknown Practice [address] [place], [place] [address] Social History Tobacco Use Types Packs/Day Years Used Date Smoking Tobacco: Former Cigarettes 2010 Smokeless Tobacco: Never Alcohol Use Standard Drinks/Week Comments Not Currently 0 (1 standard drink = 0.6 oz pur e alcohol) Comments Unknown Sex and Gender Information Value Date Recorded Sex Assigned at Not on file Legal Sex Female 7:22 PM EDT Gender Identity Not on file Sexual Orientation Not on file documented as of this encounter Plan of Treatment Upcoming Encounters Date Type Department Care Team (Late Contact Info) Description 06/20/2025 8:50 AM EDT Procedure Visit [facility] [address] [place] [address] Jermaine Barker, ANASTASIIA [address] [facility] [address] [place] [address] 07/01/2025 8:40 AM EST Office Visit [facility] [address] [place] [address] Zulma Zarco, PA [address] [place] [address] 07/05/2025 8:30 AM EST Office Visit [facility] [place] [facility] [address] [facility] 110 [place] [address] Luis Garcia MD [address] [facility] 110 [place] [address] documented as of this encounter Procedures Procedure Name Priority Date/Time Associated Diagnosis Comments CT CHEST WO IV CONTRAST Routine 04/20/2023 11:07 AM EDT documented in this encounter Results * CT chest wo IV contrast (04/20/2023 11:07 AM EDT) Anatomical Region Laterality Modality Body, Chest Computed Tomogra phy us Unknown Practice A IMG CT PROCEDURES Final Resul t documented in this encounter Visit Diagnoses Not on filedocumented in this encounter Care Teams Lgsw Relationship Specialty Start Date End Date Luis Garcia MD [address] [facility] 110 [place] [address] PCP - General Internal Medicine 02/16/23 Luis Garcia MD [address] [facility] 110 [place] [address] PCP - ACO Reach 10/28/23 documented as of this encounter
--- OUTSIDE RECORDS SUMMARY | 2025-04-24 09:52 | XMS_ITS | Encounter Summary ---
Author Organization [facility] Address [address] [place] [address] Care Team Providers Care Bisque Kiln Placer Name Role Phone Luis Garcia MD Primary Care Provider [phone] Luis Garcia MD Unavailable [phone] Encounter Details Date Type Department Care Team ([facility] Contact Info) Description 07/04/2023 Abstract [facility] [place] [facility] 112 [facility] 110 [place] [address] Luis Garcia MD 112 [facility] 110 [place], [place] [id number] Social History Tobacco Use Types Packs/Day Years Used Date Smoking Tobacco: Former Cigarettes 2010 Smokeless Tobacco: Never Alcohol Use Standard Drinks/Week Comments Not Currently 0 (1 standard drink = 0.6 oz pur e alcohol) PHQ-2 Answer Date Recorded Patient Health Questionnaire-2 Score 0 06/24/2023 Comments Unknown Sex and Gender Information Value Date Recorded Sex Assigned at Not on file Legal Sex Female 7:22 PM EDT Gender Identity Not on file Sexual Orientation Not on file documented as of this encounter Plan of Treatment Upcoming Encounters Date Type Department Care Team (Late Contact Info) Description 06/20/2025 8:50 AM EDT Procedure Visit [facility] 112 [facility] 120 [place] [address] Jermaine Barker, DPM [address] [facility] 5 [place] [address] 07/01/2025 8:40 AM EST Office Visit [facility] [place] [facility] [address] [place] [address] Zulma Zarco, PA [address] [place], [place] [address] 07/05/2025 8:30 AM EST Office Visit [facility] [place] [facility] [address] [facility] 110 [place] [address] Luis Garcia MD [address] [facility] 110 [place] [address] documented as of this encounter Visit Diagnoses Not on filedocumented in this encounter Care Teams Bisque Kiln Placer Relationship Specialty Start Date End Date Luis Garcia MD [address] [facility] 110 [place] [address] PCP - General Internal Medicine 02/16/23 Luis Garcia MD [address] [facility] 110 [place] [address] PCP - ACO Reach 10/28/23 documented as of this encounter
--- OUTSIDE RECORDS SUMMARY | 2025-04-24 09:52 | XMS_ITS | Encounter Summary ---
Author Organization [facility] Address [address] [place] [address] Care Team Providers Care Plastic Surgery Assistant Name Role Phone Luis Garcia MD Primary Care Provider [phone] Luis Garcia MD Unavailable [phone] Encounter Details Date Type Department Care Team ([facility] Contact Info) Description 06/28/2023 Abstract [facility] [place] [facility] 112 [facility] 110 [place] [address] Luis Garcia MD 112 [facility] 110 [place], [place] [address] Social History Tobacco Use Types Packs/Day Years [...] EDT Procedure Visit [facility] 112 [facility] 120 [place] [address] Jermaine Barker, DPM 3006 [facility] 5 [place] [address] 07/01/2025 8:40 AM EST Office Visit [facility] [place] [facility] [address] [place] [address] Zulma Zarco, PA [address] [place], [place] [address] 07/05/2025 8:30 AM EST Office Visit [facility] [place] [facility] [address] [facility] 110 [place] [address] Luis Garcia MD [address] [facility] 110 [place] [address] documented as of this encounter Visit Diagnoses Not on filedocumented in this encounter Care Teams Plastic Surgery Assistant Relationship Specialty Start Date End Date Luis Garcia MD [address] [facility] 110 [place] [address] PCP - General Internal Medicine 02/16/23 Luis Garcia MD [address] [facility] 110 [place] [address] PCP - ACO Reach 10/28/23 documented as of this encounter
--- OUTSIDE RECORDS SUMMARY | 2025-04-24 09:52 | XMS_ITS | Encounter Summary ---
Author Organization [facility] Address [address] [place] [address] Care Team Providers Care Store Specialist Name Role Phone Jose MCDANIEL MD, Luis Castro Primary Care Provider [phone] Source Comments In the event this information is protected by the Federal Confidentiality of Alcohol and Drug AbusePatient Records regulations: The Federal rules restrict any use of the information to criminally investigate or prosecute any alcohol or drug abuse patient.[facility] Reason for Visit * Reason Comments Radiology XR Encounter Details Date Type Department Care Team (Late st Contact Info) Description 02/07/2023 Radiology Radiology [address] [place] [address] Irais Nicole RT(R) Radiology XR Social History Tobacco Use Types Packs/Day Years Used Date Smoking Tobacco: Former Cigarettes 30 1 981 - 2010 Smokeless Tobacco: Never Alcohol Use Standard Drinks/Week Comments Not Currently 0 (1 standard drink = 0.6 oz pure alcohol) denies tx for drug/alcohol abuse in the past. Area Deprivation Index Answer Date Edwin rded National Score (1-100), kameron r number is lower risk 78 01/14/2023 State Score (1-10), lower number is lower risk 6 01/14/2023 Data from: https://www.neighborhoodatlas.medicine.[facility].edu/ . Last address used for calculation [address] [address] 01/14/2023 Comments No Sex and Gender Information Value Date Recorded Sex Assigned at Not on file Legal Sex Female 10:09 AM EDT Gender Identity Not on file Sexual Orientation Not on file documented as of this encounter Progress Notes * Irais Nicole RT(R) - 02/07/2023 2:14 PM EDT Radiology Service Progress Note PATIENT NAME: Mary Molina DATE OF SERVICE: February 07, 2023 TIME: 2:14 PM PATIENT IDENTITY VERIFICATION COMPLETED USING TWO (2) IDENTIFIERS: Name and Date of confirmedby patient verbally. FALL SCREENING: Has the patient [...] RT Ray(R) February 07, 2023 2:14 PM documented in this encounter Plan of Treatment Not on file documented as of this encounter Visit Diagnoses Not on filedocumented in this encounter Care Teams Store Specialist Relationship Specialty Start Date End Date Luis Garcia II, MD 112 [facility] 110 [place] [address] PCP - General Internal Medicine 08/31/21 documented as of this encounter
--- OUTSIDE RECORDS SUMMARY | 2025-04-24 09:52 | XMS_ITS | Clinical Summary ---
Author Organization [employer] Address [id number] [address] [place] [address] Care Team Providers Care Health Concierge Name Role Phone Luis Garcia MD Primary Care Provider [phone] Allergies No known active allergies Medications propranolol (INDERAL) 20 mg tablet Take 20 mg by mouth 2 (two) times daily at 0800 and 1200. Active alendronate (FOSAMAX) 70 mg/75 mL solution Take 70 mg by mouth every 7 days. In a.m. with water on empty stomach, nothing else by mouth and remain upright for 30min Active omega-3 acid ethyl esters (LOVAZA) 1 gram capsule Take 2 g by mouth daily. Active B-complex with vitamin C tablet Take 1 tablet by mouth daily. Active ascorbic acid, vitamin C, (VITAMIN C) 1000 mg tablet Take 1,000 mg by mouth daily. Active glucosamine-cho ndroitin 500-400 mg tablet Take 1 tablet by mouth 2 (two) times daily at 0800 and 1200. Active aspirin-acetami nophen-caffeine (EXCEDRIN MIGRAINE) 250-250-65 mg per tablet Take 1 tablet by mouth every 6 (six) hours as needed for headaches. Active Active Problems No known active problems Social History Tobacco Use Types Packs/Day Years Used Date Smoking Tobacco: Never Assessed Childcare Answer Date Recorded Childcare Unknown 05/17/2019 Employment Answer Date Recorded Employment Unknown 05/17/2019 Purpose - Life Answer Date Recorded Purpose and direction in life Unknown Comments Unknown Sex and Gender Information Value Date Recorded Sex Assigned at Not on file Legal Sex Female 2:00 PM EDT Gender Identity Not on file Sexual Orientation Not on file Last Filed Vital Signs Vital Sign Reading Time Taken Comments Blood Pressure 99/63 05/24/2019 8:30 AM EDT Pulse 52 05/24/2019 8:07 AM EDT Temperature 36.4 C (97.5 F) 05/24/2019 6:53 AM EDT Respiratory Rate 15 05/24/2019 8:03 AM EDT Oxygen Saturation 90% 05/24/2019 8:15 AM EDT Inhaled Oxygen Concentration - - Weight 72.6 kg (160 lb) 05/24/2019 6:53 AM EDT Height 175.3 cm (5' 9 ) 05/24/2019 6:53 AM EDT Body Mass Index 23.63 05/24/2019 6:53 AM EDT Plan of Treatment Health Maintenance Due Date Last Done Comments Depression Screening 1966 Tobacco Screening 1966 Adult BMI Screening 1972 Zoster (Shingles) Vaccine (2 of 3) 08/04/20112010, 06/03/2011 Fall Risk Screening 2019 Influenza Vaccine 04/29/2025 DTaP,Tdap and Td Vaccines (2 - Tdap) 05/31/202610/2015 Medical Devices Not on file Insurance MEDICARE [facility] Care Teams Health Concierge Relationship Specialty Start Date End Date Luis Garcia MD [address] [facility] 110 [place] [address] PCP - General Internal Medicine 05/23/19
--- OUTSIDE RECORDS SUMMARY | 2025-04-24 09:52 | XMS_ITS | Encounter Summary ---
Author Organization [facility] Address [address] [place] [address] Care Team Providers Care Obstetrics Specialist Name Role Phone Luis Garcia MD Primary Care Provider [phone] Luis Garcia MD Unavailable [phone] Encounter Details Date Type Department Care Team ([facility] Contact Info) Description 02/23/2023 Abstract [facility] [place] [facility] [address] [facility] 110 [place] [address] Luis Garcia MD 112 [facility] 110 [place], [place] [address] Social History Tobacco Use Types Packs/Day Years Used Date Smoking Tobacco: Former Cigarettes 1 - 2010 Smokeless Tobacco: Never Tobacco Cessation:Counseling Given: Not Answered Alcohol Use Standard Drinks/Week Comments Not Currently [...] EDT Procedure Visit [facility] 112 [facility] 120 [place] [address] Jermaine Barker DPM 3006 [facility] [address] [place] [address] 07/01/2025 8:40 AM EST Office Visit [facility] [place] [facility] [address] [place] [address] Zulma Zarco, VAIBHAV [address] [facility] 350 [place], [place] [address] 07/05/2025 8:30 AM EST Office Visit [facility] [place] [facility] [address] [facility] 110 [place] [address] Luis Gracia MD [address] [facility] 110 [place] [address] documented as of this encounter Visit Diagnoses Not on filedocumented in this encounter Care Teams Obstetrics Specialist Relationship Specialty Start Date End Date Luis Garcia MD [address] [facility] [address] [place] [address] PCP - General Internal Medicine 02/16/23 Luis Garcia MD [address] [facility] 110 [place] [address] PCP - ACO Reach 10/28/23 documented as of this encounter
--- OUTSIDE RECORDS SUMMARY | 2025-04-24 09:52 | XMS_ITS | Encounter Summary ---
Author Organization [facility] Address [address] [place] [address] Care Team Providers Care Dry Cleaner Name Role Phone Luis Garcia MD Primary Care Provider [phone] Luis Garcia MD Unavailable [phone] Encounter Details Date Type Department Care Team (Late st Contact Info) Description 02/07/2023 Clinisync Result Encounter [facility] External Department Unsolicited Luis Garcia MD 112 [facility] 110 [place] [address] Social History Tobacco Use Types Packs/Day Years Used Date Smoking Tobacco: Never Assessed Comments Unknown Sex and Gender Information Value Date Recorded Sex Assigned at Not on file Legal Sex Female 7:22 PM EDT Gender Identity Not on file Sexual Orientation Not on file documented as of this encounter Plan of Treatment Upcoming Encounters Date Type Department Care Team (Late st Contact Info) Description 06/20/2025 8:50 AM EDT Procedure Visit [facility] 112 [facility] 120 [place] [address] Jermaine Barker, DPNuno 3006 [facility] 5 [place] [address] 07/01/2025 8:40 AM EST Office Visit [facility] [place] [facility] [address] [place] [address] Zulma Zarco PA [address] [place], [place] [address] 07/05/2025 8:30 AM EST Office Visit [facility] [place] [facility] 112 [facility] 110 [place] [address] Luis Garcia MD 112 [facility] 110 [place] [address] documented as of this encounter Procedures Procedure Name Priority Date/Time Associated Diagnosis Comments XR PELVIS 1V AP 02/07/2023 2:15 PM EDT documented in this encounter Results * XR PELVIS 1V AP (02/07/2023 2:15 PM EDT) Anatomical Region Laterality Modality Other 02/07/2023 2:15 PM EDT Narrative 02/07/2023 3:01 PM EDT * * *Final Report* * * DATE [...] is not visualized. No other significant abnormality. IMPRESSION: NORMAL POSTOPERATIVE FINDINGS Assurance Sourcing Manager: EFRAIN Transcribe Date/Time: Feb 07 2023 2:58P Dictated by : LANA CONNOLLY MD This examination was interpreted and the report reviewed and electronically signed by: LANA CONNOLLY MD on Feb 07 2023 2:59PM EST [id number]^SI^ACN Procedure Note Radiology, Radiologist, - 02/07/2023 * * *Final Report* * * DATE [...] is not visualized. No other significant abnormality. IMPRESSION: NORMAL POSTOPERATIVE FINDINGS Assurance Sourcing Manager: EFRAIN Transcribe Date/Time: Feb 07 2023 2:58P Dictated by : LANA CONNOLLY MD This examination was interpreted and the report reviewed and electronically signed by: LANA CONNOLLY MD on Feb 07 2023 2:59PM EST [id number]^SI^ACN Luis Garcia MD [facility] Final Result documented in this encounter Visit Diagnoses Not on filedocumented in this encounter Care Teams Dry Cleaner Relationship Specialty Start Date End Date Luis Garcia MD [address] [facility] 110 [place] [address] PCP - General Internal Medicine 02/16/23 Luis Garcia MD [address] [facility] 110 [place] [address] PCP - ACO Reach 10/28/23 documented as of this encounter
--- OUTSIDE RECORDS SUMMARY | 2025-04-24 09:52 | XMS_ITS | Encounter Summary ---
Author Organization [facility] Address [address] [place] [address] Care Team Providers Care Angle Dozer Operator Name Role Phone Luis Garcia MD Primary Care Provider [phone] Luis Garcia MD Unavailable [phone] Encounter Details Date Type Department Care Team ([facility] Contact Info) Description 10/11/2024 Abstract [facility] [place] [facility] 112 [facility] 110 [place] [address] Luis Garcia MD [address] [facility] 110 [place], [place] [address] Social History Tobacco Use Types Packs/Day Years Used Date Smoking Tobacco: Former Cigarettes 2010 Smokeless Tobacco: Never Alcohol Use Standard Drinks/Week Comments Not Currently 0 (1 standard drink = 0.6 oz pur e alcohol) PHQ-2 Answer Date Recorded Patient Health Questionnaire-2 Score 0 06/25/2024 Comments Unknown Sex and Gender Information Value Date Recorded Sex Assigned at Not on file Legal Sex Female 7:22 PM EDT Gender Identity Not on file Sexual Orientation Not on file documented as of this encounter Plan of Treatment Upcoming Encounters Date Type Department Care Team (Late Contact Info) Description 06/20/2025 8:50 AM EDT Procedure Visit [facility] 112 [facility] 120 [place] [address] Jermaine Barker, DPM 3006 [facility] 5 [place] [address] 07/01/2025 8:40 AM EST Office Visit [facility] [address] [place] [address] Zulma Zarco, PA [address] [place] [address] 07/05/2025 8:30 AM EST Office Visit [facility] [place] [facility] [address] [facility] 110 [place] [address] Luis Garcia MD [address] [facility] 110 [place] [address] documented as of this encounter Visit Diagnoses Not on filedocumented in this encounter Additional Health Concerns Assessment Noted Time PHQ-9 Depression Total Score: 0 06/25/20 8:00 AM EDT documented as of this encounter Care Teams Angle Dozer Operator Relationship Specialty Start Date End Date Luis Garcia MD [address] [facility] 110 [place] [address] PCP - General Internal Medicine 02/16/23 Luis Garcia MD [address] [facility] 110 [place] [address] PCP - ACO Reach 10/28/23 documented as of this encounter
--- OUTSIDE RECORDS SUMMARY | 2025-04-24 09:52 | XMS_ITS | Encounter Summary ---
Author Organization [facility] Address [address] [place] [id number] Care Team Providers Care Home Care Giver Name Role Phone Jose MCDANIEL MD, Luis Castro Primary Care Provider [phone] Source Comments In the event this information is protected by the Federal Confidentiality of Alcohol and Drug AbusePatient Records regulations: The Federal rules restrict any use of the information to criminally investigate or prosecute any alcohol or drug abuse patient.[facility] Reason for Visit * Reason Comments Radiology XR Encounter Details Date Type Department Care Team (Late st Contact Info) Description 11/24/2022 Radiology Radiology [address] [place] [address] Irais Nicole RT(R) Radiology XR Social History Tobacco Use Types Packs/Day Years Used Date Smoking Tobacco: Former Cigarettes 09 27 1 981 - 2010 Smokeless Tobacco: Never Alcohol Use Standard Drinks/Week Comments Not Currently 0 (1 standard drink = 0.6 oz pure alcohol) denies tx for drug/alcohol abuse in the past. Area Deprivation Index Answer Date Edwin rded National Score (1-100), lowe r number is lower risk 72 09/22/2022 State Score (1-10), lower number is lower risk N ot on file 09/22/2022 Data from: https://www.neighborhoodatlas.medicine.[facility].edu/ . Last address used for calculation [address] [address] 09/22/2022 Comments No Sex and Gender Information Value Date Recorded Sex Assigned at Not on file Legal Sex Female 10:09 AM EDT Gender Identity Not on file Sexual Orientation Not on file documented as of this encounter Progress Notes * Irais Nicole RT(R) - 11/24/2022 9:40 AM EDT Radiology Service Progress Note PATIENT NAME: Mary Molina DATE OF SERVICE: November 24, 2022 TIME: [...] DATA: Not applicable SIGNED BY: RT Ray(R) November 24, 2022 9:40 AM documented in this encounter Plan of Treatment Not on file documented as of this encounter Visit Diagnoses Not on filedocumented in this encounter Care Teams Home Care Giver Relationship Specialty Start Date End Date Luis Garcia II, MD [address] [address] PCP - General Internal Medicine 08/31/21 documented as of this encounter
--- OUTSIDE RECORDS SUMMARY | 2025-04-24 09:52 | XMS_ITS | Clinical Summary ---
Author Organization [facility] Address [address] [place] [address] Care Team Providers Care Relief Charge Nurse Name Role Phone Luis Garcia MD Primary Care Provider [phone] Luis Garcia MD Unavailable [phone] Allergies Active Allergy Reactions Criticality Noted Date Comments Chlorhexidine Rash Low 11/24/2022 rash and itching from preop wipes Latex Unknown 02/17/2023 Oxycodone GI intolerance 11/24/2022 Wound Dressing Adhesive Unknown 02/17/2023 Medications Garlic (GARLIQUE PO) Daily. Active Multiple Vitamin (multivitamin) capsule Daily. Active Ascorbic Acid (vitamin C) 1000 MG tablet Take 1,000 mg by mouth in the morning. Active aspirin-acetaminophe n-caffeine (Excedrin Migraine) 250-250-65 MG tablet Take by mouth every 6 (six) hours if needed. Active cetirizine (ZyrTEC ALLERGY) 10 MG tablet Take 10 mg by mouth at bedtime. Active propranolol (Inderal) 20 MG tabletIndications:Pa roxysmal supraventricular tachycardia (HCC) Take 1 tablet (20 mg) by mouth in the morning and 1 tablet (20 mg) before bedtime. 01/01/20 25 Active ketoconazole (NIZOral) 2 % creamIndications:Can didal cheilitis Apply topically in the morning and before bedtime. 30 g 2 01/01/20 25 026 Active amoxicillin-clavulan ate (Augmentin) 875-125 MG tabletIndications:Ac agua caliente recurrent sinusitis, unspecified location Take 1 tablet (875 mg) by mouth in the morning and 1 tablet (875 mg) before bedtime. Do all this for 7 days. 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 Hypoglycemia 02/17/2023 Lumbar disc displacement without myelopathy 01/28 Lumbosacral radiculopathy at S1 02/17/2023 Osteoporosis 02/17/2023 Paroxysmal supraventricular tachycardia 02/18/20 23 Primary osteoarthritis of both hips 02/17/2023 Rosacea 02/17/2023 Aftercare following left hip joint replacement s urgery 10/23/2021 Emphysema of lung 09/21/2021 Incomplete RBBB 09/21/2021 Resolved Problems Problem Noted Date Diagnosed Date Resolved Date Type 2 diabetes mellitus with hyperglycemia 02/17/2023 03/16/2023 Encounters Date Type Department Care Team Description 04/03/2025 [facility] [address] [facility] [address] [place] [address] Fall, initial encounter; Rib pain 03/28/2025 8:50 AM EDT Procedure Visit [facility] [address] [facility] [address] [place] [address] Jermaine Barker DPNuno Pain due to onychomycosis of toenails of both feet (Primary Dx); Verruca plantaris; Foot pain, left 03/28/2025 Bamboo flowsheet [facility] 112 [facility] [address] [place] [address] Jermaine Barker DPM 03/28/2025 Travel 03/25/2025 [facility] [address] [facility] [address] [place] [address] Luis Garcia MD 03/22/2025 Telephone [facility] [place] [facility] 112 [facility] [address] [place] [address] Luis Garcia MD 02/21/2025 9:20 AM EDT Office Visit [facility] [address] [facility] [address] [place] [address] Jermaine Barker DPM Neoplasm of uncertain behavior of skin (Primary Dx) 02/21/2025 Bamboo flowsheet [facility] [address] [facility] [place] [address] Jermaine Barker DPM 02/21/2025 Travel 02/14/2025 Abstract [facility] [address] [place] [address] Jermaine Barker DPM 02/14/2025 Telephone [facility] [place] [facility] [address] [facility] [place] [address] Luis Garcia MD 02/07/2025 9:00 AM EDT Office Visit [facility] [address] [facility] [address] [place] [address] Jermaine Barker DPM Neoplasm of uncertain behavior of skin (Primary Dx) 02/07/2025 Bamboo flowsheet [facility] [address] [facility] [address] [place] [address] Jermaine Barker DPM 02/07/2025 Travel from Last 3 Months Immunizations Immunization Administration Dates Next Due Influenza, High-dose Seasona l, Quadrivalent, Preservative Free 06/25/2024,06/24/2023,06/11/2022,06/16,06/16/2019,05/30/2018 Influenza, Unspecified 05/31/2016 Influenza, injectable, quadr ivalent, preservative free 06/12/2020 Influenza, seasonal, intrade rmal, preservative free 05/31/2017 Moderna SARS-CoV-2 50mcg/0.5mL Booster 2 Pfizer Bivalent Booster 12 Y ears And Older 05/27/2022 Pneumococcal Conjugate PCV 13 08/03/2016 Pneumococcal Polysaccharide PPSV23 06/13/2020,,03/30/2011 Tdap 05/24/2016 Zoster, Recombinant 09/07/2019 Zoster, live 06/09/2011 Family History Medical History Relation Name Comments Colon cancer Mother's Sister Uterine cancer Mother's Sister Melanoma Neg Hx Relation Name Status Comments Father Mother Mother's Sister Social History Tobacco Use Types Packs/Day Years Used Date Smoking Tobacco: Former Cigarettes 1 30 1 2010 Smokeless Tobacco: Never Tobacco Cessation:Counseling Given: Yes Alcohol Use Standard Drinks/Week Comments Not Currently 0 (1 standard drink = 0.6 oz pur e alcohol) PHQ-2 Answer Date Recorded Patient Health Questionnaire-2 Score 0 12/31/2024 Comments Unknown Sex and Gender Information Value Date Recorded Sex Assigned at Not on file Legal Sex Female 7:22 PM EDT Gender Identity Not on file Sexual Orientation Not on file Last Filed Vital Signs Vital Sign Reading Time Taken Comments Blood Pressure 108/68 12/31/2024 11:16 AM EDT Pulse 73 12/31/2024 11:16 AM EDT Temperature 36.8 C (98.3 F) 09/18/2024 2:08 PM EST Respiratory Rate 16 03/28/2025 8:41 AM EDT Oxygen Saturation 97% 12/31/2024 11:16 AM EDT Inhaled Oxygen Concentration - - Weight 73.9 kg (163 lb) 03/28/2025 8:41 AM EDT Height 174 cm (5' 8.5 ) 03/28/2025 8:41 AM EDT Body Mass Index 24.42 03/28/2025 8:41 AM EDT Plan of Treatment Upcoming Encounters Date Type Department Care Team (Late st Contact Info) Description 06/20/2025 8:50 AM EDT Procedure Visit [facility] [address] [facility] [address] [place] [address] Jermaine Barker, DPM [address] [facility] [address] [place] [address] 07/01/2025 8:40 AM EST Office Visit [facility] [address] [place] [address] Zulma Zarco, PA [address] [place] [address] 07/05/2025 8:30 AM EST Office Visit [facility] [place] [facility] 112 [facility] [address] [place] [address] Luis Garcia MD [address] [facility] [facility] [address] [place] [address] Health Maintenance Due Date Last Done Comments CT Colonography 1955 FIT 1955 Lung Cancer Screening Shared Decision Making 1955 Sigmoidoscopy 1955 FOBT 04/12/2020 04/12/2019 FIT-DNA 04/12/2022 04/12/2019, 04/12/2019 Influenza Vaccine (#1) 2025 , 06/24/2023, 06/11/2022, Additional history exists Mammogram 05/09/2025 05/09/2024, 03/30, 04/18/2023, Additional history exists Colonoscopy 05/24/2029 05/24/2019, 04/30, 05/24/2019, Additional history exists Colorectal Cancer Screening 05/24/2029 Pneumococcal Vaccine: 65+ Years Completed 06/13/2020, 08/03/2016, 04/08/2015, Additional history exists Procedures Procedure Name Priority Date/Time Associated Diagnosis Comments MM TOMOSYNTHESIS SCREENING BI 05/09/2024 9:51 AM EDT COLONOSCOPY Routine 05/24/2019 12:00 PM EDT LAB COLOGUARD COLON CANCER SCREEN Routine 04/12/2019 from Last 3 Months or Most Recently Relevant to Health Maintenance Results * MM TOMOSYNTHESIS SCREENING BI (05/09/2024 9:51 AM EDT) Anatomical Region Laterality Modality Other 05/09/2024 9:51 AM EDT Narrative 05/09/2024 9:52 AM EDT The [address] [address] Mammography Report Signed Patient: MARY VAUGHN MR#: [id number] : 1955 Acct:[id number] Age/Sex: 69 / F ADM Date: 04/23/24 Loc: CT Attending Dr: LUIS GARCIA Ordering Physician: LUIS GARCIA Results: Date of Service: 04/23/24 Follow Up: Procedure(s): MM tomosynthesis screening BI Accession Number(s): [id number] cc: LUIS GARCIA Patient Name: MARY VAUGHN MR#: [id number] : 1955 Exam Date: 04/23/2024 Ordering Doctor: DR LUIS GARCIA M.D. RADIOLOGY REPORT PROCEDURE: MM TOMOSYNTHESIS SCREENING BI COMPARISON: MG MAMM SCREEN DELFINO W CAD, 10/06/2016. MG MAMM SCREEN DELFINO W CAD, 04/18/2023. INDICATIONS: Screening Calculator Name NCI Breast Cancer Risk Assessment Tool 5 Year Breast Cancer Risk 1.90% Lifetime Breast Cancer Risk 5.60% Personal Breast Cancer No Personal Ovarian Cancer No Treatments None Family Cancers Aunt-maternal with uterine cancer at age 45. LOCATION: The [facility] BREAST COMPOSITION: The breasts are extremely dense, which lowers the sensitivity of mammography. FINDINGS: DIAGNOSTIC CATEGORY 2--BENIGN FINDING. NO CHANGE FROM COMPARISON. Scattered benign-appearing nodules are present. Scattered benign-appearing lymph nodes are present. RIGHT BREAST: No significant suspicious finding. LEFT BREAST: No significant suspicious finding. RECOMMENDATIONS: ROUTINE MAMMOGRAM AND CLINICAL EVALUATION IN 12 MONTHS. PLEASE NOTE: A NORMAL MAMMOGRAM DOES NOT EXCLUDE THE POSSIBILITY OF BREAST CANCER. A CLINICALLY SUSPICIOUS PALPABLE LUMP SHOULD BE BIOPSIED. Dictated by: Alejandro Jolley MD on 05/09/2024 at 09:49 Approved by: Alejandro Jolley MD on 05/09/2024 at 09:51 Dictated By: Alejandro Jolley M.D. Signed By: 05/09/2452 DD/ TD/TT: Medical Detail Representative: Procedure Note Radiology, RadiologistMD - 05/09/2024 [place] [address] Mammography Report Signed Patient: MARY VAUGHN JMR#: [id number] : 1955cct:[id number] Age/Sex: 69 / FADM Date: 04/23/24 Loc: CT Attending Dr: LUIS GARCIA Ordering Physician: LUIS GARCIAResults: Date of Service: 04/23/24Follow Up: Procedure(s): MM tomosynthesis screening BI Accession Number(s): [id number] cc: ALFONSOMARIELUIS Patient Name: MARY VAUGHN MR#: [id number] : 1955 Exam Date: 04/23/2024 Ordering Doctor: DR LUIS GARCIA M.D. RADIOLOGY REPORT PROCEDURE: MM TOMOSYNTHESIS SCREENING BI COMPARISON: MG MAMM SCREEN DELFINO W CAD, 10/06/2016. MG MAMM SCREEN DELFINO W CAD, 04/18/2023. INDICATIONS: Screening Calculator Name NCI Breast Cancer Risk Assessment Tool 5 Year Breast Cancer Risk 1.90% Lifetime Breast Cancer Risk 5.60% Personal Breast Cancer No Personal Ovarian Cancer No Treatments None Family Cancers Aunt-maternal with uterine cancer at age 45. LOCATION: The [facility] BREAST COMPOSITION: The breasts are extremely dense, which lowers the sensitivity of mammography. FINDINGS: DIAGNOSTIC CATEGORY 2--BENIGN FINDING. NO CHANGE FROM COMPARISON. Scattered benign-appearing nodules are present. Scatteredbenign-appearing lymph nodes are present. RIGHT BREAST: No significant suspicious finding. LEFT BREAST: No significant suspicious finding. RECOMMENDATIONS: ROUTINE MAMMOGRAM AND CLINICAL EVALUATION IN 12 MONTHS. PLEASE NOTE: A NORMAL MAMMOGRAM DOES NOT EXCLUDE THE POSSIBILITY OFBREAST CANCER. A CLINICALLY SUSPICIOUS PALPABLE LUMP SHOULD BE BIOPSIED. Dictated by: Alejandro Jolley MD on 05/09/2024 at 09:49 Approved by: Alejandro Jolley MD on 05/09/2024 at 09:51 Dictated By: Alejandro Jolley M.D. Signed By:05/09/2452 DD/ TD/TT: Medical Detail Representative: us Luis Garcia MD [facility] Final Result * Colonoscopy (05/24/2019 12:00 PM EDT) Anatomical Region Laterality Modality Endoscopy 05/24/2019 12:0 0 PM EDT Narrative 05/24/2019 12:00 PM EDT PERFORMED AT [facility] LOCATION:[id number] diverticula - repeat colonoscopy in 10 years Procedure Note CONVERSION, GENERIC - 01/12/2023 PERFORMED AT [facility] LOCATION:[id number] diverticula - repeat colonoscopy in 10 years Luis Garcia MD ENDOSCOPY PROCEDURE ORDERABLES Final Result * (ABNORMAL) Cologuard?? colon cancer screening (04/12/2019) COLOGUARD RESULT REPORTABLE Positive( A) Not Applicable [facility] Comment: It is recommended that a positive Cologuard screen be clinically correlated and followed-up with a structural examination of the colon such as diagnostic colonoscopy. Colonoscopies performed for a positive Cologuard may find as the most clinically significant lesion: colorectal cancer [4.0%], advanced adenoma (including sessile serrated polyps greater than or equal to 1cm diameter) [20%] or non- advanced adenoma [31%]; or no colorectal neoplasia [45%]. These estimates are derived from a prospective cross-sectional screening study of 10,000 individuals at average risk for colorectal cancer who were screened with both Cologuard and colonoscopy. (Table 3, Hazel Shell. et al, N Engl J Med 2014;370(14):5300-8174.) Test Type: Composite algorithmic analysis of stool DNA-biomarkers with hemoglobin immunoassay. Quantitative values of individual biomarkers are not reportable and are not associated with individual biomarker result reference ranges. Precautions and Limitations: Cologuard is intended for colorectal cancer screening of adults of either sex, 50 years or older, who are at typical average-risk for colorectal cancer. A negative Cologuard test result does not guarantee the absence of colorectal cancer or advanced adenoma (pre-cancer). Patients with a negative Cologuard test result should be advised to continue participating in a colorectal cancer screening program. Cologuard may produce a positive result, even though a colonoscopy may not find colorectal cancer or precancerous polyps. The performance of Cologuard has been established in a cross sectional study (i.e., single point in time). Performance has not been evaluated in adults who have been previously tested with Cologuard or in patients less than 50 years of age. Cologuard has been approved for use by the U.S. FDA. Cologuard performance data in a 10,000 patient pivotal study using colonoscopy as the reference method can be accessed at the following location: www.Funji.Vericant/results. Additional description of the Cologuard test process, warnings and precautions can be found at www.cologuardtest.com. Rx Only. 04/12/2019 Luis Garcia MD LAB [facility] Final Result [facility] from Last 3 Months or Most Recently Relevant to Health Maintenance Insurance [facility] MEDICARE Care Teams Relief Charge Nurse Relationship Specialty Start Date End Date Luis Garcia MD [address] [facility] [address] [place] [address] PCP - General Internal Medicine 02/16/23 Luis Garcia MD [address] [facility] [place] [address] PCP - ACO Reach 10/28/23
--- OUTSIDE RECORDS SUMMARY | 2025-04-24 09:52 | XMS_ITS | Encounter Summary ---
Author Organization [facility] Address [address] [place] [address] Care Team Providers Care Pile Operator Name Role Phone Luis Garcia MD Primary Care Provider [phone] Luis Garcia MD Unavailable [phone] Encounter Details Date Type Department Care Team (Late st Contact Info) Description 02/07/2023 Clinisync Result Encounter [facility] External Department Unsolicited Lius Garcia MD 112 [facility] [address] [place] [address] Social History Tobacco Use Types [...] EDT Procedure Visit [facility] [address] [facility] [address] [place] [address] Jemraine Barker, DPNuno [address] [facility] 5 [place] [address] 07/01/2025 8:40 AM EST Office Visit [facility] [address] [place] [address] Zulma Zarco PA [address] [place], [place] [address] 07/05/2025 8:30 AM EST Office Visit [facility] [place] [facility] [address] [facility] [address] [place] [address] Luis Garcia MD 112 [facility] [address] [place] [address] documented as of this encounter Procedures Procedure Name Priority Date/Time Associated Diagnosis Comments XR KNEE 4V AP/PA BOTH+LAT/ARNOLD RT 02/07/2023 2:15 PM EDT documented in this encounter Results * XR KNEE 4V AP/PA BOTH+LAT/ARNOLD RT (02/07/2023 2:15 PM EDT) Anatomical Region Laterality Modality Other 02/07/2023 2:15 PM EDT Narrative 02/07/2023 3:00 PM EDT * * *Final Report* * [...] Normal soft tissues. No other significant abnormality. IMPRESSION: MILD DEGENERATIVE CHANGES Cherry Dipper: EFRAIN Transcribe Date/Time: Feb 07 2023 2:56P Dictated by : LANA CONNOLLY MD This examination was interpreted and the report reviewed and electronically signed by: LANA CONNOLLY MD on Feb 07 2023 2:58PM EST [id number]^SI^ACN Procedure Note Radiology, Radiologist, - 02/07/2023 * [...] Normal soft tissues. No other significant abnormality. IMPRESSION: MILD DEGENERATIVE CHANGES Cherry Dipper: EFRAIN Transcribe Date/Time: Feb 07 2023 2:56P Dictated by : LANA CONNOLLY MD This examination was interpreted and the report reviewed and electronically signed by: LANA CONNOLLY MD on Feb 07 2023 2:58PM EST [id number]^SI^ACN us Luis Garcia MD [facility] Final Result documented in this encounter Visit Diagnoses Not on filedocumented in this encounter Care Teams Pile Operator Relationship Specialty Start Date End Date Luis Garcia MD [address] [place] [facility] [address] [place] [address] PCP - General Internal Medicine 02/16/23 Luis Garcia MD [address] [facility] [address] [place] [address] PCP - ACO Reach 10/28/23 documented as of this encounter
--- OUTSIDE RECORDS SUMMARY | 2025-04-24 09:52 | XMS_ITS | Encounter Summary ---
Author Organization [facility] Address [address] [place] [address] [place] [address] Care Team Providers Care Chief Catalyst Operator Name Role Phone Luis Garcia MD Primary Care Provider [phone] Luis Garcia MD Unavailable Encounter Details Date Type Department Care Team (Late Contact Info) Description 04/03/2025 Orders Only [facility] [place] [facility] [address] [place] [address] Fall, initial encounter; Rib pain Social History Tobacco Use Types Packs/Day Years [...] CI PODIAT[facility] [address] [place] [address] Jermaine Barker DPM [address] [facility] [address] [place] [address] 07/01/2025 8:40 AM EST Office Visit [facility] [address] [place] [address] Zulma Zarco, PA [address] [place] [address] 07/05/2025 8:30 AM EST Office Visit [facility] [place] [facility] [address] [facility] [address] [place] [address] Luis Garcia MD [address] [facility] [address] [place] [address] documented as of this encounter Visit Diagnoses Diagnosis Fall, initial encounter Rib pain Unspecified chest pain documented in this encounter Additional Health Concerns Assessment Noted Time PHQ-9 Depression Total Score: 0 06/25/20 8:00 AM EDT documented as of this encounter Care Teams Chief Catalyst Operator Relationship Specialty Start Date End Date Luis Garcia MD [address] [facility] [address] [place] [address] PCP - General Internal Medicine 02/16/23 Luis Garcia MD [address] [facility] [address] [place] [address] PCP - ACO Reach 10/28/23 documented as of this encounter
--- OUTSIDE RECORDS SUMMARY | 2025-04-24 09:52 | XMS_ITS | Encounter Summary ---
Author Organization [facility] Address [address] [facility], [address] [place] [address] Care Team Providers Care Control Panel Builder Name Role Phone Luis Garcia MD Primary Care Provider [phone] Reason for Referral * Imaging (Routine) - Closed Specialty Diagnoses / Procedures Referred By Contac t Referred To Contact Radiology Diagnoses Abnormal mammogram of right breast Procedures US BREAST COMPLETE RIGHT Luis Garcia MD [address] [address] Phone: tel: fax: Referral ID Status Reason Start Date Expiration Date Visits Re quested Visits Authorized [id number] Closed 03/15/2022 03/15/2023 1 1 * Other (Routine) - Closed Specialty Diagnoses / Procedures Referred By Contac t Referred To Contact Radiology Diagnoses Abnormal mammogram of right breast Procedures EDITH HERMINIA DIGITAL DIAGNOSTIC UNILATERAL RIGHT Luis Garcia MD [facility] [address] [address] Phone: tel: fax: Referral ID Status Reason Start Date Expiration Date Visits Re quested Visits Authorized [id number] Closed 03/15/2022 03/15/2023 1 1 Encounter Details Date Type Department Care Team (Late st Contact Info) Description 03/15/2022 Transcribe Orders [facility] [address] [place] [address] Luis Garcia MD [address] [facility] 110 [place] [address] Abnormal mammogram of right breast (Primary Dx) Social History Tobacco Use Types Packs/Day Years Used Date Smoking Tobacco: Former Cigarettes 1 30 0 05/08/1981 - 05/08/2011 Smokeless Tobacco: Never Alcohol Use Standard Drinks/Week Comments No 0 (1 standard drink = 0.6 oz pur e alcohol) PHQ-2 Answer Date Recorded PHQ-9 Total Score 0 05/08/2020 Comments No Sex and Gender Information Value Date Recorded Sex Assigned at Not on file Legal Sex Female 10:06 AM EST Gender Identity Not on file Sexual Orientation Not on file documented as of this encounter Plan of Treatment Scheduled Orders Name Type Priority Associated Diagnoses Orde r Schedule US BREAST COMPLETE RIGHT Imaging Routine Abnormal mammogram of right breast Expected: 03/15/2022, Expires: 03/15/2023 documented as of this encounter Results * [facility] HERMINIA DIGITAL DIAGNOSTIC UNILATERAL RIGHT (04/05/2022 1:58 PM EDT) Anatomical Region Laterality Modality Breast Right Mammography 04/05/2022 2:02 PM EDT Impressions 04/05/2022 3:43 PM EDT 1. No mammographic evidence of malignancy. Patient can resume annual screening mammography. BIRADS: BIRADS - CATEGORY 2 Benign Findings. Normal interval follow-up is recommended in 12 months. OVERALL ASSESSMENT - BENIGN A letter of notification will be sent to the patient regarding the results. The [employer] recommends annual mammograms for women 40 years and older. Narrative 04/05/2022 3:43 PM EDT EXAMINATION: DIAGNOSTIC DIGITAL RIGHT BREAST MAMMOGRAM WITH [...] is no underlying mass or architectural distortion. us Luis Garcia MD IMG MAMMOGRAPHY ORDERABLES Fin al Result documented in this encounter Visit Diagnoses Diagnosis Abnormal mammogram of right breast- Primary Abnormal mammogram of right breast documented in this encounter Additional Health Concerns Assessment Noted Time A Body Mass Index follow-up plan has been documented for the patient 05/08/2020 2:17 PM EDT documented as of this encounter Care Teams Control Panel Builder Relationship Specialty Start Date End Date Luis Garcia MD 112 [facility] 110 [place] [address] PCP - General 06/07/12 documented as of this encounter
--- OUTSIDE RECORDS SUMMARY | 2025-04-24 09:52 | XMS_ITS | Encounter Summary ---
Author Organization [facility] Address [address] [place] [address] Care Team Providers Care Bucket Hooker Name Role Phone Luis Garcia MD Primary Care Provider [phone] Luis Garcia MD Unavailable Encounter Details Date Type Department Care Team (Late Contact Info) Description 04/18/2023 Clinisync Result Encounter [facility] External Department Unsolicited Luis Garcia MD 112 [facility] [address] [place] [address] Social History Tobacco Use Types Packs/Day Years Used Date Smoking Tobacco: Former Cigarettes 1 - 2010 Smokeless Tobacco: Never Alcohol Use [...] EDT Procedure Visit [facility] 112 [facility] [address] [place] [address] Jermaine Barker DPM [address] [facility] [address] [place] [address] 07/01/2025 8:40 AM EST Office Visit [facility] [address] [place] [address] Zulma Zarco, PA [address] [place] [address] 07/05/2025 8:30 AM EST Office Visit [facility] [address] [facility] 110 [place] [phone] Luis Garcia MD [address] [facility] 110 [place] [address] documented as of this encounter Procedures Procedure Name Priority Date/Time Associated Diagnosis Comments EDITH HERMINIA DIGITAL SCREEN BILATERAL 04/18/2023 12:12 PM EDT documented in this encounter Results * EDITH HERMINIA DIGITAL SCREEN BILATERAL (04/18/2023 12:12 PM EDT) Anatomical Region Laterality Modality Other 04/18/2023 12:1 2 PM EDT Narrative 04/18/2023 12:19 PM EDT EXAMINATION: SCREENING DIGITAL BILATERAL MAMMOGRAM WITH TOMOSYNTHESIS, [...] to the patient regarding the results. The [employer] recommends annual mammograms for women 40 years and older. Interpreted by: Timothy Rodriguez DO Signed by: Timothy Rodriguez DO 04/18/23 Final result Procedure Note Radiology, Radiologist, - 04/18/2023 EXAMINATION: SCREENING DIGITAL BILATERAL MAMMOGRAM WITH TOMOSYNTHESIS, 04/18/2023 TECHNIQUE: Screening mammography was performed with tomosynthesis including MLO andCC views of the bilateral breasts. Computer aided detection was used forthe interpretation of this exam. COMPARISON: 2022 and February 26, 2021 HISTORY: Screening. FINDINGS: The breasts are heterogeneously dense which can obscure small masses.There is no dominant mass architectural distortion or concerning grouping of microcalcification in either breast. IMPRESSION: No mammographic evidence of malignancy BIRADS: BIRADS - CATEGORY 1 Negative. Normal interval follow-up is recommended in 12 months. OVERALL ASSESSMENT - NEGATIVE A letter of notification will be sent to the patient regarding theresults. The [employer] recommends annual mammograms for women40 years and older. Interpreted by: Timothy Rodriguez DO Signed by: Timothy Rodriguez DO 04/18/23 Final result us Luis Garcia MD [facility] Final Result documented in this encounter Visit Diagnoses Not on filedocumented in this encounter Care Teams Bucket Hooker Relationship Specialty Start Date End Date Luis Garcia MD [address] [address] PCP - General Internal Medicine 02/16/23 Luis Garcia MD 112 [facility] 110 [place] [address] PCP - ACO Reach 10/28/23 documented as of this encounter
--- OUTSIDE RECORDS SUMMARY | 2025-04-24 09:52 | XMS_ITS | Encounter Summary ---
Author Organization [facility] Address [address] [place] [address] Care Team Providers Care Coal Trammer Name Role Phone Luis Garcia MD Primary Care Provider [phone] Luis Garcia MD Unavailable [phone] Encounter Details Date Type Department Care Team (Late Contact Info) Description 02/25/2023 Clinisync Result Encounter [facility] External Department Unsolicited Luis Garcia MD 112 [facility] [address] [place] [address] Social History Tobacco Use Types Packs/Day Years Used Date Smoking Tobacco: Former Cigarettes 981 2010 Smokeless Tobacco: Never Alcohol Use Standard [...] EDT Procedure Visit [facility] [address] [facility] [address] [place] [address] Jermaine Barker DPM [address] [facility] [address] 5 [place] [address] 07/01/2025 8:40 AM EST Office Visit [facility] [address] [place] [address] Zulma Zarco, PA [address] [place] [address] 07/05/2025 8:30 AM EST Office Visit [facility] 112 [facility] 110 [place] [phone] Luis Garcia MD 112 [facility] 110 [place] [address] documented as of this encounter Procedures Procedure Name Priority Date/Time Associated Diagnosis Comments XR KNEE 4V AP/PA BOTH+LAT/ARNOLD RT 02/25/2023 1:56 PM EDT documented in this encounter Results * XR KNEE 4V AP/PA BOTH+LAT/ARNOLD RT (02/25/2023 1:56 PM EDT) Anatomical Region Laterality Modality Other 02/25/2023 1:56 PM EDT Narrative 02/25/2023 2:31 PM EDT * * *Final Report* * [...] of the right knee without interval change. Fruit Ii Farmworker: PSCB Transcribe Date/Time: Feb 25 2023 2:28P Dictated by : BROOKS SOLO MD This examination was interpreted and the report reviewed and electronically signed by: BROOKS SOLO MD on Feb 25 2023 2:29PM EST [id number]^ACN Procedure Note Radiology, Radiologist, - 02/28/2023 * * *Final Report* * * DATE OF EXAM: Feb 25 2023 1:56PM RENATO 5203 - XR KNEE 4V AP/PA BOTH+LAT/ARNOLD [...] of the right knee without interval change. Fruit Ii Farmworker: EFRAIN Transcribe Date/Time: Feb 25 2023 2:28P Dictated by : BROOKS SOLO MD This examination was interpreted and the report reviewed and electronically signed by: BROOKS SOLO MD on Feb 25 2023 2:29PM EST [id number]^SI^ACN Luis Garcia MD [facility] Final Result documented in this encounter Visit Diagnoses Not on filedocumented in this encounter Care Teams Coal Trammer Relationship Specialty Start Date End Date Luis Garcia MD [address] [facility] 110 [place] [address] PCP - General Internal Medicine 02/16/23 Luis Garcia MD [address] [place] [address] PCP - ACO Reach 10/28/23 documented as of this encounter
--- OUTSIDE RECORDS SUMMARY | 2025-04-24 09:52 | XMS_ITS | Encounter Summary ---
Author Organization [facility] Address [address] [place] [address] Care Team Providers Care Naval Aircrewman Name Role Phone Luis Garcia MD Primary Care Provider [phone] Luis Garcia MD Unavailable [phone] Encounter Details Date Type Department Care Team (Late Contact Info) Description 03/15/2023 Orders Only [facility] [place] [facility] [address] [place] [address] A, Unknown Practice [address] [place], [place] [phone] Social History Tobacco Use Types Packs/Day Years [...] CI PODIATRY [address] [place] [address] Jermaine Barker, ANASTASIIA [address] [facility] [address] 5 [place] [address] 07/01/2025 8:40 AM EST Office Visit [facility] [address] [place] [address] Zulma Zarco, PA [address] [place] [address] 07/05/2025 8:30 AM EST Office Visit [facility] [place] Altman [address] [facility] 110 [place] [phone] Luis Garcia MD [address] [facility] 110 [place] [address] documented as of this encounter Procedures Procedure Name Priority Date/Time Associated Diagnosis Comments HOLTER MONITOR 48HR Routine 03/08/2023 3:49 PM EDT documented in this encounter Results * HOLTER MONITOR 48HR (03/08/2023 3:49 PM EDT) Anatomical Region Laterality Modality Radiographic Flori ging us Unknown Practice A IMG XR PROCEDURES Final Resul t documented in this encounter Visit Diagnoses Not on filedocumented in this encounter Care Teams Naval Aircrewman Relationship Specialty Start Date End Date Luis Garcia MD [address] [facility] 110 [place] [address] PCP - General Internal Medicine 02/16/23 Luis Garcia MD [address] [facility] 110 [place] [address] PCP - ACO Reach 10/28/23 documented as of this encounter
--- OUTSIDE RECORDS SUMMARY | 2025-04-24 09:52 | XMS_ITS | Encounter Summary ---
Author Organization [facility] Address [address] [place] [address] Care Team Providers Care Road Grader Name Role Phone Jose MCDANIEL MD, Luis Castro Primary Care Provider [phone] Source Comments In the event this information is protected by the Federal Confidentiality of Alcohol and Drug AbusePatient Records regulations: The Federal rules restrict any use of the information to criminally investigate or prosecute any alcohol or drug abuse patient.[facility] Reason for Visit * Reason Comments Radiology XR Encounter Details Date Type Department Care Team (Late st Contact Info) Description 10/23/2021 Radiology Radiology [address] [place] [address] Bryant Tristan RT(R) Radiology XR Social History Tobacco Use Types Packs/Day Years Used Date Smoking Tobacco: Former Cigarettes - 2010 Smokeless Tobacco: Never Alcohol Use Standard Drinks/Week Comments Not Currently 0 (1 standard drink = 0.6 oz pur e alcohol) Comments No Sex and Gender Information Value Date Recorded Sex Assigned at Not on file Legal Sex Female 10:09 AM EDT Gender Identity Not on file Sexual Orientation Not on file COVID-19 Exposure Response Date Recorded In the last month, have you been in contact with someone who was confirmed or suspected to have Coronavirus / COVID-19? No / Unsure 10/23/2021 11:22 AM EST documented as of this encounter Progress Notes * Bryant Tristan RT(R) - 10/23/2021 11:53 AM EST Radiology Service Progress Note PATIENT NAME: Mary Molina DATE OF SERVICE: October 23, 2021 TIME: 11:53 AM PATIENT IDENTITY VERIFICATION COMPLETED USING TWO [...] IV DATA: Not applicable SIGNED BY: RT Trey(R) October 23, 2021 11:53 AM documented in this encounter Plan of Treatment Not on file documented as of this encounter Visit Diagnoses Not on filedocumented in this encounter Care Teams Road Grader Relationship Specialty Start Date End Date Luis Garcia II, MD [address] [address] PCP - General Internal Medicine 08/31/21 documented as of this encounter
--- OUTSIDE RECORDS SUMMARY | 2025-04-24 09:52 | XMS_ITS | Encounter Summary ---
Author Organization [facility] Address [address] [place] [address] Care Team Providers Care Planning Management It Specialist Name Role Phone Luis Garcia MD Primary Care Provider [phone] Luis Garcia MD Unavailable [phone] Encounter Details Date Type Department Care Team ([facility] Contact Info) Description 07/01/2023 Abstract [facility] [place] [facility] 112 [facility] 110 [place] [address] Luis Garcia MD 112 [facility] 110 [place], [place] [phone] Social History Tobacco Use Types Packs/Day Years [...] EDT Procedure Visit [facility] 112 [facility] 120 [place] [address] Jermaine Barker, DPM [address] [facility] 5 [place] [address] 07/01/2025 8:40 AM EST Office Visit [facility] [place] [facility] [address] [place] [address] Zulma Zarco, PA [address] [place], [place] [address] 07/05/2025 8:30 AM EST Office Visit [facility] [place] Altman [address] [facility] 110 [place] [phone] Luis Garcia MD [address] [facility] 110 [place] [address] documented as of this encounter Visit Diagnoses Not on filedocumented in this encounter Care Teams Planning Management It Specialist Relationship Specialty Start Date End Date Luis Garcia MD [address] [facility] 110 [place] [address] PCP - General Internal Medicine 02/16/23 Luis Garcia MD [address] [facility] 110 [place] [address] PCP - ACO Reach 10/28/23 documented as of this encounter
--- OUTSIDE RECORDS SUMMARY | 2025-04-24 09:52 | XMS_ITS | Encounter Summary ---
Author Organization [facility] Address [address] [place] [address] Care Team Providers Care Locomotive Firer/Fireman Name Role Phone Luis Garcia MD Primary Care Provider [phone] Luis Garcia MD Unavailable [phone] Encounter Details Date Type Department Care Team (Late Contact Info) Description 07/01/2023 Clinisync Result Encounter N[facility] External Department Unsolicited Luis Garcia MD 112 [facility] 110 [place] [address] Social History Tobacco Use Types [...] Procedure Visit [facility] 112 [facility] 120 [place] [address] Jermaine Barker, ANASTASIIA [address]006 [facility] 5 [place] [address] 07/01/2025 8:40 AM EST Office Visit [facility] [address] [place] [address] Zulma Zarco PA [address] [place] [address] 07/05/2025 8:30 AM EST Office Visit [facility] [place] [facility] Anupama [address] [facility] 110 [place] [address] Luis Garcia MD [address] [facility] 110 [place] [address] documented as of this encounter Procedures Procedure Name Priority Date/Time Associated Diagnosis Comments XR DEXA AXIAL SKELETON 07/01/2023 10:31 AM EDT documented in this encounter Results * XR DEXA AXIAL SKELETON (07/01/2023 10:31 AM EDT) Anatomical Region Laterality Modality Other 07/01/2023 10:3 1 AM EDT Narrative 07/01/2023 10:31 AM EDT [place] [id number] XRay Report Signed Patient: DHEERAJ VAUGHN MR#: [id number] : 1955 Acct:[id number] Age/Sex: 68 / F ADM Date: 07/01/23 Loc: RAD Attending Dr: LUIS GARCIA Ordering Physician: LUIS GARCIA Date of Service: 07/01/23 Procedure(s): XR DEXA axial skeleton Accession Number(s): [id number] cc: LUIS GARCIA [address] [address] Patient Name: DHEERAJ VAUGHN MRN: [id number] date: 1955 Sex: F Assigned Patient Location: RAD Current Patient Location: RAD Accession/Order Number: [id number] Exam Date: 07/01/2023 09:10 Report Date: 07/01/2023 10:31 At the request of: LUIS GARCIA Procedure: XR DEXA axial skeleton EXAMINATION: XR DEXA axial skeleton, 07/01/2023 9:10 AM EDT HISTORY: Estrogen Deficiency E28.39 COMPARISON: 2010. TECHNIQUE: Dual-energy X-ray absorptiometry (DEXA) bone density study performed for the axial skeleton. 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 Endotracheal T score -1.8. WHO classification: Osteopenia Lowest bone mineral density is in the left forearm radius measuring 0.509 g/sq cm. T score -2.9. WHO classification: Osteoporosis XR/XR DEXA axial skeleton IMPRESSION: Osteoporosis. High fracture risk Electronically authenticated by: CHRISTINE HU Date: 07/01/2023 10:31 Dictated By: Christine Hu M.D. Signed By: 07/01/23 1033 DD/ 1031 TD/TT: Lang Path Therapist: Procedure Note Radiology, Radiologist, MD - 07/01/2023 [place] [address] XRay Report Signed Patient: DHEERAJ VAUGHN R#: [id number] : 1955cct:[id number] Age/Sex: 68 / FADM Date: 07/01/23 Loc: RAD Attending Dr: LUIS GARCIA Ordering Physician: LUIS GARCIA Date of Service: 07/01/23 Procedure(s): XR DEXA axial skeleton Accession Number(s): [id number] cc: LUIS GARCIA [place] [id number] Patient Name: DHEERAJ VAUGHN MRN: [facility]:[id number] date: 1955 Sex: F Assigned Patient Location: [facility] Current Patient Location: RAD Accession/Order Number: [id number] Exam Date: 07/01/2023 09:10 Report Date: 07/01/2023 10:31 At the request of: LUIS GARCIA Procedure: XR DEXA axial skeleton EXAMINATION: XR DEXA axial skeleton, 07/01/2023 9:10 AM EDT HISTORY: Estrogen Deficiency E28.39 COMPARISON: 2010. TECHNIQUE: Dual-energy X-ray absorptiometry (DEXA) bone density study performed for the axial skeleton. HISTORY: Estrogen Deficiency E28.39 FINDINGS: Bone mineral density AP spine L1-L4 measures 0.962 g percent meterssquared. Endotracheal T score -1.8. WHO classification: Osteopenia Lowest bone mineral density is in the left forearm radius measuring 0.509g/sq cm. T score -2.9. WHO classification: Osteoporosis XR/XR DEXA axial skeleton IMPRESSION: Osteoporosis. High fracture risk Electronically authenticated by: CHRISTINE HU Date: 07/01/2023 10:31 Dictated By: Christine Hu M.D. Signed By:07/01/23 1033 DD/ 1031 TD/TT: Lang Path Therapist: us Luis Garcia MD [facility] Final Result documented in this encounter Visit Diagnoses Not on filedocumented in this encounter Care Teams Locomotive Firer/Fireman Relationship Specialty Start Date End Date Luis Garcia MD [address] [facility] 110 [place] [address] PCP - General Internal Medicine 02/16/23 Luis Garcia MD [address] [place] [address] PCP - ACO Reach 10/28/23 documented as of this encounter
--- OUTSIDE RECORDS SUMMARY | 2025-04-24 09:52 | XMS_ITS | Clinical Summary ---
Author Organization [facility] Address [address] [place] [address] Care Team Providers Care Boulevard Glassware Replacer Name Role Phone Jose MCDANIEL MD, Luis Castro Primary Care Provider [phone] Allergies Active Allergy Reactions Criticality Noted Date Comments Adhesive Tape-Silicones Other: See Comments blisters from Silverlon dressing Chlorhexidine Rash 11/24/2022 rash and itching from preop wipes Oxycodone GI Upset 11/24/2022 Medications [id number]- DPA-FISH OIL ORAL Take by mouth once daily. Active multivit with calcium,iron,min (WOMEN'S MULTIPLE VITAMINS ORAL) Take by mouth once daily. Active ascorbic acid (VITAMIN C ORAL) Take by mouth once daily. Active propranolol (INDERAL) 20 mg tablet Take 20 mg by mouth twice daily. 2 Active garlic (GARLIQUE ORAL) Take by mouth once daily. Active cetirizine (ZYRTEC) 10 mg tablet Take 10 mg by mouth once daily. Active docusate sodium (COLACE) 100 mg capsuleIndicatio ns:constipation Take 1 capsule by mouth twice daily as needed for constipation. 60 capsule 11/30/2022 3:16 PM EDT 3 Active acetaminophen (TYLENOL EXTRA STRENGTH) 500 mg tablet Take 2 tablets by mouth every 8 hours as needed for pain. 3 Active traMADol (ULTRAM) 50 mg tabletIndication s:pain Take 1 tablet by mouth every 4-6 hours as needed for pain 50 tablet 11/30/2022 3:16 PM EDT 3 Active aspirin, enteric coated (ECOTRIN LOW STRENGTH) 81 mg EC tabletIndication s:blood clot prevention Take 1 tablet by mouth twice daily for 28 days. 56 tablet 11/30/2022 3:16 PM EDT 3 Active Amoxicillin 500 mg tabletIndication s:Status post left hip replacement take 2 tabs one hour prior to dental procedure 4 tablet 1 5 Active Active Problems Problem Noted Date Diagnosed Date Status post right hip replacement 12/22/2022 Aftercare following left hip joint replacement s urgery 10/23/2021 Status post left hip replacement 10/23/2021 Primary osteoarthritis of right hip 10/23/2021 Primary osteoarthritis of left hip 09/21/2021 Emphysema of lung 09/21/2021 Assessment & Plan (11/24/2022 12:36 PM EDT): Assessment: Mild emphysematous changes on recent chest CT Denies dyspnea, cough, wheezing Former smoker 09/21/2021 Assessment & Plan (11/24/2022 12:36 PM EDT): Assessment: quit 2010- pack year SVT (supraventricular tachycardia) 09/21/2021 Assessment & Plan (11/24/2022 12:35 PM EDT): Assessment: Hx of SVT- controlled on propanolol Denies recent chest pain or palpitations Incomplete RBBB 09/21/2021 Immunizations Immunization Administration Dates Next Due diphtheria tetanus pertussis (DTaP) vaccine, pediatric (INFANRIX) 05/31/2016 influenza (HD-IIV3) vaccine, age 65+ yr, high dose, trivalent, PF (FLUZONE HIGH-DOSE) 06/16/2019,05/30/2018 influenza (HD-IIV4) vaccine, age 65+ yr, high dose, quadrivalent, PF (FLUZONE HIGH-DOSE) 06/16/2021 influenza (IIV3) vaccine, tr ivalent, PF (AFLURIA, FLUARIX, FLULAVAL, FLUVIRIN, FLUZONE) 05/24/2016 influenza (IIV3) vaccine, tr ivalent, PF, intradermal (FLUZONE INTRADERMAL) 05/31/2017 influenza (IIV4) vaccine, ag e 6 mo - 64 yr, quadrivalent, PF (AFLURIA, FLUARIX, FLULAVAL, FLUZONE) 05/21/2018,05/25/2017 influenza (aIIV4) vaccine, a ge 65+ yr, quadrivalent, PF (FLUAD QUAD) 06/12/2020 influenza vaccine, unspecifi ed formulation 05/31/2016 pneumococcal conjugate (PCV1 3) vaccine, 13 valent (PREVNAR 13) 08/03/2016 pneumococcal polysaccharide (PPV23) vaccine, 23 valent (PNEUMOVAX 23) 06/13/2020,08/03/2016,04/08/2015,03/30 tetanus diphtheria pertussis (Tdap) vaccine, age 7+ yr (ADACEL, BOOSTRIX) 05/24/2016,04/23/2016 zoster (RZV) vaccine, recomb inant (SHINGRIX) 03/29/2020,09/07/2019 zoster (ZVL) vaccine, live (ZOSTAVAX) 06/09/2011 ,06/03/2011 Family History Medical History Relation Comments Heart disease Father Heart disease Maternal Grandfather Heart Attack Maternal Grandmother Stroke Maternal Grandmother Stroke Mother other Mother Difficulty with anesthesia No Family History Relation Status Comments Father Maternal Grandfather Maternal Grandmother Mother Social History Tobacco Use Types Packs/Day Years Used Date Smoking Tobacco: Former Cigarettes 2010 Smokeless Tobacco: Never Tobacco Cessation:Counseling Given: Not Answered Alcohol Use Standard Drinks/Week Comments Not Currently 0 (1 standard drink = 0.6 oz pure alcohol) denies tx for drug/alcohol abuse in the past. Area Deprivation Index Answer Date Edwin rded National Score (1-100), lowe r number is lower risk 78 01/14/2023 State Score (1-10), lower number is lower risk 6 01/14/2023 Data from: https://www.neighborhoodatlas.medicine.[facility].edu/ . Last address used for calculation [address] [address] 01/14/2023 Comments No Sex and Gender Information Value Date Recorded Sex Assigned at Not on file Legal Sex Female 10:09 AM EDT Gender Identity Not on file Sexual Orientation Not on file Last Filed Vital Signs Vital Sign Reading Time Taken Comments Blood Pressure 111/51 11/30/2022 4:00 PM EDT Pulse 69 11/30/2022 4:00 PM EDT Temperature 36.3 C (97.4 F) 11/30/2022 2:07 PM EDT Respiratory Rate 15 11/30/2022 4:00 PM EDT Oxygen Saturation 93% 11/30/2022 4:00 PM EDT Inhaled Oxygen Concentration - - Weight 72.6 kg (160 lb) 11/24/2022 11:12 AM EDT Height 167.6 cm (5' 6 ) 11/24/2022 11:12 AM EDT Body Mass Index 25.82 11/24/2022 11:12 AM EDT Plan of Treatment Health Maintenance Due Date Last Done Comments Annual PCP Team Chronic Dise ase Visit 1972 Anxiety Screening 1972 Depression Screening 1972 Hepatitis C Screening 1972 CT Colonography 1999 Fecal Occult Blood 1999 Lipid Screening 1999 Sigmoidoscopy 1999 RSV Vaccine (1 - Risk 60-74 years 1-dose series) 2014 Medicare Annual Wellness Visit 02/26/2019 Colonoscopy 05/24/2020 05/24/2019 Cologuard (FIT-DNA) 04/12/2022 04/12/2019 Colorectal Cancer Screening 04/12/2022 Mammogram Screening 04/18/2024 04/18/2023, 2022, 02/26/2021 Advance Directive Discussion 08/29/2024 Influenza Vaccine (#1) 2025 , 06/11/2022, 06/16/2021, Additional history exists Diabetes Screening 11/24/2025 11/24/2022, 0 11/24/2022, 11/10/2022, Additional history exists DTaP,Tdap,Td Vaccine (4 - Td or Tdap) 05/31/2026 05/31/2016, 05/24/2016, 04/23/2016 Shingrix Vaccine Completed 03/29/2020, 05/2020, 06/09/2011, Additional history exists Pneumococcal Vaccine: 50+ Completed 2019, 08/03/2016, 08/03/2016, Additional history exists Bone Density Screening Completed 02/26/2021 Medical Devices Implanted Type Area Product Inspection Coordinator Device Identifier Shelf Expiration Date Model / Serial / Lot Liner Mdm 42mm E Cocr Acetabular 2 Mobility Modular Hip - [id number] Implanted:Qty: 1 on 09/29/2021 at [facility] Implant Left: Bone - Hip [employer] 12/22/2025 [id number] / / [id number] Liner Mdm 42mm E Cocr Acetabular 2 Mobility Modular Hip - [id number] Implanted:Qty: 1 on 11/30/2022 at [facility] Implant Right: Bone - Hip [employer] 09/07/2027 [id number] / / [id number] Mdm Liner X3 Insert 48mm X 28mm Implanted:Qty: 1 on 11/30/2022 at [facility] Implant Right: Bone - Hip [employer] 04/29/2027 [id number] / / [id number] Insert Adm Mobile Bearing Hip Shinto 48mm 28mm 0d X3 6.9mm Acetabular - [id number] Implanted:Qty: 1 on 09/29/2021 at [facility] Joint - Hip Left: Bone - Hip [employer] 11/12/2025 [id number] / / [id number] Head V40 Lfit 28mm +0mm Cocr Femoral Primary Taper Offset Hip - [id number] Implanted:Qty: 1 on 09/29/2021 at [facility] Joint - Hip Left: Bone - Hip [employer] 04/24/2025 [id number] / / [id number] Shell Trident Ii 52mm E Tritanium Acetabular 5 Screw Hole Cluster Sterile - [id number] Implanted:Qty: 1 on 09/29/2021 at [facility] Joint Left: Bone - Hip [employer] 04/19/2026 [id number] / / [id number] Stem Accolade Ii 7 132d Femoral - [id number] Implanted:Qty: 1 on 09/29/2021 at [facility] Joint Left: Bone - Hip [employer] 06/17/2026 [id number] / / [id number] Shell Trident Ii 54mm E Tritanium Acetabular 5 Screw Hole Cluster Sterile - [id number] Implanted:Qty: 1 on 11/30/2022 at [facility] Joint Right: Bone - Hip [employer] [employer] 10/06/2027 [id number] / / [id number] Stem Accolade Ii 7 132d Femoral - [id number] Implanted:Qty: 1 on 11/30/2022 at [facility] Joint Right: Bone - Hip [employer] 10/02/2027 [id number] / / [id number] Head V40 Lfit 28mm -4mm Offset Taper Cocr Femoral Primary Hip - [id number] Implanted:Qty: 1 on 11/30/2022 at [facility] Joint Right: Bone - Hip [employer] 10/14/2027 [id number] / / [id number] Procedures Procedure Name Priority Date/Time Associated Diagnosis Comments HEMOGLOBIN A1C Routine 11/24/2022 11:00 AM EDT Pre-op testing Abnormal finding of blood chemistry, unspecified from Last 3 Months or Most Recently Relevant to Health Maintenance Results * HGB A1C (11/24/2022 11:00 AM EDT) Hemoglobin A1C 5.3 4.3 - 5.6 % 11/24/2022 8:00 PM EDT [facility] Comment:Prydeinig Diabetes As sociation guidelines indicate that patients with HgbA1c in the range 5.7-6.4% are at increased risk for development of diabetes, and intervention by lifestyle modification may be beneficial. HgbA1c greater or equal to 6.5% is considered diagnostic of diabetes. Estimated Average Glucose 105 mg/dL 11/24/2022 8:00 PM EDT [facility] Comment:eAG: (Estimated aver age glucose) is a calculated value from HgbA1c and is disability representative of the average blood glucose level in the last 2-3 month period. Blood BLOOD SPECIMEN / Unknown Venipuncture / Unknown 11/24/2022 11:00 AM EDT 11/24/2022 11:03 AM EDT us Wilmar Tidwell MD LABORATORY Final Resul t [facility] [address] [facility] [address] [place] [address], [place] from Last 3 Months or Most Recently Relevant to Health Maintenance Insurance MEDICARE [employer] [facility] Care Teams Boulevard Glassware Replacer Relationship Specialty Start Date End Date Luis Garcia II, MD [address] [address] PCP - General Internal Medicine 08/31/21
--- OUTSIDE RECORDS SUMMARY | 2025-04-24 09:52 | XMS_ITS | Encounter Summary ---
Author Organization [facility] Address [address] [place] [address] Care Team Providers Care C Software Engineer Name Role Phone Luis Garcia MD Primary Care Provider [phone] Luis Garcia MD Unavailable [phone] Encounter Details Date Type Department Care Team (Late Contact Info) Description 02/14/2025 Abstract [facility] [address] [place] [address] Jermaine Barker DPM [address] [address] Social History Tobacco Use Types Packs/Day Years [...] EDT Procedure Visit [facility] 112 [facility] [address] [place] [address] Jermaine Barker DPM [address] [facility] 5 [place] [address] 07/01/2025 8:40 AM EST Office Visit [facility] [address] [place] [address] Zulma Zarco, PA [address] [place] [address] 07/05/2025 8:30 AM EST Office Visit [facility] [place] [facility] [address] [facility] 110 [place] [id number] Luis Garcia MD [address] [facility] 110 [place] [address] documented as of this encounter Visit Diagnoses Not on filedocumented in this encounter Additional Health Concerns Assessment Noted Time PHQ-9 Depression Total Score: 0 06/25/20 8:00 AM EDT documented as of this encounter Care Teams C Software Engineer Relationship Specialty Start Date End Date Luis Garcia MD [address] [facility] [address] [place] [address] PCP - General Internal Medicine 02/16/23 Luis Garcia MD [address] [facility] [address] [place] [address] PCP - ACO Reach 10/28/23 documented as of this encounter
--- OUTSIDE RECORDS SUMMARY | 2025-04-24 09:53 | XMS_ITS | Encounter Summary ---
Author Organization [facility] Address [address] [facility] [place] [address] Care Team Providers Care Call Center Supervisor Name Role Phone Luis Garcia MD Primary Care Provider [phone] Reason for Referral * Other (Routine) - Closed Specialty Diagnoses / Procedures Referred By Contac t Referred To Contact Radiology Diagnoses Encounter for screening mammogram for malignant neoplasm of breast Procedures EDITH HERMINIA DIGITAL SCREEN BILATERAL Luis Garcia MD 112 [facility] 110 [place] [address] Phone: tel: fax: Referral ID Status Reason Start Date Expiration Date Visits Re quested Visits Authorized [id number] Closed 02/25/2023 02/25/2024 1 1 Encounter Details Date Type Department Care Team (Late st Contact Info) Description 02/25/2023 Transcribe Orders [facility] [address] [place] [id number] Luis Garcia MD 112 [facility] 110 [place] [address] Encounter for screening mammogram for malignant neoplasm of breast (Primary Dx) Social History Tobacco Use [...] as of this encounter Plan of Treatment Not on file documented as of this encounter Results * EDITH HERMINIA DIGITAL SCREEN BILATERAL (04/18/2023 11:56 AM EDT) Anatomical Region Laterality Modality Breast Bilateral Mammography 04/18/2023 12:0 1 PM EDT Impressions 04/18/2023 12:12 PM EDT No mammographic evidence of malignancy BIRADS: BIRADS - CATEGORY 1 Negative. Normal interval follow-up is recommended in 12 months. OVERALL ASSESSMENT - NEGATIVE A letter of notification will be sent to the patient regarding the results. The [employer] recommends annual mammograms for women 40 years and older. Narrative 04/18/2023 12:12 PM EDT EXAMINATION: SCREENING DIGITAL BILATERAL MAMMOGRAM [...] concerning grouping of microcalcification in either breast. Luis Garcia MD IMG MAMMOGRAPHY ORDERABLES Fin al Result documented in this encounter Visit Diagnoses Diagnosis Encounter for screening mammogram for malignant neoplasm of breast- Primary Other screening mammogram Encounter for screening mammogram for malignant neoplasm of breast Other screening mammogram documented in this encounter Additional Health Concerns Assessment Noted Time A Body Mass Index follow-up plan has been documented for the patient 05/08/2020 2:17 PM EDT documented as of this encounter Care Teams Call Center Supervisor Relationship Specialty Start Date End Date Luis Garcia MD 112 [facility] 110 [place] [address] PCP - General 06/07/12 documented as of this encounter
--- OUTSIDE RECORDS SUMMARY | 2025-04-24 09:53 | XMS_ITS | Encounter Summary ---
Author Organization [facility] Address [address] [place] [address] Care Team Providers Care Global Recruiter Name Role Phone Luis Garcia MD Primary Care Provider [phone] Luis Garcia MD Unavailable [phone] Encounter Details Date Type Department Care Team ([facility] Contact Info) Description 03/29/2024 Orders Only [facility] [place] [facility] 112 [facility] 110 [place] [address] Parisa Feldman LPN [address] [place] [address] Abnormal tomography of chest Social History Tobacco Use Types Packs/Day Years Used Date Smoking Tobacco: Former Cigarettes 1 2010 Smokeless Tobacco: Never Alcohol Use Standard [...] EDT Procedure Visit [facility] 112 [facility] 120 [place] [address] Jermaine Barker DPM 3[address] [facility] 5 [place] [address] 07/01/2025 8:40 AM EST Office Visit [facility] [address] [place] [address] Zulma Zarco, VAIBHAV [address] [place] [address] 07/05/2025 8:30 AM EST Office Visit [facility] [place] [facility] [address] [facility] 110 [place] [address] Luis Garcia MD [address] [facility] 110 [place] [address] documented as of this encounter Visit Diagnoses Diagnosis Abnormal tomography of chest documented in this encounter Care Teams Global Recruiter Relationship Specialty Start Date End Date Luis Garcia MD [address] [facility] [address] [place] [address] PCP - General Internal Medicine 02/16/23 Luis Garcia MD [address] [facility] 110 [place] [address] PCP - ACO Reach 10/28/23 documented as of this encounter
--- OUTSIDE RECORDS SUMMARY | 2025-04-24 09:53 | XMS_ITS | Encounter Summary ---
Author Organization [facility] Address [address] [place] [address] Care Team Providers Care Paper Plate Machine Tender Name Role Phone Luis Garcia MD Primary Care Provider [phone] Luis Garcia MD Unavailable [phone] Encounter Details Date Type Department Care Team ([facility] Contact Info) Description 05/23/2024 Orders Only [facility] [place] [facility] [address] [facility] 110 [place] [address] Parisa Feldman LPN [address] [place] [address] Estrogen deficiency Social History Tobacco Use Types Packs/Day Years [...] EDT Procedure Visit [facility] [address] [facility] 120 [place] [address] Jermaine Barker DPM 3[address] [facility] 5 [place] [address] 07/01/2025 8:40 AM EST Office Visit [facility] [address] [place] [address] Zulma Zarco PA [address] [place] [address] 07/05/2025 8:30 AM EST Office Visit [facility] [place] [facility]upama [address] [place] [address] Luis Garcia MD [address] [facility] 110 [place] [address] documented as of this encounter Procedures Procedure Name Priority Date/Time Associated Diagnosis Comments DEXA BONE DENSITY- Unsuccess ful Attempt Routine 07/01/2023 Estrogen deficiency documented in this encounter Results * DEXA bone density (07/01/2023) - Unsuccessful Attempt 07/01/2023 Luis Garcia MD IMG DXA PROCEDURES Final Resul t documented in this encounter Visit Diagnoses Diagnosis Estrogen deficiency Other ovarian failure documented in this encounter Care Teams Paper Plate Machine Tender Relationship Specialty Start Date End Date Luis Garcia MD [address] [facility] [address] [place] [address] PCP - General Internal Medicine 02/16/23 Luis Garcia MD [address] [facility] [address] [place] [address] PCP - ACO Reach 10/28/23 documented as of this encounter
--- OUTSIDE RECORDS SUMMARY | 2025-04-24 09:53 | XMS_ITS | Clinical Summary ---
Author Organization [facility] Address [address], [address] [place] [address] Care Team Providers Care Associate Professor Of Criminal Justice Name Role Phone Luis Garcia MD Primary Care Provider [phone] Allergies Active Allergy Reactions Criticality Noted Date Comments Chlorhexidine Rash Low 11/24/2022 rash and itching from preop wipes Latex Other (See Comments) 02/17/2023 Oxycodone Other (See Comments),Nausea And Vomiting Low 11/24/2022 Wound Dressing Adhesive Other (See Comments) Medications cetirizine (ZYRTEC) 10 MG tablet Take 1 tablet by mouth daily Active propranolol (INDERAL) 20 MG tablet Take 1 tablet by mouth 2 times daily Active [place]-3 Fatty Acids (FISH OIL) 1000 MG CAPS Take 1 capsule by mouth daily Active Multiple Vitamin (MULTI-VITAMIN DAILY PO) Take by mouth daily Active Ascorbic Acid (VITAMIN C) 100 MG CHEW Take by mouth daily Active Glucosamine-Chond roitin (GLUCOSAMINE CHONDR COMPLEX PO) Take by mouth 2 times daily Active Aspirin-Acetamino phen-Caffeine (EXCEDRIN PO) Take 2 tablets by mouth daily Active Garlic 10 MG CAPS Take by mouth daily Active risedronate (ACTONEL) 35 MG tabletIndications :Encounter for gynecological examination without abnormal finding,Encounter for preventive health examination,Osteo penia, unspecified location Take 1 tablet by mouth every 7 days 12 tablet 4 0 Active Additional Information Patient not taking.Reported on 01/16/2025 azithromycin (ZITHROMAX) 250 MG tabletIndications :Acute maxillary sinusitis, recurrence not specified Take 2 tabs (500 mg) on Day 1, and take 1 tab (250 mg) on days 2 through 5. 1 packet 0 Active Additional Information Patient not taking.Reported on 01/16/2025 Active Problems No known active problems Immunizations Immunization Administration Dates Next Due DTaP 05/31/2016 Influenza Vaccine, unspecified formulation 05/31 Pneumococcal, PPSV23, PNEUMO VAX 23, (age 2y+), SC/IM, 0.5mL 08/03/2016 Zoster Live (Zostavax) 06/09/2011,06/03/2011 Family History Medical History Relation Name Comments Atrial Fibrillation Father Heart Failure Father Cancer Maternal Aunt uterine cancer Heart Attack Maternal Grandfather Heart Disease Maternal Grandfather Stroke Maternal Grandmother Atrial Fibrillation Mother Stroke Mother Atrial Fibrillation Sister 1 Relation Name Status Comments Father Maternal Aunt Maternal Grandfather Maternal Grandmother Mother Sister 1 Sister 2 Alive Social History Tobacco Use Types Packs/Day Years Used Date Smoking Tobacco: Former Cigarettes 1 30 0 05/08/1981 - 05/08/2011 Smokeless Tobacco: Never Tobacco Cessation:Counseling Given: Yes Alcohol Use Standard Drinks/Week Comments No 0 (1 standard drink = 0.6 oz pur e alcohol) [facility] Utilities Answer Date Recorded In the past 12 months has th e [employer], gas, oil, or water [employer] threatened to shut off services in your home? No 01/16/2025 PHQ-2 Answer Date Recorded PHQ-9 Total Score 0 01/16/2025 Hunger Vital Sign Answer Date Recorded Within the past 12 months, y ou worried that your food would run out before you got the money to buy more. Never true 01/17/20 25 Within the past 12 months, t he food you bought just didn't last and you didn't have money to get more. Never true 01/16/2025 PRAPARE - Transportation Answer Date Re corded In the past 12 months, has l ack of transportation kept you from medical appointments or from getting medications? No 12/28 In the past 12 months, has l ack of transportation kept you from meetings, work, or from getting things needed for daily living? No 01/16/2025 Housing Stability Vital Sign Answer Farzad e Recorded In the last 12 months, was t here a time when you were not able to pay the mortgage or rent on time? No 01/16/2025 In the past 12 months, how m any times have you moved where you were living? 0 01/16/2025 At any time in the past 12 m [facility], were you homeless or living in a [place] facility (including now)? No 01/16/2025 Food Insecurity Answer Date Recorded Within the past 12 months, y ou worried that your food would run out before you got the money to buy more. 1 01/16/2025 Within the past 12 months, t he food you bought just didn't last and you didn't have money to get more. 1 01/16/2025 Comments No Sex and Gender Information Value Date Recorded Sex Assigned at Not on file Legal Sex Female 10:06 AM EST Gender Identity Not on file Sexual Orientation Not on file Last Filed Vital Signs Vital Sign Reading Time Taken Comments Blood Pressure 118/68 01/16/2025 11:02 AM EDT Pulse 72 08/03/2016 9:10 AM EST Temperature - - Respiratory Rate 18 08/03/2016 9:10 AM EST Oxygen Saturation - - Inhaled Oxygen Concentration - - Weight 73.5 kg (162 lb) 01/16/2025 11:02 AM EDT Height 175.3 cm (5' 9 ) 01/16/2025 11:02 AM EDT Body Mass Index 23.92 01/16/2025 11:02 AM EDT Plan of Treatment Health Maintenance Due Date Last Done Comments Hepatitis C screen 1972 Lipids 1994 Colonoscopy 1999 FIT/FOBT: Average risk 1999 Sigmoidoscopy/CT colonography 1999 Pneumococcal 50+ years Vaccine (2 of 2 - PCV) 06/13/2021 06/13/2020, 08/03/2016, 08/03/2016, Additional history exists Colorectal Cancer Screen 04/12/2022 Fecal-DNA (Cologuard): Average risk 04/12/2022 04/12/2019 Annual Wellness Visit (Medicare) 07/25/2023 Lung Cancer Screening &/or Counseling 11/09/2023 11/08/2022 COVID-19 Vaccine ( season) 2024 06/02/2024, 06/11/2023, 05/27/2022, Additional history exists Flu vaccine (#1) 03/29/2025 06/25/2024, , 06/11/2022, Additional history exists Breast cancer screen 04/18/2025 04/18/2023, 04/05/2022, 04/05/2022, Additional history exists Depression Screen 01/16/2026 01/16/2025, 01/16/2025 DTaP/Tdap/Td vaccine (4 - Td or Tdap) 05/31/2026 05/31/2016, 05/24/2016, 04/23/2016 Respiratory Syncytial Virus (RSV) or age 60 yrs+ (1 - 1-dose 75+ series) 2029 Shingles vaccine Completed 03/29/2020, 05/2020, 06/09/2011, Additional history exists DEXA (modify frequency per FRAX score) Completed 02/26/2021, 02/26/2021, 02/06/2019, Additional history exists Hepatitis A vaccine Aged Out No longe r eligible based on patient's age to complete this topic Hepatitis B vaccine Aged Out No longe r eligible based on patient's age to complete this topic Hib vaccine Aged Out No longer eligi ble based on patient's age to complete this topic Meningococcal (ACWY) vaccine Aged Out No longer eligible based on patient's age to complete this topic Meningococcal B vaccine Aged Out No l onger eligible based on patient's age to complete this topic Polio vaccine Aged Out No longer elig ible based on patient's age to complete this topic Procedures Procedure Name Priority Date/Time Associated Diagnosis Comments [facility] DIGITAL SCREEN BILATERAL Routine 04/18/2023 11:56 AM EDT Encounter for screening mammogram for malignant neoplasm of breast DEXA BONE DENSITY 2 SITES Routine 02/26/2021 9:14 AM EDT Abnormal findings on diagnostic imaging of other parts of musculoskeletal system Osteopenia, unspecified location from Last 3 Months or Most Recently Relevant to Health Maintenance Results * [facility] DIGITAL SCREEN BILATERAL (04/18/2023 11:56 AM EDT) Anatomical Region Laterality Modality Breast Bilateral Mammography 04/18/2023 12:0 1 PM EDT Impressions 04/18/2023 12:12 PM EDT No mammographic evidence of malignancy BIRADS: BIRADS - CATEGORY 1 Negative. Normal interval follow-up is recommended in 12 months. OVERALL ASSESSMENT - NEGATIVE A letter of notification will be sent to the patient regarding the results. The [employer] recommends annual mammograms for [...] concerning grouping of microcalcification in either breast. us Luis Garcia MD IMG MAMMOGRAPHY ORDERABLES Fin al Result * DEXA Bone Density 2 Sites (02/26/2021 9:14 AM EDT) Anatomical Region Laterality Modality Radiographic Flori ging 02/26/2021 10:1 1 AM EDT Impressions 02/26/2021 10:41 AM EDT Osteopenia by WHO criteria. Narrative 02/26/2021 10:41 AM EDT EXAMINATION: BONE DENSITOMETRY 02/26/2021 8:57 am TECHNIQUE: A bone density DEXA scan was performed of the lumbar spine and left hip on a [employer] system. COMPARISON: 02/06/2019 HISTORY: ORDERING SYSTEM PROVIDED HISTORY: Abnormal findings on diagnostic imaging of other parts of musculoskeletal solar system installer PROVIDED HISTORY: History of osteopenia treated with [...] risk is performed using the [employer] FRAX calculator based on patient-reported risk factors. [...] at the National Osteoporosis Foundation's website bonesource.org. Procedure Note Jefry Hurtado MD - 02/26/2021 EXAMINATION: BONE DENSITOMETRY 02/26/2021 8:57 am TECHNIQUE: A bone density DEXA scan was performed of the lumbar spine and left hip phong [employer] system. COMPARISON: 02/06/2019 HISTORY: ORDERING SYSTEM PROVIDED HISTORY: Abnormal findings on diagnostic imagingof other parts of musculoskeletal solar system installer PROVIDED HISTORY: History of osteopenia treated with bisphosphonates, this test should be performed in about a year FINDINGS: LUMBAR SPINE: The bone mineral density in the lumbar spine including the L1-L4 levelsis measured at 0.962 g/cm2, which corresponds to a T-score of -1.8 and aZ-score of -0.5. This is within the osteopenia range by WHO criteria. Sinceprior exam, there has been a 0.019g/cm2 increase in bone mineral density, corresponding to a 2% change. LEFT HIP: The bone mineral density in the total hip is measured at 0.837 g/cm2 corresponding to a T-score of -1.4 and a Z-score of -0.3. This is withinthe osteopenia range by WHO criteria. Since prior exam, there has been a 0.013g/cm2 decline in bone mineral density, corresponding to a 1.5%change. The bone mineral density of the femoral neck is measured at 0.943 g/cm2 corresponding to a T-score of -0.7 and a Z-score of 0.7. This is withinthe normal range by WHO criteria. 10 year fracture risk is performed using the [employer]RA[employer] calculator based on patient-reported risk factors. Major osteoporotic fracture: 13% Hip fracture: 2.7% National Osteoporosis Foundation guidelines suggest pharmacologictreatment of patients with major osteoporotic fracture risk of 20% or greater andhip fracture risk of 3% or greater. Other situations known to alter the reliability of the FRAX score shouldbe considered when making treatment decisions, including chronicglucocorticoid use and past treatments. Further guidance on treatment can be found atthe National Osteoporosis Foundation's website bonesource.org. IMPRESSION: Osteopenia by WHO criteria. Breezy Zaman MD IMG DEXA ORDERABLES Final Res ult from Last 3 Months or Most Recently Relevant to Health Maintenance Insurance MEDICARE JUDY VALORIE JUDYEPHRAIM [id number] Care Teams Associate Professor Of Criminal Justice Relationship Specialty Start Date End Date Luis Garcia MD [address] [facility] [address] [place] [address] PCP - General 06/07/12
--- OUTSIDE RECORDS SUMMARY | 2025-04-24 09:53 | XMS_ITS | Encounter Summary ---
Author Organization [facility] Address [address] [place] [address] Care Team Providers Care Supervisor Seaming Name Role Phone Luis Garcia MD Primary Care Provider Luis Garcia MD Unavailable [phone] Encounter Details Date Type Department Care Team (Late Contact Info) Description 05/09/2024 Clinisync Result Encounter [facility] External Department Unsolicited Luis Garcia MD 112 [facility] 110 [place] [address] Social History Tobacco Use Types Packs/Day Years Used Date Smoking Tobacco: Former Cigarettes 981 - 2010 Smokeless Tobacco: Never Alcohol [...] CI POD[facility]ATRY 112 [facility] 120 [place] [address] Jermaine Barker, ANASTASIIA [address] [facility] 5 [place] [address] 07/01/2025 8:40 AM EST Office Visit [facility] [address] [place] [address] Zulma Zarco PA [address] [place] [address] 07/05/2025 8:30 AM EST Office Visit [facility] [place] [facility] Anup[facility] [address] [facility] 110 [place] [address] Luis Garcia MD 112 [facility] 110 [place] [address] documented as of this encounter Procedures Procedure Name Priority Date/Time Associated Diagnosis Comments MM TOMOSYNTHESIS SCREENING BI 05/09/2024 9:51 AM EDT documented in this encounter Results * MM TOMOSYNTHESIS SCREENING BI (05/09/2024 9:51 AM EDT) Anatomical Region Laterality Modality Other 05/09/2024 9:51 AM EDT Narrative 05/09/2024 9:52 AM EDT [place] [id number] Mammography Report Signed Patient: DHEERAJ VAUGHN MR#: [id number] : 1955 Acct:[id number] Age/Sex: 69 / F ADM Date: 04/23/24 Loc: CT Attending Dr: LUIS GARCIA Ordering Physician: LUIS GARCIA Results: Date of Service: 04/23/24 Follow Up: Procedure(s): MM tomosynthesis screening BI Accession Number(s): [id number] cc: LUIS GARCIA Patient Name: DHEERAJ VAUGHN MR#: [id number] : 1955 Exam Date: 04/23/2024 Ordering Doctor: [...] uterine cancer at age 44. LOCATION: [facility] BREAST COMPOSITION: The breasts are extremely dense, [...] Dictated By: Alejandro Jolley M.D. Signed By: 05/09/24951 DD/ 0 TD/TT: Mill Supervisor: Procedure Note Radiology, Radiologist, MD - 05/09/2024 [place] [address] Mammography Report Signed Patient: DHEERAJ VAUGHN JMR#: [id number] : 1955cct:[id number] Age/Sex: 69 / FADM Date: 04/23/24 Loc: CT Attending Dr: LUIS GARCIA Ordering Physician: LUIS GARCIAResults: Date of Service: 04/23/24Follow Up: Procedure(s): MM tomosynthesis screening BI Accession Number(s): [id number] cc: LUIS GARCIA Patient Name: DHEERAJ VAUGHN MR#: [id number] : 1955 Exam Date: 04/23/2024 Ordering Doctor: [...] uterine cancer at age 44. LOCATION: [facility] BREAST COMPOSITION: The breasts are extremely dense, [...] Alejandro Jolley M.D. Signed By:05/09/2452 DD/ TD/TT: Mill Supervisor: us Luis Garcia MD [facility] Final Result documented in this encounter Visit Diagnoses Not on filedocumented in this encounter Care Teams Supervisor Seaming Relationship Specialty Start Date End Date Luis Garcia MD [address] [facility] 110 [place] [address] PCP - General Internal Medicine 02/16/23 Luis Garcia MD [address] [facility] 110 [place] [address] PCP - ACO Reach 10/28/23 documented as of this encounter
--- OUTSIDE RECORDS SUMMARY | 2025-04-24 09:53 | XMS_ITS | Encounter Summary ---
Author Organization [facility] Address [address] [place] [address] Care Team Providers Care Batch Mixing Truck Driver Name Role Phone Luis Garcia MD Primary Care Provider [phone] Luis Garcia MD Unavailable [phone] Encounter Details Date Type Department Care Team ([facility] Contact Info) Description 12/28/2023 Abstract [facility] [place] [facility] 112 [facility] 110 [place] [address] Luis Garcia MD 112 [facility] 110 [place], [place] [id number] Social History Tobacco Use Types Packs/Day Years [...] EDT Procedure Visit [facility] [address] [facility] 120 [place] [address] Jermaine Barker, DPM [address] [facility] 5 [place] [address] 07/01/2025 8:40 AM EST Office Visit [facility] [place] [facility] [address] [place] [address] Zulma Zarco, PA [address] [place], [place] [id number] 07/05/2025 8:30 AM EST Office Visit [facility] [place] [facility] [address] [facility] 110 [place] [address] Luis Garcia MD [address] [facility] 110 [place] [address] documented as of this encounter Visit Diagnoses Not on filedocumented in this encounter Care Teams Batch Mixing Truck Driver Relationship Specialty Start Date End Date Luis Garcia MD [address] [facility] 110 [place] [address] PCP - General Internal Medicine 02/16/23 Luis Garcia MD [address] [facility] 110 [place] [address] PCP - ACO Reach 10/28/23 documented as of this encounter
--- OUTSIDE RECORDS SUMMARY | 2025-04-24 09:53 | XMS_ITS | Encounter Summary ---
Author Organization [facility] Address [address] [place] [address] Care Team Providers Care Mechanical Facilities Technician Name Role Phone Luis Garcia MD Primary Care Provider [phone] Luis Garcia MD Unavailable [phone] Encounter Details Date Type Department Care Team (Late Contact Info) Description 04/24/2024 Clinisync Result Encounter [facility] External Department Unsolicited Luis Garcia MD 112 [facility] 110 [place] [address] Social History Tobacco Use Types [...] 112 [facility] 120 [place] [address] Jermaine Barker, ANASTASIIA 3006 [facility] 5 [place] [address] 07/01/2025 8:40 AM EST Office Visit [facility] [address] [place] [address] Zulma Zarco PA [address] [place] [address] 07/05/2025 8:30 AM EST Office Visit [facility] [place] Matt Anupama 112 [facility] 110 [place] [address] Luis Garcia MD 112 [facility] 110 [place] [address] documented as of this encounter Procedures Procedure Name Priority Date/Time Associated Diagnosis Comments CT LUNG SCREENING LOW DOSE 04/24/2024 5:46 AM EDT documented in this encounter Results * CT LUNG SCREENING LOW DOSE (04/24/2024 5:46 AM EDT) Anatomical Region Laterality Modality Other 04/24/2024 5:46 AM EDT Narrative 04/24/2024 5:49 AM EDT [address] [address] [address] Scan Report Signed Patient: DHEERAJ VAUGHN MR#: [id number] : 1955 Acct:[id number] Age/Sex: 69 / F ADM Date: 04/23/24 Loc: CT Attending Dr: LUIS GARCIA Ordering Physician: LUIS GARCIA Date of Service: 04/23/24 Procedure(s): CT lung screening low-dose Accession Number(s): [id number] cc: LUIS GARCIA [address] [id number] Patient Name: DHEERAJ VAUGHN MRN: [id number] date: 1955 Sex: F Assigned Patient Location: CT Current Patient Location: Accession/Order Number: [id number] Exam Date: 04/23/2024 08:40 Report Date: 04/24/2024 05:46 At the request of: LUIS GARCIA Procedure: CT lung screening low-dose EXAMINATION: CT lung screening low-dose HISTORY: History Of Tobacco Dependence COMPARISON: CT chest 04/20/2023 TECHNIQUE: Axial, Coronal, and Sagittal images were created without the administration of IV contrast material. Dose reduction techniques were achieved by using automated exposure control and/or adjustment of mA and/or kV according to patient size and/or use of iterative reconstruction technique. FINDINGS: LUNGS: Mild bronchiectasis bilaterally with scattered areas of mucous plugging within right lower lobe and right middle lobe. Calcified granuloma within right middle lobe. Mild emphysematous changes. PLEURA: No mass, effusion, or pneumothorax. VASCULATURE: No abnormality. BRI: A few calcified lymph nodes compatible with chronic granulomatous disease. MEDIASTINUM: A few calcified lymph nodes. CARDIAC: No enlargement, pericardial thickening, or pericardial effusion. Coronary Artery calcifications: AORTA: No aneurysm or dissection. CHEST WALL: No mass or axillary adenopathy BONES: No bone lesion or fracture. LIMITED ABDOMEN: No suspicious findings. Limited images of the upper abdomen. OTHER: Negative. CT/CT lung screening low-dose IMPRESSION: 1. Lung-RADS Category 1 Negative. No nodules and definitely benign nodules. Continue annual screening with LDCT in 12 months. 2. Mild emphysematous changes. 3. Bronchiectasis and scattered areas of mucous plugging of the bronchi. No peripheral infiltrates or atelectasis. Electronically authenticated by: GIOVANA CHOUDHARY Date: 04/24/2024 05:46 Dictated By: Giovana Choudhary M.D. Signed By: 04/24/24 0549 DD/ 0546 TD/TT: Educational Technology Specialist: Procedure Note Radiology, Radiologist, MD - 04/24/2024 [place] [address] CT Scan Report Signed Patient: DHEERAJ VAUGHN JMR#: [id number] : 1955cct:[id number] Age/Sex: 69 / FADM Date: 04/23/24 Loc: CT Attending Dr: LUIS GARCIA Ordering Physician: LUIS GARCIA Date of Service: 04/23/24 Procedure(s): CT lung screening low-dose Accession Number(s): [id number] cc: LUIS GARCIA The [place] [address] Patient Name: DHEERAJ VAUGHN MRN: [id number] date: 1955 Sex: F Assigned Patient Location: CT Current Patient Location: Accession/Order Number: [id number] Exam Date: 04/23/2024 08:40 Report Date: 04/24/2024 05:46 At the request of: LUIS GARCIA Procedure: CT lung screening low-dose EXAMINATION: CT lung screening low-dose HISTORY: History Of Tobacco Dependence COMPARISON: CT chest 04/20/2023 TECHNIQUE: Axial, Coronal, and Sagittal images were created without the administration of IV contrast material. Dose reduction techniques were achieved by using automated exposure control and/or adjustment of mA and/or kV according to patient size and/or use of iterative reconstruction technique. FINDINGS: LUNGS: Mild bronchiectasis bilaterally with scattered areas of mucousplugging within right lower lobe and right middle lobe. Calcified granuloma within right middle lobe. Mild emphysematous changes. PLEURA: No mass, effusion, or pneumothorax. VASCULATURE: No abnormality. BRI: A few calcified lymph nodes compatible with chronic granulomatous disease. MEDIASTINUM: A few calcified lymph nodes. CARDIAC: No enlargement, pericardial thickening, or pericardial effusion. Coronary Artery calcifications: AORTA: No aneurysm or dissection. CHEST WALL: No mass or axillary adenopathy BONES: No bone lesion or fracture. LIMITED ABDOMEN: No suspicious findings. Limited images of the upperabdomen. OTHER: Negative. CT/CT lung screening low-dose IMPRESSION: 1. Lung-RADS Category 1 Negative. No nodules and definitely benignnodules. Continue annual screening with LDCT in 12 months. 2. Mild emphysematous changes. 3. Bronchiectasis and scattered areas of mucous plugging of the bronchi.No peripheral infiltrates or atelectasis. Electronically authenticated by: GIOVANA CHOUDHARY Date: 04/24/2024 05:46 Dictated By: Giovana Choudhary M.D. Signed By:04/24/24 0549 DD/ TD/TT: Educational Technology Specialist: us Luis Garcia MD [facility] Final Result documented in this encounter Visit Diagnoses Not on filedocumented in this encounter Care Teams Mechanical Facilities Technician Relationship Specialty Start Date End Date Luis Garcia MD [address] [facility] [address] [place] [address] PCP - General Internal Medicine 02/16/23 Luis Garcia MD [address] [facility] [address] [place] [address] PCP - ACO Reach 10/28/23 documented as of this encounter
--- OUTSIDE RECORDS SUMMARY | 2025-04-24 09:53 | XMS_ITS | Encounter Summary ---
Author Organization [facility] Address [address] [place] [address] Care Team Providers Care Air Cargo Agent Name Role Phone Luis Garcia MD Primary Care Provider [phone] Luis Garcia MD Unavailable [phone] Encounter Details Date Type Department Care Team (Late Contact Info) Description 10/04/2023 Clinisync Result Encounter [facility] External Department Unsolicited Provider, Generic External Data Social History Tobacco Use Types Packs/Day Years [...] EDT Procedure Visit [facility] [address] [facility] [address] [place] [address] Jermaine Barker, DPM [address] [facility] [address] [place] [address] 07/01/2025 8:40 AM EST Office Visit [facility] [address] [place] [address] Zulma Zarco, PA [address] [place] [address] 07/05/2025 8:30 AM EST Office Visit [facility] [address] [facility] [address] [place] [phone] Luis Garcia MD [address] [facility] [address] [place] [address] documented as of this encounter Procedures Procedure Name Priority Date/Time Associated Diagnosis Comments XR PELVIS 1V AP 10/04/2023 11:04 AM EST documented in this encounter Results * XR PELVIS 1V AP (10/04/2023 11:04 AM EST) Anatomical Region Laterality Modality Other 10/04/2023 11:0 4 AM EST Narrative 10/04/2023 3:41 PM EST * * *Final Report* * * DATE [...] right hip. IMPRESSION: Stable bilateral hip arthroplasties. Habilitation Assistant: PSCMatthew Transcribe Date/Time: Oct 04 2023 3:37P Dictated by : JAYE PAYTON MD This examination was interpreted and the report reviewed and electronically signed by: JAYE PAYTON MD on Oct 04 2023 3:39PM EST [id number]^SI^ACN Procedure Note Radiology, Radiologist, - 10/05/2023 * * *Final Report* * * DATE [...] right hip. IMPRESSION: Stable bilateral hip arthroplasties. Habilitation Assistant: PSCB Transcribe Date/Time: Oct 04 2023 3:37P Dictated by : JAYE PAYTON MD This examination was interpreted and the report reviewed and electronically signed by: JAYE PAYTON MD on Oct 04 2023 3:39PM EST [id number]^[email or web address]^ACN us Generic External Data Provider [facility] Final Result documented in this encounter Visit Diagnoses Not on filedocumented in this encounter Care Teams Air Cargo Agent Relationship Specialty Start Date End Date Luis Garcia MD [address] [facility] [address] [place] [address] PCP - General Internal Medicine 02/16/23 Luis Garcia MD [address] [facility] [address] [place] [address] PCP - ACO Reach 10/28/23 documented as of this encounter
--- OUTSIDE RECORDS SUMMARY | 2025-04-24 09:53 | XMS_ITS | Encounter Summary ---
Author Organization [facility] Address [address] [facility], [address] [place] [address] Care Team Providers Care Fulfillment Specialist Name Role Phone Luis Garcia MD Primary Care Provider [phone] Reason for Referral * Other (Routine) - Closed Specialty Diagnoses / Procedures Referred By Contac t Referred To Contact Diagnoses Paroxysmal supraventricular tachycardia Procedures Holter Monitor 48 Hour Luis Garcia MD 112 [facility] 110 [place] [address] Phone: tel: fax: Referral ID Status Reason Start Date Expiration Date Visits Re quested Visits Authorized [id number] Closed 03/03/2023 2024 1 1 Encounter Details Date Type Department Care Team (Late st Contact Info) Description 03/03/2023 Transcribe Orders [facility] [address] [place] [id number] Luis Garcia MD 112 [facility] 110 [place] [address] Paroxysmal supraventricular tachycardia (Primary Dx) Social History Tobacco Use Types [...] documented as of this encounter Results * Holter Monitor 48 Hour (03/08/2023 9:17 AM EDT) Hookup Date Mar 08 2023 [facility] Hookup Time 09:17:07 [facility] Acquisition Duration [id number] S [facility] Number Of QRS Complexes [id number] [facility] Number Of Ventricular Ectopics 288 [facility] Number Of Ventricular Bigeminal Cycles 0 [facility] Number Of Ventricular Couplets 1 [facility] Number Of Superventricular Ectopics 2216 [facility] Number Of Suptaventricular Isolated Beats 2137 [facility] Number Of Supraventricular Couplets 6 [facility] Average Heart Rate 69 BPM [facility] Holter Max Heart Rate 99 BPM [facility] Min Heart Rate 52 BPM [facility] Max Heart Rate Time/Date [id number] [facility] Min Heart Rate Time/Date [id number] [facility] Diagnosis This 48-hour test was scanned by Shelby Gonzalez RN on 03/11/2023 at 08:45.Tech comments:1. The rhythm was sinus with sinus arrhythmia.Averag e IA interval 0.18, QRS duration 0.10 - 0.11 [prolonged].2. Diary returned with 2 entries of flutter? only half second .A few short runs of atrial tachycardia and occasional PVC's. Symptoms as above associated with NSR with sinus arrhythmia. Largely unremarkablestudy .Confirmed by AZALIA OBRIEN, GIOVANA Mead ([id number]) on 03/15/2023 1:05:07 AM [facility]USE 03/08/2023 9:17 AM EDT 03/15/2023 1:05 AM EDT us Luis Garcia MD CARDIAC SERVICES ORDERABLES Fi nal Result [facility]USE documented in this encounter Visit Diagnoses Diagnosis Paroxysmal supraventricular tachycardia- Primary documented in this encounter Additional Health Concerns Assessment Noted Time A Body Mass Index follow-up plan has been documented for the patient 05/08/2020 2:17 PM EDT documented as of this encounter Care Teams Fulfillment Specialist Relationship Specialty Start Date End Date Luis Garcia MD [address] [place] [id number] PCP - General 06/07/12 documented as of this encounter
--- OUTSIDE RECORDS SUMMARY | 2025-04-24 09:53 | XMS_ITS | Encounter Summary ---
Author Organization [facility] Address [address] [place] [address] Care Team Providers Care Manager People Name Role Phone Luis Garcia MD Primary Care Provider [phone] Luis Garcia MD Unavailable [phone] Encounter Details Date Type Department Care Team ([facility] Contact Info) Description 05/10/2024 Orders Only [facility] [place] [facility] [address] [facility] 110 [place] [address] Parisa Feldman LPN [address] [place] [address] Former smoker Social History Tobacco Use Types Packs/Day Years [...] EDT Procedure Visit [facility] [address] [facility] [address] [place] [address] Jermaine Barker DPM [address] [facility] 5 [place] [address] 07/01/2025 8:40 AM EST Office Visit [facility] [address] [place] [address] Zulma Zarco, VAIBHAV [address] [place] [address] 07/05/2025 8:30 AM EST Office Visit [facility] [place] [facility] [address] [facility] [address] [place] [phone] Luis Garcia MD [address] [facility] [address] [place] [address] documented as of this encounter Visit Diagnoses Diagnosis Former smoker Personal history of tobacco use, presenting hazards to health documented in this encounter Care Teams Manager People Relationship Specialty Start Date End Date Luis Garcia MD [address] [facility] [address] [place] [address] PCP - General Internal Medicine 02/16/23 Luis Garcia MD [address] [facility] [address] [place] [address] PCP - ACO Reach 10/28/23 documented as of this encounter
--- OUTSIDE RECORDS SUMMARY | 2025-04-24 09:53 | XMS_ITS | Encounter Summary ---
Author Organization [facility] Address [address] [facility], [address] [place] [address] Care Team Providers Care Roof Tile Layer Name Role Phone Luis Garcia MD Primary Care Provider [phone] Encounter Details Date Type Department Care Team (Late st Contact Info) Description 02/25/2023 Transcribe Orders [facility] [address] [place], [place] [phone] Luis Garcia MD 112 [facility] 110 [place] [address] Social History Tobacco Use Types [...] documented as of this encounter Care Teams Roof Tile Layer Relationship Specialty Start Date End Date Luis Garcia MD [address] [facility] [address] [place], [place] [phone] PCP - General 06/07/12 documented as of this encounter
--- NOTE | 2025-04-24 09:55 | MM_ITS ---
Patient Name: DHEERAJ VAUGHN MR#: [id number] : 1955 Exam Date: 04/24/2025 Ordering Doctor: DR JUAN HAMILTON M.D. RADIOLOGY REPORT PROCEDURE: MM TOMOSYNTHESIS SCREENING BI COMPARISON: MM TOMOSYNTHESIS SCREENING BI, 04/23/2024. MG MAMM SCREEN DELFINO W CAD, 04/18/2023. MG MAMM SCREEN DELFINO W CAD, 10/06/2016. MG MAMM SCREEN DELFINO W CAD, 05/10/2008. INDICATIONS: Screening Calculator Name NCI Breast Cancer Risk Assessment Tool 5 Year Breast Cancer Risk 1.90% Lifetime Breast Cancer Risk 5.40% Personal Breast Cancer No Personal Ovarian Cancer No Treatments None Family Cancers Aunt-maternal with uterine cancer at age ~45. LOCATION: [facility] BREAST COMPOSITION: The breasts are heterogeneously dense, which may obscure small masses. FINDINGS: DIAGNOSTIC CATEGORY 1--NEGATIVE. RIGHT BREAST: No significant suspicious finding. LEFT BREAST: No significant suspicious finding. RECOMMENDATIONS: ROUTINE MAMMOGRAM AND CLINICAL EVALUATION IN 12 MONTHS. Dictated by: Travis Zarate DO on 04/24/2025 at 14:55 Approved by: Travis Zarate DO on 04/24/2025 at 14:57
== END 2025-04-24 09:49 | disposition home or self-care (01) ==
LOC: MAMMO 09:50
PROVIDERS: PCP Internal Medicine; Visit Provider Internal Medicine
DX: Z12.31 Encounter for screening mammogram for malignant neoplasm of breast (principal); Z80.8 Family history of malignant neoplasm of other organs or systems
CPT/HCPCS: 77063; 77067